=== PATIENT | male | born 1945 | race Caucasian/White ===

== ENCOUNTER 2019-07-27 11:18 | Inpatient (IN) | payer MEDICARE, SELFPAY ==
[2019-07-27] VITALS (13 sets, daily range): BP systolic 94–140; BP diastolic 48–89; PULSE 88–125; RESP 12–28; TEMP 36.6–38.5; O2SAT 96–100; BMI 21.7
--- NOTE | ~2019-07-27 | XR_ITS ---
EXAMINATION: XR chest 2V DATE: 07/27/2019 13:22 INDICATION: Fever and shortness of breath TECHNIQUE: PA and lateral views of the chest are obtained. COMPARISON: 06/20/2019 FINDINGS: The lungs are free of acute opacities. There is no pleural effusion or pneumothorax. Linear densities paralleling the right lateral chest wall likely reflect skin folds as lung markings appear to extend to the chest wall. The cardiomediastinal silhouette is normal. There is moderate thoracic spondylosis. IMPRESSION: 1. No acute cardiopulmonary abnormality. Reviewed, dictated and finalized at location A. ARCH [employer] TECHNOLOGIST
--- NOTE | 2019-07-27 11:49 | ECG_ITS ---
Measurements Intervals [place] Rate: 113 P: -32 MD: 188 QRS: -26 QRSD: 100 T: 56 QT: 332 QTc: 456 Interpretive Statements SINUS OR ECTOPIC ATRIAL TACHYCARDIA BORDERLINE T WAVE ABNORMALITY IN ANTEROLAT/INF LEADS- CONSIDER ISCHEMIA BASELINE ARTIFACT- I, II, III, AVR, AVL ABNORMAL ECG Electronically Signed On 07-27-2019 13:57:59 STAFF NUCLEAR WEAPONS OFFICER by Matt Mendiola D.O.
--- NOTE | 2019-07-27 12:11 | ED.WEAKNESS ---
HPI - Weakness General Chief complaint: Weakness Stated complaint: WEAKNESS Time Seen by Provider: 07/27/19 12:09 Source: patient and family Mode of arrival: EMS Limitations: no limitations History of Present Illness HPI Narrative: Pt is a 73 y/o male who presents to the ED, via EMS, with c/o generalized weakness. Per family, pt is supposed to have a CABG done in August by Dr. Corona at [facility]. His call circuit worker is Dr. Steinberg, and pt had a cardiac catheterization done a couple of weeks ago by Dr. Oshea. Pt had a carotid doppler and a cardiac MRI done yesterday and he had PINKY feet MRI done today. He is waiting for the results of his tests before he can have his surgery. Pt has a H/O DM and has PINKY feet wounds that he had surgery on in January (7 months ago). His PINKY feet wounds are still healing and he has wound care dress his wounds every week. Pt is supposed to be at his hardness tester for his anemia but he was too weak to get there. Pt reports fever, chills, sweats, rt shooting CP, cough, and rhinorrhea. He denies sore throat, dysuria, or frequency. Per family, pt was confused this morning and was fatigued. He was too weak to get to the bathroom that he defecated on himself. Pt denies recent foreign travel. His vascular surgeon is Dr. Bansal. Complaint: generalized weakness Duration: constant Location: generalized Associated symptoms: chest pain (rt), confusion, diaphoresis, fever/chills and other (cough, rhinorrhea) Related Data Home Medications Medication Instructions Recorded Confirmed atorvastatin 20 mg tablet 20 mg PO DAILY 04/30/19 07/27/19 clopidogrel 75 mg tablet 75 mg PO DAILY 04/30/19 07/09/19 insulin lispro 100 unit/mL 100 unit SUB-Q DAILY ml 04/30/19 07/09/19 subcutaneous cartridge omeprazole 40 mg capsule,delayed 40 mg PO DAILY 04/30/19 07/27/19 release aspirin 81 mg PO DAILY 06/20/19 07/09/19 cyanocobalamin (vitamin B-12) 1,000 mcg PO DAILY 06/20/19 07/10/19 hydralazine 50 mg PO BID 06/20/19 07/09/19 fludrocortisone 0.1 mg PO TID 07/09/19 07/09/19 levothyroxine 112 mcg PO DAILY 07/10/19 07/27/19 potassium chloride 20 meq PO DAILY 07/10/19 07/27/19 meclizine 25 mg PO TID PRN 07/27/19 07/27/19 Allergies Allergy/AdvReac Type Severity Reaction Status Date / Time No Known Allergies Allergy Verified 06/20/19 16:50 Review of Systems Review of Systems: All systems reviewed & are unremarkable except as noted in HPI and below Constitutional: Constitutional: Reports chills, Reports fatigue, Reports fever(s), Reports weakness (generalized) and Reports other (sweats) ENT: Reports nasal discharge and Denies sore throat Cardiovascular: Cardiovascular: Reports chest pain (rt shooting) Respiratory: Respiratory: Reports cough Genitourinary: Genitourinary: Denies dysuria and Denies urinary frequency [facility] Past Medical History Medical History (Updated 07/27/19 @ 17:41 by Justin Gruber MD) Acute diastolic CHF (congestive heart failure) Amputation of toe of left foot Left 1st Amputation of toe of right foot Right 2nd Chronic anemia Chronic GERD Chronic kidney disease Coronary artery disease involving [place] coronary artery of [place] heart Non STEMI in November 2013. He had angioplasty to the first diagonal with failed intervention to the OM2. He is followed by Dr. Jameel Steinberg. Diabetic foot ulcers Essential hypertension Fracture of both ankles Fracture of both arms History of osteomyelitis Hyperlipidemia Hypertension Hypothyroidism Insulin dependent diabetes mellitus Complicated by diabetic neuropathy. He has had several hospitalizations for diabetic ketoacidosis. Mixed hyperlipidemia Myocardial infarction x3 Nose fracture Orthostasis PAD (peripheral artery disease) Patient of Dr. Bansal. Vertigo Surgical History Surgical History Status post amputation of toe Left great toe amputated the MP joint in April 2009 for osteomyelitis. Distal
[2019-07-27 12:23] LABS: Basophils Absolute Auto 0.1 K/mm3 (0.0-0.1); Basophils Percent Auto 0.6 % (0.2-1.2); Eosinophils Percent Auto 0.2 % (0-4.4); Hematocrit 29.4 % (42.0-52.0); Immature Granulocyte Absolute 0.14 K/mm3 (0.00-0.031); Immature Granulocyte Percent A 0.8 % (0-0.5); Lymphocytes Absolute Auto 0.65 K/mm3 (0.9-3.2); Lymphocytes Percent Auto 3.5 % (18.3-44.2); Mean Corpuscular HGB Conc 30.6 g/dl (32-36); Mean Corpuscular Hemoglobin 21.9 pg (26-34); Mean Corpuscular Volume 71.5 fl (80-100); Mean Platelet Volume 10.9 fl (7.4-10.4); Monocytes Absolute Auto 0.8 K/mm3 (0.1-0.6); Monocytes Percent Auto 4.2 % (2.6-8.5); Neutrophils Absolute Auto 16.8 K/mm3 (1.3-6.7); Neutrophils Percent Auto 90.7 % (45.5-73.1); Platelet Count Result 368 k/mm3 (150-375); Red Blood Count 4.11 M/mm3 (4.6-6.20); Red Cell Distribution Width 22.3 % (11.5-14.5); White Blood Count 18.5 K/mm3 (4.5-10.0)
[2019-07-27 12:39] LABS: Alanine Aminotransferase 19 U/L (4-50); Albumin Level 4.5 g/dL (3.5-5.1); Alkaline Phosphatase 116 U/L (38-126); Aspartate Amino Transferase 25 U/L (17-59); Bilirubin,Total 0.4 mg/dL (0.2-1.3); Blood Urea Nitrogen 27 mg/dL (9-20); Calcium 9.6 mg/dL (8.4-10.2); Carbon Dioxide 20 mmol/L (22-30); Chloride 93 mmol/L (98-107); Estimated Glomerular Filt Rate 54; Glucose 367 mg/dL (75-110); Lactic Acid Reflex 2.1 mmol/L (0.7-2.1); Potassium 4.9 mmol/L (3.4-5.0); Sodium 131 mmol/L (137-145)
[2019-07-27 13:30] LABS: Add Urine Microscopic? YES; Appearance Urine Cloudy (Clear); Bilirubin Urine Negative (Negative); Blood Urine Negative (Negative); Color Urine Yellow (Yellow); Glucose Urine UA 3+ mg/dL (Negative); Ketones Urine 1+ mg/dL (Negative); Leukocyte Esterase Ur 3+ LEU/UL (Negative); Nitrate Urine Negative (Negative); Protein Urine 1+ mg/dL (Negative); Specific Grav Ur 1.014 (1.001-1.035); Urobilinogen Urine Negative mg/dL (<2.0); WBC Urine >75 /hpf
[2019-07-27] MEDS: SODIUM CHLORIDE 0.9% IV 500 ML 999 ML IV CONT (14:16)
--- NOTE | 2019-07-27 14:20 | PC.NURSE ---
lab to add on crp and esr
[2019-07-27 14:25] LABS: Glucose Point of Care 353 (65-105)
[2019-07-27 14:51] LABS: Erythrocyte Sedimentation Rate 79 mm/hr (0-20)
[2019-07-27 15:22] LABS: Reflex Lactic Acid Yes or No Add Lactic
[2019-07-27] MEDS: INSULIN HUMAN REGULAR (*BKC) 100 UNITS/ML IV PUSH (15:35)
[2019-07-27 16:16] LABS: Glucose Point of Care 335 (65-105)
--- NOTE | 2019-07-27 17:02 | PM.CNGS ---
Assessment and Plan Assessment and plan (1) Diabetic foot ulcers: Qualifiers: Diabetic foot ulcer location: toe Diabetes mellitus type: type 2 Laterality: unspecified laterality Non-pressure ulcer stage: with bone involvement without evidence of necrosis Qualified Code(s): E11.621 - Type 2 diabetes mellitus with foot ulcer; L97.506 - Non-pressure chronic ulcer of other part of unspecified foot with bone involvement without evidence of necrosis Code(s): E11.621 - Type 2 diabetes mellitus with foot ulcer; L97.509 - Non-pressure chronic ulcer of other part of unspecified foot with unspecified severity Status: Acute Assessment and Plan: Patient presents with chronic foot wounds and has been following Dr. Bansal, a vascular surgeon at [facility]. There is some purulence drainage coming from the left lateral foot wound. Will begin applying silver gel topically to each of the wounds and continue to monitor these wounds over the weekend. I will have to review the MRI with Radiology. The area of concerning osteomyelitis does not appear to correlate with the area where the worst wound is. This may be a chronic finding based on his prior surgeries. He is currently on broad-spectrum antibiotics. Will continue to follow patient's overall condition. (2) Amputation of toe of right foot: Code(s): S98.131A - Complete traumatic amputation of one right lesser toe, initial encounter Status: Acute (3) Amputation of toe of left foot: Code(s): S98.132A - Complete traumatic amputation of one left lesser toe, initial encounter Status: Acute (4) PAD (peripheral artery disease): Code(s): I73.9 - Peripheral vascular disease, unspecified Status: Acute (5) Insulin dependent diabetes mellitus: Code(s): E11.9 - Type 2 diabetes mellitus without complications; Z79.4 - halfway (current) use of insulin Status: Acute History of Present Illness Consult details Consult date: 07/27/19 Narrative: This is a 73-year-old man who presented to the emergency department today with complaints of feeling poorly and having bilateral foot wounds. The patient has chronic bilateral foot wounds that have been managed by Dr. Bansal. He underwent multiple surgeries for these foot wounds. He has had a left great toe amputation as well as multiple other toe amputations on both feet. He feels that the left foot has been having more problems lately with wounds. He has a history of peripheral vascular disease and diabetes that have complicated the healing process of both of these. Review of Systems Review of Systems: All systems reviewed & are unremarkable except as noted in HPI and below Eyes: Eyes: Denies change in vision ENT: Denies hearing loss, Denies neck pain and Denies sore throat Cardiovascular: Cardiovascular: Denies chest pain and Denies dyspnea Respiratory: Respiratory: Denies cough, Denies dyspnea and Denies wheezing Genitourinary: Genitourinary: Denies hematuria and Denies dysuria Musculoskeletal: Musculoskeletal: Denies arthralgias, Denies joint swelling and Denies neck pain Integumentary/Breasts: Skin/Breast: Reports non-healing lesions (Bilateral foot wounds) Allergic/Immunologic: Allergic/Immunologic: Denies wheezing [facility] Past Medical History Medical History Acute diastolic CHF (congestive heart failure) Amputation of toe of left foot Left 1st Amputation of toe of right foot Right 2nd Chronic anemia Chronic GERD Chronic kidney disease Coronary artery disease involving [place] coronary artery of [place] heart Non STEMI in November 2013. He had angioplasty to the first diagonal with failed intervention to the OM2. He is followed by Dr. Jameel Steinberg. Diabetic foot ulcers Essential hypertension Fracture of both ankles Fracture of both arms History of osteomyelitis Hyperlipidemia Hypertension Hypothyroidism Insulin depen
--- NOTE | 2019-07-27 17:20 | PC.NURSE ---
This patient, Miah Chambers, was admitted to Medical Room 342-01. Patient/family oriented to hospital policies and general routines including ID bracelet, bed and alarms, visiting hours, pain management, procedures, bathroom and other care routines, personal items, smoking policy, room service/diet, and visiting hours. Valuables list has been completed. Information on how to activate the Rapid Response Team has been discussed. Patient/Family are encouraged to report perceived risks to care and to ask questions if they do not understand what they are told or what they should do.
[2019-07-27 17:37] LABS: Glucose Point of Care 351 (65-105)
--- NOTE | 2019-07-27 20:04 | PC.NURSE ---
After multiple attempts to reach Hospitalist Adeel. I left a message that upon my physical assessment of patient that he has no insulin pump attached to his body.
[2019-07-27] MEDS: ONDANSETRON INJ 4 MG/2 ML VIAL IV PUSH (20:26)
[2019-07-27] MEDS: INSULIN ASPART (*BKC) 100 UNITS/ML 8 UNITS SUB-Q (20:31)
[2019-07-27] MEDS: INSULIN GLARGINE (*BKC) 100 UNITS/ML 20 UNITS SUB-Q (20:58)
[2019-07-27] MEDS: INSULIN ASPART (*BKC) 100 UNITS/ML 10 UNITS SUB-Q (20:59)
[2019-07-27] MEDS: SILVERGEL (ELTA) 45 ML 1 APPLIC TOPICAL (21:03)
[2019-07-27] MEDS: carvediloL 6.25 MG TABLET PO (21:03)
[2019-07-27 21:36] LABS: Glucose Point of Care > 500 (65-105)
[2019-07-27 21:43] LABS: Blood Urea Nitrogen 30 mg/dL (9-20); Calcium 8.5 mg/dL (8.4-10.2); Carbon Dioxide 13 mmol/L (22-30); Chloride 91 mmol/L (98-107); Estimated CRCL calculation 33 ml/min; Estimated Glomerular Filt Rate 42; Glucose 620 mg/dL (75-110); Potassium 5.1 mmol/L (3.4-5.0); Sodium 126 mmol/L (137-145)
[2019-07-27 22:17] LABS: Magnesium 1.6 mg/dL (1.6-2.3); Phosphorus 5.8 mg/dL (2.5-4.5)
--- NOTE | 2019-07-27 22:30 | PC.NURSE ---
REPORT CALLED TO
--- NOTE | 2019-07-27 23:21 | PM.IMHP ---
H&P: HPI History of Present Illness Chief complaint: Weakness Narrative: Date and time of patient contact: 07/27/2019 at 11:55 p.m. Miah Chambers is a 73 year old male with a complicated past medical history including ischemic cardiomyopathy, peripheral artery disease, poorly controlled insulin-dependent diabetes, and chronic diabetic foot wounds who presented to the ER for weakness. Source of information is ER records and past medical records. The patient himself is a poor historian. The patient had evidently had an outpatient cardiac MRI at [facility] 07/26/2019. The patient reports he has been short of breath since shortly after [place] and had an outpatient cardiac catheterization 07/10/2019 which demonstrated a new ischemic cardiomyopathy. He has scheduled to have a 5 vessel CABG at [facility] in August. However given his chronic foot wounds he had a MRI performed of his feet to rule out infection before he could have his bypass procedure. The MRI of his feet demonstrated possible osteomyelitis of the left foot. The patient was post fall with his corporate officer today but has been too weak to get to the visit. The patient was found to be confused and fatigued on the morning of the . He was too weak to get to the bathroom. He defecated on himself. Patient evidently also reported fever, chills, sweats, cough and rhinorrhea. At the time of my evaluation the patient denies any cough or rhinorrhea. He is alert and oriented to person, place and time but is confused as to recent events. He did report pain right shooting chest pain to the ER staff. He denies any chest pain at the time of my evaluation. He was initially admitted to the medical floor. However the patient had taken is insulin pump off either the morning of coming to the hospital or the day prior. He is unable to give any information regarding his glucose management. Before I could see the patient patient began having vomiting, diaphoresis, tachycardia, and tachypnea. A stat BMP was ordered which demonstrated the patient was in DKA. The patient had received sliding scale insulin with additional insulin due to hyperglycemia prior to the BMP. Despite these measures the patient's glucoses were 620. The patient was transferred to the ICU for insulin drip per DKA protocol. Nursing staff reported to me that the patient was incontinent of a small amount of brown stool when he arrived to the ICU. He denies any dysuria or hematuria. Review of Systems Review of Systems: Narrative: Except as documented in the HPI, all other systems were reviewed and are negative. However reliability of the review of systems is questionable given the patient is a poor historian. [facility] Past Medical History Medical History (Updated 07/27/19 @ 23:42 by Renu Cervantes, DO) Amputation of toe of left foot Left 1st Amputation of toe of right foot Right 2nd Chronic anemia Chronic GERD Chronic kidney disease Coronary artery disease involving [place] coronary artery of [place] heart Non STEMI in November 2013. He had angioplasty to the first diagonal with failed intervention to the OM2. He is followed by Dr. Jameel Steinberg. Cardiac catheterization 07/10/2019 demonstrated multiple vessel coronary artery disease Diabetic foot ulcers Essential hypertension Fracture of both ankles Fracture of both arms History of osteomyelitis Hyperlipidemia Hypothyroidism Insulin dependent diabetes mellitus Complicated by diabetic neuropathy. He has had several hospitalizations for diabetic ketoacidosis. Ischemic cardiomyopathy With new ischemic cardiomyopathy June 2019 EF 25-30% Mixed hyperlipidemia Myocardial infarction x3 Nose fracture Orthostasis No longer on midodrine given his new systolic dysfunction noted June 2019 PAD (peripheral artery disease) Patient of Dr. Bansal. Vertigo Surgical History Surgical History Status po
[2019-07-27 23:40] LABS: Glucose Point of Care 415 (65-105)
--- NOTE | 2019-07-27 23:52 | PC.NURSE ---
BECKIAR FAXED TO ICU FOR PATIENT TRANSFER. REPORT CALLED TO CONCEPCION. FAMILY PIZARRO (DTR) NOTIFIED OF TRANSFER.
--- NOTE | 2019-07-27 23:56 | PC.NURSE ---
2320 PATIENT TRANSFERED TO ICU-11 VIA BED. CHART AND MEDS GIVEN TO RECEIVING NURSE.
--- NOTE | 2019-07-27 23:58 | PC.NURSE ---
This patient, Miah Chambers, was transferred to [ ] on 07/27/19 at 2359. Personal belongings sent with patient. Belongings list checked and signed with receiving [ICU 11 ]. Report given to [CONCEPCION]. Appropriate documentation sent with patient.
[2019-07-28] VITALS (17 sets, daily range): BP systolic 83–126; BP diastolic 47–73; PULSE 81–101; RESP 14–20; TEMP 37–37.6; O2SAT 97–100
[2019-07-28] MEDS: INSULIN HUMAN REGULAR (*BKC) 100 UNITS in SODIUM CHLORIDE 0.9% IV 99 ML 7.1 UNITS IV CONT (00:19)
[2019-07-28 00:24] LABS: Blood Urea Nitrogen 32 mg/dL (9-20); Calcium 8.1 mg/dL (8.4-10.2); Carbon Dioxide 18 mmol/L (22-30); Chloride 93 mmol/L (98-107); Estimated CRCL calculation 35 ml/min; Estimated Glomerular Filt Rate 46; Glucose 413 mg/dL (75-110); Sodium 125 mmol/L (137-145)
[2019-07-28 00:57] LABS: Glucose Point of Care 395 (65-105)
[2019-07-28 01:16] LABS: Glucose Point of Care > 500 (65-105)
[2019-07-28] MEDS: SODIUM CHLORIDE 0.9% IV 1,000 ML 100 ML IV CONT (01:28)
[2019-07-28 01:38] LABS: Glucose Point of Care 303 (65-105)
[2019-07-28 02:45] LABS: Glucose Point of Care 251 (65-105)
--- NOTE | 2019-07-28 03:23 | PC.NURSE ---
PATIENT TRANSFERRED FROM [facility] VIA BED ON 07/27/19 AT 2330. TELE MONITOR APPLIED, B/P 102/53, POC 415. PATIENT IS ALERT AND ORIENTED X3 BUT FORGETFUL OF RECENT EVENTS. ORIENTED TO ROOM, CALL LIGHT SYSTEM, AND CARE PLAN. STATES UNDERSTANDING DR STILES AT BEDSIDE.
[2019-07-28 04:00] LABS: Glucose Point of Care 152 (65-105)
[2019-07-28] MEDS: KCL 20 MEQ/D5/0.45% SOD CHL 1,000 ML 100 ML IV CONT (04:01)
[2019-07-28 05:05] LABS: Blood Urea Nitrogen 34 mg/dL (9-20); Calcium 8.2 mg/dL (8.4-10.2); Carbon Dioxide 22 mmol/L (22-30); Chloride 97 mmol/L (98-107); Estimated CRCL calculation 33 ml/min; Estimated Glomerular Filt Rate 42; Glucose 116 mg/dL (75-110); Potassium 3.8 mmol/L (3.4-5.0); Sodium 130 mmol/L (137-145)
[2019-07-28 05:05] LABS: Glucose Point of Care 105 (65-105)
[2019-07-28 06:08] LABS: Glucose Point of Care 93 (65-105)
[2019-07-28 07:09] LABS: Glucose Point of Care 119 (65-105)
[2019-07-28] MEDS: INSULIN HUMAN REGULAR (*BKC) 100 UNITS/ML SUB-Q ×2 (08:27→12:49)
[2019-07-28] MEDS: INSULIN GLARGINE (*BKC) 100 UNITS/ML 15 UNITS SUB-Q ×2 (08:28→21:45)
[2019-07-28 08:31] LABS: Glucose Point of Care 115 (65-105)
[2019-07-28 09:27] LABS: Glucose Point of Care 97 (65-105)
[2019-07-28] MEDS: INSULIN ASPART (*BKC) 100 UNITS/ML SUB-Q ×3 (12:48→23:58)
[2019-07-28 12:55] LABS: Glucose Point of Care 209 (65-105)
--- NOTE | 2019-07-28 13:02 | WPDCNINT ---
Assessment and Plan Assessment and plan (1) Acute renal injury: Code(s): N17.9 - Acute kidney failure, unspecified Status: Acute Assessment and Plan: Monitor renal parameters. Monitor electrolytes and urine output. (2) DKA, type 1, not at goal: Code(s): E10.10 - Type 1 diabetes mellitus with ketoacidosis without coma Status: Acute Assessment and Plan: Gap has already been closed. He was transition to basal bolus insulin with Lantus and regular insulin. He is normally on a 1.1 unit per our insulin from midnight to 6:00 a.m. and 1.4 units/hour from 6:00 a.m. until midnight. Consider endocrine consult for transitioning him back to his insulin pump. Check hemoglobin A1c. Check BMP later today to make sure he continued to have a closed anion gap. (3) Osteomyelitis: Qualifiers: Laterality: right Osteomyelitis location: foot Osteomyelitis type: unspecified type Qualified Code(s): M86.9 - Osteomyelitis, unspecified Code(s): M86.9 - Osteomyelitis, unspecified Status: Acute Assessment and Plan: Continue Zosyn and vancomycin. Follow cultures. Surgery consult recommendation appreciated. surgery service will evaluate MRI with the radiologist and, with further plans. (4) Open wnd foot-complicated: Qualifiers: Encounter type: initial encounter Laterality: right Qualified Code(s): S91.301A - Unspecified open wound, right foot, initial encounter Code(s): S91.309A - Unspecified open wound, unspecified foot, initial encounter Status: Acute Assessment and Plan: Continue antibiotics. (5) Chronic anemia: Code(s): D64.9 - Anemia, unspecified Status: Acute Assessment and Plan: Monitor. (6) Hypokalemia: Code(s): E87.6 - Hypokalemia Status: Acute Assessment and Plan: Replace potassium and rest of the electrolytes. Monitor BMP later today. (7) PAD (peripheral artery disease): Code(s): I73.9 - Peripheral vascular disease, unspecified Status: Acute Assessment and Plan: Surgery evaluation appreciated. Continue antibiotics for now. (8) Coronary artery disease involving [place] coronary artery of [place] heart: Qualifiers: Associated angina: without angina Qualified Code(s): I25.10 - Atherosclerotic heart disease of [place] coronary artery without angina pectoris Code(s): I25.10 - Atherosclerotic heart disease of [place] coronary artery without angina pectoris Status: Acute Assessment and Plan: He is scheduled to have CABG in August at [facility]. his osteomyelitis would need to be cleared before he can go for the surgery. Additional Plan Follow-up BMP done 4 hours after stopping insulin drip showing anion gap being 12 with bicarb 19. He will be downgraded to the floor today. Mineral Industry Teacher Consult Note Consult date: 07/28/19 Time Seen: 08:30 HPI: Miah Chambers is a 73 year old male With past medical history of ischemic cardiomyopathy, peripheral vascular disease, poorly-controlled insulin-dependent diabetes mellitus and chronic diabetic foot ulcer who came to the ED with weakness. He was a poor historian. He was complaining of shortness of breath as well in addition to confusion. He had fecal incontinence 2. He did mention to have fever chills sweats and cough as well. He denied any chest pain. He was initially admitted to the floor. His insulin pump. Apparently for having MRI of the foot. He is supposed to be on 1.1 unit insulin Matheus from midnight to 6:00 a.m. and 1.4 unit from 6:00 a.m. until midnight. He was initially admitted to the floor. Later he developed vomiting diaphoresis tachycardia and tachypnea. A BMP was performed and he was found to have DKA. His blood glucose was elevated. His anion gap was 15 with bicarb being 18. He was 14 his to the ICU. He was started on insulin drip and IV fl
[2019-07-28 13:23] LABS: Blood Urea Nitrogen 28 mg/dL (9-20); Calcium 8.1 mg/dL (8.4-10.2); Carbon Dioxide 19 mmol/L (22-30); Chloride 96 mmol/L (98-107); Estimated CRCL calculation 43 ml/min; Estimated Glomerular Filt Rate 54; Glucose 218 mg/dL (75-110); Sodium 127 mmol/L (137-145)
[2019-07-28 13:28] LABS: Beta-Hydroxybutyrate/Acetoacetate 0.33 mmol/L (0.02-0.27)
[2019-07-28 13:29] LABS: Hemoglobin A1C 9.1 % (<5.7)
--- NOTE | 2019-07-28 15:16 | PM.PNGS ---
Progress Note: A&P Assessment and Plan (1) Diabetic foot ulcers: Qualifiers: Diabetic foot ulcer location: toe Diabetes mellitus type: type 2 Laterality: unspecified laterality Non-pressure ulcer stage: with bone involvement without evidence of necrosis Qualified Code(s): E11.621 - Type 2 diabetes mellitus with foot ulcer; L97.506 - Non-pressure chronic ulcer of other part of unspecified foot with bone involvement without evidence of necrosis Code(s): E11.621 - Type 2 diabetes mellitus with foot ulcer; L97.509 - Non-pressure chronic ulcer of other part of unspecified foot with unspecified severity Status: Acute Assessment and Plan: Continue daily dressing changes. If the wound continues to show improvement, he may not need any further surgical debridement. With patient has significant peripheral vascular disease and poorly controlled diabetes, he is at high risk for requiring forefoot or below-knee amputation at some point. (2) PAD (peripheral artery disease): Code(s): I73.9 - Peripheral vascular disease, unspecified Status: Acute (3) Amputation of toe of right foot: Code(s): S98.131A - Complete traumatic amputation of one right lesser toe, initial encounter Status: Acute (4) Amputation of toe of left foot: Code(s): S98.132A - Complete traumatic amputation of one left lesser toe, initial encounter Status: Acute Subjective Subjective Date/Time Seen: 07/28/19 15:16 Patient reports no pain with his foot. He is currently in the ICU for possible diabetic ketoacidosis. Exam Extrem: Other: Left foot wound dressing in place. No significant purulence drainage. No tenderness or erythema extending up the foot. Objective Data Vital Signs Vital Signs: Vital Signs - 24 hr 07/27/19 16:15 07/27/19 16:50 07/27/19 17:59 Temperature 36.6 C Pulse Rate 93 88 104 H Respiratory Rate 17 12 16 Blood Pressure 94/52 L 94/52 L 138/51 L Pulse Oximetry 100 100 07/27/19 20:00 07/27/19 21:03 07/27/19 21:08 Temperature 37.6 C H Pulse Rate 112 H 125 H 118 H Respiratory Rate 28 H Blood Pressure 131/58 L Pulse Oximetry 96 07/27/19 23:30 07/28/19 00:00 07/28/19 02:00 Temperature 37.2 C Pulse Rate 99 90 91 Respiratory Rate 22 H 20 Blood Pressure 102/53 L 87/47 L Pulse Oximetry 97 97 07/28/19 03:16 07/28/19 04:00 07/28/19 05:00 Temperature 37.2 C Pulse Rate 91 88 82 Respiratory Rate 16 16 16 Blood Pressure 83/50 L 88/59 L 96/56 L Pulse Oximetry 100 99 100 07/28/19 06:00 07/28/19 07:00 07/28/19 08:00 Temperature 37.0 C Pulse Rate 82 83 81 Respiratory Rate 16 16 14 Blood Pressure 96/56 L 103/73 102/63 Pulse Oximetry 100 99 98 07/28/19 10:00 07/28/19 12:00 Temperature Pulse Rate 83 82 Respiratory Rate 14 18 Blood Pressure 122/67 121/67 Pulse Oximetry 100 100 Intake/Output Intake/Output: Intake & Output 07/25/19 07/26/19 07/27/19 07/28/19 23:59 23:59 23:59 23:59 Intake Total 1090 1790 Output Total 200 800 Balance 890 990 Meds/Results Medications: Active Medications Generic Name Dose Route Start Last Admin Trade Name Freq PRN Reason Stop Dose Admin Acetaminophen 650 mg 07/27/19 16:12 Tylenol Tablet PO Q4H PRN Mild Pain (1-3) or Fever Dextrose 12.5 gm 07/28/19 07:43 Dextrose 50% Syringe IV PUSH PRN PRN Hypoglycemia Protocol Glucagon 1 mg 07/28/19 07:43 Glucagon For Inj IM PRN PRN Hypoglycemia Protocol Glucose 15 gm 07/28/19 07:43 Glutose 15 PO PRN PRN Hypoglycemia Protocol Piperacillin Sod/Tazobactam Sod 2.25 gm in 50 mls @ 100 mls/hr 07/28/19 00:00 07/28/19 13:44 Zosyn 2.25 Gm/D5w 50 Ml IVPB Infused Q6HR ILIANA Infusion Vancomycin HCl 1,000 mg in 250 mls @ 250 mls/hr 07/28/19 16:00 Vancomycin 1,000 Mg/D5w 250 Ml IVPB Q24H ILIANA Dextrose 1,000 mls @ 100 mls/hr 07/28/19 07:43 Dextrose 5% 1
--- NOTE | 2019-07-28 16:38 | PC.NURSE ---
This patient, Miah Chambers, was transferred to [ 200] on 07/28/19 at 1600. Personal belongings sent with patient. Belongings list checked and signed with receiving [ ]. Report given to [ vicente almeida]. Appropriate documentation sent with patient.
[2019-07-28 17:17] LABS: Glucose Point of Care 336 (65-105)
[2019-07-28 17:38] LABS: Blood Urea Nitrogen 25 mg/dL (9-20); Calcium 8.2 mg/dL (8.4-10.2); Carbon Dioxide 19 mmol/L (22-30); Chloride 93 mmol/L (98-107); Estimated CRCL calculation 43 ml/min; Estimated Glomerular Filt Rate 54; Glucose 328 mg/dL (75-110); Potassium 4.1 mmol/L (3.4-5.0); Sodium 125 mmol/L (137-145)
--- NOTE | 2019-07-28 17:49 | PM.IMPN ---
Progress Note: A&P Assessment and Plan (1) DKA (diabetic ketoacidoses): Code(s): E11.10 - Type 2 diabetes mellitus with ketoacidosis without coma Status: Acute Assessment and Plan: 07/28/19 17:49 Patient is 73-year-old male with history of type 1 diabetes on insulin pump he has has severe coronary artery disease and is scheduled to have a 5 vessels CABG in 3 weeks, also has diabetic foot and concern the patient may have osteomyelitis he cannot have CABG until it is resolved get he is no longer has infection he presented emergency department was admitted for further evaluation initially he was admitted on this medical floor however later in the evening patient developed nausea or vomiting he had urine and fecal incontinence his blood sugar were elevated to 500 and he was in DKA he was transferred to ICU started on IV insulin as well as hydration today his blood sugars are trending down his gait is close his clinically stable he is on long-acting insulin as well as on sliding scale, patient he denies any chest pain shortness of breath palpitation fever or chills, main concern is he wants to make sure the infection is resolved so he can have a CABG is scheduled. Patient is seen by surgery team does not recommend any debridement however concern the patient with a uncontrolled diabetes peripheral vascular disease may eventually need forefoot amputation or amputation below the knee. Patient currently is on long-acting insulin as well as sliding scale will not start patient insulin pump at the present time and monitor with current regimen (2) Diabetic foot ulcers: Qualifiers: Diabetic foot ulcer location: toe Diabetes mellitus type: type 2 Laterality: unspecified laterality Non-pressure ulcer stage: with bone involvement without evidence of necrosis Qualified Code(s): E11.621 - Type 2 diabetes mellitus with foot ulcer; L97.506 - Non-pressure chronic ulcer of other part of unspecified foot with bone involvement without evidence of necrosis Code(s): E11.621 - Type 2 diabetes mellitus with foot ulcer; L97.509 - Non-pressure chronic ulcer of other part of unspecified foot with unspecified severity Status: Acute Assessment and Plan: Patient is seen by surgery team does not suspect the patient is a candidate for surgical debridement however they are concerned patient will need amputation of the foot or below the knee (3) Acute renal injury: Code(s): N17.9 - Acute kidney failure, unspecified Status: Acute Assessment and Plan: Likely secondary to dehydration due to DKA patient is being hydrated will monitor kidney function (4) DKA, type 1, not at goal: Code(s): E10.10 - Type 1 diabetes mellitus with ketoacidosis without coma Status: Acute Assessment and Plan: Patient was in DKA the plan is above Subjective Date/time seen: 07/28/19 17:49 Patient is 73-year-old male with history of type 1 diabetes on insulin pump he has has severe coronary artery disease and is scheduled to have a 5 vessels CABG in 3 weeks, also has diabetic foot and concern the patient may have osteomyelitis he cannot have CABG until it is resolved get he is no longer has infection he presented emergency department was admitted for further evaluation initially he was admitted on this medical floor however later in the evening patient developed nausea or vomiting he had urine and fecal incontinence his blood sugar were elevated to 500 and he was in DKA he was transferred to ICU started on IV insulin as well as hydration today his blood sugars are trending down his gait is close his clinically stable he is on long-acting insulin as well as on sliding scale, patient he denies any chest pain shortness of breath palpitation fever or chills, main concern is he wants to make sure the infection is resolved so he can have a CABG is scheduled. Patient is seen by surgery team does not recommend any debridement however concern the p
[2019-07-28] MEDS: SILVERGEL (ELTA) 45 ML 1 APPLIC TOPICAL (18:35)
[2019-07-28 20:40] LABS: Glucose Point of Care 335 (65-105)
[2019-07-28 23:07] LABS: Glucose Point of Care 307 (65-105)
[2019-07-29] VITALS (19 sets, daily range): BP systolic 102–141; BP diastolic 49–69; PULSE 73–94; RESP 16–20; TEMP 36.8–37.7; O2SAT 98–100
[2019-07-29 02:34] LABS: Glucose Point of Care 226 (65-105)
[2019-07-29 05:14] LABS: Blood Urea Nitrogen 21 mg/dL (9-20); Calcium 8.1 mg/dL (8.4-10.2); Carbon Dioxide 23 mmol/L (22-30); Chloride 94 mmol/L (98-107); Estimated CRCL calculation 50 ml/min; Estimated Glomerular Filt Rate > 60; Glucose 235 mg/dL (75-110); Phosphorus 3.2 mg/dL (2.5-4.5); Potassium 3.9 mmol/L (3.4-5.0); Sodium 127 mmol/L (137-145)
[2019-07-29 06:13] LABS: Basophils Absolute Auto 0.1 K/mm3 (0.0-0.1); Basophils Percent Auto 0.6 % (0.2-1.2); Eosinophils Absolute Auto 0.2 K/mm3 (0-0.3); Eosinophils Percent Auto 2.4 % (0-4.4); Hematocrit 23.7 % (42.0-52.0); Hemoglobin 7.2 g/dL (14.0-18.0); Immature Granulocyte Absolute 0.05 K/mm3 (0.00-0.031); Immature Granulocyte Percent A 0.6 % (0-0.5); Lymphocytes Absolute Auto 1.42 K/mm3 (0.9-3.2); Lymphocytes Percent Auto 17.3 % (18.3-44.2); Mean Corpuscular HGB Conc 30.4 g/dl (32-36); Mean Corpuscular Hemoglobin 22.1 pg (26-34); Mean Corpuscular Volume 72.7 fl (80-100); Mean Platelet Volume 11.1 fl (7.4-10.4); Monocytes Absolute Auto 0.7 K/mm3 (0.1-0.6); Monocytes Percent Auto 8.6 % (2.6-8.5); Neutrophils Absolute Auto 5.8 K/mm3 (1.3-6.7); Neutrophils Percent Auto 70.5 % (45.5-73.1); Platelet Count Result 254 k/mm3 (150-375); Red Blood Count 3.26 M/mm3 (4.6-6.20); White Blood Count 8.2 K/mm3 (4.5-10.0)
[2019-07-29 08:07] LABS: Glucose Point of Care 257 (65-105)
[2019-07-29] MEDS: INSULIN ASPART (*BKC) 100 UNITS/ML SUB-Q ×4 (08:31→23:33)
[2019-07-29 12:49] LABS: Glucose Point of Care 305 (65-105)
[2019-07-29] MEDS: SILVERGEL (ELTA) 45 ML 1 APPLIC TOPICAL (13:41)
--- NOTE | 2019-07-29 14:16 | PM.PNGS ---
Progress Note: A&P Assessment and Plan (1) Diabetic foot ulcers: Qualifiers: Diabetic foot ulcer location: toe Diabetes mellitus type: type 2 Laterality: unspecified laterality Non-pressure ulcer stage: with bone involvement without evidence of necrosis Qualified Code(s): E11.621 - Type 2 diabetes mellitus with foot ulcer; L97.506 - Non-pressure chronic ulcer of other part of unspecified foot with bone involvement without evidence of necrosis Code(s): E11.621 - Type 2 diabetes mellitus with foot ulcer; L97.509 - Non-pressure chronic ulcer of other part of unspecified foot with unspecified severity Status: Acute Assessment and Plan: MRI findings do not mention any deep bone involvement with left lateral foot wound. Will have to look this over with radiologist tomorrow. Patient may be able to remain stable with local wound care for now, but he will most likely need eventual left transmetatarsal amputation or below knee amputation. Patient may benefit from Podiatry eval for possible partial foot amputation. (2) Osteomyelitis: Qualifiers: Laterality: right Osteomyelitis location: foot Osteomyelitis type: unspecified type Qualified Code(s): M86.9 - Osteomyelitis, unspecified Code(s): M86.9 - Osteomyelitis, unspecified Status: Acute (3) PAD (peripheral artery disease): Code(s): I73.9 - Peripheral vascular disease, unspecified Status: Acute Subjective Subjective Date/Time Seen: 07/29/19 14:16 no changes Exam Extrem: Other: Open wound to left 5th MTP joint, scant purulent drainage. Superficial ulcer on plantar surface of 1st metatarsal, but no exposed bone or purulent drainage. Objective Data Vital Signs Vital Signs: Vital Signs - 24 hr 07/28/19 16:00 07/28/19 17:13 07/28/19 18:00 Temperature 37.6 C Pulse Rate 96 99 94 Respiratory Rate 20 Blood Pressure 126/73 Pulse Oximetry 100 100 07/28/19 19:34 07/28/19 20:00 07/28/19 22:00 Temperature 37.6 C H Pulse Rate 89 88 84 Respiratory Rate 20 20 Blood Pressure 117/65 Pulse Oximetry 99 99 07/29/19 00:00 07/29/19 02:00 07/29/19 03:37 Temperature 37.7 C H 37.6 C Pulse Rate 80 73 81 Respiratory Rate 18 18 Blood Pressure 107/51 L 120/65 Pulse Oximetry 99 100 07/29/19 04:00 07/29/19 06:00 07/29/19 08:00 Temperature 37.1 C Pulse Rate 81 79 84 Respiratory Rate 18 16 Blood Pressure 104/49 L Pulse Oximetry 100 100 07/29/19 08:37 07/29/19 10:00 07/29/19 11:27 Temperature 37.0 C Pulse Rate 81 90 Respiratory Rate 20 Blood Pressure 141/69 H Pulse Oximetry 100 99 Intake/Output Intake/Output: Intake & Output 07/26/19 07/27/19 07/28/19 07/29/19 23:59 23:59 23:59 23:59 Intake Total 1090 2690 1420 Output Total 200 1100 2795 Balance 890 1590 -1375 Meds/Results Medications: Active Medications Generic Name Dose Route Start Last Admin Trade Name Freq PRN Reason Stop Dose Admin Acetaminophen 650 mg 07/27/19 16:12 Tylenol Tablet PO Q4H PRN Mild Pain (1-3) or Fever Aspirin 81 mg 07/29/19 09:00 Aspirin Ec PO QAM [facility] Atorvastatin Calcium 20 mg 07/29/19 09:00 Lipitor PO DAILY [facility] Carvedilol 6.25 mg 07/29/19 09:00 Coreg PO Q12HR [facility] Clopidogrel Bisulfate 75 mg 07/29/19 09:00 Plavix PO QAM [facility] Cyanocobalamin 1,000 mcg 07/29/19 09:00 Vitamin B-12 Tab PO QAM [facility] Dextrose 12.5 gm 07/28/19 07:43 Dextrose 50% Syringe IV PUSH PRN PRN Hypoglycemia Protocol Furosemide 40 mg 07/29/19 09:00 Lasix Tablet PO QAM [facility] Glucagon 1 mg 07/28/19 07:43 Glucagon For Inj IM PRN PRN Hypoglycemia Protocol Glucose 15 gm 07/28/19 07:43 Glutose 15 PO PRN PRN Hypoglycemia Protocol Hydralazine HCl 50 mg 07/29/19 09:00 Apresoline Tablet PO Q12HR [facility] Piperacillin Sod/Tazobactam Sod 2.25 gm in 50 mls @ 100
[2019-07-29 15:42] LABS: Vancomycin Trough 5.9 ug/mL (10.0-20.0)
[2019-07-29] MEDS: PANTOPRAZOLE 40 MG TABLET PO (15:54)
[2019-07-29] MEDS: carvediloL 6.25 MG TABLET PO ×2 (15:54→20:35)
[2019-07-29] MEDS: FUROSEMIDE 40 MG TABLET PO (15:55)
[2019-07-29] MEDS: CYANOCOBALAMIN 1,000 MCG TABLET 1000 MCG PO (15:55)
[2019-07-29] MEDS: ASPIRIN 81 MG ENTERIC TABLET PO (15:55)
[2019-07-29] MEDS: CLOPIDOGREL BISULFATE 75 MG TABLET PO (15:56)
[2019-07-29] MEDS: hydrALAZINE HCL 50 MG TABLET PO (15:56)
[2019-07-29] MEDS: ATORVASTATIN 20 MG TABLET PO (15:56)
[2019-07-29] MEDS: lisinopriL 10 MG TABLET PO (15:56)
[2019-07-29] MEDS: POTASSIUM CHLORIDE 20 MEQ TABLET.ER PO (15:57)
--- NOTE | 2019-07-29 16:27 | PM.IMPN ---
Progress Note: A&P Assessment and Plan (1) DKA (diabetic ketoacidoses): Code(s): E11.10 - Type 2 diabetes mellitus with ketoacidosis without coma Status: Acute Assessment and Plan: 07/29/19 16:27 Patient is 73-year-old male with history of type 1 diabetes on insulin pump he has has severe coronary artery disease and is scheduled to have a 5 vessels CABG in 3 weeks, also has diabetic foot and concern the patient may have osteomyelitis he cannot have CABG until it is resolved get he is no longer has infection he presented emergency department was admitted for further evaluation initially he was admitted on this medical floor however later in the evening patient developed nausea or vomiting he had urine and fecal incontinence his blood sugar were elevated to 500 and he was in DKA he was transferred to ICU started on IV insulin as well as hydration today his blood sugars are trending down his gait is close his clinically stable he is on long-acting insulin as well as on sliding scale, patient he denies any chest pain shortness of breath palpitation fever or chills, main concern is he wants to make sure the infection is resolved so he can have a CABG is scheduled. Patient is seen by surgery team does not recommend any debridement however concern the patient with a uncontrolled diabetes peripheral vascular disease may eventually need forefoot amputation or amputation below the knee. Patient currently is on long-acting insulin as well as sliding scale will not start patient insulin pump at the present time and monitor with current regimen, MRI of left is concerning for osteomylitis will CPM and consult Dr. Brewster for further recommendations. his family is present in the room. (2) Diabetic foot ulcers: Qualifiers: Diabetic foot ulcer location: toe Diabetes mellitus type: type 2 Laterality: unspecified laterality Non-pressure ulcer stage: with bone involvement without evidence of necrosis Qualified Code(s): E11.621 - Type 2 diabetes mellitus with foot ulcer; L97.506 - Non-pressure chronic ulcer of other part of unspecified foot with bone involvement without evidence of necrosis Code(s): E11.621 - Type 2 diabetes mellitus with foot ulcer; L97.509 - Non-pressure chronic ulcer of other part of unspecified foot with unspecified severity Status: Acute Assessment and Plan: Patient is seen by surgery team does not suspect the patient is a candidate for surgical debridement however they are concerned patient will need amputation of the foot or below the knee (3) Acute renal injury: Code(s): N17.9 - Acute kidney failure, unspecified Status: Acute Assessment and Plan: Likely secondary to dehydration due to DKA patient is being hydrated will monitor kidney function (4) DKA, type 1, not at goal: Code(s): E10.10 - Type 1 diabetes mellitus with ketoacidosis without coma Status: Acute Assessment and Plan: Patient was in DKA the plan is above Subjective Date/time seen: 07/29/19 16:27 Patient is 73-year-old male with history of type 1 diabetes on insulin pump he has has severe coronary artery disease and is scheduled to have a 5 vessels CABG in 3 weeks, also has diabetic foot and concern the patient may have osteomyelitis he cannot have CABG until it is resolved get he is no longer has infection he presented emergency department was admitted for further evaluation initially he was admitted on this medical floor however later in the evening patient developed nausea or vomiting he had urine and fecal incontinence his blood sugar were elevated to 500 and he was in DKA he was transferred to ICU started on IV insulin as well as hydration today his blood sugars are trending down his gait is close his clinically stable he is on long-acting insulin as well as on sliding scale, patient he denies any chest pain shortness of breath palpitation fever or chills, main concern is he wants to make sure the infec
[2019-07-29 16:54] LABS: Basophils Absolute Auto 0.1 K/mm3 (0.0-0.1); Basophils Percent Auto 0.9 % (0.2-1.2); Eosinophils Absolute Auto 0.2 K/mm3 (0-0.3); Hematocrit 25.8 % (42.0-52.0); Hemoglobin 7.7 g/dL (14.0-18.0); Immature Granulocyte Absolute 0.04 K/mm3 (0.00-0.031); Immature Granulocyte Percent A 0.5 % (0-0.5); Lymphocytes Absolute Auto 1.38 K/mm3 (0.9-3.2); Lymphocytes Percent Auto 18.5 % (18.3-44.2); Mean Corpuscular HGB Conc 29.8 g/dl (32-36); Mean Corpuscular Hemoglobin 21.8 pg (26-34); Mean Corpuscular Volume 73.1 fl (80-100); Mean Platelet Volume 10.6 fl (7.4-10.4); Monocytes Absolute Auto 0.7 K/mm3 (0.1-0.6); Monocytes Percent Auto 8.7 % (2.6-8.5); Neutrophils Absolute Auto 5.1 K/mm3 (1.3-6.7); Neutrophils Percent Auto 68.4 % (45.5-73.1); Platelet Count Result 250 k/mm3 (150-375); Red Blood Count 3.53 M/mm3 (4.6-6.20); Red Cell Distribution Width 23.3 % (11.5-14.5); White Blood Count 7.4 K/mm3 (4.5-10.0)
[2019-07-29 17:03] LABS: Hypochromasia 1+ (NORMAL); Ovalocytes 1+ (NORMAL); Platelet Estimate Adequate (Adequate)
[2019-07-29 17:16] LABS: Glucose Point of Care 351 (65-105)
[2019-07-29] MEDS: INSULIN GLARGINE (*BKC) 100 UNITS/ML 20 UNITS SUB-Q (20:35)
[2019-07-29 20:43] LABS: Glucose Point of Care 446 (65-105)
[2019-07-29] MEDS: INSULIN ASPART (*BKC) 100 UNITS/ML 8 UNITS SUB-Q (20:59)
[2019-07-29] MEDS: PIPERACILLIN/TAZOBACTAM SOD 2.25 GM in SODIUM CHLORIDE 0.9% IV 50 ML 100 ML IVPB (23:09)
[2019-07-29 23:22] LABS: Glucose Point of Care 401 (65-105)
[2019-07-30] VITALS (14 sets, daily range): BP systolic 101–134; BP diastolic 37–73; PULSE 69–88; RESP 18–20; TEMP 36.8–37.3; O2SAT 99–100
[2019-07-30 02:02] LABS: Glucose Point of Care 307 (65-105)
[2019-07-30] MEDS: VANCOMYCIN HCL 1,000 MG in SODIUM CHLORIDE 0.9% IV 250 ML IVPB (04:13)
[2019-07-30] MEDS: PIPERACILLIN/TAZOBACTAM SOD 2.25 GM in SODIUM CHLORIDE 0.9% IV 50 ML 100 ML IVPB (05:14)
[2019-07-30] MEDS: LEVOTHYROXINE SODIUM 112 MCG TABLET PO (05:16)
[2019-07-30 05:19] LABS: Estimated CRCL calculation 45 ml/min; Estimated Glomerular Filt Rate 59
--- NOTE | 2019-07-30 07:47 | WPDCDIQUERY2 ---
CDI Query Clarification Request -Two blood cultures positive for staph aureus -Urine culture positive for staph aureus -On arrival T 101.3, P 118, WBC 18.5, and lactic acid 2.1 -Dr Cervantes documented sepsis in H&P -No further mention of sepsis Please clarify if sepsis was ruled in or ruled out.
[2019-07-30] MEDS: INSULIN ASPART (*BKC) 100 UNITS/ML SUB-Q ×3 (07:50→16:48)
[2019-07-30] MEDS: carvediloL 6.25 MG TABLET PO ×2 (07:51→21:14)
[2019-07-30 08:04] LABS: Glucose Point of Care 318 (65-105)
[2019-07-30 08:42] LABS: Basophils Absolute Auto 0.1 K/mm3 (0.0-0.1); Basophils Percent Auto 0.8 % (0.2-1.2); Eosinophils Absolute Auto 0.3 K/mm3 (0-0.3); Eosinophils Percent Auto 4.1 % (0-4.4); Immature Granulocyte Absolute 0.02 K/mm3 (0.00-0.031); Immature Granulocyte Percent A 0.3 % (0-0.5); Lymphocytes Absolute Auto 1.32 K/mm3 (0.9-3.2); Lymphocytes Percent Auto 17.8 % (18.3-44.2); Mean Corpuscular HGB Conc 30.8 g/dl (32-36); Mean Corpuscular Hemoglobin 22.2 pg (26-34); Mean Corpuscular Volume 72.2 fl (80-100); Monocytes Absolute Auto 0.5 K/mm3 (0.1-0.6); Monocytes Percent Auto 7.2 % (2.6-8.5); Neutrophils Absolute Auto 5.2 K/mm3 (1.3-6.7); Neutrophils Percent Auto 69.8 % (45.5-73.1); Platelet Count Result 252 k/mm3 (150-375); Red Cell Distribution Width 23.4 % (11.5-14.5); White Blood Count 7.4 K/mm3 (4.5-10.0)
[2019-07-30 08:55] LABS: Alanine Aminotransferase 22 U/L (4-50); Albumin Level 3.1 g/dL (3.5-5.1); Alkaline Phosphatase 83 U/L (38-126); Aspartate Amino Transferase 31 U/L (17-59); Bilirubin,Total 0.1 mg/dL (0.2-1.3); Blood Urea Nitrogen 20 mg/dL (9-20); Calcium 8.6 mg/dL (8.4-10.2); Carbon Dioxide 23 mmol/L (22-30); Chloride 95 mmol/L (98-107); Estimated CRCL calculation 45 ml/min; Estimated Glomerular Filt Rate 59; Glucose 380 mg/dL (75-110); Magnesium 1.7 mg/dL (1.6-2.3); Potassium 4.2 mmol/L (3.4-5.0); Sodium 131 mmol/L (137-145)
[2019-07-30] MEDS: ASPIRIN 81 MG ENTERIC TABLET PO (09:09)
[2019-07-30] MEDS: CLOPIDOGREL BISULFATE 75 MG TABLET PO (09:09)
[2019-07-30] MEDS: ATORVASTATIN 20 MG TABLET PO (09:09)
[2019-07-30] MEDS: FUROSEMIDE 40 MG TABLET PO (09:09)
[2019-07-30] MEDS: lisinopriL 10 MG TABLET PO (09:09)
[2019-07-30] MEDS: POTASSIUM CHLORIDE 20 MEQ TABLET.ER PO (09:09)
[2019-07-30] MEDS: CYANOCOBALAMIN 1,000 MCG TABLET 1000 MCG PO (09:09)
[2019-07-30] MEDS: PANTOPRAZOLE 40 MG TABLET PO (09:09)
[2019-07-30 10:44] LABS: Glucose Point of Care 394 (65-105)
--- NOTE | 2019-07-30 12:18 | WPDINFPN2 ---
Progress Note: A&P Assessment and Plan (1) Osteomyelitis: Qualifiers: Laterality: right Osteomyelitis location: foot Osteomyelitis type: unspecified type Qualified Code(s): M86.9 - Osteomyelitis, unspecified Code(s): M86.9 - Osteomyelitis, unspecified Status: Acute Assessment and Plan: Chronic osteomyelitis L foot and foot ulcer, no acute infection REC Stop antibiotics, ok with me for CABG next month unless new developments in the meantime. Call if Qs Subjective Date/time seen: 07/30/19 12:18 Objective Data Vital Signs Vital Signs: Vital Signs - 24 hr 07/29/19 14:00 07/29/19 15:54 07/29/19 16:00 Temperature 37.0 C Pulse Rate 82 90 94 Respiratory Rate 16 Blood Pressure 124/66 Pulse Oximetry 100 07/29/19 18:00 07/29/19 19:55 07/29/19 20:00 Temperature 36.8 C Pulse Rate 87 74 75 Respiratory Rate 20 Blood Pressure 117/59 L Pulse Oximetry 98 07/29/19 20:35 07/29/19 22:00 07/29/19 23:11 Temperature 36.9 C Pulse Rate 77 73 73 Respiratory Rate 18 Blood Pressure 102/49 L Pulse Oximetry 99 07/30/19 00:00 07/30/19 02:00 07/30/19 04:00 Temperature 37.3 C Pulse Rate 80 70 69 Respiratory Rate 18 Blood Pressure 109/56 L Pulse Oximetry 99 07/30/19 06:00 07/30/19 08:00 07/30/19 08:22 Temperature 36.8 C Pulse Rate 69 71 71 Respiratory Rate 20 20 Blood Pressure 117/73 Pulse Oximetry 99 99 07/30/19 10:00 Temperature Pulse Rate 76 Respiratory Rate Blood Pressure Pulse Oximetry Intake/Output Intake/Output: Intake & Output 07/27/19 07/28/19 07/29/19 07/30/19 23:59 23:59 23:59 23:59 Intake Total 1090 2690 2300 1400 Output Total 200 1100 4920 600 Balance 890 1590 -2620 800 Meds/Results Medications: Active Medications Generic Name Dose Route Start Last Admin Trade Name Freq PRN Reason Stop Dose Admin Acetaminophen 650 mg 07/27/19 16:12 Tylenol Tablet PO Q4H PRN Mild Pain (1-3) or Fever Aspirin 81 mg 07/29/19 09:00 07/30/19 09:09 Aspirin Ec PO 81 mg QAM [facility] Administration Atorvastatin Calcium 20 mg 07/29/19 09:00 07/30/19 09:09 Lipitor PO 20 mg DAILY [facility] Administration Carvedilol 6.25 mg 07/29/19 09:00 07/30/19 07:51 Coreg PO 6.25 mg Q12HR [facility] Administration Clopidogrel Bisulfate 75 mg 07/29/19 09:00 07/30/19 09:09 Plavix PO 75 mg QAM [facility] Administration Cyanocobalamin 1,000 mcg 07/29/19 09:00 07/30/19 09:09 Vitamin B-12 Tab PO 1,000 mcg QAM [facility] Administration Dextrose 12.5 gm 07/28/19 07:43 Dextrose 50% Syringe IV PUSH PRN PRN Hypoglycemia Protocol Furosemide 40 mg 07/29/19 09:00 07/30/19 09:09 Lasix Tablet PO 40 mg QAM [facility] Administration Glucagon 1 mg 07/28/19 07:43 Glucagon For Inj IM PRN PRN Hypoglycemia Protocol Glucose 15 gm 07/28/19 07:43 Glutose 15 PO PRN PRN Hypoglycemia Protocol Dextrose 1,000 mls @ 100 mls/hr 07/28/19 07:43 Dextrose 5% 1,000 Ml IVPB PRN PRN Hypoglycemia Protocol Insulin Aspart 3 - 6 units 07/28/19 08:00 07/30/19 10:53 Novolog SUB-Q 5 units TIDWM [facility] Administration Protocol Insulin Glargine 20 units 07/29/19 16:19 07/29/19 20:35 Lantus SUB-Q 20 units HS [facility] Administration Levothyroxine Sodium 112 mcg 07/30/19 06:30 07/30/19 05:16 Synthroid PO 112 mcg DAILY@0630 [facility] Administration Lisinopril 10 mg 07/29/19 09:00 07/30/19 09:09 Prinivil PO 10 mg DAILY [facility] Administration Meclizine HCl 25 mg 07/29/19 13:06 Antivert PO TID PRN Dizziness Morphine Sulfate 4 mg 07/27/19 16:12 Morphine Sulfate Inj IV PUSH Q2H PRN Pain Rated 7-10 Ondansetron HCl 4 mg 07/27/19 16:12 07/27/19 20:26 Zofran Inj IV PUSH 4 mg Q4H PRN Administration Nausea Pantoprazole Sodium 40 mg 07/29/19 09:00 07/30/19 09:09 Protonix PO
--- NOTE | 2019-07-30 12:26 | WPDINFPN2 ---
Progress Note: A&P Assessment and Plan (1) Osteomyelitis: Qualifiers: Laterality: right Osteomyelitis location: foot Osteomyelitis type: unspecified type Qualified Code(s): M86.9 - Osteomyelitis, unspecified Code(s): M86.9 - Osteomyelitis, unspecified Status: Acute Assessment and Plan: Chronic osteomyelitis L foot and foot ulcer, no acute infection REC Stop antibiotics, ok with me for CABG next month unless new developments in the meantime. Call if Qs Addendum: I was never informed of the + BCs. So will need to resume his antibiotics to treat the same, and will need to defer CABG. Subjective Date/time seen: 07/30/19 12:26 Objective Data Vital Signs Vital Signs: Vital Signs - 24 hr 07/29/19 14:00 07/29/19 15:54 07/29/19 16:00 Temperature 37.0 C Pulse Rate 82 90 94 Respiratory Rate 16 Blood Pressure 124/66 Pulse Oximetry 100 07/29/19 18:00 07/29/19 19:55 07/29/19 20:00 Temperature 36.8 C Pulse Rate 87 74 75 Respiratory Rate 20 Blood Pressure 117/59 L Pulse Oximetry 98 07/29/19 20:35 07/29/19 22:00 07/29/19 23:11 Temperature 36.9 C Pulse Rate 77 73 73 Respiratory Rate 18 Blood Pressure 102/49 L Pulse Oximetry 99 07/30/19 00:00 07/30/19 02:00 07/30/19 04:00 Temperature 37.3 C Pulse Rate 80 70 69 Respiratory Rate 18 Blood Pressure 109/56 L Pulse Oximetry 99 07/30/19 06:00 07/30/19 08:00 07/30/19 08:22 Temperature 36.8 C Pulse Rate 69 71 71 Respiratory Rate 20 20 Blood Pressure 117/73 Pulse Oximetry 99 99 07/30/19 10:00 Temperature Pulse Rate 76 Respiratory Rate Blood Pressure Pulse Oximetry Intake/Output Intake/Output: Intake & Output 07/27/19 07/28/19 07/29/19 07/30/19 23:59 23:59 23:59 23:59 Intake Total 1090 2690 2300 1400 Output Total 200 1100 4920 600 Balance 890 1590 -2620 800 Meds/Results Medications: Active Medications Generic Name Dose Route Start Last Admin Trade Name Freq PRN Reason Stop Dose Admin Acetaminophen 650 mg 07/27/19 16:12 Tylenol Tablet PO Q4H PRN Mild Pain (1-3) or Fever Aspirin 81 mg 07/29/19 09:00 07/30/19 09:09 Aspirin Ec PO 81 mg QAM [facility] Administration Atorvastatin Calcium 20 mg 07/29/19 09:00 07/30/19 09:09 Lipitor PO 20 mg DAILY [facility] Administration Carvedilol 6.25 mg 07/29/19 09:00 07/30/19 07:51 Coreg PO 6.25 mg Q12HR [facility] Administration Clopidogrel Bisulfate 75 mg 07/29/19 09:00 07/30/19 09:09 Plavix PO 75 mg QAM [facility] Administration Cyanocobalamin 1,000 mcg 07/29/19 09:00 07/30/19 09:09 Vitamin B-12 Tab PO 1,000 mcg QAM [facility] Administration Dextrose 12.5 gm 07/28/19 07:43 Dextrose 50% Syringe IV PUSH PRN PRN Hypoglycemia Protocol Furosemide 40 mg 07/29/19 09:00 07/30/19 09:09 Lasix Tablet PO 40 mg QAM [facility] Administration Glucagon 1 mg 07/28/19 07:43 Glucagon For Inj IM PRN PRN Hypoglycemia Protocol Glucose 15 gm 07/28/19 07:43 Glutose 15 PO PRN PRN Hypoglycemia Protocol Dextrose 1,000 mls @ 100 mls/hr 07/28/19 07:43 Dextrose 5% 1,000 Ml IVPB PRN PRN Hypoglycemia Protocol Insulin Aspart 3 - 6 units 07/28/19 08:00 07/30/19 10:53 Novolog SUB-Q 5 units TIDWM [facility] Administration Protocol Insulin Glargine 20 units 07/29/19 16:19 07/29/19 20:35 Lantus SUB-Q 20 units HS [facility] Administration Levothyroxine Sodium 112 mcg 07/30/19 06:30 07/30/19 05:16 Synthroid PO 112 mcg DAILY@0630 [facility] Administration Lisinopril 10 mg 07/29/19 09:00 07/30/19 09:09 Prinivil PO 10 mg DAILY [facility] Administration Meclizine HCl 25 mg 07/29/19 13:06 Antivert PO TID PRN Dizziness Morphine Sulfate 4 mg 07/27/19 16:12 Morphine Sulfate Inj IV PUSH Q2H PRN Pain Rated 7-10 Ondansetron HCl 4 mg 07/27/19 16:12 07/27/19 20:26 Zofran Inj
[2019-07-30 12:28] LABS: IFOB Positive Control Positive; Immunochemical Fecal Occult Bl Negative (N)
[2019-07-30] MEDS: ceFAZolin 2 GM/D5W 50 ML 2 GM/50 ML BAG IVPB ×2 (13:27→21:14)
--- NOTE | 2019-07-30 14:09 | PM.PNGS ---
Progress Note: A&P Assessment and Plan (1) Diabetic foot ulcers: Qualifiers: Diabetic foot ulcer location: toe Diabetes mellitus type: type 2 Laterality: unspecified laterality Non-pressure ulcer stage: with bone involvement without evidence of necrosis Qualified Code(s): E11.621 - Type 2 diabetes mellitus with foot ulcer; L97.506 - Non-pressure chronic ulcer of other part of unspecified foot with bone involvement without evidence of necrosis Code(s): E11.621 - Type 2 diabetes mellitus with foot ulcer; L97.509 - Non-pressure chronic ulcer of other part of unspecified foot with unspecified severity Status: Acute Assessment and Plan: MRI findings on the right foot showed no evidence of deep bone involvement. MRI findings of the left foot suggested evidence of possible osteomyelitis at the head of the first metatarsal particularly given the small underlying plantar skin ulceration, likely chronic. Will continue with local wound care with Silver gel. Will consult Orthopedics to evaluate the patient for possible transmetatarsal amputation. ID recommendations noted. (2) Osteomyelitis: Qualifiers: Laterality: right Osteomyelitis location: foot Osteomyelitis type: unspecified type Qualified Code(s): M86.9 - Osteomyelitis, unspecified Code(s): M86.9 - Osteomyelitis, unspecified Status: Acute (3) PAD (peripheral artery disease): Code(s): I73.9 - Peripheral vascular disease, unspecified Status: Acute Subjective Subjective Date/Time Seen: 07/30/19 09:35 Patient reports: no new complaints and afebrile Interval history: Patient seen and examined. Chart reviewed. Afebrile in past 24 hours. WBC normal today. Patient denies any pain today. No other specific complaints. CONNOR's performed on 07/26/19 and could not cuff occlude arteries or obtain ankle brachial indices. Review of Systems Review of Systems: All systems reviewed & are unremarkable except as noted in HPI and below Exam Const: General: alert; No acute distress Orientation/consciousness: patient oriented x3 Skin: General skin exam: normal color Neuro: General: moves all extremities and no focal motor deficits Extrem: General: normal to inspection and capillary refill normal Right lower extremity: foot Details: other (plantar foot wounds) Left lower extremity: foot Details: other (Lateral and plantar foot wounds) Other: Open wound to left 5th MTP joint, scant purulent drainage, no tunneling. On the left foot, there is also a superficial ulcer on plantar surface of 1st metatarsal, but no exposed bone or purulent drainage. The right foot has a superficial ulcer on the medical aspect of the 1st metatarsal with no purulent drainage or tunneling. No cellulitis. Objective Data Vital Signs Vital Signs: Vital Signs - 24 hr 07/29/19 15:54 07/29/19 16:00 07/29/19 18:00 Temperature 37.0 C Pulse Rate 90 94 87 Respiratory Rate 16 Blood Pressure 124/66 Pulse Oximetry 100 07/29/19 19:55 07/29/19 20:00 07/29/19 20:35 Temperature 36.8 C Pulse Rate 74 75 77 Respiratory Rate 20 Blood Pressure 117/59 L Pulse Oximetry 98 07/29/19 22:00 07/29/19 23:11 07/30/19 00:00 Temperature 36.9 C Pulse Rate 73 73 80 Respiratory Rate 18 Blood Pressure 102/49 L Pulse Oximetry 99 07/30/19 02:00 07/30/19 04:00 07/30/19 06:00 Temperature 37.3 C Pulse Rate 70 69 69 Respiratory Rate 18 Blood Pressure 109/56 L Pulse Oximetry 99 07/30/19 08:00 07/30/19 08:22 07/30/19 10:00 Temperature 36.8 C Pulse Rate 71 71 76 Respiratory Rate 20 20 Blood Pressure 117/73 Pulse Oximetry 99 99 07/30/19 12:00 07/30/19 12:54 07/30/19 14:00 Temperature 37.2 C Pulse Rate 77 77 77 Respiratory Rate 20 20 Blood Pressure 101/37 L Pulse Oximetry 100 100 Intake/Output Intake/Output: Intake & Output 07/27/19 07/28/19 07/29/19 07/30/19 23:59 23:59 23:59 23:59 Intake Total 1090 2
--- NOTE | 2019-07-30 14:20 | PM.CNOR ---
Assessment and Plan Assessment and plan (1) Diabetic foot ulcers: Qualifiers: Diabetic foot ulcer location: toe Diabetes mellitus type: type 2 Laterality: unspecified laterality Non-pressure ulcer stage: with fat layer exposed Qualified Code(s): E11.621 - Type 2 diabetes mellitus with foot ulcer; L97.502 - Non-pressure chronic ulcer of other part of unspecified foot with fat layer exposed Code(s): E11.621 - Type 2 diabetes mellitus with foot ulcer; L97.509 - Non-pressure chronic ulcer of other part of unspecified foot with unspecified severity Status: Acute Assessment and Plan: Milo 73-year-old gentleman with diabetes, peripheral neuropathy, peripheral vascular disease and heart disease. Pre-existing bilateral diabetic foot ulcers, stable. No evidence of active infection at this time. No surgical indication at this time as ulcers are superficial and stable. Agree with Dr. Brewster's assessment and recommendations in regard to the feet. Recommend continue with dressing changes and local wound care. Appropriate diabetic foot wear when ambulatory. Follow-up with Dr. Bansal as scheduled. Thank you for allowing me to participate in his care. Please contact me for any questions. 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 Has history of bilateral diabetic foot ulcers. Asked to see while patient in hospital. Patient reports he has had problems with both feet regarding previous ulcerations and osteomyelitis for several years. He has had multiple toe amputations and debridement procedures. The left foot great toe was amputated [address] Bansal. He continues to follow with Dr. Bansal and recently had MRI of both the right and left foot last week. He did not have a chance to follow up with Dr. Bansal as he was admitted to the hospital for the stated condition. He denies pain or any other complaint with the feet. He performs dressing changes and wound care at home with the assistance of home health. He has custom diabetic inserts and shoes. He reports no change to his feet over the past week. He reports no sensation in either foot secondary to neuropathy. He also has history of diabetes, peripheral vascular disease and heart disease. He is awaiting clearance for his heart surgery. Review of Systems Constitutional: Constitutional: Reports weakness Eyes: Eyes: Reports no additional eye complaints and Denies loss of vision ENT: Denies bleeding gums and Denies neck pain Cardiovascular: Cardiovascular: Reports chest pain with activity, Reports dyspnea and Reports dyspnea on exertion Respiratory: Respiratory: Denies cough and Reports dyspnea Gastrointestinal: Gastrointestinal: Denies bloating, Denies nausea and Denies vomiting Genitourinary: Genitourinary: Reports dysuria and Denies urinary frequency Musculoskeletal: Musculoskeletal: Reports numbness ( both feet and legs) Integumentary/Breasts: Skin/Breast: Reports skin ulcer ( bilateral feet) Neurologic: Reports numbness ( lower
[2019-07-30 16:46] LABS: Glucose Point of Care 413 (65-105)
[2019-07-30] MEDS: SILVERGEL (ELTA) 45 ML 1 APPLIC TOPICAL (16:51)
--- NOTE | 2019-07-30 17:55 | CONS_ITS ---
DATE OF CONSULTATION: 07/30/2019 REASON FOR CONSULTATION: Chronic osteomyelitis of left foot. HISTORY OF PRESENT ILLNESS: The patient is a 73-year-old male, not well known to me from the past. He has undergone prolonged IV antibiotics for osteomyelitis in the left foot in the past. He was admitted to the hospital on July 27, with marked weakness of 1 days' duration, along with confusion. Here, he was found to have diabetic ketoacidosis and has been treated accordingly. He has been given piperacillin and vancomycin apparently due to a concern over osteomyelitis. Consultation was then requested yesterday for unclear reasons otherwise. There were no events in the last 72 hours to bring on the consult that I can perceive. The patient has no pain in either foot. No fever, chills, sweats, recent antibiotics for other purposes, skin rashes, erythema, malodorous discharge or other discharge, redness, edema. ALLERGIES: NONE KNOWN. PRESENT MEDICATIONS: No systemic immunosuppressants. HABITS: No alcohol, no tobacco. PAST MEDICAL HISTORY: In addition to the above, laminectomy, cataract extractions, toe amputation on the right side, peripheral vascular disease, SD, hyperlipidemia, CAD, ischemic cardiomyopathy, diabetes mellitus, hypothyroidism, hyperlipidemia, multiple bone fractures, hypertension, chronic renal insufficiency. REVIEW OF SYSTEMS: Labile blood sugars, generalized weakness, poor appetite, dry mouth, easy fatigability. 14-point review otherwise negative. SOCIAL HISTORY: He is , lives locally, retired from [employer]. FAMILY HISTORY: Not pertinent to his present illness. PHYSICAL EXAMINATION: GENERAL: This is an elderly male, appears older than his actual age. No acute distress. VITAL SIGNS: 38.5 on admission, has been afebrile since. 71, 20, 117/73. SKIN: Warm and dry. Decreased turgor. No rashes. EENT: Conjunctivae are normal. NECK: No masses or thyromegaly. Decreased muscle mass. LUNGS: Clear to auscultation. CARDIAC: Regular rate and rhythm. No murmurs and no gallops. Peripheral pulses are 1+ and equal. ABDOMEN: Nontender, soft. No organomegaly. No masses. EXTREMITIES: On the left foot, he has absent toe. No erythema, edema, warmth, tenderness. He has multiple toe deformities. On the right side, he has a solitary partial-thickness ulcer without drainage, erythema, odor, or tenderness. Otherwise, his lower extremities have no calf tenderness, warmth, erythema, tenderness. LABORATORY DATA: In contrast to the above, review of his blood cultures indicate 2/2 sets on July 27, LORAINE. MRSA screen negative. Urine culture with LORAINE also. White count 7.4, hemoglobin 8.0, platelets are 252. Accu-Cheks are high, bilirubin low, albumin low. Radiology: MRI of both feet, findings reviewed. ASSESSMENT: 1. Chronic osteomyelitis of the left foot without exacerbation. 2. Right foot ulcer. 3. Staph aureus bacteremia, possibly due to the foot ulcer on the right. 4. Atherosclerosis. 5. Coronary artery disease. RECOMMENDATIONS: 1. Change antibiotics to cefazolin 2 g every 8 hours. 2. He will likely need prolonged IV antibiotics 4-6 weeks. 3. Glycemic control is required. 4. Defer CABG. Thank you very much for asking me to see him. SHANA TREVINO M.D. RAIL CAR WELDER RAIL CAR WELDER D Davi MT: Keith
--- NOTE | 2019-07-30 17:58 | PM.IMPN ---
Progress Note: A&P Assessment and Plan (1) DKA (diabetic ketoacidoses): Code(s): E11.10 - Type 2 diabetes mellitus with ketoacidosis without coma Status: Acute Assessment and Plan: 07/30/19 17:58 Patient is 73-year-old male with history of type 1 diabetes on insulin pump he has has severe coronary artery disease and is scheduled to have a 5 vessels CABG in 3 weeks, also has diabetic foot and concern the patient may have osteomyelitis he cannot have CABG until it is resolved get he is no longer has infection he presented emergency department was admitted for further evaluation initially he was admitted on this medical floor however later in the evening patient developed nausea or vomiting he had urine and fecal incontinence his blood sugar were elevated to 500 and he was in DKA he was transferred to ICU started on IV insulin as well as hydration today his blood sugars are trending down his gait is close his clinically stable he is on long-acting insulin as well as on sliding scale, patient he denies any chest pain shortness of breath palpitation fever or chills, main concern is he wants to make sure the infection is resolved so he can have a CABG is scheduled. Patient was seen by surgery team today does not recommend any surgical intervention as patient wounds are superficial, patient blood and urine culture is growing staph seen by Dr. Brewster recommending to continue cefazolin and further recommendations. (2) Diabetic foot ulcers: Qualifiers: Diabetic foot ulcer location: toe Diabetes mellitus type: type 2 Laterality: unspecified laterality Non-pressure ulcer stage: with fat layer exposed Qualified Code(s): E11.621 - Type 2 diabetes mellitus with foot ulcer; L97.502 - Non-pressure chronic ulcer of other part of unspecified foot with fat layer exposed Code(s): E11.621 - Type 2 diabetes mellitus with foot ulcer; L97.509 - Non-pressure chronic ulcer of other part of unspecified foot with unspecified severity Status: Acute Assessment and Plan: Patient is seen by surgery team does not suspect the patient is a candidate for surgical debridement however they are concerned patient will need amputation of the foot or below the knee (3) Acute renal injury: Code(s): N17.9 - Acute kidney failure, unspecified Status: Acute Assessment and Plan: Likely secondary to dehydration due to DKA patient is being hydrated will monitor kidney function (4) DKA, type 1, not at goal: Code(s): E10.10 - Type 1 diabetes mellitus with ketoacidosis without coma Status: Acute Assessment and Plan: Patient was in DKA the plan is above, will resume patient insulin pump. Subjective Date/time seen: 07/30/19 17:58 Patient is 73-year-old male with history of type 1 diabetes on insulin pump he has has severe coronary artery disease and is scheduled to have a 5 vessels CABG in 3 weeks, also has diabetic foot and concern the patient may have osteomyelitis he cannot have CABG until it is resolved get he is no longer has infection he presented emergency department was admitted for further evaluation initially he was admitted on this medical floor however later in the evening patient developed nausea or vomiting he had urine and fecal incontinence his blood sugar were elevated to 500 and he was in DKA he was transferred to ICU started on IV insulin as well as hydration today his blood sugars are trending down his gait is close his clinically stable he is on long-acting insulin as well as on sliding scale, patient he denies any chest pain shortness of breath palpitation fever or chills, main concern is he wants to make sure the infection is resolved so he can have a CABG is scheduled. Patient was seen by surgery team today does not recommend any surgical intervention as patient wounds are superficial, patient blood and urine culture is growing staph seen by Dr. Brewster recommending to continue cefazolin and further rec
--- NOTE | 2019-07-30 18:50 | PC.NURSE ---
Rec'd patient into Room 311 per bed from IMU at 1820.
--- NOTE | 2019-07-30 18:53 | PC.NURSE ---
This patient, Miah Chambers, was transferred to [ ] on 07/30/19 at 1730. Personal belongings sent with patient. Belongings list checked and signed with receiving [ ]. Report given to [ ]. Appropriate documentation sent with patient.
[2019-07-30 21:36] LABS: Glucose Point of Care 226 (65-105)
[2019-07-31] VITALS: BP 115/56; PULSE 81; RESP 20; TEMP 37.4; O2SAT 100
[2019-07-31 03:15] LABS: Basophils Absolute Auto 0.1 K/mm3 (0.0-0.1); Eosinophils Absolute Auto 0.4 K/mm3 (0-0.3); Eosinophils Percent Auto 5.5 % (0-4.4); Hematocrit 26.7 % (42.0-52.0); Hemoglobin 8.1 g/dL (14.0-18.0); Immature Granulocyte Absolute 0.05 K/mm3 (0.00-0.031); Immature Granulocyte Percent A 0.7 % (0-0.5); Lymphocytes Absolute Auto 1.85 K/mm3 (0.9-3.2); Lymphocytes Percent Auto 25.6 % (18.3-44.2); Mean Corpuscular HGB Conc 30.3 g/dl (32-36); Mean Corpuscular Hemoglobin 22.1 pg (26-34); Mean Corpuscular Volume 72.8 fl (80-100); Mean Platelet Volume 10.5 fl (7.4-10.4); Monocytes Absolute Auto 0.6 K/mm3 (0.1-0.6); Monocytes Percent Auto 8.7 % (2.6-8.5); Neutrophils Absolute Auto 4.2 K/mm3 (1.3-6.7); Neutrophils Percent Auto 58.5 % (45.5-73.1); Platelet Count Result 284 k/mm3 (150-375); Red Blood Count 3.67 M/mm3 (4.6-6.20); Red Cell Distribution Width 23.6 % (11.5-14.5); White Blood Count 7.2 K/mm3 (4.5-10.0)
[2019-07-31 03:19] LABS: Blood Urea Nitrogen 19 mg/dL (9-20); Calcium 8.8 mg/dL (8.4-10.2); Carbon Dioxide 26 mmol/L (22-30); Chloride 95 mmol/L (98-107); Estimated CRCL calculation 59 ml/min; Estimated Glomerular Filt Rate > 60; Glucose 202 mg/dL (75-110); Potassium 4.1 mmol/L (3.4-5.0); Sodium 134 mmol/L (137-145)
[2019-07-31 06:23] VITALS: BP 115/56; PULSE 81; RESP 20; TEMP 37.4; O2SAT 100
[2019-07-31] MEDS: ceFAZolin 2 GM/D5W 50 ML 2 GM/50 ML BAG IVPB ×3 (06:23→21:10)
[2019-07-31] MEDS: LEVOTHYROXINE SODIUM 112 MCG TABLET PO (06:23)
[2019-07-31 08:06] LABS: Glucose Point of Care 164 (65-105)
[2019-07-31 09:10] VITALS: PULSE 68
[2019-07-31] MEDS: carvediloL 6.25 MG TABLET PO ×2 (09:10→21:10)
[2019-07-31] MEDS: POTASSIUM CHLORIDE 20 MEQ TABLET.ER PO (09:10)
[2019-07-31] MEDS: CLOPIDOGREL BISULFATE 75 MG TABLET PO (09:10)
[2019-07-31] MEDS: lisinopriL 10 MG TABLET PO (09:12)
[2019-07-31] MEDS: FUROSEMIDE 40 MG TABLET PO (09:12)
[2019-07-31] MEDS: ATORVASTATIN 20 MG TABLET PO (09:12)
[2019-07-31] MEDS: PANTOPRAZOLE 40 MG TABLET PO (09:13)
[2019-07-31] MEDS: CYANOCOBALAMIN 1,000 MCG TABLET 1000 MCG PO (09:13)
[2019-07-31] MEDS: ASPIRIN 81 MG ENTERIC TABLET PO (09:13)
--- NOTE | 2019-07-31 11:11 | PM.IMPN ---
Progress Note: A&P Assessment and Plan (1) DKA (diabetic ketoacidoses): Code(s): E11.10 - Type 2 diabetes mellitus with ketoacidosis without coma Status: Acute Assessment and Plan: Patient was seen by surgery team today does not recommend any surgical intervention as patient wounds are superficial, patient blood and urine culture is growing staph seen by Dr. Brewster recommending to continue cefazolin and further recommendations. Patient blood and urine culture is growing LORAINE staph seen by Dr. Brewster recommending to continue cefazolin and further recommendations. As per previous notes, pt will need 4-6 weeks of IV cefazolin, Picc line ordered. Pt updated about his diagnosis is more aware now about what is going on. Pt is back on his insulin pump last night, states his sugars are always erratic. (2) Diabetic foot ulcers: Qualifiers: Diabetic foot ulcer location: toe Diabetes mellitus type: type 2 Laterality: unspecified laterality Non-pressure ulcer stage: with fat layer exposed Qualified Code(s): E11.621 - Type 2 diabetes mellitus with foot ulcer; L97.502 - Non-pressure chronic ulcer of other part of unspecified foot with fat layer exposed Code(s): E11.621 - Type 2 diabetes mellitus with foot ulcer; L97.509 - Non-pressure chronic ulcer of other part of unspecified foot with unspecified severity Status: Acute Assessment and Plan: Patient is seen by surgery team does not suspect the patient is a candidate for surgical debridement however they are concerned patient will need amputation of the foot or below the knee they will follow him in the future. (3) Acute renal injury: Code(s): N17.9 - Acute kidney failure, unspecified Status: Resolved Assessment and Plan: Likely secondary to dehydration due to DKA, resolved now. (4) DKA, type 1, not at goal: Code(s): E10.10 - Type 1 diabetes mellitus with ketoacidosis without coma Status: Acute Assessment and Plan: Patient back on his insulin pump. Sees marketing communications assistant in [facility]. this is patient 5 insulin pump, blood sugars are very erratic. Subjective Date/time seen: 07/31/19 11:11 Interval history: Patient is 73-year-old male with history of type 1 diabetes on insulin pump he has has severe coronary artery disease and is scheduled to have a 5 vessels CABG in 3 weeks, also has diabetic foot and concern the patient may have osteomyelitis he cannot have CABG until it is resolved get he is no longer has infection he presented emergency department was admitted for further evaluation initially he was admitted on this medical floor however later in the evening patient developed nausea or vomiting he had urine and fecal incontinence his blood sugar were elevated to 500 and he was in DKA he was transferred to ICU started on IV insulin as well as hydration today his blood sugars are trending down his gait is close his clinically stable he is on long-acting insulin as well as on sliding scale, patient he denies any chest pain shortness of breath palpitation fever or chills, main concern is he wants to make sure the infection is resolved so he can have a CABG is scheduled. Patient was seen by surgery team today does not recommend any surgical intervention as patient wounds are superficial, patient blood and urine culture is growing LORAINE staph seen by Dr. Breswter recommending to continue cefazolin and further recommendations. As per previous notes, pt will need 4-6 weeks of IV cefazolin, Picc line ordered. Pt updated about his diagnosis is more aware now about what is going on. Pt is back on his insulin pump states his sugars are always erratic. Review of Systems Review of Systems: All systems reviewed & are unremarkable except as noted in HPI and below Exam Narrative: Exam Narrative: Patient is elderly frail Neck: Neck: supple Resp: Effort & Inspection: normal respiratory effort Auscultation: clear to auscultation bilaterally
[2019-07-31 11:58] LABS: Glucose Point of Care 270 (65-105)
[2019-07-31] MEDS: INSULIN ASPART (*BKC) 100 UNITS/ML SUB-Q ×2 (12:11→16:41)
--- NOTE | 2019-07-31 13:43 | WPDINFPN2 ---
Progress Note: A&P Assessment and Plan (1) Osteomyelitis: Qualifiers: Laterality: right Osteomyelitis location: foot Osteomyelitis type: unspecified type Qualified Code(s): M86.9 - Osteomyelitis, unspecified Code(s): M86.9 - Osteomyelitis, unspecified Status: Acute Assessment and Plan: 1. Chronic osteomyelitis L foot and foot ulcer 2. LORAINE bacteremia, suspect soft tissue source REC Ancef # 2, continue 4 weeks minimum. Redo BC Subjective Date/time seen: 07/31/19 13:43 Interval history: sleepy bur arousable, no new complaints Exam Narrative: Exam Narrative: afebrile Const: General: no acute distress Resp: Effort & Inspection: normal respiratory effort Auscultation: clear to auscultation bilaterally Cardio: Rate: regular rate Rhythm: regular rhythm Objective Data Vital Signs Vital Signs: Vital Signs - 24 hr 07/30/19 14:00 07/30/19 16:00 07/30/19 16:51 Temperature 36.8 C Pulse Rate 77 74 76 Respiratory Rate 20 18 Blood Pressure 134/61 Pulse Oximetry 100 100 07/30/19 21:14 07/30/19 22:00 07/31/19 00:00 Temperature 37.3 C 37.4 C Pulse Rate 70 79 81 Respiratory Rate 20 20 Blood Pressure 132/55 L 115/56 L Pulse Oximetry 100 100 07/31/19 06:23 07/31/19 09:10 Temperature 37.4 C Pulse Rate 81 68 Respiratory Rate 20 Blood Pressure 115/56 L Pulse Oximetry 100 Intake/Output Intake/Output: Intake & Output 07/28/19 07/29/19 07/30/19 07/31/19 23:59 23:59 23:59 23:59 Intake Total 2690 2300 2540 1560 Output Total 1100 4920 600 2300 Balance 1590 -2620 1940 -740 Meds/Results Medications: Active Medications Generic Name Dose Route Start Last Admin Trade Name Freq PRN Reason Stop Dose Admin Acetaminophen 650 mg 07/27/19 16:12 Tylenol Tablet PO Q4H PRN Mild Pain (1-3) or Fever Aspirin 81 mg 07/29/19 09:00 07/31/19 09:13 Aspirin Ec PO 81 mg QAM ILIANA Administration Atorvastatin Calcium 20 mg 07/29/19 09:00 07/31/19 09:12 Lipitor PO 20 mg DAILY ILIANA Administration Carvedilol 6.25 mg 07/29/19 09:00 07/31/19 09:10 Coreg PO 6.25 mg Q12HR ILIANA Administration Clopidogrel Bisulfate 75 mg 07/29/19 09:00 07/31/19 09:10 Plavix PO 75 mg QAM ILIANA Administration Cyanocobalamin 1,000 mcg 07/29/19 09:00 07/31/19 09:13 Vitamin B-12 Tab PO 1,000 mcg QAM ILIANA Administration Dextrose 12.5 gm 07/28/19 07:43 Dextrose 50% Syringe IV PUSH PRN PRN Hypoglycemia Protocol Furosemide 40 mg 07/29/19 09:00 07/31/19 09:12 Lasix Tablet PO 40 mg QAM ILIANA Administration Glucagon 1 mg 07/28/19 07:43 Glucagon For Inj IM PRN PRN Hypoglycemia Protocol Glucose 15 gm 07/28/19 07:43 Glutose 15 PO PRN PRN Hypoglycemia Protocol Dextrose 1,000 mls @ 100 mls/hr 07/28/19 07:43 Dextrose 5% 1,000 Ml IVPB PRN PRN Hypoglycemia Protocol Cefazolin Sodium 2 gm in 50 mls @ 100 mls/hr 07/30/19 12:30 07/31/19 06:53 Ancef 2 Gm/D5w 50 Ml IVPB Infused Q8HR [facility] Infusion Vancomycin HCl 1,000 mg/ 250 mls @ 250 mls/hr 07/31/19 10:00 07/31/19 11:13 Sodium Chloride IVPB Not Given Q12H [facility] Insulin Aspart 3 - 6 units 07/28/19 08:00 07/31/19 12:11 Novolog SUB-Q 4 units TIDWM ILIANA Administration Protocol Levothyroxine Sodium 112 mcg 07/30/19 06:30 07/31/19 06:23 Synthroid PO 112 mcg DAILY@0630 ILIANA Administration Lisinopril 10 mg 07/29/19 09:00 07/31/19 09:12 Prinivil PO 10 mg DAILY ILIANA Administration Meclizine HCl 25 mg 07/29/19 13:06 Antivert PO TID PRN Dizziness Morphine Sulfate 4 mg 07/27/19 16:12 Morphine Sulfate Inj IV PUSH Q2H PRN Pain Rated 7-10 Ondansetron HCl 4 mg 07/27/19 16:12 07/27/19 20:26 Zofran Inj IV PUSH 4 mg Q4H PRN Administration Nausea Pantoprazole Sodium 40 mg 07/29/19 09:00 07/31/19 09:13 Protonix
[2019-07-31 14:00] VITALS: BP 106/56; PULSE 83; RESP 18; TEMP 36.7; O2SAT 100
[2019-07-31 16:22] LABS: Glucose Point of Care 317 (65-105)
[2019-07-31 16:39] LABS: Immature Reticulocyte Fraction 21.1 % (3.0-15.9); Reticulocyte Hemoglobin Conten 28.4 pg (28.2-35.7); Reticulocyte Percent 1.71 % (0.7-4.3); Reticulocytes Absolute 0.06 B/L (32.2-175.7)
[2019-07-31 16:49] LABS: Lactate Dehydrogenase 385 U/L (313-618)
[2019-07-31 17:09] LABS: Iron 20 ug/dL (49-181)
[2019-07-31 17:18] LABS: Percent Iron Saturation 6 % (20-50)
[2019-07-31 17:56] LABS: Folic Acid 15.8 ng/mL (2.76->20)
[2019-07-31] MEDS: SILVERGEL (ELTA) 45 ML 1 APPLIC TOPICAL (19:13)
[2019-07-31 21:10] VITALS: PULSE 72
[2019-07-31 21:18] LABS: Glucose Point of Care 189 (65-105)
[2019-07-31 22:00] VITALS: BP 108/52; PULSE 74; RESP 20; TEMP 36.8; O2SAT 100
--- NOTE | 2019-08-01 00:37 | PC.NURSE ---
Orders to hold vancomycin IVPB was given to Nova Collier RN by hospitalist.
[2019-08-01] MEDS: LEVOTHYROXINE SODIUM 112 MCG TABLET PO (05:49)
[2019-08-01] MEDS: ceFAZolin 2 GM/D5W 50 ML 2 GM/50 ML BAG IVPB ×3 (05:50→22:49)
[2019-08-01 06:16] LABS: Basophils Absolute Auto 0.1 K/mm3 (0.0-0.1); Basophils Percent Auto 0.8 % (0.2-1.2); Eosinophils Absolute Auto 0.4 K/mm3 (0-0.3); Eosinophils Percent Auto 4.9 % (0-4.4); Hematocrit 26.7 % (42.0-52.0); Immature Granulocyte Absolute 0.06 K/mm3 (0.00-0.031); Immature Granulocyte Percent A 0.7 % (0-0.5); Lymphocytes Absolute Auto 2.18 K/mm3 (0.9-3.2); Mean Corpuscular Volume 73.6 fl (80-100); Mean Platelet Volume 10.5 fl (7.4-10.4); Monocytes Absolute Auto 0.6 K/mm3 (0.1-0.6); Monocytes Percent Auto 7.6 % (2.6-8.5); Platelet Count Result 333 k/mm3 (150-375); Red Blood Count 3.63 M/mm3 (4.6-6.20); Red Cell Distribution Width 24.1 % (11.5-14.5); White Blood Count 8.4 K/mm3 (4.5-10.0)
[2019-08-01 06:28] LABS: Blood Urea Nitrogen 18 mg/dL (9-20); Calcium 8.9 mg/dL (8.4-10.2); Carbon Dioxide 29 mmol/L (22-30); Chloride 93 mmol/L (98-107); Estimated CRCL calculation 49 ml/min; Estimated Glomerular Filt Rate > 60; Glucose 177 mg/dL (75-110); Potassium 4.5 mmol/L (3.4-5.0); Sodium 133 mmol/L (137-145)
--- NOTE | 2019-08-01 06:59 | CONS_ITS ---
DATE OF CONSULTATION: 07/31/2019 REASON FOR CONSULTATION: Anemia. HISTORY OF PRESENTING ILLNESS: This is a pleasant 73-year-old male with history of poorly controlled insulin-dependent diabetes and chronic diabetic foot with history of chronic osteomyelitis and ischemic cardiomyopathy. The patient came into the hospital. The patient was admitted to the hospital with diabetic ketoacidosis without coma. The patient also had cardiac MRI done at [facility] on July 26 due to shortness of breath. He also had outpatient cardiac catheterization done on July 10, 2019 that showed ischemic cardiomyopathy. He is scheduled to have coronary artery bypass grafting next month. He denies any bleeding and bruising. He has been eating well and denies any weight loss. He complained of tiredness and fatigue. REVIEW OF SYSTEMS: A 12-point review of system was reviewed and as per HPI, otherwise negative. PAST MEDICAL HISTORY: Diabetes foot ulcer, hypertension, fracture of both ankles, chronic osteomyelitis, hyperlipidemia, hypothyroidism, insulin-dependent diabetes, GERD, anemia, ischemic cardiomyopathy, [place] x3, osteoporosis, peripheral arterial disease, and vertigo. PAST SURGICAL HISTORY: Amputation of left toe, amputation of right toe, status post laminectomy, cataract extraction, cardiac catheterization. FAMILY HISTORY: Mother had lung cancer. Father had lymphoma. SOCIAL HISTORY: The patient is and lives alone in [place]. He is retired from [employer]. He has a remote history of smoking. HOME MEDICATION: Reviewed. ALLERGIES: REVIEWED. PHYSICAL EXAMINATION: GENERAL: This patient is an alert and oriented white male, in no apparent distress. VITAL SIGNS: Per nursing note. HEENT: Normocephalic, atraumatic. Clear oropharynx. LUNGS: Clear to auscultation bilaterally. CARDIOVASCULAR: Regular rate and rhythm. No murmurs. ABDOMEN: Soft, nontender, nondistended. Bowel sounds are positive in all 4 quadrants. No hepatosplenomegaly. EXTREMITIES: No edema. NEURO: Grossly intact. LABORATORY DATA: WBC 7.2, hemoglobin 8.1, MCV 72.8, platelet 284,000, neutrophils 58%, lymphocytes 25%. Creatinine 0.9. ASSESSMENT AND PLAN: 1. Microcytic anemia. The patient is a 73-year-old male came into the hospital and diagnosed with diabetic ketoacidosis without coma. He has multiple comorbidities including ischemic cardiomyopathy and history of [place] in the past. He was going to have coronary artery bypass grafting next month. He denies any history of bleeding and bruising. He denies any weight loss, and he has been eating well. There is no clear reason for his microcytosis. I will order the workup that will include iron studies, reticulocyte count, LDH, and vitamin B12 level. Based on the initial lab testing, we will make a decision regarding bone marrow aspiration and biopsy if needed. In the meantime, we will transfuse him as needed or if hemoglobin is less than 7. 2. History of chronic osteomyelitis. The patient is on antibiotic and has been followed by Dr. Brewster. 3. Type 2 diabetes with ketoacidosis. This has been managed by the primary hospitalist. I would like to thanks for allowing us to see this patient in consultation. MALLIKA DANIELLE M.D. DIVERSITY INTERN DIVERSITY INTERN D I MT: Keith
[2019-08-01 07:05] VITALS: BP 105/53; PULSE 71; RESP 20; TEMP 36.6; O2SAT 100
[2019-08-01] MEDS: CLOPIDOGREL BISULFATE 75 MG TABLET PO (08:03)
[2019-08-01] MEDS: ASPIRIN 81 MG ENTERIC TABLET PO (08:03)
[2019-08-01] MEDS: POTASSIUM CHLORIDE 20 MEQ TABLET.ER PO (08:03)
[2019-08-01] MEDS: PANTOPRAZOLE 40 MG TABLET PO (08:04)
[2019-08-01] MEDS: ATORVASTATIN 20 MG TABLET PO (08:04)
[2019-08-01] MEDS: CYANOCOBALAMIN 1,000 MCG TABLET 1000 MCG PO (08:05)
[2019-08-01 08:11] VITALS: PULSE 71
[2019-08-01] MEDS: lisinopriL 10 MG TABLET PO (08:11)
[2019-08-01] MEDS: carvediloL 6.25 MG TABLET PO ×2 (08:11→21:18)
[2019-08-01 08:34] LABS: Glucose Point of Care 147 (65-105)
[2019-08-01 11:04] LABS: Glucose Point of Care 153 (65-105)
--- NOTE | 2019-08-01 11:44 | PM.IMPN ---
Progress Note: A&P Assessment and Plan (1) DKA (diabetic ketoacidoses): Code(s): E11.10 - Type 2 diabetes mellitus with ketoacidosis without coma Status: Acute Assessment and Plan: Patient was seen by surgery team today does not recommend any surgical intervention as patient wounds are superficial, patient blood and urine culture is growing staph seen by Dr. Brewster recommending to continue cefazolin and further recommendations. Patient blood and urine culture is growing LORAINE staph seen by Dr. Brewster recommending to continue cefazolin and further recommendations. As per previous notes, pt will need 4-6 weeks of IV cefazolin, Picc line ordered. Pt awaiting RPT BC prior to picc line insertion. (2) Diabetic foot ulcers: Qualifiers: Diabetic foot ulcer location: toe Diabetes mellitus type: type 2 Laterality: unspecified laterality Non-pressure ulcer stage: with fat layer exposed Qualified Code(s): E11.621 - Type 2 diabetes mellitus with foot ulcer; L97.502 - Non-pressure chronic ulcer of other part of unspecified foot with fat layer exposed Code(s): E11.621 - Type 2 diabetes mellitus with foot ulcer; L97.509 - Non-pressure chronic ulcer of other part of unspecified foot with unspecified severity Status: Acute Assessment and Plan: Patient is seen by surgery team does not suspect the patient is a candidate for surgical debridement however they are concerned patient will need amputation of the foot or below the knee they will follow him in the future. (3) Acute renal injury: Code(s): N17.9 - Acute kidney failure, unspecified Status: Resolved Assessment and Plan: Likely secondary to dehydration due to DKA, resolved now. (4) DKA, type 1, not at goal: Code(s): E10.10 - Type 1 diabetes mellitus with ketoacidosis without coma Status: Acute Assessment and Plan: Patient back on his insulin pump. Sees magazine writer in [facility]. this is patient 5 insulin pump, blood sugars are very erratic. (5) Chronic anemia: Code(s): D64.9 - Anemia, unspecified Status: Acute Assessment and Plan: Hb is 8. pt being following by DR Butler hematology may benefit from bone marrow biopsy in the future Subjective Date/time seen: 08/01/19 11:44 Interval history: Patient is 73-year-old male with history of type 1 diabetes on insulin pump he has has severe coronary artery disease and is scheduled to have a 5 vessels CABG in 3 weeks, also has diabetic foot and concern the patient may have osteomyelitis he cannot have CABG until it is resolved get he is no longer has infection he presented emergency department was admitted for further evaluation initially he was admitted on this medical floor however later in the evening patient developed nausea or vomiting he had urine and fecal incontinence his blood sugar were elevated to 500 and he was in DKA he was transferred to ICU started on IV insulin as well as hydration today his blood sugars are trending down his gait is close his clinically stable he is on long-acting insulin as well as on sliding scale, patient he denies any chest pain shortness of breath palpitation fever or chills, main concern is he wants to make sure the infection is resolved so he can have a CABG is scheduled. Patient was seen by surgery team today does not recommend any surgical intervention as patient wounds are superficial, patient blood and urine culture is growing LORAINE staph seen by Dr. Brewster recommending to continue cefazolin and further recommendations. As per previous notes, pt will need 4-6 weeks of IV cefazolin, Picc line ordered.Pt is back on his insulin pump states his sugars are always erratic. Awaiting rpt BC prior to PICC line insertion. Pt is aware of this. Review of Systems Review of Systems: All systems reviewed & are unremarkable except as noted in HPI and below Exam Narrative: Exam Narrative: Patient is elderly frail Const: General:
[2019-08-01] MEDS: SILVERGEL (ELTA) 45 ML 1 APPLIC TOPICAL (14:02)
--- NOTE | 2019-08-01 14:28 | WPDINFPN2 ---
Progress Note: A&P Assessment and Plan (1) Osteomyelitis: Qualifiers: Laterality: right Osteomyelitis location: foot Osteomyelitis type: unspecified type Qualified Code(s): M86.9 - Osteomyelitis, unspecified Code(s): M86.9 - Osteomyelitis, unspecified Status: Acute Assessment and Plan: 1. Chronic osteomyelitis L foot and foot ulcer 2. LORAINE bacteremia, suspect soft tissue source 3. CAD, in need of CABG REC Ancef # 3, continue 4 weeks minimum. Redo BC. Vanc can be stopped altogether (presently in Hold status). No CaBG until clear of infection. Subjective Date/time seen: 08/01/19 14:28 Interval history: no new compaints Exam Narrative: Exam Narrative: afebrile appears chronically ill Const: General: no acute distress Eyes: General: appearance normal, both eyes and all related structures Resp: Effort & Inspection: normal respiratory effort Auscultation: clear to auscultation bilaterally Cardio: Rate: regular rate Rhythm: regular rhythm Heart sounds: no gallops and no murmurs GI: Inspection: non-distended GI Palp: Yes Soft to palpation and No Tenderness to palpation present (GI) Objective Data Vital Signs Vital Signs: Vital Signs - 24 hr 07/31/19 21:10 07/31/19 22:00 08/01/19 07:05 Temperature 36.8 C 36.6 C Pulse Rate 72 74 71 Respiratory Rate 20 20 Blood Pressure 108/52 L 105/53 L Pulse Oximetry 100 100 08/01/19 08:11 Temperature Pulse Rate 71 Respiratory Rate Blood Pressure Pulse Oximetry Intake/Output Intake/Output: Intake & Output 07/29/19 07/30/19 07/31/19 08/01/19 23:59 23:59 23:59 23:59 Intake Total 2300 2540 2110 690 Output Total 4920 600 3000 1800 Balance -2620 0168 -786 -3240 Meds/Results Medications: Active Medications Generic Name Dose Route Start Last Admin Trade Name Freq PRN Reason Stop Dose Admin Acetaminophen 650 mg 07/27/19 16:12 Tylenol Tablet PO Q4H PRN Mild Pain (1-3) or Fever Aspirin 81 mg 07/29/19 09:00 08/01/19 08:03 Aspirin Ec PO 81 mg QAM ILIANA Administration Atorvastatin Calcium 20 mg 07/29/19 09:00 08/01/19 08:04 Lipitor PO 20 mg DAILY ILIANA Administration Carvedilol 6.25 mg 07/29/19 09:00 08/01/19 08:11 Coreg PO 6.25 mg Q12HR ILIANA Administration Clopidogrel Bisulfate 75 mg 07/29/19 09:00 08/01/19 08:03 Plavix PO 75 mg QAM ILIANA Administration Cyanocobalamin 1,000 mcg 07/29/19 09:00 08/01/19 08:05 Vitamin B-12 Tab PO 1,000 mcg QAM ILIANA Administration Dextrose 12.5 gm 07/28/19 07:43 Dextrose 50% Syringe IV PUSH PRN PRN Hypoglycemia Protocol Furosemide 40 mg 07/29/19 09:00 08/01/19 08:12 Lasix Tablet PO Not Given QAM [facility] Glucagon 1 mg 07/28/19 07:43 Glucagon For Inj IM PRN PRN Hypoglycemia Protocol Glucose 15 gm 07/28/19 07:43 Glutose 15 PO PRN PRN Hypoglycemia Protocol Dextrose 1,000 mls @ 100 mls/hr 07/28/19 07:43 Dextrose 5% 1,000 Ml IVPB PRN PRN Hypoglycemia Protocol Cefazolin Sodium 2 gm in 50 mls @ 100 mls/hr 07/30/19 12:30 08/01/19 13:57 Ancef 2 Gm/D5w 50 Ml IVPB 100 mls/hr Q8HR ILIANA Administration Vancomycin HCl 1,000 mg/ 250 mls @ 250 mls/hr 07/31/19 10:00 07/31/19 11:13 Sodium Chloride IVPB Not Given Q12H ILIANA Iron Sucrose 500 mg/ Sodium 275 mls @ 78.571 mls/hr 08/02/19 09:00 Chloride IVPB 08/04/19 09:01 QAM [facility] Insulin Aspart 3 - 6 units 07/28/19 08:00 08/01/19 11:16 Novolog SUB-Q Not Given TIDWM [facility] Protocol Levothyroxine Sodium 112 mcg 07/30/19 06:30 08/01/19 05:49 Synthroid PO 112 mcg DAILY@0630 ILIANA Administration Lisinopril 10 mg 07/29/19 09:00 08/01/19 08:11 Prinivil PO 10 mg DAILY ILIANA Administration Meclizine HCl 25 mg 07/29/19 13:06 Antivert PO TID PRN Dizziness Morphine Sulfate 4 mg 07/27/19 16:12 Morphine Sulfate Inj IV P
[2019-08-01 14:56] VITALS: BP 131/60; PULSE 77; RESP 16; TEMP 36.4; O2SAT 100
[2019-08-01 16:09] LABS: Glucose Point of Care 169 (65-105)
--- NOTE | 2019-08-01 18:48 | WPDONCPN ---
Progress Note: A/P - Additional Plan Microcytic anemia. Labs showed iron deficiency. Vitamin B12 is normal. Hemoccult stool has been ordered and pending. IV iron infusion ordered. I will ask the GI consultation for colonoscopy. Nausea and vomiting. This could be secondary to gastroparesis related to diabetes. I will start him on Reglan. GI consultation has been ordered. History of chronic osteomyelitis. Patient is on antibiotic therapy. Type 2 diabetes with ketoacidosis. This has been managed by the hospitalist group - Time Spent With Patient Total time spent is greater than 50% in coordination of care (as documented) at patient's floor/unit and/or counseling patient: 25 - 35 minutes Subjective Interval history: Iron deficiency anemia Nausea and vomiting Chronic osteomyelitis Review of Systems - Review of Systems Patient has been experiencing nausea and vomiting. He complain of tiredness and fatigue. He denies any bleeding and bruising. No other new complaints. - Neurologic Reports numbness ( lower extremities), Reports sensory deficit ( absence sensation light touch mid leg distal bilaterally), Reports weakness, Denies confusion, Denies loss of vision Exam Vital signs: Temp Pulse Resp BP Pulse Ox 36.4 C L 77 16 131/60 100 08/01/19 14:56 08/01/19 14:56 08/01/19 14:56 08/01/19 14:56 08/01/19 14:56 Lungs are clear to auscultation bilaterally Cardiovascular regular rate rhythm no murmurs Abdomen soft nontender nondistended Extremities no edema PN: Objective Data - Labs CBC & Chem 7: 08/01/19 05:57 08/01/19 05:57 Labs: Laboratory Results - last 24 hr 07/31/19 08/01/19 08/01/19 21:03 05:57 05:57 WBC 8.4 RBC 3.63 L Hgb 8.0 L Hct 26.7 L MCV 73.6 L MCH 22.0 L MCHC 30.0 L RDW 24.1 H Plt Count 333 MPV 10.5 H Immature Gran % (Auto) 0.7 H Neut % (Auto) 60.0 Lymph % (Auto) 26.0 [place] % (Auto) 7.6 Eos % (Auto) 4.9 H Baso % (Auto) 0.8 Lymph # (Auto) 2.18 [place] # (Auto) 0.6 Eos # (Auto) 0.4 H Baso # (Auto) 0.1 Abs Immat Gran (auto) 0.06 H Absolute Neuts (auto) 5.0 Absolute Nucleated RBC 0.0 Nucleated RBC % 0.0 Sodium 133 L Potassium 4.5 Chloride 93 L Carbon Dioxide 29 BUN 18 Creatinine 1.10 Estim Creat Clear Calc 49 Estimated GFR > 60 Glucose 177 H POC Capillary Glucose 189 H Calcium 8.9 08/01/19 08/01/19 08/01/19 08:01 11:01 16:06 WBC RBC Hgb Hct MCV MCH MCHC RDW Plt Count MPV Immature Gran % (Auto) Neut % (Auto) Lymph % (Auto) [place] % (Auto) Eos % (Auto) Baso % (Auto) Lymph # (Auto) [place] # (Auto) Eos # (Auto) Baso # (Auto) Abs Immat Gran (auto) Absolute Neuts (auto) Absolute Nucleated RBC Nucleated RBC % Sodium Potassium Chloride Carbon Dioxide BUN Creatinine Estim Creat Clear Calc Estimated GFR Glucose POC Capillary Glucose 147 H 153 H 169 H Calcium
[2019-08-01 21:18] VITALS: PULSE 78
[2019-08-01] MEDS: METOCLOPRAMIDE HCL 10 MG TABLET PO (21:18)
[2019-08-01 21:46] LABS: Glucose Point of Care 228 (65-105)
[2019-08-01 21:47] LABS: Vancomycin Trough < 5.0 ug/mL (10.0-20.0)
[2019-08-01 22:00] VITALS: BP 134/51; PULSE 78; RESP 18; TEMP 36.8; O2SAT 98
[2019-08-02] VITALS (12 sets, daily range): BP systolic 77–132; BP diastolic 29–69; PULSE 61–78; RESP 14–19; TEMP 36.4–37.1; O2SAT 98–100
[2019-08-02] MEDS: ceFAZolin 2 GM/D5W 50 ML 2 GM/50 ML BAG IVPB ×3 (05:09→21:46)
[2019-08-02 06:17] LABS: Basophils Absolute Auto 0.1 K/mm3 (0.0-0.1); Basophils Percent Auto 0.8 % (0.2-1.2); Eosinophils Absolute Auto 0.4 K/mm3 (0-0.3); Eosinophils Percent Auto 5.1 % (0-4.4); Hematocrit 26.2 % (42.0-52.0); Hemoglobin 7.8 g/dL (14.0-18.0); Immature Granulocyte Percent A 1.2 % (0-0.5); Lymphocytes Absolute Auto 2.29 K/mm3 (0.9-3.2); Lymphocytes Percent Auto 27.4 % (18.3-44.2); Mean Corpuscular HGB Conc 29.8 g/dl (32-36); Mean Corpuscular Hemoglobin 21.8 pg (26-34); Mean Corpuscular Volume 73.4 fl (80-100); Monocytes Absolute Auto 0.6 K/mm3 (0.1-0.6); Neutrophils Absolute Auto 4.9 K/mm3 (1.3-6.7); Neutrophils Percent Auto 58.5 % (45.5-73.1); Platelet Count Result 360 k/mm3 (150-375); Red Blood Count 3.57 M/mm3 (4.6-6.20); White Blood Count 8.4 K/mm3 (4.5-10.0)
[2019-08-02 06:29] LABS: Blood Urea Nitrogen 18 mg/dL (9-20); Calcium 8.8 mg/dL (8.4-10.2); Carbon Dioxide 30 mmol/L (22-30); Chloride 96 mmol/L (98-107); Estimated CRCL calculation 54 ml/min; Estimated Glomerular Filt Rate > 60; Glucose 222 mg/dL (75-110); Potassium 4.3 mmol/L (3.4-5.0); Sodium 134 mmol/L (137-145)
[2019-08-02 07:12] LABS: Anisocytosis 1+ (NORMAL); Hypochromasia 1+ (NORMAL); Platelet Estimate Adequate (Adequate)
--- NOTE | 2019-08-02 09:03 | WPDCDIQUERY2 ---
CDI Query Clarification Request -Two blood cultures positive for staph aureus -Urine culture positive for staph aureus -On arrival T 101.3, P 118, WBC 18.5, and lactic acid 2.1 -07/28 BP 84/47, 83/50, 88/59 -Dr Cervantes documented sepsis in H&P -No further mention of sepsis Please clarify if sepsis was ruled in or ruled out. <Breana Pablo RN - Last Filed: 08/02/19 09:12> SEPSIS RULED IN <Padma Redman MD - Last Filed: 08/05/19 17:31>
[2019-08-02] MEDS: IRON SUCROSE COMPLEX 500 MG in SODIUM CHLORIDE 0.9% IV 250 ML 78.6 MG IVPB (09:25)
--- NOTE | 2019-08-02 11:03 | WPDGICN ---
Assessment and Plan Assessment and plan (1) Iron deficiency anemia: Qualifiers: Iron deficiency anemia type: unspecified iron deficiency Qualified Code(s): D50.9 - Iron deficiency anemia, unspecified Code(s): D50.9 - Iron deficiency anemia, unspecified Status: Acute Assessment and Plan: we will proceed with EGD, he is refusing to get a colonoscopy (never had one)- he understands that colon cancer can be in the differential. If he changes his mind then we can do it another day. No overt gib. (2) Diabetes mellitus with diabetic neuropathy: Qualifiers: Diabetes mellitus type: type 2 Diabetes mellitus termination clerk insulin use: with termination clerk use Qualified Code(s): E11.40 - Type 2 diabetes mellitus with diabetic neuropathy, unspecified; Z79.4 - ocean transportation intermediary (current) use of insulin Code(s): E11.40 - Type 2 diabetes mellitus with diabetic neuropathy, unspecified Status: Acute (3) DKA (diabetic ketoacidoses): Qualifiers: Diabetes mellitus type: other specified (including SEVEN) Diabetes mellitus complication detail: without coma Qualified Code(s): E13.10 - Other specified diabetes mellitus with ketoacidosis without coma Code(s): E11.10 - Type 2 diabetes mellitus with ketoacidosis without coma Status: Acute (4) Sepsis: Qualifiers: Sepsis type: methicillin susceptible Staphylococcus aureus Sepsis acute organ dysfunction status: without acute organ dysfunction Qualified Code(s): A41.01 - Sepsis due to Methicillin susceptible Staphylococcus aureus Code(s): A41.9 - Sepsis, unspecified organism Status: Acute Assessment and Plan: with DM foot, on iv antibiotics (5) Osteomyelitis: Qualifiers: Laterality: right Osteomyelitis location: foot Osteomyelitis type: unspecified type Qualified Code(s): M86.9 - Osteomyelitis, unspecified Code(s): M86.9 - Osteomyelitis, unspecified Status: Acute (6) Diabetic foot ulcers: Qualifiers: Diabetic foot ulcer location: toe Diabetes mellitus type: type 2 Laterality: unspecified laterality Non-pressure ulcer stage: with fat layer exposed Qualified Code(s): E11.621 - Type 2 diabetes mellitus with foot ulcer; L97.502 - Non-pressure chronic ulcer of other part of unspecified foot with fat layer exposed Code(s): E11.621 - Type 2 diabetes mellitus with foot ulcer; L97.509 - Non-pressure chronic ulcer of other part of unspecified foot with unspecified severity Status: Acute (7) Coronary artery disease involving [place] coronary artery of [place] heart: Qualifiers: Associated angina: without angina Qualified Code(s): I25.10 - Atherosclerotic heart disease of [place] coronary artery without angina pectoris Code(s): I25.10 - Atherosclerotic heart disease of [place] coronary artery without angina pectoris Status: Acute Assessment and Plan: CABG in few more weeks. GI Consult Note Consult date/time: 08/02/19 11:03 reason for consult: MARYBETH HPI: Miah Chambers is a 73 year old male with multiple medical problems including uncontrolled DM with complications on insulin pump, CAD with ischemic cardiomyopathy who is supposed to have CABG in few more weeks admitted for DKA and also found to have Staph bacteremia with DM foot/osteomyelitis currently on iv abx by infectious disease. He also has chronic anemia with hb 7-8, no reports of GIB but never had scopes. Iron studies consistent with marybeth and hematology consulted. He also had intermittent nausea with vomiting after eating. Review of Systems Constitutional: Constitutional: Reports fatigue Eyes: Eyes: Denies blurry vision ENT: Reports Normal hearing present, Denies headache(s) and Denies neck pain Cardiovascular: Cardiovascular: Denies chest pain Respiratory: Respiratory: Denies wheezing Gastrointestinal: Gastrointestinal: Reports nausea Genitourinary: Genitourinary: Denies dysur
--- NOTE | 2019-08-02 11:06 | PCPTNOTE ---
Attempted to see patient for Physical Therapy this AM. RN stated that patient was getting ready to leave for a procedure.
[2019-08-02] MEDS: LACTATED RINGERS 1,000 ML 150 ML IV CONT (11:44)
--- NOTE | 2019-08-02 11:48 | WPDANESEPPF ---
Anes - Initial Pre Proc Eval Procedure: Operation Date: 08/02/19 15:45 Proposed Procedures p Esophagogastroduodenoscopy - Boone Crandall MD Date/Time: 08/02/19 11:48 Surgeon: Desmond Glass MD Pre Op Diagnosis: bilateral foot ulcers Patient Data Age: 73 Gender: M Height: 5 ft 8 in Weight: 67.2 kg Last Vital Signs Temp 98.4 F 08/02/19 11:29 Pulse 72 08/02/19 11:29 Resp 14 08/02/19 11:29 BP 123/60 08/02/19 11:29 Pulse Ox 99 08/02/19 11:29 Allergies Allergy/AdvReac Type Severity Reaction Status Date / Time No Known Allergies Allergy Verified 08/02/19 11:26 Home Medications Medication Instructions Recorded Confirmed Type atorvastatin 20 mg tablet 20 mg PO DAILY 04/30/19 07/27/19 History clopidogrel 75 mg tablet 75 mg PO DAILY 04/30/19 07/27/19 History insulin lispro 100 unit/mL 100 unit SUB-Q DAILY ml 04/30/19 07/27/19 History subcutaneous cartridge omeprazole 40 mg capsule,delayed 40 mg PO DAILY 04/30/19 07/27/19 History release carvedilol 6.25 mg tablet 6.25 mg PO Q12H #180 tablet 05/22/19 07/27/19 Rx lisinopril 10 mg tablet 10 mg PO DAILY #30 tablet 06/13/19 07/27/19 Rx aspirin 81 mg PO DAILY 06/20/19 07/27/19 History cyanocobalamin (vitamin B-12) 1,000 mcg PO DAILY 06/20/19 07/27/19 History hydralazine 50 mg PO BID 06/20/19 07/27/19 History furosemide 40 mg PO DAILY 30 Days #30 tablet 06/23/19 07/27/19 Rx levothyroxine 112 mcg PO DAILY 07/10/19 07/27/19 History potassium chloride 20 meq PO DAILY 07/10/19 07/27/19 History meclizine 25 mg PO TID PRN 07/27/19 07/27/19 History Laboratory Tests 08/01/19 08/01/19 08/01/19 16:06 20:49 21:21 WBC RBC Hgb Hct MCV MCH MCHC RDW Plt Count MPV Immature Gran % (Auto) Neut % (Auto) Lymph % (Auto) [place] % (Auto) Eos % (Auto) Baso % (Auto) Lymph # (Auto) [place] # (Auto) Eos # (Auto) Baso # (Auto) Abs Immat Gran (auto) Absolute Neuts (auto) Absolute Nucleated RBC Nucleated RBC % Platelet Estimate Hypochromasia Anisocytosis Sodium Potassium Chloride Carbon Dioxide BUN Creatinine Estim Creat Clear Calc Estimated GFR Glucose POC Capillary Glucose 169 mg/dl H mg/dl 228 mg/dl H mg/dl (65-105) (65-105) Calcium Vancomycin Trough < 5.0 ug/mL L ug/mL (10.0-20.0) 08/02/19 08/02/19 05:53 05:53 WBC 8.4 K/mm3 K/mm3 (4.5-10.0) RBC 3.57 M/mm3 L M/mm3 (4.6-6.20) Hgb 7.8 g/dL L g/dL (14.0-18.0) Hct 26.2 % L % (42.0-52.0) MCV 73.4 fl L fl (80-100) MCH 21.8 pg L pg (26-34) MCHC 29.8 g/dl L g/dl (32-36) RDW 24.0 % H % (11.5-14.5) Plt Count 360 k/mm3 k/mm3 (150-375) MPV 10.0 fl fl (7.4-10.4) Immature Gran % (Auto) 1.2 % H % (0-0.5) Neut % (Auto) 58.5 % % (45.5-73.1) Lymph % (Auto) 27.4 % % (18.3-44.2) [place] % (Auto) 7.0 % % (2.6-8.5) Eos % (Auto) 5.1 % H % (0-4.4) Baso % (Auto) 0.8 % % (0.2-1.2) Lymph # (Auto) 2.29 K/mm3 K/mm3 (0.9-3.2) [place] # (Auto) 0.6 K/mm3 K/mm3 (0.1-0.6) Eos # (Auto) 0.4 K/mm3 H K/mm3 (0-0.3) Baso # (Auto) 0.1 K/mm3 K/mm3 (0.0-0.1) Abs Immat Gran (auto) 0.10 K/mm3 H K/mm3 (0.00-0.031) Absolute Neuts (auto) 4.9 K/mm3 K/mm3 (1.3-6.7) Absolute Nucleated RBC 0.0 K/mm3 K/mm3 (0.0-0.012) Nucleated RBC % 0.0 % % (0.0-0.2) Platelet Estimate Adequate (Adequate) Hypochromasia 1+ (NORMAL) Anisocytosis 1+ (NORMAL)
[2019-08-02] MEDS: BENZOCAINE (*SP) 60 ML SPRAY CAN (HURRICAINE) 1 SPRAY MUCOUS MEM (11:51)
[2019-08-02 12:36] LABS: Glucose Point of Care 88 (65-105)
--- NOTE | 2019-08-02 14:02 | WPDINFPN2 ---
Progress Note: A&P Assessment and Plan (1) Osteomyelitis: Qualifiers: Laterality: right Osteomyelitis location: foot Osteomyelitis type: unspecified type Qualified Code(s): M86.9 - Osteomyelitis, unspecified Code(s): M86.9 - Osteomyelitis, unspecified Status: Acute Assessment and Plan: 1. Chronic osteomyelitis L foot and foot ulcer 2. LORAINE bacteremia, suspect soft tissue source 3. CAD, in need of CABG REC Ancef # 4, continue 4 weeks minimum. Redo BC ng 1 day. No CaBG until clear of infection. The foot ulcers and chronic OM, if inactive, will not themselves prevent CABG. But valve replacement surgery, if contemplated, is relatively contraindicated lifelong Subjective Date/time seen: 08/02/19 14:02 Interval history: no problems after endoscopy Exam Narrative: Exam Narrative: afebrile Const: General: no acute distress Eyes: General: appearance normal, both eyes and all related structures Resp: Effort & Inspection: normal respiratory effort Auscultation: clear to auscultation bilaterally Cardio: Rate: regular rate Rhythm: regular rhythm Heart sounds: no gallops and no murmurs GI: Inspection: non-distended GI Palp: Yes Soft to palpation and No Tenderness to palpation present (GI) Skin: General skin exam: normal color and no rashes or lesions noted Objective Data Vital Signs Vital Signs: Vital Signs - 24 hr 08/01/19 14:56 08/01/19 21:18 08/01/19 22:00 Temperature 36.4 C L 36.8 C Pulse Rate 77 78 78 Respiratory Rate 16 18 Blood Pressure 131/60 134/51 L Pulse Oximetry 100 98 08/02/19 05:27 08/02/19 11:29 08/02/19 12:12 Temperature 36.4 C L 36.9 C Pulse Rate 73 72 61 Respiratory Rate 16 14 18 Blood Pressure 124/62 123/60 87/32 L Pulse Oximetry 98 99 100 08/02/19 12:15 08/02/19 12:20 08/02/19 12:25 Temperature Pulse Rate 64 64 61 Respiratory Rate 18 18 18 Blood Pressure 77/29 L 77/29 L 79/40 L Pulse Oximetry 100 100 100 08/02/19 12:30 08/02/19 12:35 08/02/19 12:45 Temperature Pulse Rate 68 68 68 Respiratory Rate 18 18 18 Blood Pressure 109/46 L 102/53 L 98/58 L Pulse Oximetry 100 100 100 Intake/Output Intake/Output: Intake & Output 07/30/19 07/31/19 08/01/19 08/02/19 23:59 23:59 23:59 23:59 Intake Total 2540 2110 2780 730 Output Total 600 3000 4000 1200 Balance 1940 -890 -1220 -470 Meds/Results Medications: Active Medications Generic Name Dose Route Start Last Admin Trade Name Freq PRN Reason Stop Dose Admin Acetaminophen 650 mg 07/27/19 16:12 Tylenol Tablet PO Q4H PRN Mild Pain (1-3) or Fever Aspirin 81 mg 07/29/19 09:00 08/01/19 08:03 Aspirin Ec PO 81 mg QAM ILIANA Administration Atorvastatin Calcium 20 mg 07/29/19 09:00 08/01/19 08:04 Lipitor PO 20 mg DAILY ILIANA Administration Carvedilol 6.25 mg 07/29/19 09:00 08/01/19 21:18 Coreg PO 6.25 mg Q12HR ILIANA Administration Cyanocobalamin 1,000 mcg 07/29/19 09:00 08/01/19 08:05 Vitamin B-12 Tab PO 1,000 mcg QAM ILIANA Administration Dextrose 12.5 gm 07/28/19 07:43 Dextrose 50% Syringe IV PUSH PRN PRN Hypoglycemia Protocol Furosemide 40 mg 07/29/19 09:00 08/01/19 08:12 Lasix Tablet PO Not Given QAM ILIANA Glucagon 1 mg 07/28/19 07:43 Glucagon For Inj IM PRN PRN Hypoglycemia Protocol Glucose 15 gm 07/28/19 07:43 Glutose 15 PO PRN PRN Hypoglycemia Protocol Dextrose 1,000 mls @ 100 mls/hr 07/28/19 07:43 Dextrose 5% 1,000 Ml IVPB PRN PRN Hypoglycemia Protocol Cefazolin Sodium 2 gm in 50 mls @ 100 mls/hr 07/30/19 12:30 08/02/19 05:39 Ancef 2 Gm/D5w 50 Ml IVPB Infused Q8HR ILIANA Infusion Iron Sucrose 500 mg/ Sodium 275 mls @ 78.571 mls/hr 08/02/19 09:00 08/02/19 09:25 Chloride IVPB 08/04/19 09:01 78.6 mls/hr QAM ILIANA Administration Insulin Aspart 3 - 6 units 07/28/19 08:00 08/02/19 09:12 Novolog SUB-Q
--- NOTE | 2019-08-02 14:08 | PM.IMPN ---
Progress Note: A&P Assessment and Plan (1) DKA (diabetic ketoacidoses): Qualifiers: Diabetes mellitus type: other specified (including SEVEN) Diabetes mellitus complication detail: without coma Qualified Code(s): E13.10 - Other specified diabetes mellitus with ketoacidosis without coma Code(s): E11.10 - Type 2 diabetes mellitus with ketoacidosis without coma Status: Acute Assessment and Plan: Patient was seen by surgery team today does not recommend any surgical intervention as patient wounds are superficial, patient blood and urine culture is growing staph seen by Dr. Brewster recommending to continue cefazolin and further recommendations. Patient blood and urine culture is growing LORAINE staph seen by Dr. Brewster recommending to continue cefazolin and further recommendations. As per previous notes, pt will need 4-6 weeks of IV cefazolin, Picc line ordered. Pt awaiting RPT BC prior to picc line insertion. Hopeful discharge tomorrow. (2) Diabetic foot ulcers: Qualifiers: Diabetic foot ulcer location: toe Diabetes mellitus type: type 2 Laterality: unspecified laterality Non-pressure ulcer stage: with fat layer exposed Qualified Code(s): E11.621 - Type 2 diabetes mellitus with foot ulcer; L97.502 - Non-pressure chronic ulcer of other part of unspecified foot with fat layer exposed Code(s): E11.621 - Type 2 diabetes mellitus with foot ulcer; L97.509 - Non-pressure chronic ulcer of other part of unspecified foot with unspecified severity Status: Acute Assessment and Plan: Patient is seen by surgery team does not suspect the patient is a candidate for surgical debridement however they are concerned patient will need amputation of the foot or below the knee they will follow him in the future. (3) Acute renal injury: Code(s): N17.9 - Acute kidney failure, unspecified Status: Resolved Assessment and Plan: Likely secondary to dehydration due to DKA, resolved now. (4) DKA, type 1, not at goal: Code(s): E10.10 - Type 1 diabetes mellitus with ketoacidosis without coma Status: Acute Assessment and Plan: Patient back on his insulin pump. 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 this is patient 5 insulin pump, blood sugars are very erratic. (5) Chronic anemia: Code(s): D64.9 - Anemia, unspecified Status: Acute Assessment and Plan: Hb is 8. pt being following by DR Pickens hematology may benefit from bone marrow biopsy in the future. Pt had venofer today and EGD under GI Subjective Date/time seen: 08/02/19 14:08 Interval history: Patient is 73-year-old male with history of type 1 diabetes on insulin pump he has has severe coronary artery disease and is scheduled to have a 5 vessels CABG in 3 weeks, also has diabetic foot and concern the patient may have osteomyelitis he cannot have CABG until it is resolved get he is no longer has infection he presented emergency department was admitted for further evaluation initially he was admitted on this medical floor however later in the evening patient developed nausea or vomiting he had urine and fecal incontinence his blood sugar were elevated to 500 and he was in DKA he was transferred to ICU started on IV insulin as well as hydration today his blood sugars are trending down his gait is close his clinically stable he is on long-acting insulin as well as on sliding scale, patient he denies any chest pain shortness of breath palpitation fever or chills, main concern is he wants to make sure the infection is resolved so he can have a CABG is scheduled. Patient was seen by surgery team today does not recommend any surgical intervention as patient wounds are superficial, patient blood and urine culture is growing LORAINE staph seen by Dr. Brewster recommending to continue cefazolin and further recommendations. As per previous notes, pt will need 4-6 weeks of IV cefazolin, Picc line ordered.Pt is back on his insulin pump sta
[2019-08-02] MEDS: CYANOCOBALAMIN 1,000 MCG TABLET 1000 MCG PO (16:04)
[2019-08-02] MEDS: POTASSIUM CHLORIDE 20 MEQ TABLET.ER PO (16:05)
[2019-08-02] MEDS: PANTOPRAZOLE 40 MG TABLET PO (16:05)
[2019-08-02] MEDS: SILVERGEL (ELTA) 45 ML 1 APPLIC TOPICAL (16:05)
[2019-08-02] MEDS: lisinopriL 10 MG TABLET PO (16:06)
[2019-08-02] MEDS: FUROSEMIDE 40 MG TABLET PO (16:06)
[2019-08-02] MEDS: ASPIRIN 81 MG ENTERIC TABLET PO (16:06)
[2019-08-02] MEDS: METOCLOPRAMIDE HCL 10 MG TABLET PO ×2 (16:07→21:46)
[2019-08-02] MEDS: ATORVASTATIN 20 MG TABLET PO (16:07)
[2019-08-02 17:19] LABS: Glucose Point of Care 166 (65-105)
[2019-08-02] MEDS: carvediloL 6.25 MG TABLET PO (21:46)
[2019-08-02 23:45] LABS: Glucose Point of Care 137 (65-105)
[2019-08-03 02:04] LABS: Glucose Point of Care 99 (65-105)
[2019-08-03 04:03] LABS: Glucose Point of Care 152 (65-105)
[2019-08-03 06:00] VITALS: BP 125/64; PULSE 72; RESP 16; TEMP 36.9; O2SAT 100
[2019-08-03] MEDS: METOCLOPRAMIDE HCL 10 MG TABLET PO ×3 (06:05→21:33)
[2019-08-03] MEDS: LEVOTHYROXINE SODIUM 112 MCG TABLET PO (06:05)
[2019-08-03] MEDS: ceFAZolin 2 GM/D5W 50 ML 2 GM/50 ML BAG IVPB ×3 (06:07→21:33)
[2019-08-03 06:10] LABS: Basophils Absolute Auto 0.1 K/mm3 (0.0-0.1); Eosinophils Absolute Auto 0.4 K/mm3 (0-0.3); Eosinophils Percent Auto 4.9 % (0-4.4); Hematocrit 25.3 % (42.0-52.0); Hemoglobin 7.4 g/dL (14.0-18.0); Immature Granulocyte Absolute 0.08 K/mm3 (0.00-0.031); Lymphocytes Absolute Auto 1.77 K/mm3 (0.9-3.2); Lymphocytes Percent Auto 22.1 % (18.3-44.2); Mean Corpuscular HGB Conc 29.2 g/dl (32-36); Mean Corpuscular Hemoglobin 21.8 pg (26-34); Mean Corpuscular Volume 74.6 fl (80-100); Mean Platelet Volume 10.6 fl (7.4-10.4); Monocytes Absolute Auto 0.6 K/mm3 (0.1-0.6); Monocytes Percent Auto 7.2 % (2.6-8.5); Neutrophils Absolute Auto 5.1 K/mm3 (1.3-6.7); Neutrophils Percent Auto 63.8 % (45.5-73.1); Platelet Count Result 361 k/mm3 (150-375); Red Blood Count 3.39 M/mm3 (4.6-6.20); Red Cell Distribution Width 24.3 % (11.5-14.5)
[2019-08-03 06:13] LABS: Blood Urea Nitrogen 17 mg/dL (9-20); Calcium 8.5 mg/dL (8.4-10.2); Carbon Dioxide 30 mmol/L (22-30); Chloride 94 mmol/L (98-107); Estimated CRCL calculation 54 ml/min; Estimated Glomerular Filt Rate > 60; Glucose 248 mg/dL (75-110); Potassium 4.3 mmol/L (3.4-5.0); Sodium 133 mmol/L (137-145)
[2019-08-03 07:51] LABS: Glucose Point of Care 209 (65-105)
[2019-08-03 08:43] LABS: Hypochromasia 2+ (NORMAL); Microcytosis 1+ (NORMAL); Ovalocytes 1+ (NORMAL); Platelet Estimate Adequate (Adequate)
[2019-08-03] MEDS: INSULIN ASPART (*BKC) 100 UNITS/ML SUB-Q ×2 (09:16→16:15)
[2019-08-03 09:17] VITALS: PULSE 80
[2019-08-03] MEDS: lisinopriL 10 MG TABLET PO (09:17)
[2019-08-03] MEDS: FUROSEMIDE 40 MG TABLET PO (09:17)
[2019-08-03] MEDS: POTASSIUM CHLORIDE 20 MEQ TABLET.ER PO (09:17)
[2019-08-03] MEDS: carvediloL 6.25 MG TABLET PO ×2 (09:17→21:33)
[2019-08-03] MEDS: ASPIRIN 81 MG ENTERIC TABLET PO (09:18)
[2019-08-03] MEDS: PANTOPRAZOLE 40 MG TABLET PO (09:19)
[2019-08-03] MEDS: CYANOCOBALAMIN 1,000 MCG TABLET 1000 MCG PO (09:19)
[2019-08-03] MEDS: ATORVASTATIN 20 MG TABLET PO (09:19)
[2019-08-03] MEDS: IRON SUCROSE COMPLEX 500 MG in SODIUM CHLORIDE 0.9% IV 250 ML 78.6 MG IVPB (09:38)
--- NOTE | 2019-08-03 09:55 | WPDANESPN ---
Anes - Prog Note Post-Op Date/Time: 08/03/19 09:55 Cardiovascular status: normal Respiratory status: normal Airway patency: baseline Mental status: baseline Post-Op hydration status: normal Vital Signs: Last Vital Signs Temp 36.9 C 08/03/19 06:00 Pulse 80 08/03/19 09:17 Resp 16 08/03/19 06:00 BP 125/64 08/03/19 06:00 Pulse Ox 100 08/03/19 06:00 I/O: Intake & Output 08/02/19 08/03/19 08/03/19 23:59 07:59 15:59 Intake Total 840 350 240 Output Total 2100 1600 Balance -1260 -1250 240 Laboratory Tests 08/03/19 05:31 08/03/19 05:31 08/02/19 08/02/19 08/02/19 09:10 12:34 17:14 WBC RBC Hgb Hct MCV MCH MCHC RDW Plt Count MPV Immature Gran % (Auto) Neut % (Auto) Lymph % (Auto) [place] % (Auto) Eos % (Auto) Baso % (Auto) Lymph # (Auto) [place] # (Auto) Eos # (Auto) Baso # (Auto) Abs Immat Gran (auto) Absolute Neuts (auto) Absolute Nucleated RBC Nucleated RBC % Platelet Estimate Hypochromasia Microcytosis Ovalocytes Sodium Potassium Chloride Carbon Dioxide BUN Creatinine Estim Creat Clear Calc Estimated GFR Glucose POC Capillary Glucose 152 H 88 166 H Calcium 08/02/19 08/03/19 08/03/19 21:52 02:01 05:31 WBC 8.0 RBC 3.39 L Hgb 7.4 L Hct 25.3 L MCV 74.6 L MCH 21.8 L MCHC 29.2 L RDW 24.3 H Plt Count 361 MPV 10.6 H Immature Gran % (Auto) 1.0 H Neut % (Auto) 63.8 Lymph % (Auto) 22.1 [place] % (Auto) 7.2 Eos % (Auto) 4.9 H Baso % (Auto) 1.0 Lymph # (Auto) 1.77 [place] # (Auto) 0.6 Eos # (Auto) 0.4 H Baso # (Auto) 0.1 Abs Immat Gran (auto) 0.08 H Absolute Neuts (auto) 5.1 Absolute Nucleated RBC 0.0 Nucleated RBC % 0.0 Platelet Estimate Adequate Hypochromasia 2+ Microcytosis 1+ Ovalocytes 1+ Sodium Potassium Chloride Carbon Dioxide BUN Creatinine Estim Creat Clear Calc Estimated GFR Glucose POC Capillary Glucose 137 H 99 Calcium 08/03/19 08/03/19 05:31 07:48 WBC RBC Hgb Hct MCV MCH MCHC RDW Plt Count MPV Immature Gran % (Auto) Neut % (Auto) Lymph % (Auto) [place] % (Auto) Eos % (Auto) Baso % (Auto) Lymph # (Auto) [place] # (Auto) Eos # (Auto) Baso # (Auto) Abs Immat Gran (auto) Absolute Neuts (auto) Absolute Nucleated RBC Nucleated RBC % Platelet Estimate Hypochromasia Microcytosis Ovalocytes Sodium 133 L Potassium 4.3 Chloride 94 L Carbon Dioxide 30 BUN 17 Creatinine 1.00 Estim Creat Clear Calc 54 Estimated GFR > 60 Glucose 248 H POC Capillary Glucose 209 H Calcium 8.5 Microbiology 08/01/19 05:57 Blood Blood Culture - Preliminary 08/01/19 05:57 Blood Blood Culture - Preliminary Post-procedural complaints: none Patient Feedback: Patient satisfied with anesthetic care.
--- NOTE | 2019-08-03 11:35 | PCDIET ---
Nutrition Weekly Screen Complete: Nutrition recommendation: Current diet order appropriate. CHO consistency needed as Glu (248). Nurse reports patient is eating well, is focused on eating, and it is recorded he eats 75-100% of meals. Recommend continuation of B12. Last recorded weight is 67.2 kg. Recommend another weight measurement be taken and recorded to assess weight changes (keyur. as pt eating well). Bowel Motility:Last recorded +BM 07/27. Recommend motility agent. Labs Reviewed:Na (133), K(4.3), BUN(17), Cr(1.00), Glu (248) Meds Noted:Reglan, Lasix, B12, KCl, Protonix, Lipitor Additional Notes: Patient is eating and tolerating food well. CHO consistent diet necessary as Glu levels at 248 and adequate intake necessary due to CHF and wound healing from PINKY surgery. K is within a normal range and sodium is slightly lower than a normal range (133). Will continue to monitor intake and labs.
--- NOTE | 2019-08-03 12:23 | PCNSR ---
On 08/03/19, the student, Monica English, provided care and completed [facility] documentation on this patient. I have reviewed the student's documentation and agree with the findings.
[2019-08-03 13:16] LABS: Glucose Point of Care 198 (65-105)
--- NOTE | 2019-08-03 13:33 | WPDINFPN2 ---
Progress Note: A&P Assessment and Plan (1) Osteomyelitis: Qualifiers: Laterality: right Osteomyelitis location: foot Osteomyelitis type: unspecified type Qualified Code(s): M86.9 - Osteomyelitis, unspecified Code(s): M86.9 - Osteomyelitis, unspecified Status: Acute Assessment and Plan: 1. Chronic osteomyelitis L foot and foot ulcer 2. LORAINE bacteremia, suspect soft tissue source, repeat BCs ng 2 days 3. CAD, in need of CABG REC Ancef # / days, through 08/24 (total antibiotic 28 days). No CaBG until clear of infection. The foot ulcers and chronic OM, if inactive, will not themselves prevent CABG. But valve replacement surgery, if contemplated, is relatively contraindicated lifelong. PICC now in place, ok discharge planning as above, home therapy is ok with me though I counseled patient that insurance decision may alter that plan Subjective Date/time seen: 08/03/19 13:33 Interval history: good appetite, no complaints, with help of his daughter he feels confident to self administer IV antibiotic at home. He has done so in past Exam Narrative: Exam Narrative: afebrile. Both feet dressed, no drainage no erythema Const: General: no acute distress Eyes: General: appearance normal, both eyes and all related structures Resp: Effort & Inspection: normal respiratory effort Auscultation: clear to auscultation bilaterally Cardio: Rate: regular rate Rhythm: regular rhythm Heart sounds: no gallops and no murmurs GI: Inspection: non-distended GI Palp: Yes Soft to palpation and No Tenderness to palpation present (GI) Skin: General skin exam: normal color and no rashes or lesions noted Objective Data Vital Signs Vital Signs: Vital Signs - 24 hr 08/02/19 14:00 08/02/19 21:46 08/02/19 22:00 Temperature 36.6 C 37.1 C Pulse Rate 76 78 72 Respiratory Rate 19 14 Blood Pressure 132/69 121/62 Pulse Oximetry 99 100 08/03/19 06:00 08/03/19 09:17 Temperature 36.9 C Pulse Rate 72 80 Respiratory Rate 16 Blood Pressure 125/64 Pulse Oximetry 100 Intake/Output Intake/Output: Intake & Output 07/31/19 08/01/19 08/02/19 08/03/19 23:59 23:59 23:59 23:59 Intake Total 2110 2780 1845 590 Output Total [address] [facility] -890 -1220 -1455 -1010 Meds/Results Medications: Active Medications Generic Name Dose Route Start Last Admin Trade Name Freq PRN Reason Stop Dose Admin Acetaminophen 650 mg 07/27/19 16:12 Tylenol Tablet PO Q4H PRN Mild Pain (1-3) or Fever Aspirin 81 mg 07/29/19 09:00 08/03/19 09:18 Aspirin Ec PO 81 mg QAM ILIANA Administration Atorvastatin Calcium 20 mg 07/29/19 09:00 08/03/19 09:19 Lipitor PO 20 mg DAILY ILIANA Administration Carvedilol 6.25 mg 07/29/19 09:00 08/03/19 09:17 Coreg PO 6.25 mg Q12HR ILIANA Administration Cyanocobalamin 1,000 mcg 07/29/19 09:00 08/03/19 09:19 Vitamin B-12 Tab PO 1,000 mcg QAM ILIANA Administration Dextrose 12.5 gm 07/28/19 07:43 Dextrose 50% Syringe IV PUSH PRN PRN Hypoglycemia Protocol Furosemide 40 mg 07/29/19 09:00 08/03/19 09:17 Lasix Tablet PO 40 mg QAM ILIANA Administration Glucagon 1 mg 07/28/19 07:43 Glucagon For Inj IM PRN PRN Hypoglycemia Protocol Glucose 15 gm 07/28/19 07:43 Glutose 15 PO PRN PRN Hypoglycemia Protocol Dextrose 1,000 mls @ 100 mls/hr 07/28/19 07:43 Dextrose 5% 1,000 Ml IVPB PRN PRN Hypoglycemia Protocol Cefazolin Sodium 2 gm in 50 mls @ 100 mls/hr 07/30/19 12:30 08/03/19 06:37 Ancef 2 Gm/D5w 50 Ml IVPB Infused Q8HR ILIANA Infusion Iron Sucrose 500 mg/ Sodium 275 mls @ 78.571 mls/hr 08/02/19 09:00 08/03/19 09:38 Chloride IVPB 08/04/19 09:01 78.6 mls/hr QAM ILIANA Administration Insulin Aspart 3 - 6 units 07/28/19 08:00 08/03/19 09:16 Novolog SUB-Q 3 units TIDWM ILIANA Administration Protocol Levothyroxine Sod
[2019-08-03 14:00] VITALS: BP 135/55; PULSE 78; RESP 18; TEMP 37.2; O2SAT 100
--- NOTE | 2019-08-03 15:57 | PM.IMPN ---
Progress Note: A&P Assessment and Plan (1) DKA (diabetic ketoacidoses): Qualifiers: Diabetes mellitus type: other specified (including SEVEN) Diabetes mellitus complication detail: without coma Qualified Code(s): E13.10 - Other specified diabetes mellitus with ketoacidosis without coma Code(s): E11.10 - Type 2 diabetes mellitus with ketoacidosis without coma Status: Acute Assessment and Plan: Patient was seen by surgery team today does not recommend any surgical intervention as patient wounds are superficial, patient blood and urine culture is growing staph seen by Dr. Brewster recommending to continue cefazolin and further recommendations. Patient blood and urine culture is growing LORAINE staph seen by Dr. Brewster recommending to continue cefazolin and further recommendations. As per previous notes, pt will need 4-6 weeks of IV cefazolin, Picc line ordered. Bc negative, picc line inserted today. Hopeful discharge tomorrow. (2) Diabetic foot ulcers: Qualifiers: Diabetic foot ulcer location: toe Diabetes mellitus type: type 2 Laterality: unspecified laterality Non-pressure ulcer stage: with fat layer exposed Qualified Code(s): E11.621 - Type 2 diabetes mellitus with foot ulcer; L97.502 - Non-pressure chronic ulcer of other part of unspecified foot with fat layer exposed Code(s): E11.621 - Type 2 diabetes mellitus with foot ulcer; L97.509 - Non-pressure chronic ulcer of other part of unspecified foot with unspecified severity Status: Acute Assessment and Plan: Patient is seen by surgery team does not suspect the patient is a candidate for surgical debridement however they are concerned patient will need amputation of the foot or below the knee they will follow him in the future. (3) Acute renal injury: Code(s): N17.9 - Acute kidney failure, unspecified Status: Resolved Assessment and Plan: Likely secondary to dehydration due to DKA, resolved now. (4) DKA, type 1, not at goal: Code(s): E10.10 - Type 1 diabetes mellitus with ketoacidosis without coma Status: Acute Assessment and Plan: Patient back on his insulin pump. Sees nursing resident in [facility]. this is patient 5 insulin pump, blood sugars are very erratic. (5) Chronic anemia: Code(s): D64.9 - Anemia, unspecified Status: Acute Assessment and Plan: Hb is 8. pt being following by DR Pickens hematology may benefit from bone marrow biopsy in the future. Pt had venofer today and EGD under GI showing gastric polyp Subjective Date/time seen: 08/03/19 15:57 Interval history: Patient is 73-year-old male with history of type 1 diabetes on insulin pump he has has severe coronary artery disease and is scheduled to have a 5 vessels CABG in 3 weeks, also has diabetic foot and concern the patient may have osteomyelitis he cannot have CABG until it is resolved get he is no longer has infection he presented emergency department was admitted for further evaluation initially he was admitted on this medical floor however later in the evening patient developed nausea or vomiting he had urine and fecal incontinence his blood sugar were elevated to 500 and he was in DKA he was transferred to ICU started on IV insulin as well as hydration today his blood sugars are trending down his gait is close his clinically stable he is on long-acting insulin as well as on sliding scale, patient he denies any chest pain shortness of breath palpitation fever or chills, main concern is he wants to make sure the infection is resolved so he can have a CABG is scheduled. Patient was seen by surgery team today does not recommend any surgical intervention as patient wounds are superficial, patient blood and urine culture is growing LORAINE staph seen by Dr. Brewster recommending to continue cefazolin and further recommendations. As per previous notes, pt will need 4-6 weeks of IV cefazolin, Picc line ordered.Pt is back on his insul
[2019-08-03] MEDS: SILVERGEL (ELTA) 45 ML 1 APPLIC TOPICAL (16:15)
[2019-08-03 17:05] LABS: Glucose Point of Care 256 (65-105)
--- NOTE | 2019-08-03 17:09 | WPDONCPN ---
Progress Note: A/P - Additional Plan Microcytic anemia with iron deficiency. Patient is on IV iron infusion. Patient had EGD done that showed gastric polyp which has been removed. He will take oral iron twice a day. He will follow-up with me in the office. Nausea vomiting. likely secondary to gastroparesis and diabetes. Patient has been started on Reglan. Osteomyelitis. Patient is on antibiotic therapy and afebrile. Type 2 diabetes with DKA. Stable. - Time Spent With Patient Total time spent is greater than 50% in coordination of care (as documented) at patient's floor/unit and/or counseling patient: 15 - 25 minutes Subjective Interval history: Iron deficiency anemia Nausea and vomiting Chronic osteomyelitis Review of Systems - Review of Systems Patient is feeling better been and denies any nausea vomiting. Denies any bleeding and bruising. Denies any fevers and chills. Complain of swelling in the left upper extremity status post IV iron infusion. - Neurologic Reports hearing normal, Reports numbness ( lower extremities), Reports sensory deficit ( absence sensation light touch mid leg distal bilaterally), Denies confusion, Denies headache(s), Denies loss of vision, Denies weakness Exam Vital signs: Lungs are clear to auscultation bilaterally Cardiovascular regular rate rhythm no murmurs Abdomen soft nontender nondistended Extremity swelling in the left upper extremity PN: Objective Data - Labs CBC & Chem 7: 08/03/19 05:31 08/03/19 05:31 Labs: Laboratory Results - last 24 hr 08/02/19 08/02/19 08/02/19 09:10 17:14 21:52 WBC RBC Hgb Hct MCV MCH MCHC RDW Plt Count MPV Immature Gran % (Auto) Neut % (Auto) Lymph % (Auto) [place] % (Auto) Eos % (Auto) Baso % (Auto) Lymph # (Auto) [place] # (Auto) Eos # (Auto) Baso # (Auto) Abs Immat Gran (auto) Absolute Neuts (auto) Absolute Nucleated RBC Nucleated RBC % Platelet Estimate Hypochromasia Microcytosis Ovalocytes Sodium Potassium Chloride Carbon Dioxide BUN Creatinine Estim Creat Clear Calc Estimated GFR Glucose POC Capillary Glucose 152 H 166 H 137 H Calcium 08/03/19 08/03/19 08/03/19 02:01 05:31 05:31 WBC 8.0 RBC 3.39 L Hgb 7.4 L Hct 25.3 L MCV 74.6 L MCH 21.8 L MCHC 29.2 L RDW 24.3 H Plt Count 361 MPV 10.6 H Immature Gran % (Auto) 1.0 H Neut % (Auto) 63.8 Lymph % (Auto) 22.1 [place] % (Auto) 7.2 Eos % (Auto) 4.9 H Baso % (Auto) 1.0 Lymph # (Auto) 1.77 [place] # (Auto) 0.6 Eos # (Auto) 0.4 H Baso # (Auto) 0.1 Abs Immat Gran (auto) 0.08 H Absolute Neuts (auto) 5.1 Absolute Nucleated RBC 0.0 Nucleated RBC % 0.0 Platelet Estimate Adequate Hypochromasia 2+ Microcytosis 1+ Ovalocytes 1+ Sodium 133 L Potassium 4.3 Chloride 94 L Carbon Dioxide 30 BUN 17 Creatinine 1.00 Estim Creat Clear Calc 54 Estimated GFR > 60 Glucose 248 H POC Capillary Glucose 99 Calcium 8.5 08/03/19 08/03/19 08/03/19 07:48 10:45 15:56 WBC RBC Hgb Hct MCV MCH MCHC RDW Plt Count MPV Immature Gran % (Auto) Neut % (Auto) Lymph % (Auto) [place] % (Auto) Eos % (Auto) Baso % (Auto) Lymph # (Auto) [place] # (Auto) Eos # (Auto) Baso # (Auto) Abs Immat Gran (auto) Absolute Neuts (auto) Absolute Nucleated RBC Nucleated RBC % Platelet Estimate Hypochromasia Microcytosis Ovalocytes Sodium Potassium Chloride Carbon Dioxide BUN Creatinine Estim Creat Clear Calc Estimated GFR Glucose POC Capillary Glucose 209 H 198 H 256 H Calcium
[2019-08-03 21:33] VITALS: PULSE 70
[2019-08-03 21:46] LABS: Glucose Point of Care 130 (65-105)
[2019-08-03 21:59] VITALS: BP 143/67; PULSE 91; RESP 18; TEMP 37; O2SAT 100
[2019-08-04 06:00] VITALS: BP 125/58; PULSE 71; RESP 18; TEMP 37; O2SAT 99
[2019-08-04] MEDS: METOCLOPRAMIDE HCL 10 MG TABLET PO ×2 (06:13→12:14)
[2019-08-04] MEDS: LEVOTHYROXINE SODIUM 112 MCG TABLET PO (06:13)
[2019-08-04] MEDS: ceFAZolin 2 GM/D5W 50 ML 2 GM/50 ML BAG IVPB (06:16)
[2019-08-04 06:30] LABS: Basophils Absolute Auto 0.1 K/mm3 (0.0-0.1); Eosinophils Absolute Auto 0.4 K/mm3 (0-0.3); Eosinophils Percent Auto 4.6 % (0-4.4); Hematocrit 25.7 % (42.0-52.0); Hemoglobin 7.6 g/dL (14.0-18.0); Immature Granulocyte Percent A 1.1 % (0-0.5); Lymphocytes Absolute Auto 1.93 K/mm3 (0.9-3.2); Lymphocytes Percent Auto 22.1 % (18.3-44.2); Mean Corpuscular HGB Conc 29.6 g/dl (32-36); Mean Corpuscular Hemoglobin 22.3 pg (26-34); Mean Corpuscular Volume 75.4 fl (80-100); Mean Platelet Volume 10.6 fl (7.4-10.4); Monocytes Absolute Auto 0.6 K/mm3 (0.1-0.6); Monocytes Percent Auto 7.1 % (2.6-8.5); Neutrophils Absolute Auto 5.6 K/mm3 (1.3-6.7); Neutrophils Percent Auto 64.1 % (45.5-73.1); Platelet Count Result 389 k/mm3 (150-375); Red Blood Count 3.41 M/mm3 (4.6-6.20); Red Cell Distribution Width 24.8 % (11.5-14.5); White Blood Count 8.7 K/mm3 (4.5-10.0)
[2019-08-04 06:42] LABS: Blood Urea Nitrogen 15 mg/dL (9-20); Calcium 8.7 mg/dL (8.4-10.2); Carbon Dioxide 31 mmol/L (22-30); Chloride 96 mmol/L (98-107); Estimated CRCL calculation 60 ml/min; Estimated Glomerular Filt Rate > 60; Glucose 73 mg/dL (75-110); Potassium 3.8 mmol/L (3.4-5.0); Sodium 134 mmol/L (137-145)
[2019-08-04 07:35] LABS: Hypochromasia 3+ (NORMAL); Ovalocytes 1+ (NORMAL)
[2019-08-04 08:09] LABS: Glucose Point of Care 53 (65-105)
[2019-08-04 08:10] LABS: Glucose Point of Care 58 (65-105)
[2019-08-04 08:24] LABS: Glucose Point of Care 105 (65-105)
--- NOTE | 2019-08-04 08:59 | PM.DS ---
DS: Diagnosis Admitting Diagnosis Admitting Diagnosis: Type 2 diabetes mellitus with foot ulcer Discharge Diagnosis (1) DKA (diabetic ketoacidoses): Qualifiers: Diabetes mellitus type: other specified (including SEVEN) Diabetes mellitus complication detail: without coma Qualified Code(s): E13.10 - Other specified diabetes mellitus with ketoacidosis without coma Code(s): E11.10 - Type 2 diabetes mellitus with ketoacidosis without coma Status: Acute Assessment and Plan: Patient was seen by surgery team today does not recommend any surgical intervention as patient wounds are superficial, patient blood and urine culture is growing staph seen by Dr. Brewster recommending to continue cefazolin. Patient blood and urine culture is growing LORAINE staph seen by Dr. Brewster recommending to continue cefazolin for another 20 days until 24 of august. Picc line ordered. RPT Bc negative, picc line inserted yesterday. Hopeful discharge today (2) Diabetic foot ulcers: Qualifiers: Diabetic foot ulcer location: toe Diabetes mellitus type: type 2 Laterality: unspecified laterality Non-pressure ulcer stage: with fat layer exposed Qualified Code(s): E11.621 - Type 2 diabetes mellitus with foot ulcer; L97.502 - Non-pressure chronic ulcer of other part of unspecified foot with fat layer exposed Code(s): E11.621 - Type 2 diabetes mellitus with foot ulcer; L97.509 - Non-pressure chronic ulcer of other part of unspecified foot with unspecified severity Status: Acute Assessment and Plan: Patient is seen by surgery team does not suspect the patient is a candidate for surgical debridement however they are concerned patient will need amputation of the foot or below the knee they will follow him in the future. (3) Acute renal injury: Code(s): N17.9 - Acute kidney failure, unspecified Status: Resolved Assessment and Plan: Likely secondary to dehydration due to DKA, resolved now. (4) DKA, type 1, not at goal: Code(s): E10.10 - Type 1 diabetes mellitus with ketoacidosis without coma Status: Acute Assessment and Plan: Patient back on his insulin pump. 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 this is patient 5th insulin pump, blood sugars are very erratic. (5) Chronic anemia: Code(s): D64.9 - Anemia, unspecified Status: Acute Assessment and Plan: Hb is 8. pt being following by DR Pickens hematology may benefit from bone marrow biopsy in the future. Pt had venofer few infusions hile in hospital, and EGD under GI showing gastric polyp started on protonix will need to follow with GI. Pt refusing colonscopy, Plavix was held 3 days after EGD can be restarted on discharge. DS: Summary Time Spent with Patient Time attestation: Total time spent providing and/or coordinating discharge services:38 minutes on day of discharge Exam Narrative: Exam Narrative: Patient is elderly frail Const: General: no acute distress and in distress HENMT: General nose exam: Normal nares present Mouth: Yes moist mucous membranes Eyes: General: appearance normal, both eyes and all related structures Sclera: sclerae normal Neck: Neck: supple Resp: Effort & Inspection: normal respiratory effort Auscultation: clear to auscultation bilaterally Cardio: Rate: regular rate Rhythm: regular rhythm GI: Auscultation: normal bowel sounds Skin: General skin exam: normal color and no rashes or lesions noted Neuro: Speech: normal speech Sensory Exam: normal sensation Extrem: Other: b/l feet with wound dressing Psych: Affect: Anxious affect present DS: Data Data Completed and Pending Pending studies at discharge: Pending at discharge 08/02/19 12:09 Surgical [PTH] Routine Labs on day of discharge: Labs from last 24 hours 08/04/19 08/04/19 08/04/19 08:21 08:04 08:00 WBC RBC Hgb Hct MCV MCH MCHC RDW Plt Count MPV Immat
[2019-08-04] MEDS: POTASSIUM CHLORIDE 20 MEQ TABLET.ER PO (09:33)
[2019-08-04] MEDS: ASPIRIN 81 MG ENTERIC TABLET PO (09:33)
[2019-08-04 09:34] VITALS: PULSE 81
[2019-08-04] MEDS: carvediloL 6.25 MG TABLET PO (09:34)
[2019-08-04] MEDS: FUROSEMIDE 40 MG TABLET PO (09:35)
[2019-08-04] MEDS: ATORVASTATIN 20 MG TABLET PO (09:36)
[2019-08-04] MEDS: PANTOPRAZOLE 40 MG TABLET PO (09:36)
[2019-08-04] MEDS: CYANOCOBALAMIN 1,000 MCG TABLET 1000 MCG PO (09:36)
[2019-08-04] MEDS: lisinopriL 10 MG TABLET PO (09:37)
[2019-08-04] MEDS: IRON SUCROSE COMPLEX 500 MG in SODIUM CHLORIDE 0.9% IV 250 ML 78 MG IVPB (09:38)
[2019-08-04] MEDS: SODIUM CHLORIDE 0.9% IV 250 ML 30 ML (09:39)
--- NOTE | 2019-08-04 10:00 | PC.NURSE ---
Beeped Dr Brewster.
[2019-08-04 10:47] LABS: Glucose Point of Care 230 (65-105)
[2019-08-04] MEDS: INSULIN ASPART (*BKC) 100 UNITS/ML SUB-Q (10:48)
--- NOTE | 2019-08-04 11:10 | PC.NURSE ---
Left message at Dr Brewster's house.
--- NOTE | 2019-08-04 11:37 | PC.NURSE ---
Left message at Dr Brewster's house.
--- NOTE | 2019-08-04 11:50 | PC.NURSE ---
Beeped Dr Brewster.
--- NOTE | 2019-08-04 12:10 | PC.NURSE ---
Called exchange for Dr Brewster. They said they would get ahold of him for discharge orders.
--- NOTE | 2019-08-04 12:42 | PC.NURSE ---
Called Dr Brewster's exchange again.
== END 2019-08-04 14:20 | disposition home health service (06) | DRG 871 ==
LOC: ANHED 12:09 → ANH3MED 17:35 → ANHICU 07-28 10:25 → ANHIMU 07-30 06:56 → ANH3MEDSUR 07-30 22:20 → ANH3MED 08-08 09:30 → ANH3MEDSUR 08-08 09:30 → ANHICU 08-08 09:30 → ANHIMU 08-08 09:30
PROVIDERS: Family Medicine; Internal Medicine; Internal Medicine Critical Care Medicine; Internal Medicine Gastroenterology; Internal Medicine Hematology & Oncology; Admitting Provider Internal Medicine; Emergency Provider Emergency Medicine; PCP Internal Medicine; Visit Provider Family Medicine
PROC: 0DJ08ZZ Inspection of Upper Intestinal Tract, Via Natural or Artificial Opening Endoscopic (ICD-10-PCS; CPT 43235; principal; 2019-08-02 15:45)
DX: A41.01 Sepsis due to Methicillin susceptible Staphylococcus aureus (principal); E11.10 Type 2 diabetes mellitus with ketoacidosis without coma; N17.9 Acute kidney failure, unspecified; L97.506 Non-pressure chronic ulcer of other part of unspecified foot with bone involvement without evidence of necrosis; M86.671 Other chronic osteomyelitis, right ankle and foot; I25.5 Ischemic cardiomyopathy; E11.51 Type 2 diabetes mellitus with diabetic peripheral angiopathy without gangrene; Z79.4 Long term (current) use of insulin; Z95.1 Presence of aortocoronary bypass graft; Z89.412 Acquired absence of left great toe; L97.522 Non-pressure chronic ulcer of other part of left foot with fat layer exposed; Z89.421 Acquired absence of other right toe(s); K21.9 Gastro-esophageal reflux disease without esophagitis; I25.10 Atherosclerotic heart disease of native coronary artery without angina pectoris; I25.2 Old myocardial infarction; K29.70 Gastritis, unspecified, without bleeding; E11.22 Type 2 diabetes mellitus with diabetic chronic kidney disease; K31.7 Polyp of stomach and duodenum; N18.9 Chronic kidney disease, unspecified; I12.9 Hypertensive chronic kidney disease with stage 1 through stage 4 chronic kidney disease, or unspecified chronic kidney disease; E11.40 Type 2 diabetes mellitus with diabetic neuropathy, unspecified; E11.621 Type 2 diabetes mellitus with foot ulcer; Z87.891 Personal history of nicotine dependence; E87.6 Hypokalemia; E78.2 Mixed hyperlipidemia; Z96.41 Presence of insulin pump (external) (internal); E86.0 Dehydration; D50.9 Iron deficiency anemia, unspecified; E11.43 Type 2 diabetes mellitus with diabetic autonomic (poly)neuropathy; K31.84 Gastroparesis
CPT/HCPCS: 36415; 71046; 71250; 73718; 80048; 80053; 80202; 81001; 82010; 82274; 82565; 82607; 82728; 82746; 82948; 83036; 83540; 83550; 83605; 83615; 83735; 84100; 85025; 85046; 85652; 86140; 86850; 86900; 86901; 87040; 87077; 87081; 87086; 87088; 87147; 87186; 88305; 88342; 93005; 93880; 93923; 96361; 96365; 96375; 97110; 97116; 97161; 97530; 99285; A9270; C1751; J0131; J0690; J0696; J1756; J1815; J2370; J2405; J2543; J2704; J3370; J3480; J7030; J7040; J7050; J7120

== ENCOUNTER 2019-08-24 12:52 | Emergency (ER) | payer MEDICARE, SELFPAY ==
[2019-08-24 13:28] VITALS: BP 114/79; PULSE 94; RESP 18; TEMP 37; O2SAT 100
[2019-08-24 15:23] VITALS: BP 106/67; PULSE 77; RESP 19; O2SAT 100
--- NOTE | 2019-08-24 15:45 | ED.GENADULT ---
HPI - General Adult General Chief complaint: Unspecified Stated complaint: PICC line problems Time Seen by Provider: 08/24/19 15:44 Source: patient and family (Son) Mode of arrival: ambulatory Limitations: no limitations History of Present Illness HPI narrative: The pt is a 73 y/o male who presents to the ED c/o PICC line problems onset 2.5 hours ago. PICC line is over the RUE. Pt's son states that his home health nurse was pulling his discontinued PICC line today and met resistance. Pt states that he was told she was not supposed to continue pulling it out and was recommended to the ED. Pt denies RUE pain and RUE numbness/tingling. complaint: PICC line problems Onset (ago): hour(s) (2.5) Location: upper extremity (Right) Associated symptoms: denies other symptoms Related Data Home Medications Medication Instructions Recorded Confirmed atorvastatin 20 mg tablet 20 mg PO DAILY 04/30/19 07/27/19 clopidogrel 75 mg tablet 75 mg PO DAILY 04/30/19 07/27/19 insulin lispro 100 unit/mL 100 unit SUB-Q DAILY ml 04/30/19 07/27/19 subcutaneous cartridge omeprazole 40 mg capsule,delayed 40 mg PO DAILY 04/30/19 07/27/19 release aspirin 81 mg PO DAILY 06/20/19 07/27/19 cyanocobalamin (vitamin B-12) 1,000 mcg PO DAILY 06/20/19 07/27/19 hydralazine 50 mg PO BID 06/20/19 07/27/19 levothyroxine 112 mcg PO DAILY 07/10/19 07/27/19 potassium chloride 20 meq PO DAILY 07/10/19 07/27/19 meclizine 25 mg PO TID PRN 07/27/19 07/27/19 Allergies Allergy/AdvReac Type Severity Reaction Status Date / Time No Known Allergies Allergy Verified 08/02/19 11:26 Review of Systems Review of Systems: All systems reviewed & are unremarkable except as noted in HPI and below Musculoskeletal: Musculoskeletal: Denies other (RUE pain) Neurologic: Denies numbness (RUE) and Denies tingling (RUE) PMFSH Past Medical History Medical History Amputation of toe of left foot Left 1st Amputation of toe of right foot Right 2nd Chronic anemia Chronic GERD Chronic kidney disease Coronary artery disease involving [place] coronary artery of [place] heart Non STEMI in November 2013. He had angioplasty to the first diagonal with failed intervention to the OM2. He is followed by Dr. Jameel Steinberg. Cardiac catheterization 07/10/2019 demonstrated multiple vessel coronary artery disease Diabetes mellitus with diabetic neuropathy Diabetic foot ulcers Essential hypertension Fracture of both ankles Fracture of both arms History of osteomyelitis Hyperlipidemia Hypothyroidism Insulin dependent diabetes mellitus Complicated by diabetic neuropathy. He has had several hospitalizations for diabetic ketoacidosis. Iron deficiency anemia Ischemic cardiomyopathy With new ischemic cardiomyopathy June 2019 EF 25-30% Mixed hyperlipidemia Myocardial infarction x3 Neuropathy due to secondary diabetes Nose fracture Orthostasis No longer on midodrine given his new systolic dysfunction noted June 2019 PAD (peripheral artery disease) Patient of Dr. Bansal. Severe peripheral arterial disease Vertigo Surgical History Surgical History Status post amputation of toe Left great toe amputated the MP joint in April 2009 for osteomyelitis. Distal right 2nd toe metatarsal amputation in November 2007 for osteomyelitis. Left 4th metatarsal amputation for osteomyelitis. Status post cardiac catheterization November 2013. He had angioplasty to the first diagonal with a failed intervention to the OM2. Status post cataract extraction Status post laminectomy Of the cervical spine x2. Social History Social History Social History: The patient is and lives alone in [place]. He designates his children, Renetta Wilkinson, and Miah Chambers, as his surrogate decision makers. He wishes to be a DNR. He is retired from working at [employer]. He h
[2019-08-24 16:44] VITALS: BP 118/77; PULSE 79; RESP 19; O2SAT 100
== END 2019-08-24 16:46 | disposition home or self-care (01) ==
PROVIDERS: Emergency Provider Emergency Medicine; PCP Internal Medicine
DX: Z45.2 Encounter for adjustment and management of vascular access device (principal); E11.22 Type 2 diabetes mellitus with diabetic chronic kidney disease; I12.9 Hypertensive chronic kidney disease with stage 1 through stage 4 chronic kidney disease, or unspecified chronic kidney disease; N18.9 Chronic kidney disease, unspecified; E11.621 Type 2 diabetes mellitus with foot ulcer; L97.409 Non-pressure chronic ulcer of unspecified heel and midfoot with unspecified severity; Z79.4 Long term (current) use of insulin; E11.42 Type 2 diabetes mellitus with diabetic polyneuropathy; E11.51 Type 2 diabetes mellitus with diabetic peripheral angiopathy without gangrene; I25.10 Atherosclerotic heart disease of native coronary artery without angina pectoris; D50.9 Iron deficiency anemia, unspecified; E78.2 Mixed hyperlipidemia; E03.9 Hypothyroidism, unspecified; Z89.421 Acquired absence of other right toe(s); Z89.412 Acquired absence of left great toe; Z98.61 Coronary angioplasty status; Z87.891 Personal history of nicotine dependence
CPT/HCPCS: 99282

== ENCOUNTER 2019-09-03 09:18 | Outpatient (CLI) | payer MEDICARE, SELFPAY ==
[2019-09-03 09:31] LABS: Basophils Absolute Auto 0.1 K/mm3 (0.0-0.1); Basophils Percent Auto 1.2 % (0.2-1.2); Eosinophils Absolute Auto 0.4 K/mm3 (0-0.3); Eosinophils Percent Auto 5.3 % (0-4.4); Hematocrit 33.7 % (42.0-52.0); Hemoglobin 10.6 g/dL (14.0-18.0); Immature Granulocyte Absolute 0.05 K/mm3 (0.00-0.031); Immature Granulocyte Percent A 0.7 % (0-0.5); Lymphocytes Absolute Auto 2.34 K/mm3 (0.9-3.2); Lymphocytes Percent Auto 30.9 % (18.3-44.2); Mean Corpuscular HGB Conc 31.5 g/dl (32-36); Mean Corpuscular Hemoglobin 26.8 pg (26-34); Mean Corpuscular Volume 85.1 fl (80-100); Monocytes Absolute Auto 0.6 K/mm3 (0.1-0.6); Monocytes Percent Auto 8.2 % (2.6-8.5); Neutrophils Absolute Auto 4.1 K/mm3 (1.3-6.7); Neutrophils Percent Auto 53.7 % (45.5-73.1); Platelet Count Result 230 k/mm3 (150-375); Red Blood Count 3.96 M/mm3 (4.6-6.20); Red Cell Distribution Width 28.4 % (11.5-14.5); White Blood Count 7.6 K/mm3 (4.5-10.0)
[2019-09-03 12:21] LABS: Iron 90 ug/dL (49-181)
[2019-09-03 12:28] LABS: Alanine Aminotransferase 29 U/L (4-50); Albumin Level 4.3 g/dL (3.5-5.1); Alkaline Phosphatase 85 U/L (38-126); Aspartate Amino Transferase 43 U/L (17-59); Bilirubin,Total 0.2 mg/dL (0.2-1.3); Blood Urea Nitrogen 32 mg/dL (9-20); Calcium 9.1 mg/dL (8.4-10.2); Carbon Dioxide 26 mmol/L (22-30); Chloride 94 mmol/L (98-107); Estimated Glomerular Filt Rate 49; Glucose 158 mg/dL (75-110); Potassium 5.3 mmol/L (3.4-5.0); Sodium 137 mmol/L (137-145)
[2019-09-03 12:41] LABS: Percent Iron Saturation 29 % (20-50)
== END 2019-09-03 09:19 | disposition home or self-care (01) ==
LOC: ANHLAB 09:21
PROVIDERS: PCP Internal Medicine; Visit Provider Internal Medicine Hematology & Oncology
DX: D64.9 Anemia, unspecified (principal)
CPT/HCPCS: 36415; 80053; 82607; 82728; 83540; 83550; 85025

== ENCOUNTER 2020-01-29 12:29 | Emergency (ER) | payer MEDICARE, SELFPAY ==
[2020-01-29] VITALS (33 sets, daily range): BP systolic 100–131; BP diastolic 43–93; PULSE 72–91; RESP 11–23; TEMP 36.9–38.6; O2SAT 97–100
--- NOTE | ~2020-01-29 | XR_ITS ---
EXAMINATION: XR foot LT min 3V DATE: 01/29/2020 16:20 INDICATION: Osteomyelitis, pain and swelling to the foot TECHNIQUE: Dorsoplantar, lateral, and 2 oblique views of the left foot were obtained. COMPARISON: None. FINDINGS: There are changes of transmetatarsal amputation in the foot. Soft tissue swelling is seen d istal to the metatarsal remnants. No fracture is identified. There is subtle osteopenia in the first and fourth metatarsal remnants relative to the remaining metatarsal remnants. Calcified atheroscleros is is noted. There is mild osteoarthritis of the midfoot. IMPRESSION: 1. Changes of transmetatarsal amputation with soft tissue swelling of the distal foot. 2. Subtle osteopenia in the first and fourth metatarsal remnants which could reflect osteomyelitis. Reviewed, dictated and finalized at location B. IMPRESSION: 1. Changes of transmetatarsal amputation with soft tissue swelling of the dista l foot. 2. Subtle osteopenia in the first and fourth metatarsal remnants which could re flect osteomyelitis.
--- NOTE | ~2020-01-29 | CT_ITS ---
EXAMINATION: CT brain wo con INDICATION: Head injury COMPARISON: 03/16/2009 TECHNIQUE: Standard unenhanced head CT. The dose-length product (DLP) was 605.33 mGy-cm. The mA was a djusted according to patient size. Iterative reconstruction technique was employed. FINDINGS: There is no acute intraparenchymal hemorrhage. No evidence of mass lesion. No evidence of a cute infarction. There is moderate periventricular and subcortical hypodensity probably related to sm all vessel ischemic disease. There is moderate prominence of the sulci and ventricles related to cere bral atrophy. Intracranial calcified cerebral atherosclerosis is noted. There are no extra-axial daron ections. There is no mass effect or midline shift. Changes in the globes are likely from ocular lens surgery. There is partial hemorrhagic opacification of the left frontal and maxillary sinuses. There is left periorbital soft tissue swelling and gas in the left orbit. The superior wall of the left orb it is fractured into the frontal sinus. IMPRESSION: 1. No acute intracranial abnormality. 2. Left superior orbital wall fracture into the left frontal sinus. Partial hemorrhagic opacification of the left maxillary sinus suggests inferior orbital wall fracture as well. See CT facial bones. 3. Age-related findings. Reviewed, dictated and finalized at location B. IMPRESSION: 1. No acute intracranial abnormality. 2. Left superior orbital wall fracture into the left frontal sinus. Partial hem orrhagic opacification of the left maxillary sinus suggests inferior orbital wa ll fracture as well. See CT facial bones. 3. Age-related findings.
--- NOTE | ~2020-01-29 | CT_ITS ---
EXAMINATION: CT facial & cervical spine wo DATE: 01/29/2020 16:00 INDICATION: Head injury. TECHNIQUE: Computed tomography (CT) of the maxillofacial region and cervical spine was performed with out intravenous contrast. Automated exposure control and iterative reconstruction technique were empl oyed. The dose-length product was 345.75 mGy-cm. COMPARISON: Head CT 08/01/2015 FINDINGS: MAXILLOFACIAL CT: There are blowout fractures of the roof and floor of left orbit. The fracture of the roof of left orb it involves the frontal sinus. The skull encasing the brain is intact. There is hematoma in left fron moses sinus and left maxillary sinus. There is mild mucosal thickening in the ethmoid sinuses. There is gas in the left orbit. There are likely changes of ocular lens replacement surgeries. CERVICAL SPINE CT: Bone alignment is normal. There are anterior fusion procedures at C3-C4 and C5-C6 with instrumentatio n. Vertebral body heights are normal. There is moderately decreased disc height at C4-C5 and severely decreased disc height at C6-C7 and C7-T1. The following disc levels are specifically discussed: C2-C3: There is mild bilateral uncovertebral joint osteoarthritis. There is moderate bilateral facet joint osteoarthritis. There is mild bilateral neural foraminal stenosis. There is mild central canal stenosis. C3-C4: There is mild bilateral uncovertebral joint hypertrophy. There is moderate right and mild left facet joint hypertrophy. There is mild bilateral neural foraminal stenosis. There is no central sukumar l stenosis. C4-C5: There is mild right and moderate left uncovertebral joint osteoarthritis. There is no facet carly int osteoarthritis. There is mild bilateral neural foraminal stenosis. There is mild bilateral centra l canal stenosis. C5-C6: There is mild left uncovertebral joint hypertrophy. There is no facet joint osteoarthritis. Th ere is mild left neural foraminal stenosis. There is no central canal stenosis. C6-C7: There is severe bilateral uncovertebral joint osteoarthritis. There is mild bilateral facet carly int osteoarthritis. There is moderate bilateral neural foraminal stenosis. There is mild central sukumar l stenosis. C7-T1: There is severe bilateral uncovertebral joint osteoarthritis. There is severe bilateral facet joint osteoarthritis. There is mild right and moderate left neural foraminal stenosis. There is mild central canal stenosis. IMPRESSION: 1. Fractures of floor and roof of left orbit. The skull encasing the brain is intact. 2. Severe cervical spondylosis. 3. Anterior fusion procedures at C3-C4 and C5-C6. Reviewed, dictated and finalized at location A. IMPRESSION: 1. Fractures of floor and roof of left orbit. The skull encasing the brain is i ntact. 2. Severe cervical spondylosis. 3. Anterior fusion procedures at C3-C4 and C5-C6.
--- NOTE | ~2020-01-29 | XR_ITS ---
EXAMINATION: XR chest 1V portable DATE: 01/29/2020 13:43 INDICATION: Fever. TECHNIQUE: A single frontal view of the chest was obtained on 2 radiographs. COMPARISON: Chest 2 views 07/27/2019, chest CT 07/26/2019 FINDINGS: The chest demonstrates clear lungs without pneumonia, pleural effusion, or pneumothorax. Th e heart size is normal. Median sternotomy wires and mediastinal surgical clips are seen, likely from prior coronary artery bypass grafting. There are changes of anterior fusion procedure in cervical spi ne. IMPRESSION: 1. No acute cardiopulmonary disease. Reviewed, dictated and finalized at location A.
--- NOTE | 2020-01-29 12:32 | ECG_ITS ---
Measurements Intervals [place] Rate: 84 P: 57 NH: 171 QRS: 52 QRSD: 82 T: 88 QT: 345 QTc: 408 Interpretive Statements SINUS RHYTHM ATRIAL PREMATURE COMPLEX BASELINE ARTIFACT- I, II, AVR, V1 BORDERLINE ECG Electronically Signed On 01-29-2020 13:04:43 CDT by Matt Mendiola D.O.
[2020-01-29 12:41] LABS: Glucose Point of Care 133 (65-105)
--- NOTE | 2020-01-29 12:41 | PC.NURSE ---
Blood Glucose was 133 at 12:39
--- NOTE | 2020-01-29 13:03 | PC.NURSE ---
RN attempted to start IV x3 times. New RN to attempt.
[2020-01-29 13:26] LABS: Basophils Absolute Auto 0.1 K/mm3 (0.0-0.1); Basophils Percent Auto 0.5 % (0.2-1.2); Eosinophils Absolute Auto 0.1 K/mm3 (0-0.3); Eosinophils Percent Auto 1.2 % (0-4.4); Hematocrit 31.5 % (42.0-52.0); Hemoglobin 10.9 g/dL (14.0-18.0); Immature Granulocyte Absolute 0.08 K/mm3 (0.00-0.031); Immature Granulocyte Percent A 0.8 % (0-0.5); Lymphocytes Absolute Auto 1.32 K/mm3 (0.9-3.2); Lymphocytes Percent Auto 12.5 % (18.3-44.2); Mean Corpuscular HGB Conc 34.6 g/dl (32-36); Mean Corpuscular Hemoglobin 30.5 pg (26-34); Mean Corpuscular Volume 88.2 fl (80-100); Mean Platelet Volume 11.1 fl (7.4-10.4); Monocytes Absolute Auto 1.2 K/mm3 (0.1-0.6); Monocytes Percent Auto 10.9 % (2.6-8.5); Neutrophils Absolute Auto 7.8 K/mm3 (1.3-6.7); Neutrophils Percent Auto 74.1 % (45.5-73.1); Platelet Count Result 213 k/mm3 (150-375); Red Blood Count 3.57 M/mm3 (4.6-6.20); Red Cell Distribution Width 13.5 % (11.5-14.5); White Blood Count 10.5 K/mm3 (4.5-10.0)
[2020-01-29] MEDS: SODIUM CHLORIDE 0.9% IV 1,000 ML 999 ML IV CONT ×2 (13:30→16:17)
[2020-01-29] MEDS: ACETAMINOPHEN 325 MG TABLET 650 MG PO (13:30)
[2020-01-29 13:39] LABS: Lactic Acid Reflex 1.4 mmol/L (0.7-2.1)
[2020-01-29 13:49] LABS: INR 1.4; Prothrombin Time 16.3 Seconds (11.1-14.7)
[2020-01-29 13:50] LABS: Partial Thromboplastin Time 35.8 SECONDS (22.3-36.8)
[2020-01-29 13:53] LABS: Alanine Aminotransferase 20 U/L (4-50); Albumin Level 3.7 g/dL (3.5-5.1); Alkaline Phosphatase 87 U/L (38-126); Anion Gap 14.1 mmol/L (7-16); Aspartate Amino Transferase 27 U/L (17-59); Bilirubin,Total 0.4 mg/dL (0.2-1.3); Blood Urea Nitrogen 21 mg/dL (9-20); Calcium 8.4 mg/dL (8.4-10.2); Carbon Dioxide 23 mmol/L (22-30); Chloride 95 mmol/L (98-107); Estimated CRCL calculation 49 ml/min; Estimated Glomerular Filt Rate > 60; Glucose 120 mg/dL (75-110); Potassium 4.1 mmol/L (3.4-5.0); Sodium 128 mmol/L (137-145)
[2020-01-29 14:02] LABS: CRP 20.4 mg/dL (<1.0)
[2020-01-29 14:37] LABS: Add Urine Microscopic? YES; Appearance Urine Clear (Clear); Bacteria Urine Trace /hpf; Bilirubin Urine Negative (Negative); Blood Urine Negative (Negative); Color Urine Yellow (Yellow); Glucose Urine UA 1+ mg/dL (Negative); Ketones Urine Trace mg/dL (Negative); Leukocyte Esterase Ur Negative LEU/UL (Negative); Nitrate Urine Negative (Negative); Protein Urine 1+ mg/dL (Negative); Specific Grav Ur 1.018 (1.001-1.035); WBC Urine 0-3 /hpf
--- NOTE | 2020-01-29 15:01 | ED.FEVER ---
HPI - Fever General Chief Complaint: Fever <Mel Nino MD - Last Filed: 01/29/20 18:47> Stated Complaint: FALL <Mel Nino MD - Last Filed: 01/29/20 18:47> Time Seen by Provider: 01/29/20 12:36 <Mel Nino MD - Last Filed: 01/29/20 18:47> Source: patient and EMS <Mel Nino MD - Last Filed: 01/29/20 18:47> History of Present Illness HPI Narrative: Patient is [age] years old white male, lives alone, came by ambulance complaining of syncope at least twice yesterday. Patient reports loss of consciousness, and 1 of the fall he struck the left side of his face on the floor. Patient on Plavix, currently denying any nausea, vomiting, headache, or neck pain. Patient had a recent history of left toes amputation. <Mel Nino MD - Last Filed: 01/29/20 18:47> MD elicited complaint: malaise and weakness <eMl Nino MD - Last Filed: 01/29/20 18:47> Related Data Home Medications: Home Medications Medication Instructions Recorded Confirmed clopidogrel 75 mg tablet 75 mg PO DAILY 04/30/19 12/17/19 insulin lispro 100 unit/mL 100 unit SUB-Q DAILY ml 04/30/19 12/17/19 subcutaneous cartridge cyanocobalamin (vitamin B-12) 1,000 mcg PO DAILY 06/20/19 12/17/19 potassium chloride 20 meq PO DAILY 07/10/19 12/17/19 ascorbic acid (vitamin C) 500 mg mg PO 09/07/19 12/17/19 capsule aspirin 81 mg tablet,delayed 81 mg PO DAILY 09/07/19 12/17/19 release ferrous sulfate 324 mg (65 mg 324 mg PO BID 09/07/19 12/17/19 iron) tablet,delayed release acetaminophen [Tylenol] 325 mg PO ONCE 01/29/20 cadexomer iodine 40 g TOPICAL Q3D 01/29/20 docusate sodium 100 mg PO DAILY 01/29/20 tamsulosin 0.4 mg PO DAILY 01/29/20 <Mel Nino MD - Last Filed: 01/29/20 18:47> Allergies/Adverse Reactions: Allergies Allergy/AdvReac Type Severity Reaction Status Date / Time No Known Allergies Allergy Verified 12/17/19 08:48 <Mel Nino MD - Last Filed: 01/29/20 18:47> Review of Systems Review of Systems: Narrative: CONSTITUTIONAL: Denies fever, chills, or sweats. EYES: Denies visual changes, redness, or discharge. ENT: Denies rhinorrhea, congestion, sore throat, or otalgia. CARDIOVASCULAR: Denies chest pain, palpitations, or edema. RESPIRATORY: Denies cough or dyspnea. GASTROINTESTINAL: Denies abdominal pain, nausea, vomiting, or diarrhea. GENITOURINARY: Denies dysuria or hematuria. SKIN: Left foot showed status post toes amputation, warm, red, no opening, no discharge MUSCULOSKELETAL: Denies back pain, joint pain, or myalgia. NEUROLOGIC: Denies headache, numbness, or weakness. PSYCHIATRIC: Denies anxiety or depression. <Mel Nino MD - Last Filed: 01/29/20 18:47> [facility] Past Medical History Medical History: Medical History Amputation of toe of left foot Left 1st Amputation of toe of right foot Right 2nd Chronic anemia Chronic GERD Chronic kidney disease Coronary artery disease involving [place] coronary artery of [place] heart Non STEMI in November 2013. He had angioplasty to the first diagonal with failed intervention to the OM2. He is followed by Dr. Jameel Steinberg. Cardiac catheterization 07/10/2019 demonstrated multiple vessel coronary artery disease Diabetes mellitus with diabetic neuropathy Diabetic foot ulcers Essential hypertension Fracture of both ankles Fracture of both arms History of osteomyelitis Hyperlipidemia Hypothyroidism Insulin dependent diabetes mellitus Complicated by diabetic neuropathy. He has had several hospitalizations for diabetic ketoacidosis. Iron deficiency anemia Ischemic cardiomyopathy With new ischemic cardiomyopathy June 2019 EF 25-30% Mixed hyperlipidemia Myocardial infarction x3 Neuropathy due to secondary diabetes Nose fracture Orthostasis No longer on midodrine given his new systolic dysfunction noted June 2019 PAD (peripheral artery disease) Patient of Dr. Swann
--- NOTE | 2020-01-29 17:09 | PC.NURSE ---
Family updated regarding transfer for patient.
--- NOTE | 2020-01-29 18:55 | PC.NURSE ---
[facility] accepted Pt. [facility] will call back with a RM Number.
--- NOTE | 2020-01-29 20:50 | PC.NURSE ---
Pt's. Son left phone number. Call any time w/ updates [phone]
--- NOTE | 2020-01-29 21:14 | PC.NURSE ---
Addendum entered by Bita Busby 01/30/20 06:02: CALLED [facility] AND SPOKE WITH BRETT TO OBTAIN BED STATUS/AVAILABILITY...PATIENT IS FULLY PROCESSED, STILL ON WAIT LIST. THERE ARE NO SURGERY BEDS AVAILABLE AT THIS TIME. HOPEFULLY, WILL HAVE SOME DISCHARGES. Original Note: CALLED [facility] AND SPOKE WITH JORDAN TO OBTAIN BED STATUS/AVAILABILITY...PATIENT IS FULLY PROCESSED, JUST WAITING ON BED, THERE WILL NOT BE ANYTHING AVAILABLE OVERNIGHT. HOPEFULLY, AFTER DISCHARGES IN THE MORNING.
[2020-01-30] VITALS (91 sets, daily range): BP systolic 102–152; BP diastolic 47–96; PULSE 75–102; RESP 9–31; TEMP 37.3–38.9; O2SAT 95–100
--- NOTE | 2020-01-30 03:05 | PC.NURSE ---
[facility]/ surry transfer [place] for patient's triage. States patient will hopefully get a bed soon.
--- NOTE | 2020-01-30 06:58 | PC.NURSE ---
Called [facility] for hospital bed. states the will call back
--- NOTE | 2020-01-30 07:04 | PC.NURSE ---
Called Pt's. son Gianluca to update him on pt's. status.
[2020-01-30 07:17] LABS: Glucose Point of Care 126 (65-105)
--- NOTE | 2020-01-30 07:22 | PC.NURSE ---
Care assumed at this time, report given by PHUC Ko. Stefani states patient and family refused transfer to [facility] after receiving a bed. Patient and family requesting bed a [facility]. [facility] was called at 0600, they still do not have any open bed at this time and will call once they have an open bed.
[2020-01-30] MEDS: ACETAMINOPHEN 325 MG TABLET 650 MG PO (07:42)
--- NOTE | 2020-01-30 08:34 | PC.NURSE ---
Pharmacy called, pharmacy states that they will push Vanco order at 1500 for second dose IV.
[2020-01-30 09:58] LABS: Glucose Point of Care 209 (65-105)
--- NOTE | 2020-01-30 11:06 | PC.NURSE ---
THIS POTATO PICKER INFORMED PT THAT [facility] CONTINUES TO HAVE NO BEDS AVAILABLE AND WE WILL KEEP HIM INFORMED .
--- NOTE | 2020-01-30 11:32 | PC.NURSE ---
Report given to PHUC Sarmiento by this RN. Care assumed by Guillermina at this time.
--- NOTE | 2020-01-30 11:53 | PC.NURSE ---
Pt resting in room. No needs at this time.
[2020-01-30 16:20] LABS: Glucose Point of Care 231 (65-105)
[2020-01-30] MEDS: INSULIN HUMAN REGULAR (*BKC) 100 UNITS/ML SUB-Q (16:46)
[2020-01-30] MEDS: ACETAMINOPHEN 500 MG TABLET 1000 MG PO (17:31)
--- NOTE | 2020-01-30 17:44 | PC.NURSE ---
Called [facility] to give report and they were unable to take report. Gave my number and name for call back
--- NOTE | 2020-01-30 18:53 | PC.NURSE ---
called [phone] no bed yet waiting for discharges, called [phone] bed but waiting for hosekeeping to clean room
== END 2020-01-30 20:19 | disposition short-term general hospital (02) ==
PROVIDERS: Emergency Medicine; Emergency Provider Emergency Medicine; PCP Internal Medicine
DX: A41.9 Sepsis, unspecified organism (principal); S02.32XA Fracture of orbital floor, left side, initial encounter for closed fracture; S02.122A Fracture of orbital roof, left side, initial encounter for closed fracture; R55 Syncope and collapse; E87.1 Hypo-osmolality and hyponatremia; E11.628 Type 2 diabetes mellitus with other skin complications; L08.9 Local infection of the skin and subcutaneous tissue, unspecified; R29.6 Repeated falls; E11.22 Type 2 diabetes mellitus with diabetic chronic kidney disease; N18.9 Chronic kidney disease, unspecified; Z79.4 Long term (current) use of insulin; E11.40 Type 2 diabetes mellitus with diabetic neuropathy, unspecified; E11.51 Type 2 diabetes mellitus with diabetic peripheral angiopathy without gangrene; I25.10 Atherosclerotic heart disease of native coronary artery without angina pectoris; E78.5 Hyperlipidemia, unspecified; E03.9 Hypothyroidism, unspecified; D50.8 Other iron deficiency anemias; D63.8 Anemia in other chronic diseases classified elsewhere; I25.2 Old myocardial infarction; Z89.412 Acquired absence of left great toe; Z89.421 Acquired absence of other right toe(s); Z98.49 Cataract extraction status, unspecified eye; Z66 Do not resuscitate; Z87.891 Personal history of nicotine dependence; Z79.02 Long term (current) use of antithrombotics/antiplatelets; Z98.1 Arthrodesis status; M85.872 Other specified disorders of bone density and structure, left ankle and foot; I49.1 Atrial premature depolarization; W18.39XA Other fall on same level, initial encounter
CPT/HCPCS: 36415; 70450; 70486; 71045; 72125; 73630; 80053; 81001; 82948; 83605; 85025; 85610; 85730; 86140; 87040; 87077; 87186; 93005; 96361; 96365; 96366; 96367; 96375; 99285; A9270; J0131; J1815; J2543; J3370; J7030

== ENCOUNTER 2020-03-01 13:56 | Emergency (ER) | payer MEDICARE, SELFPAY ==
[2020-03-01 14:30] VITALS: BP 143/96; PULSE 102; RESP 16; TEMP 36.8; O2SAT 100
--- NOTE | 2020-03-01 14:52 | ED.GENADULT ---
HPI - General Adult General Chief complaint: Unspecified Stated complaint: needs picc line removed Time Seen by Provider: 03/01/20 14:44 Source: patient Mode of arrival: ambulatory Limitations: no limitations History of Present Illness HPI narrative: Patient is a 74-year-old male with a history osteomyelitis who is here to have a PICC line removed. Patient was supposed to have home health come to his house today to remove the PICC line, but the home health nurse was needing some assistance with removing the PICC line and decided to have him sent to the emergency department so we could remove it. Patient denies any arm pain. No chest pain or shortness of breath. No bleeding, redness or irritation at the site. Patient states he finished his antibiotics yesterday and has been feeling back to normal. He denies any other acute complaints of pain or other symptoms. Related Data Home Medications Medication Instructions Recorded Confirmed insulin lispro 100 unit/mL 100 unit SUB-Q DAILY ml 04/30/19 12/17/19 subcutaneous cartridge cyanocobalamin (vitamin B-12) 1,000 mcg PO DAILY 06/20/19 12/17/19 potassium chloride 20 meq PO DAILY 07/10/19 12/17/19 ascorbic acid (vitamin C) 500 mg mg PO 09/07/19 12/17/19 capsule aspirin 81 mg tablet,delayed 81 mg PO DAILY 09/07/19 12/17/19 release ferrous sulfate 324 mg (65 mg 324 mg PO BID 09/07/19 12/17/19 iron) tablet,delayed release acetaminophen [Tylenol] 325 mg PO ONCE 01/29/20 cadexomer iodine 40 g TOPICAL Q3D 01/29/20 docusate sodium 100 mg PO DAILY 01/29/20 tamsulosin 0.4 mg PO DAILY 01/29/20 Allergies Allergy/AdvReac Type Severity Reaction Status Date / Time No Known Allergies Allergy Verified 03/01/20 14:59 Review of Systems Review of Systems: Narrative: CONSTITUTIONAL: Denies fever CARDIOVASCULAR: Denies chest pain RESPIRATORY: Denies cough or dyspnea. GASTROINTESTINAL: Denies abdominal pain SKIN: Denies rash MUSCULOSKELETAL: Denies back pain NEUROLOGIC: Denies headache PMFSH Past Medical History Medical History Amputation of toe of left foot Left 1st Amputation of toe of right foot Right 2nd Chronic anemia Chronic GERD Chronic kidney disease Coronary artery disease involving [place] coronary artery of [place] heart Non STEMI in November 2013. He had angioplasty to the first diagonal with failed intervention to the OM2. He is followed by Dr. Jameel Steinberg. Cardiac catheterization 07/10/2019 demonstrated multiple vessel coronary artery disease Diabetes mellitus with diabetic neuropathy Diabetic foot ulcers Essential hypertension Fracture of both ankles Fracture of both arms History of osteomyelitis Hyperlipidemia Hypothyroidism Insulin dependent diabetes mellitus Complicated by diabetic neuropathy. He has had several hospitalizations for diabetic ketoacidosis. Iron deficiency anemia Ischemic cardiomyopathy With new ischemic cardiomyopathy June 2019 EF 25-30% Mixed hyperlipidemia Myocardial infarction x3 Neuropathy due to secondary diabetes Nose fracture Orthostasis No longer on midodrine given his new systolic dysfunction noted June 2019 PAD (peripheral artery disease) Patient of Dr. Bansal. Screening for colon cancer Severe peripheral arterial disease Vertigo Surgical History Surgical History Status post amputation of toe Left great toe amputated the MP joint in April 2009 for osteomyelitis. Distal right 2nd toe metatarsal amputation in November 2007 for osteomyelitis. Left 4th metatarsal amputation for osteomyelitis. Status post cardiac catheterization November 2013. He had angioplasty to the first diagonal with a failed intervention to the OM2. Status post cataract extraction Status post laminectomy Of the cervical spine x2. Social History Social History Social History: The pat
[2020-03-01 15:29] VITALS: BP 140/92; PULSE 98; RESP 20; O2SAT 99
== END 2020-03-01 15:30 | disposition home or self-care (01) ==
LOC: ANHED 15:18
PROVIDERS: Emergency Provider Emergency Medicine; PCP Internal Medicine
DX: Z45.2 Encounter for adjustment and management of vascular access device (principal); E11.22 Type 2 diabetes mellitus with diabetic chronic kidney disease; I12.9 Hypertensive chronic kidney disease with stage 1 through stage 4 chronic kidney disease, or unspecified chronic kidney disease; N18.9 Chronic kidney disease, unspecified; Z87.891 Personal history of nicotine dependence; Z79.4 Long term (current) use of insulin; E11.40 Type 2 diabetes mellitus with diabetic neuropathy, unspecified; E03.9 Hypothyroidism, unspecified; I25.5 Ischemic cardiomyopathy; E78.2 Mixed hyperlipidemia; I25.2 Old myocardial infarction; E11.51 Type 2 diabetes mellitus with diabetic peripheral angiopathy without gangrene; K21.9 Gastro-esophageal reflux disease without esophagitis; D50.9 Iron deficiency anemia, unspecified; Z89.412 Acquired absence of left great toe; Z89.421 Acquired absence of other right toe(s); Z66 Do not resuscitate; Z98.49 Cataract extraction status, unspecified eye
CPT/HCPCS: 99282

== ENCOUNTER 2020-04-23 09:57 | Outpatient (CLI) | payer MEDICARE, SELFPAY ==
[2020-04-23 10:29] LABS: Hematocrit 36.9 % (42.0-52.0); Hemoglobin 12.3 g/dL (14.0-18.0)
[2020-04-23 10:41] LABS: Anion Gap 6 mmol/L (8-16); Blood Urea Nitrogen 22 mg/dL (9-20); Calcium 8.6 mg/dL (8.4-10.2); Carbon Dioxide 28 mmol/L (22-30); Chloride 103 mmol/L (98-107); Estimated Glomerular Filt Rate > 60; Glucose 125 mg/dL (75-110); Potassium 4.6 mmol/L (3.4-5.0); Sodium 137 mmol/L (137-145)
== END 2020-04-23 09:58 | disposition home or self-care (01) ==
PROVIDERS: PCP Internal Medicine; Visit Provider Internal Medicine
DX: E03.9 Hypothyroidism, unspecified (principal); D64.9 Anemia, unspecified; I10 Essential (primary) hypertension
CPT/HCPCS: 36415; 80048; 84443; 85014; 85018

== ENCOUNTER 2020-06-10 12:14 | Emergency (ER) | payer MEDICARE, SELFPAY ==
[2020-06-10] VITALS (11 sets, daily range): BP systolic 109–155; BP diastolic 78–81; PULSE 74–115; RESP 13–21; TEMP 36.8; O2SAT 90–99
--- NOTE | ~2020-06-10 | CT_ITS ---
EXAMINATION: CT brain wo con DATE: 06/10/2020 13:54 INDICATION: Altered mental status TECHNIQUE: Computed tomography (CT) of the head was performed without intravenous contrast. Sagittal and coronal reconstructions were performed. The mA was adjusted according to patient size. Iterative reconstruction technique was employed. The dose-length product was 605.33 mGy-cm. COMPARISON: head CT dated 01/29/2020 and MRI dated 11/28/2015 FINDINGS: No acute intracranial hemorrhage, acute infarction or abnormal extra axial fluid collection. Small ol d left cerebellar infarct. A tiny right cerebellar infarct seen on prior MRI is too small to be visua lized on the plain radiographs. There is mild scattered white matter hypoattenuation consistent with chronic small vessel ischemic disease. Symmetric prominence of the sulci and ventricles consistent wi th mild to moderate age-appropriate diffuse cerebral volume loss. No mass/mass effect. Changes of augusto ateral intraocular lens replacement. The orbits, paranasal sinuses and mastoid air cells are normal. Intracranial calcified cerebral atherosclerosis is noted. IMPRESSION: 1. No acute intracranial process. 2. 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 2. Age-related changes including mild to moderate diffuse volume loss and mild scattered white matter hypoattenuation consistent with chronic small vessel ischemic disease. Reviewed, dictated and finalized at location A. SHORT ORDER IMPRESSION: 1. No acute intracranial process. 2. 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 2. Age-related changes including mild to moderate diffuse volume loss and mild scattered white matter hypoattenuation consistent with chronic small vessel isc hemic disease.
[2020-06-10 12:32] LABS: Glucose Point of Care 83 (65-105)
--- NOTE | 2020-06-10 13:01 | ECG_ITS ---
Measurements Intervals [place] Rate: 65 P: 75 NV: 273 QRS: 44 QRSD: 87 T: 81 QT: 447 QTc: 468 Interpretive Statements SINUS RHYTHM WITH FIRST DEGREE AV BLOCK ATRIAL AND VENTRICULAR PREMATURE COMPLEXES DELAYED PRECORDIAL R/S TRANSITION LOW QRS VOLTAGE IN LIMB LEADS BORDERLINE ST-T WAVE ABNORMALITY- LAT/HIGH LAT LEADS BASELINE ARTIFACT- V2 ABNORMAL ECG Electronically Signed On 06-10-2020 13:05:52 [employer]KE [employer]ER by Matt Mendiola D.O.
--- NOTE | 2020-06-10 13:03 | ED.AMS ---
HPI - Altered Mental Status General Chief Complaint: Altered Mental Status Stated Complaint: altered, low BS per family Time Seen by Provider: 06/10/20 12:53 Source: patient Mode of arrival: ambulatory Limitations: no limitations History of Present Illness HPI narrative: Patient is a 74-year-old male brought in due to altered mental status, per daughter his blood sugar at home was in the 40s so they called EMS. Patient was given an amp of D50, rechecked his blood sugar upon arrival and it was in the 80s here in the emergency room. Patient has an insulin pump. According to the daughter he did not eat lunch but ate breakfast. Patient states that he was doing well, denies having any illness or symptoms prior to his blood sugar dropping. Related Data Home Medications Medication Instructions Recorded Confirmed insulin lispro 100 unit/mL 100 unit SUB-Q DAILY ml 04/30/19 04/23/20 subcutaneous cartridge cyanocobalamin (vitamin B-12) 1,000 mcg PO DAILY 06/20/19 04/23/20 potassium chloride 20 meq PO DAILY 07/10/19 04/23/20 ascorbic acid (vitamin C) 500 mg mg PO 09/07/19 04/23/20 capsule aspirin 81 mg tablet,delayed 81 mg PO DAILY 09/07/19 04/23/20 release ferrous sulfate 324 mg (65 mg 324 mg PO BID 09/07/19 04/23/20 iron) tablet,delayed release acetaminophen [Tylenol] 325 mg PO ONCE 01/29/20 04/23/20 cadexomer iodine 40 g TOPICAL Q3D 01/29/20 docusate sodium 100 mg PO DAILY 01/29/20 04/23/20 tamsulosin 0.4 mg PO DAILY 01/29/20 04/23/20 Allergies Allergy/AdvReac Type Severity Reaction Status Date / Time No Known Allergies Allergy Verified 06/10/20 12:28 Review of Systems Review of Systems: All systems reviewed & are unremarkable except as noted in HPI and below Constitutional: Constitutional: Denies body ache(s), Denies chills, Denies excessive sweating, Denies fatigue, Denies fever(s), Denies headache(s), Denies lethargy, Denies malaise and Denies weight loss Eyes: Eyes: Denies blurry vision, Denies change in vision and Denies loss of vision ENT: Denies dizziness, Denies ear discharge, Denies headache(s), Denies lip swelling, Denies epistaxis, Denies nasal congestion, Denies neck pain, Denies throat swelling and Denies tongue swelling Cardiovascular: Cardiovascular: Denies chest pain, Denies chest pain at rest, Denies chest pain with activity, Denies diaphoresis, Denies rapid heart rate, Denies edema, Denies irregular heart rhythm, Denies lightheadedness, Denies palpitations, Denies dyspnea and Denies dyspnea on exertion Respiratory: Respiratory: Denies chest congestion, Denies cough, Denies hemoptysis, Denies dyspnea and Denies dyspnea on exertion Gastrointestinal: Gastrointestinal: Denies abdominal pain, Denies melena, Denies hematochezia, Denies diarrhea, Denies nausea, Denies vomiting and Denies hematemesis Musculoskeletal: Musculoskeletal: Denies abnormal gait, Denies deformity, Denies joint swelling, Denies limited range of motion, Denies neck pain and Denies numbness Neurologic: Denies Abnormal speech present, Denies abnormal gait, Denies confusion, Denies dizziness, Denies headache(s), Denies focal weakness, Denies loss of vision, Denies numbness, Denies Other visual disturbances and Denies Sensory deficit (Neuro) Psychiatric: Psychiatric: Denies confusion, Denies depression, Denies auditory hallucinations, Denies homicidal ideation and Denies suicidal ideation Endocrine: Endocrine: Denies cold intolerance, Denies excessive sweating, Denies fatigue, Denies heat intolerance and Denies palpitations Hematologic/Lymphatic: Hematologic/Lymphatic: Denies easy bleeding and Denies easy bruising Allergic/Immunologic: Allergic/Immunologic: Denies lip swelling, Denies throat swelling and Denies tongue swelling [facility] Past Medical History Medical History (Updated 06/10/20 @ 16:12 by Efren Monet MD) Amputation of toe of left foot Left 1st Amputation of toe of right foot Right 2nd Chronic anemia Chronic GERD
[2020-06-10 14:35] LABS: Basophils Absolute Auto 0.1 K/mm3 (0.0-0.1); Basophils Percent Auto 0.9 % (0.2-1.2); Eosinophils Absolute Auto 0.1 K/mm3 (0-0.3); Eosinophils Percent Auto 0.9 % (0-4.4); Immature Granulocyte Absolute 0.05 K/mm3 (0.00-0.031); Immature Granulocyte Percent A 0.5 % (0-0.5); Lymphocytes Absolute Auto 1.28 K/mm3 (0.9-3.2); Lymphocytes Percent Auto 12.9 % (18.3-44.2); Mean Corpuscular HGB Conc 34.1 g/dl (32-36); Mean Corpuscular Hemoglobin 30.8 pg (26-34); Mean Corpuscular Volume 90.3 fl (80-100); Mean Platelet Volume 10.6 fl (7.4-10.4); Monocytes Absolute Auto 0.4 K/mm3 (0.1-0.6); Monocytes Percent Auto 4.2 % (2.6-8.5); Neutrophils Percent Auto 80.6 % (45.5-73.1); Platelet Count Result 282 k/mm3 (150-375); Red Blood Count 4.54 M/mm3 (4.6-6.20); Red Cell Distribution Width 13.4 % (11.5-14.5)
[2020-06-10 14:49] LABS: Alanine Aminotransferase 23 U/L (4-50); Albumin Level 4.1 g/dL (3.5-5.1); Alkaline Phosphatase 132 U/L (38-126); Anion Gap 9 mmol/L (8-16); Aspartate Amino Transferase 37 U/L (17-59); Bilirubin,Total 0.5 mg/dL (0.2-1.3); Blood Urea Nitrogen 18 mg/dL (9-20); Calcium 9.3 mg/dL (8.4-10.2); Carbon Dioxide 25 mmol/L (22-30); Chloride 102 mmol/L (98-107); Estimated CRCL calculation 51 ml/min; Estimated Glomerular Filt Rate > 60; Glucose 180 mg/dL (75-110); Potassium 4.8 mmol/L (3.4-5.0); Sodium 136 mmol/L (137-145)
[2020-06-10 14:55] LABS: Glucose Point of Care 179 (65-105)
[2020-06-10 15:00] LABS: Troponin I < 0.012 ng/mL (0.000-0.034)
[2020-06-10 16:31] LABS: Glucose Point of Care 247 (65-105)
== END 2020-06-10 16:26 | disposition home or self-care (01) ==
PROVIDERS: Emergency Provider Emergency Medicine; PCP Internal Medicine
DX: E11.649 Type 2 diabetes mellitus with hypoglycemia without coma (principal); R41.82 Altered mental status, unspecified; Z79.4 Long term (current) use of insulin; Z79.82 Long term (current) use of aspirin; Z96.41 Presence of insulin pump (external) (internal); E11.22 Type 2 diabetes mellitus with diabetic chronic kidney disease; I12.9 Hypertensive chronic kidney disease with stage 1 through stage 4 chronic kidney disease, or unspecified chronic kidney disease; N18.9 Chronic kidney disease, unspecified; Z87.891 Personal history of nicotine dependence; E11.40 Type 2 diabetes mellitus with diabetic neuropathy, unspecified; E03.9 Hypothyroidism, unspecified; D50.9 Iron deficiency anemia, unspecified; E78.2 Mixed hyperlipidemia; I25.2 Old myocardial infarction; E11.51 Type 2 diabetes mellitus with diabetic peripheral angiopathy without gangrene; K21.9 Gastro-esophageal reflux disease without esophagitis; Z89.421 Acquired absence of other right toe(s); Z89.412 Acquired absence of left great toe; Z98.49 Cataract extraction status, unspecified eye; Z66 Do not resuscitate; I44.0 Atrioventricular block, first degree; I49.1 Atrial premature depolarization; I49.3 Ventricular premature depolarization; R94.31 Abnormal electrocardiogram [ECG] [EKG]
CPT/HCPCS: 36415; 70450; 80053; 82948; 84484; 85025; 93005; 99284

== ENCOUNTER 2020-10-27 07:12 | Outpatient (CLI) | payer MEDICARE, SELFPAY ==
[2020-10-27 07:35] LABS: Basophils Absolute Auto 0.1 K/mm3 (0.0-0.1); Basophils Percent Auto 1.1 % (0.2-1.2); Eosinophils Absolute Auto 0.3 K/mm3 (0-0.3); Eosinophils Percent Auto 3.6 % (0-4.4); Hematocrit 37.7 % (42.0-52.0); Hemoglobin 12.7 g/dL (14.0-18.0); Immature Granulocyte Absolute 0.04 K/mm3 (0.00-0.031); Immature Granulocyte Percent A 0.5 % (0-0.5); Lymphocytes Absolute Auto 2.31 K/mm3 (0.9-3.2); Lymphocytes Percent Auto 27.5 % (18.3-44.2); Mean Corpuscular HGB Conc 33.7 g/dl (32-36); Mean Corpuscular Hemoglobin 31.9 pg (26-34); Mean Corpuscular Volume 94.7 fl (80-100); Mean Platelet Volume 10.6 fl (7.4-10.4); Monocytes Absolute Auto 0.7 K/mm3 (0.1-0.6); Monocytes Percent Auto 7.7 % (2.6-8.5); Neutrophils Percent Auto 59.6 % (45.5-73.1); Platelet Count Result 223 k/mm3 (150-375); Red Blood Count 3.98 M/mm3 (4.6-6.20); Red Cell Distribution Width 13.8 % (11.5-14.5); White Blood Count 8.4 K/mm3 (4.5-10.0)
[2020-10-27 08:09] LABS: Creatinine Urine 51.7 mg/dL
[2020-10-27 08:14] LABS: MALB Creatinine Ratio < 11.6 mg/g (0-30); Microalbumin Urine Random < 6.0 mg/L (0-16.7)
[2020-10-27 08:16] LABS: Hemoglobin A1C 7.6 % (<5.7)
[2020-10-27 08:31] LABS: Alanine Aminotransferase 20 U/L (4-50); Albumin Level 3.8 g/dL (3.5-5.1); Alkaline Phosphatase 83 U/L (38-126); Anion Gap 6 mmol/L (8-16); Aspartate Amino Transferase 27 U/L (17-59); Bilirubin,Total 0.2 mg/dL (0.2-1.3); Blood Urea Nitrogen 27 mg/dL (9-20); Calcium 8.8 mg/dL (8.4-10.2); Carbon Dioxide 28 mmol/L (22-30); Chloride 103 mmol/L (98-107); Cholesterol 107 mg/dL (0-200); Estimated Glomerular Filt Rate 54; Glucose 382 mg/dL (75-110); HDL Direct 44 mg/dL; Potassium 4.4 mmol/L (3.4-5.0); Sodium 137 mmol/L (137-145); Triglycerides 62 mg/dL (<150)
[2020-10-27 08:53] LABS: LDL Cholesterol Direct 48 mg/dL
== END 2020-10-27 07:13 | disposition home or self-care (01) ==
PROVIDERS: PCP Internal Medicine; Visit Provider Nurse Practitioner
DX: D64.9 Anemia, unspecified (principal); E11.40 Type 2 diabetes mellitus with diabetic neuropathy, unspecified; Z79.4 Long term (current) use of insulin; E03.9 Hypothyroidism, unspecified; E78.5 Hyperlipidemia, unspecified
CPT/HCPCS: 36415; 80053; 80061; 82043; 83036; 84443; 85025

== ENCOUNTER 2021-02-26 07:28 | Outpatient (CLI) | payer MEDICARE, SELFPAY ==
[2021-02-26 08:19] LABS: Basophils Absolute Auto 0.1 K/mm3 (0.0-0.1); Basophils Percent Auto 1.3 % (0.2-1.2); Eosinophils Absolute Auto 0.4 K/mm3 (0-0.3); Eosinophils Percent Auto 4.9 % (0-4.4); Hematocrit 38.9 % (42.0-52.0); Hemoglobin 12.4 g/dL (14.0-18.0); Immature Granulocyte Absolute 0.06 K/mm3 (0.00-0.031); Immature Granulocyte Percent A 0.7 % (0-0.5); Lymphocytes Absolute Auto 2.44 K/mm3 (0.9-3.2); Lymphocytes Percent Auto 29.9 % (18.3-44.2); Mean Corpuscular HGB Conc 31.9 g/dl (32-36); Mean Corpuscular Hemoglobin 30.9 pg (26-34); Mean Platelet Volume 10.7 fl (7.4-10.4); Monocytes Absolute Auto 0.5 K/mm3 (0.1-0.6); Monocytes Percent Auto 5.8 % (2.6-8.5); Neutrophils Absolute Auto 4.7 K/mm3 (1.3-6.7); Neutrophils Percent Auto 57.4 % (45.5-73.1); Platelet Count Result 275 k/mm3 (150-375); Red Blood Count 4.01 M/mm3 (4.6-6.20); Red Cell Distribution Width 14.1 % (11.5-14.5); White Blood Count 8.2 K/mm3 (4.5-10.0)
[2021-02-26 08:33] LABS: Alanine Aminotransferase 16 U/L (4-50); Albumin Level 3.8 g/dL (3.5-5.1); Alkaline Phosphatase 72 U/L (38-126); Anion Gap 9 mmol/L (8-16); Aspartate Amino Transferase 25 U/L (17-59); Bilirubin,Total 0.2 mg/dL (0.2-1.3); Blood Urea Nitrogen 13 mg/dL (9-20); Calcium 8.9 mg/dL (8.4-10.2); Carbon Dioxide 27 mmol/L (22-30); Chloride 102 mmol/L (98-107); Cholesterol 113 mg/dL (0-200); Estimated Glomerular Filt Rate > 60; Glucose 95 mg/dL (65-110); HDL Direct 36 mg/dL; Potassium 3.9 mmol/L (3.4-5.0); Sodium 138 mmol/L (137-145); Triglycerides 92 mg/dL (<150)
[2021-02-26 08:44] LABS: LDL Cholesterol Direct 47 mg/dL
[2021-02-26 09:56] LABS: Hemoglobin A1C 7.8 % (<5.7)
== END 2021-02-26 07:29 | disposition home or self-care (01) ==
PROVIDERS: PCP Internal Medicine; Visit Provider Nurse Practitioner
DX: E11.40 Type 2 diabetes mellitus with diabetic neuropathy, unspecified (principal); Z79.4 Long term (current) use of insulin; D50.9 Iron deficiency anemia, unspecified; E03.9 Hypothyroidism, unspecified; E78.5 Hyperlipidemia, unspecified
CPT/HCPCS: 36415; 80053; 80061; 83036; 84443; 85025

== ENCOUNTER 2021-04-01 21:42 | Observation (INO) | payer MEDICARE, SELFPAY ==
--- NOTE | ~2021-04-01 | XR_ITS ---
EXAMINATION: XR foot RT min 3V DATE: 04/01/2021 22:39 INDICATION: Right foot ulceration, history of gout TECHNIQUE: Dorsoplantar, lateral, and 2 oblique views of the right foot were obtained. COMPARISON: 05/17/2018 FINDINGS: Again noted are changes of second toe amputation and partial amputation of the first distal phalanx. There is advanced osteoarthritis at the first metatarsophalangeal joint without significant change. No fracture is identified. Calcified atherosclerosis is noted. There is a plantar calcaneal enthesophyte. Chronic heterotopic ossicle is seen distal to the lateral malleolus. IMPRESSION: 1. No acute findings or significant interval change. Reviewed, dictated and finalized at location A.
--- NOTE | ~2021-04-01 | XR_ITS ---
EXAMINATION: XR chest 1V INDICATION: Transient alteration of awareness TECHNIQUE: AP view of the chest is obtained. COMPARISON: 01/29/2020 FINDINGS: The lungs are free of acute opacities. There is no pleural effusion or pneumothorax. The ca rdiomediastinal silhouette is normal. Median sternotomy wires are consistent with prior cardiac surge ry. Changes of anterior fusion procedure are noted in the cervical spine. IMPRESSION: 1. No acute cardiopulmonary abnormality. Reviewed, dictated and finalized at location A.
--- NOTE | ~2021-04-01 | CT_ITS ---
EXAMINATION: CT brain wo con INDICATION: Transient alteration of awareness COMPARISON: 06/10/2020 TECHNIQUE: Standard unenhanced head CT. The dose-length product (DLP) was 605.33 mGy-cm. The mA was a djusted according to patient size. Iterative reconstruction technique was employed. FINDINGS: There is no acute intraparenchymal hemorrhage. No evidence of mass lesion. No evidence of a cute infarction. Small chronic infarcts are noted in the bilateral cerebellar hemispheres. There is m ild periventricular and subcortical hypodensity probably related to small vessel ischemic disease. Th ere is mild prominence of the sulci and ventricles related to cerebral atrophy. Intracranial calcifie d cerebral atherosclerosis is noted. There are no extra-axial collections. There is no mass effect or midline shift. Changes in the globes are likely from ocular lens surgery. The visualized sinuses and mastoid air cells are well aerated. IMPRESSION: 1. No acute intracranial abnormality. 2. Age related findings. Reviewed, dictated and finalized at location A.
[2021-04-01 21:30] VITALS: BP 152/82; PULSE 79; RESP 14; TEMP 32.7; O2SAT 100
--- NOTE | 2021-04-01 21:51 | ECG_ITS ---
Measurements Intervals [place] Rate: 72 P: 83 WY: 247 QRS: 53 QRSD: 84 T: 80 QT: 430 QTc: 473 Interpretive Statements SINUS RHYTHM WITH FIRST DEGREE AV BLOCK ATRIAL PREMATURE COMPLEXES POSSIBLE LEFT ATRIAL ENLARGEMENT LOW QRS VOLTAGE- LIMB LEADS BASELINE ARTIFACT- I, II, AVR, AVL, V1 ABNORMAL ECG Electronically Signed On 04-02-2021 6:49:00 CDT by Matt Mendiola D.O.
--- NOTE | 2021-04-01 22:00 | PC.NURSE ---
Richardson hunter applied at this time. Rectal temp 90.9
[2021-04-01 22:25] LABS: Basophils Absolute Auto 0.1 K/mm3 (0.0-0.1); Eosinophils Absolute Auto 0.2 K/mm3 (0-0.3); Eosinophils Percent Auto 1.9 % (0-4.4); Hematocrit 38.6 % (42.0-52.0); Hemoglobin 12.5 g/dL (14.0-18.0); Immature Granulocyte Absolute 0.14 K/mm3 (0.00-0.031); Immature Granulocyte Percent A 1.1 % (0-0.5); Lymphocytes Percent Auto 11.2 % (18.3-44.2); Mean Corpuscular HGB Conc 32.4 g/dl (32-36); Mean Corpuscular Hemoglobin 31.3 pg (26-34); Mean Corpuscular Volume 96.7 fl (80-100); Mean Platelet Volume 10.5 fl (7.4-10.4); Monocytes Absolute Auto 0.8 K/mm3 (0.1-0.6); Monocytes Percent Auto 6.5 % (2.6-8.5); Neutrophils Absolute Auto 9.8 K/mm3 (1.3-6.7); Neutrophils Percent Auto 78.3 % (45.5-73.1); Platelet Count Result 425 k/mm3 (150-375); Red Blood Count 3.99 M/mm3 (4.6-6.20); Red Cell Distribution Width 13.3 % (11.5-14.5); White Blood Count 12.5 K/mm3 (4.5-10.0)
[2021-04-01 22:34] LABS: INR 1.1; Prothrombin Time 13.7 Seconds (11.1-14.7)
[2021-04-01 22:35] LABS: Partial Thromboplastin Time 38.6 SECONDS (22.3-36.8)
--- NOTE | 2021-04-01 22:40 | ED.WEAKNESS ---
HPI - Weakness General Chief complaint: Weakness Stated complaint: hypo glycemia Time Seen by Provider: 04/01/21 21:47 Source: patient, family, EMS and RN notes reviewed Mode of arrival: EMS Limitations: altered mental status History of Present Illness HPI Narrative: This is a 75 year old male with Diabetes mellitus who presents for evaluation of altered mental status. EMS states patient last known well was 3 hours ago he was known to be working outside. Patient was found with blood sugar 40 and he was given D50 by EMS. Patient's BS on arrival was 139. EMS told nursing staff that patient has insulin pump but he has not been eating very much. Patient is oriented to person only. His baseline mental status is unknown. Related Data Home Medications Medication Instructions Recorded Confirmed insulin lispro 100 unit/mL 100 unit SUB-Q DAILY ml 04/30/19 04/02/21 subcutaneous cartridge cyanocobalamin (vitamin B-12) 1,000 mcg PO DAILY 06/20/19 04/02/21 ascorbic acid (vitamin C) 500 mg 500 mg PO DAILY 09/07/19 04/02/21 capsule aspirin 81 mg tablet,delayed 81 mg PO DAILY 09/07/19 04/02/21 release ferrous sulfate 324 mg (65 mg 324 mg PO BID 09/07/19 04/02/21 iron) tablet,delayed release acetaminophen [Tylenol] 325 mg PO Q4-8H PRN 01/29/20 04/02/21 docusate sodium 100 mg PO DAILY 01/29/20 04/02/21 tamsulosin 0.4 mg PO DAILY 01/29/20 04/02/21 atorvastatin 20 mg PO DAILY 04/02/21 04/02/21 carvedilol 6.25 mg PO DAILY 04/02/21 04/02/21 pantoprazole 40 mg PO DAILY 04/02/21 04/02/21 Allergies Allergy/AdvReac Type Severity Reaction Status Date / Time No Known Allergies Allergy Verified 03/02/21 07:42 Review of Systems Review of Systems: All systems reviewed & are unremarkable except as noted in HPI and below PMFSH Past Medical History Medical History Amputation of toe of left foot Left 1st Amputation of toe of right foot Right 2nd Chronic anemia Chronic GERD Chronic kidney disease Coronary artery disease involving [place] coronary artery of [place] heart Non STEMI in November 2013. He had angioplasty to the first diagonal with failed intervention to the OM2. He is followed by Dr. Jameel Steinberg. Cardiac catheterization 07/10/2019 demonstrated multiple vessel coronary artery disease Diabetes mellitus with diabetic neuropathy Diabetic foot ulcers Essential hypertension Fracture of both ankles Fracture of both arms History of osteomyelitis Hyperlipidemia Hypothyroidism Insulin dependent diabetes mellitus Complicated by diabetic neuropathy. He has had several hospitalizations for diabetic ketoacidosis. Iron deficiency anemia Ischemic cardiomyopathy With new ischemic cardiomyopathy June 2019 EF 25-30% Mixed hyperlipidemia Myocardial infarction x3 Neuropathy due to secondary diabetes Nose fracture Orthostasis No longer on midodrine given his new systolic dysfunction noted June 2019 PAD (peripheral artery disease) Patient of Dr. Bansal. Screening for colon cancer Severe peripheral arterial disease Vertigo Surgical History Surgical History Status post amputation of toe Left great toe amputated the MP joint in April 2009 for osteomyelitis. Distal right 2nd toe metatarsal amputation in November 2007 for osteomyelitis. Left 4th metatarsal amputation for osteomyelitis. Status post cardiac catheterization November 2013. He had angioplasty to the first diagonal with a failed intervention to the OM2. Status post cataract extraction Status post laminectomy Of the cervical spine x2. Family History Family History Sibling Family history of mental disorder Mother Family history of lung cancer Patient's mother is Father Family history of lymphoma Patient's father is Other Family history of malignant neoplasm Social History S
[2021-04-01 22:45] LABS: Ethanol < 10 mg/dL (<10)
[2021-04-01 22:48] LABS: Lactic Acid Reflex 1.9 mmol/L (0.7-2.1)
[2021-04-01 22:49] LABS: Alanine Aminotransferase 16 U/L (4-50); Albumin Level 4.5 g/dL (3.5-5.1); Alkaline Phosphatase 103 U/L (38-126); Anion Gap 10 mmol/L (8-16); Aspartate Amino Transferase 30 U/L (17-59); Bilirubin,Total 0.7 mg/dL (0.2-1.3); Blood Urea Nitrogen 15 mg/dL (9-20); CRP 3.1 mg/dL (<1.0); Calcium 9.6 mg/dL (8.4-10.2); Carbon Dioxide 27 mmol/L (22-30); Chloride 101 mmol/L (98-107); Estimated CRCL calculation 51 ml/min; Estimated Glomerular Filt Rate > 60; Glucose 114 mg/dL (65-110); Potassium 4.3 mmol/L (3.4-5.0); Sodium 138 mmol/L (137-145)
[2021-04-01 22:54] VITALS: BP 138/75; PULSE 76; RESP 14; O2SAT 99
[2021-04-01 22:58] LABS: Troponin I < 0.012 ng/mL (0.000-0.034)
[2021-04-01 23:15] LABS: Creatine Kinase 158 U/L (55-170)
[2021-04-01 23:17] LABS: Glucose Point of Care 140 mg/dl (65-105)
[2021-04-01 23:34] VITALS: TEMP 34.6
[2021-04-01 23:51] LABS: Add Urine Microscopic? YES; Appearance Urine Clear (Clear); Bilirubin Urine Negative (Negative); Blood Urine Negative (Negative); Color Urine Yellow (Yellow); Glucose Urine UA 1+ mg/dL (Negative); Ketones Urine Negative (Negative); Leukocyte Esterase Ur Negative LEU/UL (Negative); Nitrate Urine Negative (Negative); Protein Urine Negative (Negative); RBC Urine 0-2 /hpf (0-2); Specific Grav Ur 1.011 (1.001-1.035); WBC Urine 0-3 /hpf
[2021-04-02] VITALS (9 sets, daily range): BP systolic 111–155; BP diastolic 56–72; PULSE 72–96; RESP 12–20; TEMP 36.2–36.9; O2SAT 92–100; BMI 23.6
[2021-04-02 00:16] LABS: Amphetamine Screen Urine Negative (Negative); Barbiturate Screen Urine Negative (Negative); Benzodiazepines Screen Urine Negative (Negative); Cannabinoid Screen Urine Negative (Negative); Cocaine Screen Urine Negative (Negative); Methadone Screen Urine Negative (Negative); Opiate Screen Urine Negative (Negative); Phencyclidine Screen Urine Negative (Negative)
[2021-04-02 00:57] LABS: Glucose Point of Care 238 mg/dl (65-105)
[2021-04-02] MEDS: HYDROCORTISONE SODIUM SUCCINATE 100 MG/2 ML VIAL IV PUSH (01:02)
--- NOTE | 2021-04-02 02:52 | PC.NURSE ---
This patient, Miah Chambers, was admitted to 3 Med Surg Room 331-01 @[id number]. Report taken from Kris in ER. Patient/family oriented to hospital policies and general routines including ID bracelet, bed and alarms, visiting hours, pain management, procedures, bathroom and other care routines, personal items, smoking policy, room service/diet, and visiting hours. Information on how to activate the Rapid Response Team has been discussed. Patient/Family are encouraged to report perceived risks to care and to ask questions if they do not understand what they are told or what they should do.
--- NOTE | 2021-04-02 04:34 | PC.NURSE ---
when asked about code status on admission patient stated he doesn't have a clue .. went through logistics of cpr etc and he continually stated he didn't know but didn't want to be a burden .. report from ED on 03/02 stated DNR... will pass on to day nurse/team to review code status.. patient brought no documentation about code status and asked that his daughter make the decisions.
[2021-04-02] MEDS: SODIUM CHLORIDE 0.9% IV 1,000 ML 125 ML IV CONT (05:06)
[2021-04-02 05:11] LABS: Glucose Point of Care 313 mg/dl (65-105)
[2021-04-02 09:09] LABS: Glucose Point of Care 256 mg/dl (65-105)
--- NOTE | 2021-04-02 11:19 | PM.IMHP ---
H&P: HPI History of Present Illness Date/Time: 04/02/21 11:19 Chief Complaint: encephalopathy PMFSH Past Medical History Medical History Amputation of toe of left foot Left 1st Amputation of toe of right foot Right 2nd Chronic anemia Chronic GERD Chronic kidney disease Coronary artery disease involving [place] coronary artery of [place] heart Non STEMI in November 2013. He had angioplasty to the first diagonal with failed intervention to the OM2. He is followed by Dr. Jameel Steinberg. Cardiac catheterization 07/10/2019 demonstrated multiple vessel coronary artery disease Diabetes mellitus with diabetic neuropathy Diabetic foot ulcers Essential hypertension Fracture of both ankles Fracture of both arms History of osteomyelitis Hyperlipidemia Hypothyroidism Insulin dependent diabetes mellitus Complicated by diabetic neuropathy. He has had several hospitalizations for diabetic ketoacidosis. Iron deficiency anemia Ischemic cardiomyopathy With new ischemic cardiomyopathy June 2019 EF 25-30% Mixed hyperlipidemia Myocardial infarction x3 Neuropathy due to secondary diabetes Nose fracture Orthostasis No longer on midodrine given his new systolic dysfunction noted June 2019 PAD (peripheral artery disease) Patient of Dr. Bansal. Screening for colon cancer Severe peripheral arterial disease Vertigo Surgical History Surgical History Status post amputation of toe Left great toe amputated the MP joint in April 2009 for osteomyelitis. Distal right 2nd toe metatarsal amputation in November 2007 for osteomyelitis. Left 4th metatarsal amputation for osteomyelitis. Status post cardiac catheterization November 2013. He had angioplasty to the first diagonal with a failed intervention to the OM2. Status post cataract extraction Status post laminectomy Of the cervical spine x2. Family History Family History Sibling Family history of mental disorder Mother Family history of lung cancer Patient's mother is Father Family history of lymphoma Patient's father is Other Family history of malignant neoplasm Social History Social History Social History: The patient is and lives alone in [place]. He designates his children, Renetta Wilkinson, and Miah Chambers, as his surrogate decision makers. He wishes to be a DNR. He is retired from working at [employer]. He has remote smoking history. Smoking status: Former smoker Tobacco type: cigarettes and pipe Alcohol intake: former Substance use: never Gender identity (if verbalized by the patient): Male Spiritual care concerns: No Meds Home Medications and Allergies Home Medications Medication Instructions Recorded Confirmed Type insulin lispro 100 unit/mL 100 unit SUB-Q DAILY ml 04/30/19 04/02/21 History subcutaneous cartridge cyanocobalamin (vitamin B-12) 1,000 mcg PO DAILY 06/20/19 04/02/21 History ascorbic acid (vitamin C) 500 mg 500 mg PO DAILY 09/07/19 04/02/21 History capsule aspirin 81 mg tablet,delayed 81 mg PO DAILY 09/07/19 04/02/21 History release ferrous sulfate 324 mg (65 mg 324 mg PO BID 09/07/19 04/02/21 History iron) tablet,delayed release acetaminophen [Tylenol] 325 mg PO Q4-8H PRN 01/29/20 04/02/21 History docusate sodium 100 mg PO DAILY 01/29/20 04/02/21 History tamsulosin 0.4 mg PO DAILY 01/29/20 04/02/21 History clopidogrel 75 mg tablet 75 mg PO DAILY #90 tablet 02/15/20 04/02/21 Rx levothyroxine 125 mcg tablet 125 mcg PO DAILY #90 tablet 02/03/21 04/02/21 Rx atorvastatin 20 mg PO DAILY 04/02/21 04/02/21 History carvedilol 6.25 mg PO DAILY 04/02/21 04/02/21 History pantoprazole 40 mg PO DAILY 04/02/21 04/02/21 History Allergies Allergy/AdvReac Type Severity Reaction Status Date / Time No Kn
[2021-04-02] MEDS: ENOXAPARIN 40 MG/0.4 ML SYRINGE SUB-Q (12:53)
[2021-04-02 13:11] LABS: Troponin I < 0.012 ng/mL (0.000-0.034)
[2021-04-02 13:24] LABS: Iron 41 ug/dL (49-181)
[2021-04-02 13:34] LABS: Percent Iron Saturation 18 % (20-50)
[2021-04-02] MEDS: carvediloL 6.25 MG TABLET PO ×2 (15:19→20:39)
--- NOTE | 2021-04-02 15:49 | PC.NURSE ---
On 04/02/21, the student, Kendrick TOVAR, provided care and completed [employer] documentation on this patient. I have reviewed the student's documentation and agree with the findings.
[2021-04-02 16:15] LABS: Troponin I < 0.012 ng/mL (0.000-0.034)
[2021-04-02] MEDS: FERROUS SULFATE 324 MG TABLET PO (16:53)
[2021-04-02 17:55] LABS: Glucose Point of Care 257 mg/dl (65-105)
[2021-04-02 19:15] LABS: Troponin I < 0.012 ng/mL (0.000-0.034)
[2021-04-03] VITALS: PULSE 69
[2021-04-03 00:41] LABS: Glucose Point of Care 239 mg/dl (65-105)
[2021-04-03 04:00] VITALS: PULSE 67
[2021-04-03] MEDS: LEVOTHYROXINE SODIUM 125 MCG TABLET PO (05:30)
[2021-04-03 06:00] VITALS: BP 113/59; PULSE 70; RESP 18; TEMP 36.7; O2SAT 99
[2021-04-03 06:09] LABS: Glucose Point of Care 211 mg/dl (65-105)
[2021-04-03 06:40] LABS: Basophils Absolute Auto 0.1 K/mm3 (0.0-0.1); Basophils Percent Auto 1.2 % (0.2-1.2); Eosinophils Absolute Auto 0.2 K/mm3 (0-0.3); Eosinophils Percent Auto 2.7 % (0-4.4); Hematocrit 29.1 % (42.0-52.0); Hemoglobin 9.6 g/dL (14.0-18.0); Immature Granulocyte Absolute 0.05 K/mm3 (0.00-0.031); Immature Granulocyte Percent A 0.7 % (0-0.5); Lymphocytes Absolute Auto 2.14 K/mm3 (0.9-3.2); Lymphocytes Percent Auto 32.1 % (18.3-44.2); Mean Corpuscular Hemoglobin 31.4 pg (26-34); Mean Corpuscular Volume 95.1 fl (80-100); Mean Platelet Volume 10.1 fl (7.4-10.4); Monocytes Absolute Auto 0.5 K/mm3 (0.1-0.6); Monocytes Percent Auto 7.2 % (2.6-8.5); Neutrophils Absolute Auto 3.7 K/mm3 (1.3-6.7); Neutrophils Percent Auto 56.1 % (45.5-73.1); Platelet Count Result 298 k/mm3 (150-375); Red Blood Count 3.06 M/mm3 (4.6-6.20); Red Cell Distribution Width 13.5 % (11.5-14.5); White Blood Count 6.7 K/mm3 (4.5-10.0)
[2021-04-03 08:00] VITALS: PULSE 66
[2021-04-03 08:26] LABS: Glucose Point of Care 165 mg/dl (65-105)
--- NOTE | 2021-04-03 09:20 | PM.DS ---
DS: Admitting Diagnosis Discharge Date 9:22 a.m. on April 03, 2021 Admitting Diagnosis Encephalopathy secondary to hypoglycemia DS: Summary Hospital Course Hospital Course: Please see discharge summary below Time Spent with Patient Time attestation: Total time spent providing and/or coordinating discharge services: START OF DOCTOR EUN?S DISCHARGE SUMMARY Date of Admission: April 02, 2021 Date of Discharge: 9:21 a.m. Primary Diagnosis: On April 03, 2021 encephalopathy secondary to hypoglycemia, resolved Secondary Diagnosis: Right foot diabetic ulcer, chronic Hypothyroidism Neuropathy BPH Constipation Thrombocytosis Peripheral vascular disease Iron deficiency anemia paragraph COPD paragraph CHF, ejection fraction 25-30% Moderate pulmonary hypertension Moderate mitral regurgitation Moderate tricuspid regurgitation Coronary artery disease, status post PA, status post CABG Diabetes GERD Hyperlipidemia Hypertension Gout Consultations: None Disposition: The patient will be advised to follow up with [facility] 1 week post discharge or as directed for diagnosis of right foot diabetic ulcer The patient is advised follow-up with endocrinology sent to 10 days post discharge for diagnosis of diabetes Discharge Medications: Vitamin-C 500 mg p.o. daily Ferrous sulfate 324 mg p.o. b.i.d. Humalog insulin per patient control via insulin pump Aspirin 81 mg p.o. daily Lipitor 20 mg p.o. q.h.s. Coreg 6.25 mg p.o. b.i.d. Plavix 75 mg p.o. daily Vitamin B12 1000 mg p.o. daily Colace 100 mg p.o. daily Synthroid 125 mg p.o. daily Protonix 40 mg p.o. daily Flomax 0.4 mg p.o. daily Silver foam pad to be applied to right foot ulcer daily. Quantity 10. 0 refills Augmentin 875 mg p.o. b.i.d.. Quantity 14. 0 refills END OF DOCTOR EUN?S DISCHARGE SUMMARY DS: Data Data Completed and Pending Labs on day of discharge: Labs from last 24 hours 04/03/21 04/03/21 04/03/21 08:19 06:21 06:21 WBC 6.7 RBC 3.06 L Hgb 9.6 L Hct 29.1 L MCV 95.1 MCH 31.4 MCHC 33.0 RDW 13.5 Plt Count 298 MPV 10.1 Immature Gran % (Auto) 0.7 H Neut % (Auto) 56.1 Lymph % (Auto) 32.1 [place] % (Auto) 7.2 Eos % (Auto) 2.7 Baso % (Auto) 1.2 Lymph # (Auto) 2.14 [place] # (Auto) 0.5 Eos # (Auto) 0.2 Baso # (Auto) 0.1 Abs Immat Gran (auto) 0.05 H Absolute Neuts (auto) 3.7 Absolute Nucleated RBC 0.0 Nucleated RBC % 0.0 Sodium Pending Potassium Pending Chloride Pending Carbon Dioxide Pending Anion Gap Pending BUN Pending Creatinine Pending Estim Creat Clear Calc Pending Estimated GFR Pending Glucose Pending POC Capillary Glucose 165 H Calcium Pending Iron TIBC % Saturation Ferritin Total Bilirubin Pending AST Pending ALT Pending Alkaline Phosphatase Pending Troponin I Total Protein Pending Albumin Pending 04/03/21 04/03/21 04/02/21 06:05 00:37 18:49 WBC RBC Hgb Hct MCV MCH MCHC RDW Plt Count MPV Immature Gran % (Auto) Neut % (Auto) Lymph % (Auto) [place] % (Auto) Eos % (Auto) Baso % (Auto) Lymph # (Auto) [place] # (Auto) Eos # (Auto) Baso # (Auto) Abs Immat Gran (auto) Absolute Neuts (auto) Absolute Nucleated RBC Nucleated RBC % Sodium Potassium Chloride Carbon Dioxide Anion Gap BUN Creatinine Estim Creat Clear Calc Estimated GFR Glucose POC Capillary Glucose 211 H 239 H Calcium Iron TIBC % Saturation Ferritin Total Bilirubin AST ALT Alkaline Phosphatase Troponin I < 0.012 Total Protein Albumin 04/02/21 04/02/21 04/02/21 17:38 15:25 12:32 WBC RBC Hgb Hct MCV MCH MCHC RDW Plt
[2021-04-03] MEDS: ENOXAPARIN 40 MG/0.4 ML SYRINGE SUB-Q (09:53)
[2021-04-03] MEDS: CLOPIDOGREL BISULFATE 75 MG TABLET PO (09:53)
[2021-04-03 09:54] VITALS: PULSE 70; RESP 18; O2SAT 99
[2021-04-03] MEDS: ATORVASTATIN 20 MG TABLET PO (09:54)
[2021-04-03] MEDS: carvediloL 6.25 MG TABLET PO (09:54)
[2021-04-03] MEDS: TAMSULOSIN HCL 0.4 MG CAPSULE PO (09:54)
[2021-04-03] MEDS: CYANOCOBALAMIN 1,000 MCG TABLET 1000 MCG PO (09:54)
[2021-04-03] MEDS: PANTOPRAZOLE 40 MG TABLET PO (09:54)
[2021-04-03] MEDS: DOCUSATE SODIUM 100 MG CAPSULE PO (09:54)
[2021-04-03] MEDS: ASPIRIN 81 MG ENTERIC TABLET PO (09:54)
[2021-04-03 11:03] LABS: Alanine Aminotransferase 12 U/L (4-50); Albumin Level 3.2 g/dL (3.5-5.1); Alkaline Phosphatase 67 U/L (38-126); Anion Gap 8 mmol/L (8-16); Aspartate Amino Transferase 20 U/L (17-59); Bilirubin,Total 0.3 mg/dL (0.2-1.3); Blood Urea Nitrogen 17 mg/dL (9-20); Calcium 8.5 mg/dL (8.4-10.2); Carbon Dioxide 23 mmol/L (22-30); Chloride 105 mmol/L (98-107); Estimated CRCL calculation 51 ml/min; Estimated Glomerular Filt Rate > 60; Glucose 222 mg/dL (65-110); Potassium 4.1 mmol/L (3.4-5.0); Sodium 136 mmol/L (137-145)
[2021-04-03 11:54] LABS: Glucose Point of Care 185 mg/dl (65-105)
== END 2021-04-03 13:05 | disposition home or self-care (01) ==
LOC: ANHED 22:34 → ANH3MEDSUR 04-02 03:44
PROVIDERS: Emergency Medicine; Admitting Provider Internal Medicine; Emergency Provider General Practice; PCP Internal Medicine; Visit Provider Internal Medicine
DX: E11.649 Type 2 diabetes mellitus with hypoglycemia without coma (principal); G93.40 Encephalopathy, unspecified; L97.519 Non-pressure chronic ulcer of other part of right foot with unspecified severity; E11.621 Type 2 diabetes mellitus with foot ulcer; E11.42 Type 2 diabetes mellitus with diabetic polyneuropathy; E03.9 Hypothyroidism, unspecified; E11.51 Type 2 diabetes mellitus with diabetic peripheral angiopathy without gangrene; I25.2 Old myocardial infarction; I11.0 Hypertensive heart disease with heart failure; I50.9 Heart failure, unspecified; Z79.4 Long term (current) use of insulin; Z95.1 Presence of aortocoronary bypass graft; Z87.891 Personal history of nicotine dependence; Z89.412 Acquired absence of left great toe; Z89.421 Acquired absence of other right toe(s); Z79.899 Other long term (current) drug therapy
CPT/HCPCS: 36415; 70450; 71045; 73630; 80053; 80307; 81001; 82550; 82728; 82948; 83540; 83550; 83605; 84484; 85025; 85610; 85730; 86140; 87040; 87070; 87205; 93005; 96361; 96365; 96366; 96372; 96375; 99285; A9270; G0378; J1650; J1720; J2543; J7030

== ENCOUNTER 2021-04-20 11:37 | Emergency (ER) | payer MEDICARE, SELFPAY ==
[2021-04-20] VITALS (27 sets, daily range): BP systolic 108–182; BP diastolic 58–93; PULSE 57–87; RESP 12–21; TEMP 35.9; O2SAT 100
[2021-04-20 12:03] LABS: Glucose Point of Care 97 mg/dl (65-105)
--- NOTE | 2021-04-20 12:11 | PC.NURSE ---
MD Nino saw patient and wanted him to eat. Pt provided a boxed lunch and is currently eating. Daughter at bedside, call light in reach.
[2021-04-20 12:59] LABS: Glucose 106 mg/dL (65-110)
--- NOTE | 2021-04-20 13:14 | ED.GENADULT ---
HPI - General Adult General Chief complaint: Recheck/Abnormal Lab/Rx Stated complaint: LOW BLOOD SUGAR Time Seen by Provider: 04/20/21 11:45 Source: patient, family, EMS and RN notes reviewed Mode of arrival: EMS Limitations: no limitations History of Present Illness HPI narrative: Patient is 75 years old white male brought to the emergency room by ambulance because of hypoglycemia. Patient have history of type 2 diabetes, on insulin pump,, lives alone, did not answer the phone of his daughter today, who found out that his blood glucose is 52 on her phone, called ambulance, patient found unresponsive laying down on the couch. Blood glucose was 43, D50 was given, patient became awake, alert and oriented x4. Currently patient denying any symptoms. The daughter is telling me that the second episode of hypoglycemia in 2 weeks. Patient is fully vaccinated for COVID-19. Patient still driving. Scheduled to see his flagger, Dr. Jose at [facility] next week Related Data Home Medications Medication Instructions Recorded Confirmed insulin lispro 100 unit/mL 100 unit SUB-Q DAILY ml 04/30/19 04/02/21 subcutaneous cartridge cyanocobalamin (vitamin B-12) 1,000 mcg PO DAILY 06/20/19 04/02/21 ascorbic acid (vitamin C) 500 mg 500 mg PO DAILY 09/07/19 04/02/21 capsule aspirin 81 mg tablet,delayed 81 mg PO DAILY 09/07/19 04/02/21 release ferrous sulfate 324 mg (65 mg 324 mg PO BID 09/07/19 04/02/21 iron) tablet,delayed release docusate sodium 100 mg PO DAILY 01/29/20 04/02/21 tamsulosin 0.4 mg PO DAILY 01/29/20 04/02/21 atorvastatin 20 mg PO DAILY 04/02/21 04/02/21 pantoprazole 40 mg PO DAILY 04/02/21 04/02/21 Allergies Allergy/AdvReac Type Severity Reaction Status Date / Time No Known Allergies Allergy Verified 03/02/21 07:42 Review of Systems Review of Systems: CONSTITUTIONAL: Denies fever, chills, or sweats. EYES: Denies visual changes, redness, or discharge. ENT: Denies rhinorrhea, congestion, sore throat, or otalgia. CARDIOVASCULAR: Denies chest pain, palpitations, or edema. RESPIRATORY: Denies cough or dyspnea. GASTROINTESTINAL: Denies abdominal pain, nausea, vomiting, or diarrhea. GENITOURINARY: Denies dysuria or hematuria. SKIN: Denies rash or itching. MUSCULOSKELETAL: Denies back pain, joint pain, or myalgia. NEUROLOGIC: Denies headache, numbness, or weakness. PSYCHIATRIC: Denies anxiety or depression. [facility] Past Medical History Medical History Amputation of toe of left foot Left 1st Amputation of toe of right foot Right 2nd Chronic anemia Chronic GERD Chronic kidney disease Coronary artery disease involving [place] coronary artery of [place] heart Non STEMI in November 2013. He had angioplasty to the first diagonal with failed intervention to the OM2. He is followed by Dr. Jameel Steinberg. Cardiac catheterization 07/10/2019 demonstrated multiple vessel coronary artery disease Diabetes mellitus with diabetic neuropathy Diabetic foot ulcers Essential hypertension Fracture of both ankles Fracture of both arms History of osteomyelitis Hyperlipidemia Hypothyroidism Insulin dependent diabetes mellitus Complicated by diabetic neuropathy. He has had several hospitalizations for diabetic ketoacidosis. Iron deficiency anemia Ischemic cardiomyopathy With new ischemic cardiomyopathy June 2019 EF 25-30% Mixed hyperlipidemia Myocardial infarction x3 Neuropathy due to secondary diabetes Nose fracture Orthostasis No longer on midodrine given his new systolic dysfunction noted June 2019 PAD (peripheral artery disease) Patient of Dr. Bansal. Screening for colon cancer Severe peripheral arterial disease Vertigo Surgical History Surgical History Status post amputation of toe Left great toe amputated the MP joint in April 2009 for osteomyelitis. Distal right 2nd toe metatarsal amputation in November 2007
[2021-04-20 14:30] LABS: Glucose Point of Care 350 mg/dl (65-105)
== END 2021-04-20 14:28 | disposition home or self-care (01) ==
PROVIDERS: Emergency Provider Emergency Medicine; PCP Internal Medicine
DX: E11.649 Type 2 diabetes mellitus with hypoglycemia without coma (principal); E11.22 Type 2 diabetes mellitus with diabetic chronic kidney disease; N18.9 Chronic kidney disease, unspecified; I12.9 Hypertensive chronic kidney disease with stage 1 through stage 4 chronic kidney disease, or unspecified chronic kidney disease; E11.40 Type 2 diabetes mellitus with diabetic neuropathy, unspecified; E11.51 Type 2 diabetes mellitus with diabetic peripheral angiopathy without gangrene; D50.9 Iron deficiency anemia, unspecified; I25.10 Atherosclerotic heart disease of native coronary artery without angina pectoris; I25.5 Ischemic cardiomyopathy; I25.2 Old myocardial infarction; Z79.4 Long term (current) use of insulin; Z96.41 Presence of insulin pump (external) (internal); Z98.61 Coronary angioplasty status; E78.2 Mixed hyperlipidemia; E03.9 Hypothyroidism, unspecified; Z89.412 Acquired absence of left great toe; Z89.422 Acquired absence of other left toe(s); Z89.421 Acquired absence of other right toe(s); Z98.49 Cataract extraction status, unspecified eye; Z87.891 Personal history of nicotine dependence; Z79.82 Long term (current) use of aspirin
CPT/HCPCS: 36415; 82947; 82948; 99282

== ENCOUNTER 2021-09-09 08:56 | Outpatient (CLI) | payer MEDICARE, SELFPAY ==
[2021-09-09 09:24] LABS: Alanine Aminotransferase 19 U/L (4-50); Albumin Level 4.1 g/dL (3.5-5.1); Alkaline Phosphatase 68 U/L (38-126); Anion Gap 7 mmol/L (8-16); Aspartate Amino Transferase 32 U/L (17-59); Bilirubin,Total 0.4 mg/dL (0.2-1.3); Blood Urea Nitrogen 17 mg/dL (9-20); Calcium 8.8 mg/dL (8.4-10.2); Carbon Dioxide 29 mmol/L (22-30); Chloride 101 mmol/L (98-107); Cholesterol 95 mg/dL (0-200); Estimated Glomerular Filt Rate 59; Glucose 146 mg/dL (65-110); HDL Direct 36 mg/dL; Potassium 4.5 mmol/L (3.4-5.0); Sodium 137 mmol/L (137-145); Triglycerides 54 mg/dL (<150)
[2021-09-09 09:35] LABS: LDL Cholesterol Direct 41 mg/dL
[2021-09-09 09:59] LABS: Hemoglobin A1C 6.6 % (<5.7)
== END 2021-09-09 08:57 | disposition home or self-care (01) ==
LOC: ANHLAB 09:00
PROVIDERS: PCP Internal Medicine; Visit Provider Nurse Practitioner
DX: E11.9 Type 2 diabetes mellitus without complications (principal); E03.9 Hypothyroidism, unspecified; E78.5 Hyperlipidemia, unspecified; I10 Essential (primary) hypertension
CPT/HCPCS: 36415; 80053; 80061; 83036; 84443

== ENCOUNTER 2022-03-27 11:03 | Inpatient (IN) | payer MEDICARE, SELFPAY ==
[2022-03-27] VITALS (27 sets, daily range): BP systolic 97–127; BP diastolic 44–80; PULSE 88–94; RESP 16–29; TEMP 34.6–36.6; O2SAT 96–100; BMI 16.7
--- NOTE | ~2022-03-27 | CT_ITS ---
EXAMINATION: CT brain wo con DATE: 03/27/2022 14:05 INDICATION: Transient alteration of awareness. TECHNIQUE: Computed tomography (CT) of the head was performed without intravenous contrast. The dose- length product was 908.00 mGy-cm. Automated exposure control and iterative reconstruction technique w ere employed. COMPARISON: CT dated 04/01/2020 FINDINGS: Generalized brain parenchymal volume loss. There are scattered mild periventricular and sub cortical white matter changes, most likely related to small vessel ischemic disease (microangiopathy) . There are chronic bilateral cerebellar infarctions. There is intracranial atherosclerosis. No ventr iculomegaly or midline shift. Paranasal sinuses and mastoids are pneumatized. No depressed skull frac tures. IMPRESSION: 1. No acute intracranial abnormality. 2: Chronic bilateral cerebellar infarctions. 3: Chronic age-related findings. Reviewed, dictated and finalized at location A.
--- NOTE | ~2022-03-27 | XR_ITS ---
XR abdomen NG/feed tube insert DATE: 03/27/2022 15:39 INDICATION: NG tube placement TECHNIQUE: Portable AP view on 03/23/2022 at 1533 hours COMPARISON: None FINDINGS: NG tube is in the right lower lobe. Dr. Baugh telephoned the findings on 03/23/2022 at 1812 h ours to ICU nurse Faith. She indicated that she had already removed the NG tube. IMPRESSION: NG tube placement in right lower lobe and subsequent removal according to ICU nurse Reviewed, dictated and finalized at Location A. Reviewed, dictated and finalized at location A. IMPRESSION: NG tube placement in right lower lobe and subsequent removal accord ing to ICU nurse
--- NOTE | ~2022-03-27 | XR_ITS ---
XR chest 1V portable 03/27/2022 12:08 Indication: Altered mental status Procedure: AP portable chest Comparison: Comparison to multiple prior studies sequentially, with oldest reviewed study dated 06/03. Findings: Status post median sternotomy for CABG. Heart size normal. No focal air space disease, pulm onary edema, pleural effusion or suspected pneumothorax. No acute osseous abnormality. Impression: 1: No acute cardiopulmonary disease. Reviewed, dictated and finalized at location A. Impression: 1: No acute cardiopulmonary disease.
--- NOTE | ~2022-03-27 | XR_ITS ---
XR fl Dobhoff insert/rad w img 03/28/2022 11:34 Indication: Attempted placement of feeding tube Procedure: Fluoroscopy was performed during placement of feeding tube. 4.4 minutes of fluoroscopy. No fluoroscopic images submitted. Comparison: 03/27/2022 Findings: Multiple attempts were made for placement of feeding tube in various positions including tovar pine, right lateral decubitus and chin tuck positions. Feeding tube was repeatedly passed into the ri ght mainstem bronchus. Impression: 1: Unsuccessful attempt for placement of feeding tube. Reviewed, dictated and finalized at location A. Impression: 1: Unsuccessful attempt for placement of feeding tube.
--- NOTE | ~2022-03-27 | XR_ITS ---
XR foot RT min 3V 03/27/2022 12:51 Indication: Wound of the right foot Procedure: 3 views right foot Comparison: 04/01/2021 Findings: There is a comminuted fracture distal aspect of the first metatarsal with intra-articular e xtension and displacement. Mild soft tissue swelling. There is amputation of the first toe at the dis moses phalanx. There is amputation of the second digit at the metatarsal head. Lisfranc joint intact. S mall degenerative calcaneal enthesophyte. Impression: 1: Comminuted displaced intra-articular fracture distal aspect of the first metatarsal with associate d ill-defined osteolysis. Consider osteomyelitis. Reviewed, dictated and finalized at location A. Impression: 1: Comminuted displaced intra-articular fracture distal aspect of the first met atarsal with associated ill-defined osteolysis. Consider osteomyelitis.
--- NOTE | ~2022-03-27 | MR_ITS ---
EXAMINATION: MR foot RT wo con DATE: 03/29/2022 12:58 INDICATION: Right foot osteomyelitis. TECHNIQUE: Magnetic resonance imaging (MRI) of the right foot was performed without intravenous contr ast. COMPARISON: Right foot MRI 07/27/2019, right foot radiographs 03/27/2022 FINDINGS: There is moderate hallux valgus. There is amputation at base of first distal pharynx. There is an ulcer medial to first metatarsophalangeal joint. There is bone marrow edema of first metatarsa l and first proximal phalanx that is worst near the first metatarsophalangeal joint, consistent with osteomyelitis. There is amputation at head of second metatarsal. There is edema of the head and neck of second metatarsal, consistent with osteomyelitis. There is a bunionette deformity. There is modera te osteoarthritis of first interphalangeal joint and mild osteoarthritis of many of the interphalange al joints. There is mild osteoarthritis of many of the midfoot joints. Lisfranc ligament is normal. T here is diffuse moderate to severe fatty atrophy of the musculature. There is increased T2-weighted s ignal intensity in much of the musculature, consistent with subacute on chronic denervation. IMPRESSION: 1. Osteomyelitis involving first and second metatarsals and first proximal phalanx. Reviewed, dictated and finalized at location A. IMPRESSION: 1. Osteomyelitis involving first and second metatarsals and first proximal phal anx.
--- NOTE | ~2022-03-27 | US_ITS ---
US renal BI 03/28/2022 11:38 Procedure: Realtime transabdominal ultrasound of the kidneys and bladder. Indication: Acute renal insufficiency Comparison: 06/15/2014 Findings: Renal echotexture is normal bilaterally without hydronephrosis, contour deforming mass or r enal calculus. The right kidney measures 9.2 cm and left kidney measures 9 cm. There is a Doan ari ter in the bladder. Impression: 1: Unremarkable renal ultrasound. No stones, masses or hydronephrosis. Reviewed, dictated and finalized at location A. Impression: 1: Unremarkable renal ultrasound. No stones, masses or hydronephrosis.
[2022-03-27 11:38] LABS: Basophils Absolute Auto 0.1 K/mm3 (0.0-0.1); Basophils Percent Auto 0.4 % (0.2-1.2); Hematocrit 36.6 % (42.0-52.0); Hemoglobin 11.6 g/dL (14.0-18.0); Immature Granulocyte Absolute 0.45 K/mm3 (0.00-0.031); Immature Granulocyte Percent A 2.2 % (0-0.5); Lymphocytes Absolute Auto 0.69 K/mm3 (0.9-3.2); Lymphocytes Percent Auto 3.4 % (18.3-44.2); Mean Corpuscular HGB Conc 31.7 g/dl (32-36); Mean Corpuscular Hemoglobin 31.4 pg (26-34); Mean Corpuscular Volume 99.2 fl (80-100); Mean Platelet Volume 10.8 fl (7.4-10.4); Monocytes Absolute Auto 1.5 K/mm3 (0.1-0.6); Monocytes Percent Auto 7.6 % (2.6-8.5); Neutrophils Absolute Auto 17.4 K/mm3 (1.3-6.7); Neutrophils Percent Auto 86.4 % (45.5-73.1); Platelet Count Result 424 k/mm3 (150-375); Red Blood Count 3.69 M/mm3 (4.6-6.20); Red Cell Distribution Width 13.7 % (11.5-14.5); White Blood Count 20.1 K/mm3 (4.5-10.0)
[2022-03-27] MEDS: SODIUM CHLORIDE 0.9% IV 1,000 ML 999 ML IV CONT ×2 (11:38→11:51)
--- NOTE | 2022-03-27 11:42 | ECG_ITS ---
Measurements Intervals Force Rate: 91 P: 83 NJ: 250 QRS: 69 QRSD: 106 T: 68 QT: 392 QTc: 483 Interpretive Statements SINUS RHYTHM WITH FIRST DEGREE AV BLOCK DELAYED PRECORDIAL R/S TRANSITION BORDERLINE ST ABNORMALITY- INF/LAT LEADS BASELINE ARTIFACT- I, II, AVR, AVL, AVF, V1-V2 ABNORMAL ECG COMPARED TO ECG 04/01/2021 22:18:26 NO SIGNIFICANT CHANGES Electronically Signed On 03-27-2022 18:20:58 CDT by Matt Mendiola D.O.
--- NOTE | 2022-03-27 11:44 | PC.NURSE ---
Patient's insulin pump found to be empty for unknown amount of time. Patient has Kussmaul breathing at this time and is only awake to verbal and physical stimuli
[2022-03-27 11:46] LABS: Alveolar/Arterial O2 Gradient 85.9 mmHg; Base Excess ABG -24.4 mEq/l (+/-2.0); Carboxyhemoglobin 0.3 % THb (0-2.0); Fractional Inspired Oxygen 24 %; HCO3 ABG 4.1 mEq/l (22.0-26.0); Methemoglobin ABG 0.4 %THb (0-1.5); Oxygen Content ABG 15.7 %vol (16.0-22.0); PO2 ABG 67.3 mmHg (80.0-100.0); Reduced Hemoglobin 11.6 %THb (0-5.0); Total Hemoglobin 12.7 g/dL (12.0-18.0)
[2022-03-27 11:47] LABS: Appearance Urine Clear (Clear); Bilirubin Urine 1+ (Negative); Blood Urine Negative (Negative); Color Urine Yellow (Yellow); Glucose Urine UA 3+ mg/dL (Negative); Ketones Urine 2+ mg/dL (Negative); Leukocyte Esterase Ur Negative LEU/UL (Negative); Nitrate Urine Negative (Negative); Protein Urine Negative (Negative); Urobilinogen Urine 0.2 mg/dL (<2.0); pH Urine 5.5 (5.0-9.0)
[2022-03-27 11:47] LABS: Ethanol < 10 mg/dL (<10); Lactic Acid Reflex 2.8 mmol/L (0.7-2.0)
[2022-03-27 11:48] LABS: INR 1.5; Prothrombin Time 17.1 Seconds (11.1-14.7)
[2022-03-27 11:49] LABS: Partial Thromboplastin Time 31.2 SECONDS (22.3-36.8)
[2022-03-27 11:49] LABS: pH ABG 7.051 (7.350-7.450)
[2022-03-27 11:50] LABS: Oxygen Saturation ABG 84.9 % (95.0-100.0); PCO2 ABG 15.1 mmHg (35.0-45.0)
[2022-03-27 11:51] LABS: Device NASAL CANNULA; Modified Allen's Test Pass; Oxyhemoglobin 87.7 % THb (90.0-100.0); Site Drawn LEFT RADIAL
[2022-03-27 11:55] LABS: Mucus Urine Rare /lpf; RBC Urine 0-2 /hpf (0-2); WBC Urine 0-3 /hpf
[2022-03-27 11:58] LABS: Add Urine Microscopic? YES
[2022-03-27 11:59] LABS: Alanine Aminotransferase 20 U/L (6-50); Albumin Level 4.4 g/dL (3.5-5.1); Alkaline Phosphatase 122 U/L (38-126); Anion Gap 39 mmol/L (8-16); Aspartate Amino Transferase 27 U/L (17-59); Bilirubin,Total 0.3 mg/dL (0.2-1.3); Blood Urea Nitrogen 52 mg/dL (9-20); Calcium 9.1 mg/dL (8.4-10.2); Carbon Dioxide 6 mmol/L (22-30); Chloride 87 mmol/L (98-107); Estimated Glomerular Filt Rate 20; Glucose 1193 mg/dL (65-110); Lipase 378 U/L (23-300); Potassium 6.1 mmol/L (3.4-5.0); Sodium 132 mmol/L (137-145)
[2022-03-27 12:03] LABS: Amphetamine Screen Urine Negative (Negative); Barbiturate Screen Urine Negative (Negative); Benzodiazepines Screen Urine Negative (Negative); Cannabinoid Screen Urine Negative (Negative); Cocaine Screen Urine Negative (Negative); Methadone Screen Urine Negative (Negative); Opiate Screen Urine Negative (Negative); Phencyclidine Screen Urine Negative (Negative)
[2022-03-27 12:06] LABS: Troponin I 0.181 ng/mL (0.000-0.034)
[2022-03-27] MEDS: CALCIUM GLUCONATE 1,000 MG/10 ML VIAL 1000 MG IV PUSH (12:15)
[2022-03-27 12:20] LABS: Crenated RBC 1+ (NORMAL); Platelet Estimate Increased (Adequate); Poikilocytosis 2+ (NORMAL); Schistocytes None Seen (NORMAL)
[2022-03-27] MEDS: LORazepam INJ (*CRX) 2 MG/ML VIAL 0.5 MG IV PUSH (12:38)
[2022-03-27 12:40] LABS: SARS-CoV-2 RNA PCR Negative
--- NOTE | 2022-03-27 12:43 | PC.NURSE ---
Soft restraints placed on patient for safety per verbal order from Dr Gruber to keep patient from pulling on IV lines.
--- NOTE | 2022-03-27 12:57 | ED.GENADULT ---
HPI - General Adult General Chief complaint: Altered Mental Status Stated complaint: unresponsive in chair and rambling, bs high >500 Time Seen by Provider: 03/27/22 11:08 History of Present Illness HPI narrative: Patient is a 76-year-old male who presents to the ER unresponsive from his home. Patient was last seen yesterday. His insulin pump shows that he last bolused himself at 9 AM yesterday and then check his sugar around 2 PM. Family reports patient's has history of foot infection on the right side that was treated back in January and they have not gotten to take a look at it. There has been some talk that he may have to undergo another amputation to part of his foot. For EMS in route patient's blood sugar read high on a [id number] monitor that can read up to 500 mg/dL. Related Data Home Medications Medication Instructions Recorded Confirmed insulin lispro 100 unit/mL 100 unit subcut DAILY 04/30/19 03/27/22 subcutaneous cartridge (Humalog U-100 Insulin) cyanocobalamin (vitamin B-12) 1,000 mcg PO DAILY 06/20/19 03/27/22 1,000 mcg capsule ascorbic acid (vitamin C) 500 mg 500 mg PO DAILY 09/07/19 03/27/22 capsule aspirin 81 mg tablet,delayed 81 mg PO DAILY 09/07/19 03/27/22 release (Adult Low Dose Aspirin) tamsulosin 0.4 mg capsule 0.4 mg PO DAILY 01/29/20 03/27/22 docusate sodium 100 mg capsule 100 mg PO DAILY PRN Constipation 03/27/22 03/27/22 (Colace) ferrous sulfate 324 mg (65 mg 324 mg PO DAILY 03/27/22 03/27/22 iron) tablet,delayed release Allergies Allergy/AdvReac Type Severity Reaction Status Date / Time No Known Allergies Allergy Verified 03/27/22 12:23 Review of Systems Review of Systems: ROS unobtainable: Yes unobtainable due to mental status PMFSH Past Medical History Medical History Amputation of toe of left foot Left 1st Amputation of toe of right foot Right 2nd Cerebrovascular accident (CVA) Chronic anemia Chronic GERD Chronic kidney disease Coronary artery disease involving [place] coronary artery of [place] heart Non STEMI in November 2013. He had angioplasty to the first diagonal with failed intervention to the OM2. He is followed by Dr. Jameel Steinberg. Cardiac catheterization 07/10/2019 demonstrated multiple vessel coronary artery disease Diabetes mellitus with diabetic neuropathy Diabetic foot ulcers Essential hypertension Fracture of both ankles Fracture of both arms History of osteomyelitis Hyperlipidemia Hypothyroidism Insulin dependent diabetes mellitus Complicated by diabetic neuropathy. He has had several hospitalizations for diabetic ketoacidosis. Iron deficiency anemia Ischemic cardiomyopathy With new ischemic cardiomyopathy June 2019 EF 25-30% Mixed hyperlipidemia Myocardial infarction x3 Neuropathy due to secondary diabetes Nose fracture Orthostasis No longer on midodrine given his new systolic dysfunction noted June 2019 PAD (peripheral artery disease) Patient of Dr. Bansal. Screening for colon cancer Severe peripheral arterial disease Vertigo Surgical History Surgical History Status post amputation of toe Left great toe amputated the MP joint in April 2009 for osteomyelitis. Distal right 2nd toe metatarsal amputation in November 2007 for osteomyelitis. Left 4th metatarsal amputation for osteomyelitis. Status post cardiac catheterization November 2013. He had angioplasty to the first diagonal with a failed intervention to the OM2. Status post cataract extraction Status post laminectomy Of the cervical spine x2. Family History Family History Sibling Family history of mental disorder Mother Family history of lung cancer Patient's mother is Father Family history of lymphoma Patient's father is Other Family history of malignant neoplasm Social History
--- NOTE | 2022-03-27 13:08 | WPDCNINT ---
Assessment and Plan Assessment and plan (1) Sepsis: Code(s): A41.9 - Sepsis, unspecified organism Status: Acute Assessment and Plan: Patient meets criteria for sepsis with elevated WBC, hypothermia, elevated lactic acid level Chest x-ray UA are unremarkable Right foot has a chronic food which on x-ray suggests may have osteomyelitis Check urine and blood cultures Empiric vancomycin and Zosyn Check procalcitonin level He has received 2 L IV fluid bolus and I will give him another 1 L. he will receive maintenance IV fluids following that. He may need vasopressors Repeat lactic acid (2) Hypothermia: Qualifiers: Encounter type: initial encounter Qualified Code(s): T68.XXXA - Hypothermia, initial encounter Code(s): T68.XXXA - Hypothermia, initial encounter Status: Acute Assessment and Plan: Likely multifactorial secondary to sepsis, hypothyroidism, DKA Warming blanket is on (3) DKA (diabetic ketoacidoses): Qualifiers: Diabetes mellitus complication detail: without coma Diabetes mellitus type: other specified (including SEVEN) Qualified Code(s): E13.10 - Other specified diabetes mellitus with ketoacidosis without coma Code(s): E11.10 - Type 2 diabetes mellitus with ketoacidosis without coma Status: Acute Assessment and Plan: IVF bolus and infusion Insulin infusion and Q1H glucose monitoring Serial labs Replace electrolytes as needed (4) Dehydration: Code(s): E86.0 - Dehydration Status: Acute Assessment and Plan: Patient received 2 L of bolus give him additional 1 L Maintenance IV fluids (5) Acute kidney injury: Code(s): N17.9 - Acute kidney failure, unspecified Status: Acute Assessment and Plan: Acute kidney injury over chronic kidney disease likely secondary to sepsis DKA and dehydration Check urine electrolytes Monitor electrolytes, urine output and creatinine Check renal ultrasound Check CK level (6) Coronary artery disease involving [place] coronary artery of [place] heart: Qualifiers: Associated angina: without angina Qualified Code(s): I25.10 - Atherosclerotic heart disease of [place] coronary artery without angina pectoris Code(s): I25.10 - Atherosclerotic heart disease of [place] coronary artery without angina pectoris Status: Acute Assessment and Plan: Patient has history of coronary disease status post CABG Check echocardiogram (7) Osteomyelitis: Qualifiers: Laterality: right Osteomyelitis location: foot Osteomyelitis type: unspecified type Qualified Code(s): M86.9 - Osteomyelitis, unspecified Code(s): M86.9 - Osteomyelitis, unspecified Status: Acute Assessment and Plan: Questionable osteomyelitis in the right foot which is most likely chronic as patient has had chronic wound being managed as an outpatient X-ray reviewed. Once hemodynamically stabilized we will try to obtain a further imaging. See above for rest of the management (8) Elevated troponin: Code(s): R77.8 - Other specified abnormalities of plasma proteins Status: Acute Assessment and Plan: Patient has history of coronary disease and CABG Likely type 2 non STEMI from sepsis and DKA EKG reviewed and does not appear to show any ST elevation No history of chest pain from family Continue aspirin Serial troponin (9) Hyperkalemia: Code(s): E87.5 - Hyperkalemia Status: Acute Assessment and Plan: Secondary to RUDI and DKA acidosis Patient is getting 10 units of insulin, calcium and IV fluid bolus Repeat BMP in 4 hours (10) Altered mental status: Code(s): R41.82 - Altered mental status, unspecified Status: Acute Assessment and Plan: Likely toxic metabolic encephalopathy Will check head CT Plan DVT prophylaxis -Lovenox Stress ulcer prophylaxis -PPI Nutrition -NPO Code Status -spoke to patient's son states the edd
[2022-03-27 13:13] LABS: Glucose Point of Care > 500 mg/dl (65-105)
[2022-03-27] MEDS: INSULIN HUMAN REGULAR (*BKC) 100 UNITS/ML 10 UNITS IV PUSH (13:19)
[2022-03-27 13:43] LABS: Magnesium 2.9 mg/dL (1.6-2.3); Phosphorus 8.6 mg/dL (2.5-4.5)
[2022-03-27 13:46] LABS: Hemoglobin A1C 8.7 % (<5.7)
[2022-03-27 13:55] LABS: Free T4 Free Thyroxine Reflex 1.62 ng/dL (0.78-2.19)
--- NOTE | 2022-03-27 13:55 | PC.NURSE ---
per coal feeder operator, we removed the bear hugger from patient
[2022-03-27] MEDS: INSULIN HUMAN REGULAR (*BKC) 100 UNITS in SODIUM CHLORIDE 0.9% IV 99 ML 22.66 UNITS IV CONT (14:12)
[2022-03-27 14:34] LABS: Reflex Lactic Acid Yes or No Add Lactic
[2022-03-27] MEDS: SODIUM CHLORIDE 0.9% IV 1,000 ML 150 ML IV CONT (14:39)
[2022-03-27 14:41] LABS: Lactic Acid Reflex 1.7 mmol/L (0.7-2.0)
[2022-03-27 14:44] LABS: Creatine Kinase 377 U/L (55-170)
--- NOTE | 2022-03-27 14:45 | PM.IMHP ---
H&P: HPI History of Present Illness Date/Time: 03/27/22 14:45 <Alysia Denis PA-C - Last Filed: 03/28/22 00:49> Chief Complaint: Unresponsive. <Alysia Denis PA-C - Last Filed: 03/28/22 00:49> Narrative: This is a 76-year-old male with multiple medical problems including insulin dependent diabetes, chronic diabetic foot wounds with history of osteomyelitis, peripheral arterial disease, coronary artery disease, ischemic cardiomyopathy, hypertension, hypothyroidism, chronic kidney disease, chronic anemia, and hyperlipidemia who presented to the ED via EMS from home for evaluation after he was found unresponsive. Family members found him minimally responsive in a chair this morning with a glucose of greater than 500 and he was brought in for evaluation. In the emergency department he was apparently bit agitated he was given a dose of IV Ativan and at the time my evaluation he is not really able to provide any history or follow commands and thus most of the history was obtained via a review of his electronic medical records. An insulin pump was in place and on review of that it looks like he last bolused himself at 09:00 yesterday and his glucose was checked around 14:00 today. In the emergency department he was profoundly acidotic and was found to be in diabetic ketoacidosis with acute kidney injury and several electrolyte derangements. He also meets sepsis criteria and it looks as though he probably has underlying osteomyelitis though that has yet to be confirmed. He has been admitted to the ICU on insulin drip and he has been started on broad-spectrum IV antibiotics. <Alysia Denis PA-C - Last Filed: 03/28/22 00:49> Review of Systems Review of Systems: Unable to be obtained given current clinical condition. <Alysia Denis PA-C - Last Filed: 03/28/22 00:49> [facility] Past Medical History Medical History: Medical History (Updated 03/28/22 @ 15:32 by Dayanna Kaur MD) Amputation of toe of left foot Left 1st Amputation of toe of right foot Right 2nd Cerebrovascular accident (CVA) Chronic anemia Chronic GERD Chronic kidney disease Coronary artery disease involving [place] coronary artery of [place] heart Non STEMI in November 2013. He had angioplasty to the first diagonal with failed intervention to the OM2. He is followed by Dr. Jameel Steinberg. Cardiac catheterization 07/10/2019 demonstrated multiple vessel coronary artery disease Diabetes mellitus with diabetic neuropathy Diabetic foot ulcers Essential hypertension Fracture of both ankles Fracture of both arms History of osteomyelitis Hyperlipidemia Hypothyroidism Insulin dependent diabetes mellitus Complicated by diabetic neuropathy. He has had several hospitalizations for diabetic ketoacidosis. Iron deficiency anemia Ischemic cardiomyopathy With new ischemic cardiomyopathy June 2019 EF 25-30% Mixed hyperlipidemia Myocardial infarction x3 Neuropathy due to secondary diabetes Nose fracture Orthostasis No longer on midodrine given his new systolic dysfunction noted June 2019 PAD (peripheral artery disease) Patient of Dr. Bansal. peripheral angiogram 12/2019 showed large vessels free of significant disease. Screening for colon cancer Severe peripheral arterial disease Vertigo <Alysia Denis PA-C - Last Filed: 03/28/22 00:49> Surgical History Surgical History: Surgical History (Updated 03/28/22 @ 15:30 by Dayanna Kaur MD) Hx of CABG 10/2019 CABG x4. VICTORIA to the Left anterior descending, SVG sequentially to the diagonal and obtuse marginal, SVG to PDA, normal LV function. Status post amputation of toe Left great toe amputated the MP joint in April 2009 for osteomyelitis. Distal right 2nd toe metatarsal amputation in November 2007 for osteomyelitis. Left 4th metatarsal amputation for osteomyelitis. Status post cardiac catheterization November 2013. He had angioplasty to the first diagonal with a failed intervention t
[2022-03-27 14:48] LABS: Creatinine Urine 66.2 mg/dL
[2022-03-27 14:48] LABS: Glucose Point of Care > 500 mg/dl (65-105)
[2022-03-27] MEDS: LACTATED RINGERS 1,000 ML 999 ML IV CONT (14:54)
--- NOTE | 2022-03-27 14:56 | ADMGEN ---
This patient, Miah Chambers, was admitted to Intensive Care Unit-7 at 1430 with insulin gtt running and patient on 2L nasal cannula. Patient/family oriented to hospital policies and general routines including ID bracelet, bed and alarms, visiting hours, pain management, procedures, bathroom and other care routines, personal items, smoking policy, room service/diet, and visiting hours. Information on how to activate the Rapid Response Team has been discussed. Patient/Family are encouraged to report perceived risks to care and to ask questions if they do not understand what they are told or what they should do.
[2022-03-27 14:57] LABS: Sodium Urine Random 5 meq/L
[2022-03-27 15:03] LABS: Total Triiodothyronine (T3) 0.42 NG/ML (0.97-1.69)
[2022-03-27 15:03] LABS: Troponin I 0.235 ng/mL (0.000-0.034)
[2022-03-27 15:04] LABS: Blood Urea Nitrogen 52 mg/dL (9-20); Calcium 8.6 mg/dL (8.4-10.2); Carbon Dioxide < 5 mmol/L (22-30); Chloride 95 mmol/L (98-107); Estimated Glomerular Filt Rate 21; Glucose 1047 mg/dL (65-110); Potassium 4.7 mmol/L (3.4-5.0); Procalcitonin 0.7 ng/mL; Sodium 136 mmol/L (137-145)
[2022-03-27 15:21] LABS: Lactic Acid 2.1 mmol/L (0.7-2.0)
[2022-03-27 15:34] LABS: Glucose 987 mg/dL (65-110)
[2022-03-27 16:49] LABS: Glucose Point of Care > 500 mg/dl (65-105)
[2022-03-27] MEDS: INSULIN HUMAN REGULAR (*BKC) 100 UNITS in SODIUM CHLORIDE 0.9% IV 99 ML 30 UNITS IV CONT ×2 (17:57→20:53)
[2022-03-27 18:05] LABS: Anion Gap 29 mmol/L (8-16); Blood Urea Nitrogen 52 mg/dL (9-20); Calcium 8.5 mg/dL (8.4-10.2); Carbon Dioxide 8 mmol/L (22-30); Chloride 99 mmol/L (98-107); Estimated CRCL calculation 15 ml/min; Estimated Glomerular Filt Rate 24; Glucose 864 mg/dL (65-110); Potassium 3.4 mmol/L (3.4-5.0); Sodium 136 mmol/L (137-145)
[2022-03-27 18:39] LABS: Glucose 774 mg/dL (65-110)
[2022-03-27] MEDS: KCL 20 MEQ/0.45% NS 1,000 ML 100 ML IV CONT (19:06)
[2022-03-27 19:37] LABS: Glucose 704 mg/dL (65-110)
[2022-03-27 20:30] LABS: Glucose 625 mg/dL (65-110)
[2022-03-27] MEDS: POTASSIUM CHLORIDE INJ 40 MEQ in SODIUM CHLORIDE 0.9% IV 500 ML 130 MEQ IVPB (20:55)
[2022-03-27 21:37] LABS: Anion Gap 16 mmol/L (8-16); Blood Urea Nitrogen 51 mg/dL (9-20); Calcium 8.7 mg/dL (8.4-10.2); Carbon Dioxide 16 mmol/L (22-30); Chloride 106 mmol/L (98-107); Estimated CRCL calculation 20 ml/min; Estimated Glomerular Filt Rate 32; Glucose 536 mg/dL (65-110); Potassium 3.2 mmol/L (3.4-5.0); Sodium 138 mmol/L (137-145)
[2022-03-27 22:49] LABS: Glucose 437 mg/dL (65-110)
[2022-03-28] VITALS (15 sets, daily range): BP systolic 94–138; BP diastolic 40–86; PULSE 80–94; RESP 14–33; TEMP 36.6–37.4; O2SAT 94–99
[2022-03-28] MEDS: INSULIN HUMAN REGULAR (*BKC) 100 UNITS in SODIUM CHLORIDE 0.9% IV 99 ML 22.2 UNITS IV CONT (00:45)
[2022-03-28 00:58] LABS: Glucose Point of Care 282 mg/dl (65-105)
[2022-03-28 01:18] LABS: Anion Gap 13 mmol/L (8-16); Blood Urea Nitrogen 45 mg/dL (9-20); Calcium 8.5 mg/dL (8.4-10.2); Carbon Dioxide 21 mmol/L (22-30); Chloride 109 mmol/L (98-107); Estimated CRCL calculation 23 ml/min; Estimated Glomerular Filt Rate 39; Glucose 283 mg/dL (65-110); Potassium 3.3 mmol/L (3.4-5.0); Sodium 143 mmol/L (137-145)
[2022-03-28 01:19] LABS: Ammonia < 9 umol/L (9-30)
[2022-03-28 01:25] LABS: Glucose Point of Care > 500 mg/dl (65-105)
[2022-03-28 02:44] LABS: Glucose Point of Care 164 mg/dl (65-105)
[2022-03-28] MEDS: KCL 20 MEQ/D5/0.45% SOD CHL 1,000 ML 100 ML IV CONT (03:28)
[2022-03-28 05:05] LABS: Glucose Point of Care 89 mg/dl (65-105)
[2022-03-28 05:32] LABS: Basophils Absolute Auto 0.1 K/mm3 (0.0-0.1); Basophils Percent Auto 0.3 % (0.2-1.2); Eosinophils Percent Auto 0.1 % (0-4.4); Hematocrit 29.9 % (42.0-52.0); Hemoglobin 10.9 g/dL (14.0-18.0); Immature Granulocyte Absolute 0.18 K/mm3 (0.00-0.031); Immature Granulocyte Percent A 0.9 % (0-0.5); Lymphocytes Absolute Auto 0.85 K/mm3 (0.9-3.2); Lymphocytes Percent Auto 4.3 % (18.3-44.2); Mean Corpuscular HGB Conc 36.5 g/dl (32-36); Mean Corpuscular Hemoglobin 32.3 pg (26-34); Mean Corpuscular Volume 88.7 fl (80-100); Monocytes Absolute Auto 1.7 K/mm3 (0.1-0.6); Monocytes Percent Auto 8.5 % (2.6-8.5); Neutrophils Absolute Auto 16.9 K/mm3 (1.3-6.7); Neutrophils Percent Auto 85.9 % (45.5-73.1); Platelet Count Result 296 k/mm3 (150-375); Red Blood Count 3.37 M/mm3 (4.6-6.20); Red Cell Distribution Width 13.3 % (11.5-14.5); White Blood Count 19.7 K/mm3 (4.5-10.0)
[2022-03-28 05:44] LABS: Alanine Aminotransferase 20 U/L (6-50); Albumin Level 3.1 g/dL (3.5-5.1); Alkaline Phosphatase 88 U/L (38-126); Anion Gap 9 mmol/L (8-16); Aspartate Amino Transferase 45 U/L (17-59); Bilirubin,Total 0.2 mg/dL (0.2-1.3); Blood Urea Nitrogen 38 mg/dL (9-20); Calcium 8.6 mg/dL (8.4-10.2); Carbon Dioxide 21 mmol/L (22-30); Chloride 114 mmol/L (98-107); Estimated CRCL calculation 34 ml/min; Estimated Glomerular Filt Rate 45; Glucose 83 mg/dL (65-110); Magnesium 2.4 mg/dL (1.6-2.3); Phosphorus 1.6 mg/dL (2.5-4.5); Potassium 3.5 mmol/L (3.4-5.0); Sodium 144 mmol/L (137-145)
[2022-03-28] MEDS: LEVOTHYROXINE SODIUM INJ 100 MCG/5 ML VIAL 75 MCG IV PUSH (06:06)
[2022-03-28 06:30] LABS: Glucose Point of Care 100 mg/dl (65-105)
[2022-03-28 06:54] LABS: Folic Acid 8.8 ng/mL (2.76->20); Vitamin B12 > 1000.0 pg/mL (239-931)
[2022-03-28 07:10] LABS: Glucose Point of Care 115 mg/dl (65-105)
[2022-03-28] MEDS: POTASSIUM PHOS,M-BASIC-D-BASIC 20 MMOL in SODIUM CHLORIDE 0.9% IV 250 ML 64.17 MMOL IVPB (08:42)
[2022-03-28] MEDS: KCL 20 MEQ/0.45% NS 1,000 ML 50 ML IV CONT (08:50)
[2022-03-28 08:52] LABS: Glucose Point of Care 170 mg/dl (65-105)
[2022-03-28] MEDS: PANTOPRAZOLE SODIUM IV 40 MG VIAL IV PUSH (09:15)
[2022-03-28] MEDS: INSULIN GLARGINE (*BKC) 100 UNITS/ML 10 UNITS SUB-Q (09:16)
--- NOTE | 2022-03-28 09:21 | PC.NURSE ---
Patient drowsy, unable to follow simple commands. Unable to administer PO medication at this time.
--- NOTE | 2022-03-28 09:50 | WPDINTPN ---
Progress Note: A&P Assessment and Plan (1) Sepsis: Code(s): A41.9 - Sepsis, unspecified organism Status: Acute Assessment and Plan: On admission Patient met criteria for sepsis with elevated WBC, hypothermia, elevated lactic acid level Chest x-ray UA are unremarkable Right foot has a chronic food which on x-ray suggests may have osteomyelitis but this is chronic urine and blood cultures have been sent and pending Empiric vancomycin and Zosyn procalcitonin level was in indeterminate range at 0.7 He has received adequate amount of IV fluids and I will decrease rate of maintenance IV fluids but will continue until patient started eating p.o. (2) Hypothermia: Qualifiers: Encounter type: initial encounter Qualified Code(s): T68.XXXA - Hypothermia, initial encounter Code(s): T68.XXXA - Hypothermia, initial encounter Status: Acute Assessment and Plan: Likely multifactorial secondary to sepsis, hypothyroidism, DKA Resolved with warming blanket (3) DKA (diabetic ketoacidoses): Qualifiers: Diabetes mellitus type: other specified (including SEVEN) Diabetes mellitus complication detail: without coma Qualified Code(s): E13.10 - Other specified diabetes mellitus with ketoacidosis without coma Code(s): E11.10 - Type 2 diabetes mellitus with ketoacidosis without coma Status: Acute Assessment and Plan: Patient was treated with IV fluid bolus IV fluid infusion insulin infusion q.1 hour blood glucose monitoring and serial lab His anion gap has now closed and I will transition him to subcutaneous insulin (4) Dehydration: Code(s): E86.0 - Dehydration Status: Acute Assessment and Plan: Improved with IV fluids. Continue maintenance at a low rate (5) Acute kidney injury: Code(s): N17.9 - Acute kidney failure, unspecified Status: Acute Assessment and Plan: Acute kidney injury over chronic kidney disease likely secondary to sepsis DKA and dehydration Creatinine improving to 1.5 today with IV fluid Monitor electrolytes, urine output and creatinine Pending renal ultrasound CK level was mildly elevated (6) Coronary artery disease involving [place] coronary artery of [place] heart: Qualifiers: Associated angina: without angina Qualified Code(s): I25.10 - Atherosclerotic heart disease of [place] coronary artery without angina pectoris Code(s): I25.10 - Atherosclerotic heart disease of [place] coronary artery without angina pectoris Status: Acute Assessment and Plan: Patient has history of coronary disease status post CABG Pending echocardiogram (7) Osteomyelitis: Qualifiers: Laterality: right Osteomyelitis location: foot Osteomyelitis type: unspecified type Qualified Code(s): M86.9 - Osteomyelitis, unspecified Code(s): M86.9 - Osteomyelitis, unspecified Status: Acute Assessment and Plan: Questionable osteomyelitis in the right foot which is most likely chronic as patient has had chronic wound being managed as an outpatient X-ray reviewed.? Once hemodynamically stabilized we will try to obtain a further imaging. See above for rest of the management (8) Elevated troponin: Code(s): R77.8 - Other specified abnormalities of plasma proteins Status: Acute Assessment and Plan: Patient has history of coronary disease and CABG Likely type 2 non STEMI from sepsis and DKA EKG reviewed and does not appear to show any ST elevation No history of chest pain from family Continue aspirin, statin Check echo Consult cardiology (9) Hyperkalemia: Code(s): E87.5 - Hyperkalemia Status: Acute Assessment and Plan: Resolved with treatment Now potassium level is low and is being replaced (10) Altered mental status: Code(s): R41.82 - Altered mental status, unspecified Status: Acute Assessment and Plan: Likely toxic metabolic encephalop
[2022-03-28] MEDS: ASPIRIN 300 MG SUPPOSITORY RECTAL (11:00)
--- NOTE | 2022-03-28 11:19 | ECG_ITS ---
Measurements Intervals [place] Rate: 88 P: 76 FL: 185 QRS: 67 QRSD: 79 T: 91 QT: 356 QTc: 431 Interpretive Statements SINUS RHYTHM ATRIAL PREMATURE COMPLEX LOW QRS VOLTAGE- DIFFUSE LEADS CANNOT RULE OUT SEPTAL INFARCT, AGE INDETERMINATE BORDERLINE ST-T WAVE ABNORMALITY- DIFFUSE LEADS BASELINE ARTIFACT- I, II, AVR, AVL, AVF, V1-V2, V4-V6 ABNORMAL ECG COMPARED TO ECG 03/27/2022 11:18:22 NO SIGNIFICANT CHANGES Electronically Signed On 03-28-2022 13:53:53 CDT by Matt Mendiola D.O.
--- NOTE | 2022-03-28 11:49 | PC.NURSE ---
Unable to place Dobbhoff in radiology. Patient tolerated poorly. No s/s of desaturation noted during placement attempt. Dr Winkler and Dr. Barrera aware.
[2022-03-28] MEDS: CLOPIDOGREL BISULFATE 75 MG TABLET PO (11:51)
[2022-03-28] MEDS: ATORVASTATIN 20 MG TABLET PO (11:51)
[2022-03-28 12:11] LABS: Glucose Point of Care 307 mg/dl (65-105)
[2022-03-28] MEDS: INSULIN ASPART (*BKC) 100 UNITS/ML SUB-Q ×4 (12:13→23:32)
--- NOTE | 2022-03-28 14:37 | PM.CNCAR ---
Assessment and Plan Assessment and plan (1) Elevated troponin: Code(s): R77.8 - Other specified abnormalities of plasma proteins Status: Acute Assessment and Plan: Patient admitted with elevated troponins peaking at 1.2; unable to give any relevant history. Hemodynamically stable EKGs showed no acute ischemic changes Likely nonischemic myocardial injury due to physiologic stressors of sepsis and DKA echo pending (2) Sepsis: Code(s): A41.9 - Sepsis, unspecified organism Status: Acute Assessment and Plan: Admitted with sepsis, altered mental status, DKA improving with IV fluids, antibiotics and supportive care (3) CAD (coronary artery disease): Code(s): I25.10 - Atherosclerotic heart disease of [place] coronary artery without angina pectoris Status: Acute Assessment and Plan: History of CAD, CABG in 2019, normal left ventricular function continue anti-platelet medication, resume atorvastatin on recovery, as well as beta-melania (4) Severe peripheral arterial disease: Code(s): I73.9 - Peripheral vascular disease, unspecified Status: Acute Assessment and Plan: History of peripheral vascular disease, status post amputations of the toes on the left foot. Diabetic foot ulcer on the right foot Lower extremity angiogram December 2019 showed patency of the large vessels and three-vessel [id number] runoff bilaterally May benefit from re-evaluation on recovery History of Present Illness History of Present Illness Consult date/time: 03/28/22 14:37 Reason For Visit: Dka, rudi, hyperkalemia, elevated trop Narrative: Miah Chambers is a 76 y.o. male whom we were asked to see at the request of Dr. Winkler for our advice and opinion regarding his elevated troponins, CHF and CAD in consultation. the patient is followed by Dr. Steinberg, last seen 09/2020. He has a history of STEMI in 2014 In 2013, CABG October 2019 (garnett to the Left anterior descending, SVG to the diagonal and obtuse marginal sequentially, SVG to the PDA). History of orthostasis and syncope treated with midodrine and Florinef. peripheral vascular disease with in a IF in 2018 showing no large vessel disease. Hypertension, diabetes. Normal LV function by echo in 2019. Mr. Chabmers was found unresponsive by his family and brought to the ER 03/27/2022 and is being treated for sepsis, dehydration, DKA, RUDI, AMS and a diabetic foot ulcer. His troponins were: 0.18, 0.24, and 1.2. Lactic acid 2.8, glucose 1193. He's been treated with IV fluids and antibiotics. Review of Systems Review of Systems: Review of systems was obtained from the patient's EMR. Unremarkable except as described above. ROS unobtainable: Yes unobtainable due to mental status [facility] Past Medical History Medical History (Updated 03/28/22 @ 15:32 by Dayanna Kaur MD) Amputation of toe of left foot Left 1st Amputation of toe of right foot Right 2nd Cerebrovascular accident (CVA) Chronic anemia Chronic GERD Chronic kidney disease Coronary artery disease involving [place] coronary artery of [place] heart Non STEMI in November 2013. He had angioplasty to the first diagonal with failed intervention to the OM2. He is followed by Dr. Jameel Steinberg. Cardiac catheterization 07/10/2019 demonstrated multiple vessel coronary artery disease Diabetes mellitus with diabetic neuropathy Diabetic foot ulcers Essential hypertension Fracture of both ankles Fracture of both arms History of osteomyelitis Hyperlipidemia Hypothyroidism Insulin dependent diabetes mellitus Complicated by diabetic neuropathy. He has had several hospitalizations for diabetic ketoacidosis. Iron deficiency anemia Ischemic cardiomyopathy With new ischemic cardiomyopathy June 2019 EF 25-30% Mixed hyperlipidemia Myocardial infarction x3 Neuropathy due to secondary diabetes Nose fracture Orthostasis No longer on midodrine given his ne
[2022-03-28 16:04] LABS: Glucose Point of Care 280 mg/dl (65-105)
[2022-03-28 19:58] LABS: Glucose Point of Care 297 mg/dl (65-105)
[2022-03-28 23:32] LABS: Glucose Point of Care 298 mg/dl (65-105)
[2022-03-29] VITALS (14 sets, daily range): BP systolic 99–145; BP diastolic 57–77; PULSE 80–100; RESP 11–20; TEMP 36.9–37.6; O2SAT 93–100; BMI 21.2
--- NOTE | 2022-03-29 | ECHO_ITS ---
Patient Info Name: Miah Chambers Age: 76 years : 1945 Gender: Male Wt: 110 lbs HR: 85 bpm BP: 117 / 57 mmHg Heart Rhythm: Sinus Rhythm Technical Quality: Fair Exam Date: 03/29/2022 8:29 AM Exam Location: [facility] Patient Status: Inpatient Admit Date: 03/27/2022 Staff Ordering Physician: Rasta Winkler MD [place]er: Trisha Duff RDCS Attending Provider: Marisa Barrera MD Exam Type: CA echo doppler color flow Study Info Indications - chf, coronary disease Complete two-dimensional, color flow and Doppler transthoracic echocardiogram is performed. Summary 1. Complete two-dimensional, color flow and Doppler transthoracic echocardiogram is performed. 2. Left ventricular systolic function is normal, estimated at 55-60%. 3. The left ventricular diastolic function is grade I diastolic dysfunction. 4. Mild aortic stenosis with a valve area of 1.4 cm2. 5. There is no mitral valve regurgitation. 6. Compared with exam from 2019 LV systolic function is much better, mild aortic stenosis noted. Left Ventricle Left ventricular chamber dimension is normal. Left ventricular systolic function is normal, estimated at 55-60%. The left ventricular diastolic function is grade I diastolic dysfunction. Right Ventricle Right ventricular chamber dimension is mildly enlarged. Left Atria Left atrial chamber dimension is mildly enlarged. Right Atria Right atrial chamber dimension is mildly enlarged. Aortic Valve The aortic valve is trileaflet. There is moderate aortic valve sclerosis. Mild aortic stenosis with a valve area of 1.4 cm2. Pulmonic Valve The pulmonic valve is not well visualized. Mitral Valve The mitral valve has thickened leaflets. There is no mitral valve regurgitation. Tricuspid Valve The tricuspid valve leaflets are normal. There is mild tricuspid valve regurgitation. Mild pulmonary hypertension, estimated pulmonary arterial systolic pressure is 45 mmHg. Pericardium/Pleural The pericardium appears normal. Aorta The aortic root size at the sinus of Valsalva is normal. Left Ventricular Outflow Tract Name Value Normal LVOT 2D LVOT Diameter 2.1 cm LVOT Doppler LVOT Peak Gradient 3 mmHg LVOT Mean Gradient 2 mmHg LVOT VTI 16 cm LVOT VTI/AV VTI Ratio 0.3 LVOT Stroke Volume 52 ml LVOT CO 5.0 l/min LVOT CI 3.6 l/min/m2 Mitral Valve Name Value Normal MV Doppler MV Decel [place] 738 cm/s2 MV PHT 43 ms MV Area (PHT) 5.2 cm2 4.0-5.0 MV Diastolic Function
[2022-03-29] MEDS: INSULIN ASPART (*BKC) 100 UNITS/ML SUB-Q ×6 (04:05→23:50)
[2022-03-29 04:06] LABS: Glucose Point of Care 310 mg/dl (65-105)
[2022-03-29] MEDS: KCL 20 MEQ/0.45% NS 1,000 ML 50 ML IV CONT (04:06)
[2022-03-29 04:34] LABS: Basophils Percent Auto 0.3 % (0.2-1.2); Eosinophils Absolute Auto 0.1 K/mm3 (0-0.3); Hematocrit 30.4 % (42.0-52.0); Hemoglobin 10.6 g/dL (14.0-18.0); Immature Granulocyte Absolute 0.08 K/mm3 (0.00-0.031); Immature Granulocyte Percent A 0.7 % (0-0.5); Mean Corpuscular HGB Conc 34.9 g/dl (32-36); Mean Corpuscular Hemoglobin 31.3 pg (26-34); Mean Corpuscular Volume 89.7 fl (80-100); Mean Platelet Volume 10.6 fl (7.4-10.4); Monocytes Absolute Auto 0.7 K/mm3 (0.1-0.6); Monocytes Percent Auto 5.9 % (2.6-8.5); Neutrophils Absolute Auto 8.9 K/mm3 (1.3-6.7); Neutrophils Percent Auto 81.1 % (45.5-73.1); Platelet Count Result 255 k/mm3 (150-375); Red Blood Count 3.39 M/mm3 (4.6-6.20)
[2022-03-29 04:58] LABS: Alanine Aminotransferase 24 U/L (6-50); Alkaline Phosphatase 85 U/L (38-126); Anion Gap 10 mmol/L (8-16); Aspartate Amino Transferase 43 U/L (17-59); Bilirubin,Total 0.5 mg/dL (0.2-1.3); Blood Urea Nitrogen 22 mg/dL (9-20); Calcium 8.4 mg/dL (8.4-10.2); Carbon Dioxide 20 mmol/L (22-30); Chloride 109 mmol/L (98-107); Estimated CRCL calculation 45 ml/min; Estimated Glomerular Filt Rate > 60; Glucose 327 mg/dL (65-110); Magnesium 2.3 mg/dL (1.6-2.3); Phosphorus 2.9 mg/dL (2.5-4.5); Sodium 139 mmol/L (137-145)
[2022-03-29] MEDS: LEVOTHYROXINE SODIUM INJ 100 MCG/5 ML VIAL 75 MCG IV PUSH (06:05)
[2022-03-29 07:22] LABS: Glucose Point of Care 292 mg/dl (65-105)
[2022-03-29] MEDS: INSULIN GLARGINE (*BKC) 100 UNITS/ML 25 UNITS SUB-Q (08:21)
[2022-03-29] MEDS: PANTOPRAZOLE SODIUM IV 40 MG VIAL IV PUSH (08:21)
[2022-03-29] MEDS: ATORVASTATIN 20 MG TABLET PO (08:22)
[2022-03-29] MEDS: CLOPIDOGREL BISULFATE 75 MG TABLET PO (08:22)
[2022-03-29] MEDS: ASPIRIN 325 MG TABLET PO (08:22)
--- NOTE | 2022-03-29 08:59 | WPDINTPN ---
Progress Note: A&P Assessment and Plan (1) Sepsis: Code(s): A41.9 - Sepsis, unspecified organism Status: Acute Assessment and Plan: On admission Patient met criteria for sepsis with elevated WBC, hypothermia, elevated lactic acid level Chest x-ray UA are unremarkable Right foot has a chronic food which on x-ray suggests may have osteomyelitis but this is chronic urine and blood cultures have been sent and negative in a Empiric vancomycin and Zosyn procalcitonin level was in indeterminate range at 0.7 Off IV fluids now Check MRI of right foot to evaluate for osteomyelitis (2) Hypothermia: Qualifiers: Encounter type: initial encounter Qualified Code(s): T68.XXXA - Hypothermia, initial encounter Code(s): T68.XXXA - Hypothermia, initial encounter Status: Acute Assessment and Plan: Likely multifactorial secondary to sepsis, hypothyroidism, DKA Resolved with warming blanket (3) DKA (diabetic ketoacidoses): Qualifiers: Diabetes mellitus type: other specified (including SEVEN) Diabetes mellitus complication detail: without coma Qualified Code(s): E13.10 - Other specified diabetes mellitus with ketoacidosis without coma Code(s): E11.10 - Type 2 diabetes mellitus with ketoacidosis without coma Status: Acute Assessment and Plan: Patient was treated with IV fluid bolus IV fluid infusion insulin infusion q.1 hour blood glucose monitoring and serial lab His anion gap has now closed and he is now on subcutaneous insulin Increase Lantus to 25 units (4) Dehydration: Code(s): E86.0 - Dehydration Status: Acute Assessment and Plan: Improved with IV fluids. Off IV fluids (5) Acute kidney injury: Code(s): N17.9 - Acute kidney failure, unspecified Status: Acute Assessment and Plan: Acute kidney injury over chronic kidney disease likely secondary to sepsis DKA and dehydration. Mildly elevated CK level Creatinine now has normalized with with IV fluids. Patient off of IV fluids Monitor electrolytes, urine output and creatinine Unremarkable renal ultrasound (6) Coronary artery disease involving [place] coronary artery of [place] heart: Qualifiers: Associated angina: without angina Qualified Code(s): I25.10 - Atherosclerotic heart disease of [place] coronary artery without angina pectoris Code(s): I25.10 - Atherosclerotic heart disease of [place] coronary artery without angina pectoris Status: Acute Assessment and Plan: Patient has history of coronary disease status post CABG Pending echocardiogram (7) Osteomyelitis: Qualifiers: Laterality: right Osteomyelitis location: foot Osteomyelitis type: unspecified type Qualified Code(s): M86.9 - Osteomyelitis, unspecified Code(s): M86.9 - Osteomyelitis, unspecified Status: Acute Assessment and Plan: Questionable osteomyelitis in the right foot which is most likely chronic as patient has had chronic wound being managed as an outpatient X-ray reviewed.? Will obtain MRI of the right foot Wound was evaluated by wound care and wound care instructions provided to the nurse (8) Elevated troponin: Code(s): R77.8 - Other specified abnormalities of plasma proteins Status: Acute Assessment and Plan: Patient has history of coronary disease and CABG Likely type 2 non STEMI from sepsis and DKA EKG reviewed and does not appear to show any ST elevation No history of chest pain from family Continue aspirin, statin, Plavix Pending echo Cardiology following Resume Coreg (9) Hyperkalemia: Code(s): E87.5 - Hyperkalemia Status: Acute Assessment and Plan: Resolved with treatment Monitor (10) Altered mental status: Code(s): R41.82 - Altered mental status, unspecified Status: Acute Assessment and Plan: Likely toxic metabolic encephalopathy Head CT 1. No acute intracranial abn
[2022-03-29] MEDS: SILVERGEL (ELTA) 45 ML 1 APPLIC TOPICAL (09:51)
--- NOTE | 2022-03-29 10:14 | PCSTNOTE ---
Patient seen for bedside swallowing evaluation. Positioned upright in bed by elevating torso. Patient alert and answering questions. Patient's oral mucosa very dry. Bedside trials of thin liquid by spoon, thin liquid by straw, pureed (applesauce) by spoon, and cracker piece by hand. No signs or symptoms of aspiration observed. No coughing or choking. Patient able to clear throat and cough productively on command. Lengthy oral transit and delayed swallow triggering. This improved with subsequent liquid and pureed boluses. Patient was able to chew and swallow small bite of saltine cracker but due to oral dryness this required extra time and effort. Recommendation: minced and moist diet (level 5) with nectar thickened liquids (mild/level 2). Follow swallowing precautions. Thank you for the referral of this patient.
--- NOTE | 2022-03-29 11:06 | PM.PNCARD ---
Progress Note: A&P Assessment and Plan (1) CAD (coronary artery disease): Code(s): I25.10 - Atherosclerotic heart disease of [place] coronary artery without angina pectoris Status: Acute (2) Electrolyte abnormality: Code(s): E87.8 - Other disorders of electrolyte and fluid balance, not elsewhere classified Status: Acute (3) Hypothyroidism: Code(s): E03.9 - Hypothyroidism, unspecified Status: Acute (4) Metabolic encephalopathy: Code(s): G93.41 - Metabolic encephalopathy Status: Acute (5) Diabetic ketoacidosis: Code(s): E11.10 - Type 2 diabetes mellitus with ketoacidosis without coma Status: Acute (6) Elevated troponin: Code(s): R77.8 - Other specified abnormalities of plasma proteins Status: Acute (7) Sepsis: Code(s): A41.9 - Sepsis, unspecified organism Status: Acute (8) Hyperlipidemia: Code(s): E78.5 - Hyperlipidemia, unspecified Status: Acute (9) S/P CABG x 5: Code(s): Z95.1 - Presence of aortocoronary bypass graft Status: Acute (10) Diabetes mellitus with diabetic neuropathy: Qualifiers: Diabetes mellitus type: type 2 Diabetes mellitus supervisor intermediates insulin use: with intermediate use Qualified Code(s): E11.40 - Type 2 diabetes mellitus with diabetic neuropathy, unspecified; Z79.4 - rn long term care (current) use of insulin Code(s): E11.40 - Type 2 diabetes mellitus with diabetic neuropathy, unspecified Status: Acute (11) Diabetic foot ulcers: Qualifiers: Diabetic foot ulcer location: toe Diabetes mellitus type: type 2 Laterality: unspecified laterality Non-pressure ulcer stage: with fat layer exposed Qualified Code(s): E11.621 - Type 2 diabetes mellitus with foot ulcer; L97.502 - Non-pressure chronic ulcer of other part of unspecified foot with fat layer exposed Code(s): E11.621 - Type 2 diabetes mellitus with foot ulcer; L97.509 - Non-pressure chronic ulcer of other part of unspecified foot with unspecified severity Status: Acute (12) PAD (peripheral artery disease): Code(s): I73.9 - Peripheral vascular disease, unspecified Status: Acute Plan Patient without cardiac symptoms, ECG without ischemic changes. Likely nonischemic myocardial injury due to physiological stressors of DKA/sepsis. Echo ordered - will follow up on results. From a cardiac standpoint, no indication for 325mg of ASA. Can decrease dose to 81mg daily. Continue Plavix, statin. Resume beta melania. Subjective Date/time seen: 03/29/22 11:06 Interval history: Patient states he is feeling much better this morning. No chest pain, shortness of breath, or other cardiac symptoms. Denies chest pain prior to admission. States he has not had chest pain or other issues with his heart since his CABG. Review of Systems Review of Systems: All systems reviewed & are unremarkable except as noted in HPI and below (subjective) Exam Const: General: comfortable and no acute distress Neck: Neck: no JVD Resp: Effort & Inspection: normal respiratory effort Auscultation: clear to auscultation bilaterally Cardio: Rate: regular rate Rhythm: regular rhythm Heart sounds: no murmurs Extrem: General: no edema Psych: Mental Status: mental status grossly normal Objective Data Vital Signs Vital Signs: Vital Signs - 24 hr 03/28/22 12:00 03/28/22 12:00 03/28/22 14:00 Temperature 37.3 C Pulse Rate 86 93 84 Respiratory Rate 22 H Blood Pressure 123/59 L Pulse Oximetry 96 Oxygen Delivery 03/28/22 14:04 03/28/22 16:03 03/28/22 18:17 Temperature 37.4 C 37.2 C 37.4 C Pulse Rate 88 91 85 Respiratory Rate 18 16 17 Blood Pressure 108/40 L 135/61 138/59 L Pulse Oximetry 96 98 94 Oxygen Delivery 03/28/22 16:00 03/28/22 18:00 03/28/22 20:00 Temperature 37.1 C Pulse Rate 91 80 94 Respiratory Rate 16 Blood Pressure 104/69 Pulse Oximetry 94 Oxygen Delivery 0
[2022-03-29 11:43] LABS: Glucose Point of Care 258 mg/dl (65-105)
--- NOTE | 2022-03-29 12:23 | PC.NURSE ---
Left floor to MRI via stretcher with monitor technician
--- NOTE | 2022-03-29 13:05 | PC.NURSE ---
Returned to floor from MRI with monitor technician
[2022-03-29 15:59] LABS: Glucose Point of Care 348 mg/dl (65-105)
[2022-03-29 20:04] LABS: Glucose Point of Care 368 mg/dl (65-105)
[2022-03-29 23:59] LABS: Glucose Point of Care 222 mg/dl (65-105)
[2022-03-30] VITALS (8 sets, daily range): BP systolic 102–118; BP diastolic 56–63; PULSE 70–104; RESP 12–18; TEMP 36.8–36.9; O2SAT 97–99
[2022-03-30 04:15] LABS: Glucose Point of Care 221 mg/dl (65-105)
[2022-03-30] MEDS: INSULIN ASPART (*BKC) 100 UNITS/ML SUB-Q ×7 (04:21→22:16)
[2022-03-30 04:25] LABS: Basophils Percent Auto 0.5 % (0.2-1.2); Eosinophils Absolute Auto 0.4 K/mm3 (0-0.3); Eosinophils Percent Auto 4.9 % (0-4.4); Hematocrit 28.5 % (42.0-52.0); Hemoglobin 9.8 g/dL (14.0-18.0); Immature Granulocyte Absolute 0.04 K/mm3 (0.00-0.031); Immature Granulocyte Percent A 0.5 % (0-0.5); Lymphocytes Percent Auto 19.8 % (18.3-44.2); Mean Corpuscular HGB Conc 34.4 g/dl (32-36); Mean Corpuscular Hemoglobin 31.4 pg (26-34); Mean Corpuscular Volume 91.3 fl (80-100); Mean Platelet Volume 10.2 fl (7.4-10.4); Monocytes Absolute Auto 0.4 K/mm3 (0.1-0.6); Monocytes Percent Auto 5.5 % (2.6-8.5); Neutrophils Absolute Auto 5.2 K/mm3 (1.3-6.7); Neutrophils Percent Auto 68.8 % (45.5-73.1); Platelet Count Result 189 k/mm3 (150-375); Red Blood Count 3.12 M/mm3 (4.6-6.20); Red Cell Distribution Width 14.3 % (11.5-14.5); White Blood Count 7.6 K/mm3 (4.5-10.0)
[2022-03-30 04:35] LABS: Alanine Aminotransferase 19 U/L (6-50); Albumin Level 2.5 g/dL (3.5-5.1); Alkaline Phosphatase 64 U/L (38-126); Anion Gap 7 mmol/L (8-16); Aspartate Amino Transferase 25 U/L (17-59); Bilirubin,Total 0.6 mg/dL (0.2-1.3); Blood Urea Nitrogen 18 mg/dL (9-20); Calcium 7.7 mg/dL (8.4-10.2); Carbon Dioxide 25 mmol/L (22-30); Chloride 101 mmol/L (98-107); Estimated CRCL calculation 48 ml/min; Estimated Glomerular Filt Rate > 60; Glucose 219 mg/dL (65-110); Magnesium 2.1 mg/dL (1.6-2.3); Phosphorus 2.6 mg/dL (2.5-4.5); Potassium 3.6 mmol/L (3.4-5.0); Sodium 133 mmol/L (137-145)
[2022-03-30] MEDS: LEVOTHYROXINE SODIUM INJ 100 MCG/5 ML VIAL 75 MCG IV PUSH (06:23)
--- NOTE | 2022-03-30 08:48 | WPDINTPN ---
Progress Note: A&P Assessment and Plan (1) Sepsis: Code(s): A41.9 - Sepsis, unspecified organism Status: Acute Assessment and Plan: On admission Patient met criteria for sepsis with elevated WBC, hypothermia, elevated lactic acid level Chest x-ray UA are unremarkable Right foot has a chronic wound and MRI confirmed osteomyelitis urine and blood cultures have been negative Patient was initially started on Empiric vancomycin and Zosyn. I will change Zosyn to cefepime procalcitonin level was in indeterminate range at 0.7 Off IV fluids now (2) Hypothermia: Qualifiers: Encounter type: initial encounter Qualified Code(s): T68.XXXA - Hypothermia, initial encounter Code(s): T68.XXXA - Hypothermia, initial encounter Status: Acute Assessment and Plan: Likely multifactorial secondary to sepsis, hypothyroidism, DKA Resolved with warming blanket (3) DKA (diabetic ketoacidoses): Qualifiers: Diabetes mellitus type: other specified (including SEVEN) Diabetes mellitus complication detail: without coma Qualified Code(s): E13.10 - Other specified diabetes mellitus with ketoacidosis without coma Code(s): E11.10 - Type 2 diabetes mellitus with ketoacidosis without coma Status: Acute Assessment and Plan: Now resolved and patient is on subcutaneous insulin (4) Dehydration: Code(s): E86.0 - Dehydration Status: Acute Assessment and Plan: Improved with IV fluids. Off IV fluids (5) Acute kidney injury: Code(s): N17.9 - Acute kidney failure, unspecified Status: Acute Assessment and Plan: Acute kidney injury over chronic kidney disease likely secondary to sepsis DKA and dehydration. Mildly elevated CK level Creatinine now has normalized with with IV fluids. Patient off of IV fluids Monitor electrolytes, urine output and creatinine Unremarkable renal ultrasound (6) Coronary artery disease involving [place] coronary artery of [place] heart: Qualifiers: Associated angina: without angina Qualified Code(s): I25.10 - Atherosclerotic heart disease of [place] coronary artery without angina pectoris Code(s): I25.10 - Atherosclerotic heart disease of [place] coronary artery without angina pectoris Status: Acute Assessment and Plan: Patient has history of coronary disease status post CABG Echocardiogram 1. Complete two-dimensional, color flow and Doppler transthoracic echocardiogram is performed. ? 2. Left ventricular systolic function is normal, estimated at 55-60%. ? 3. The left ventricular diastolic function is grade I diastolic dysfunction. ? 4. Mild aortic stenosis with a valve area of 1.4 cm2. ? 5. There is no mitral valve regurgitation. ? 6. Compared with exam from 2019 LV systolic function is much better, mild aortic stenosis noted. (7) Osteomyelitis: Qualifiers: Laterality: right Osteomyelitis location: foot Osteomyelitis type: unspecified type Qualified Code(s): M86.9 - Osteomyelitis, unspecified Code(s): M86.9 - Osteomyelitis, unspecified Status: Acute Assessment and Plan: Patient has a chronic right foot wound and is on antibiotics as an outpatient. He was being followed by a either wound care or a entry writer as an outpatient. MRI of right foot showed 1. Osteomyelitis involving first and second metatarsals and first proximal phalanx. Continue vancomycin. Change Zosyn to cefepime Wound was evaluated by wound care and wound care instructions provided to the nurse (8) Elevated troponin: Code(s): R77.8 - Other specified abnormalities of plasma proteins Status: Acute Assessment and Plan: Patient has history of coronary disease and CABG Likely type 2 non STEMI from sepsis and DKA EKG reviewed and does not appear to show any ST elevation No history of chest pain from family Continue aspirin, statin, Plavix Echo reviewed Cardiology following
[2022-03-30] MEDS: TAMSULOSIN HCL 0.4 MG CAPSULE PO (08:58)
[2022-03-30] MEDS: SILVERGEL (ELTA) 45 ML 1 APPLIC TOPICAL (08:59)
[2022-03-30] MEDS: CYANOCOBALAMIN 1,000 MCG TABLET 1000 MCG PO (08:59)
[2022-03-30] MEDS: PANTOPRAZOLE 40 MG TABLET PO (08:59)
[2022-03-30] MEDS: ATORVASTATIN 20 MG TABLET PO (09:00)
[2022-03-30] MEDS: ASCORBIC ACID 500 MG TABLET PO (09:00)
[2022-03-30] MEDS: CLOPIDOGREL BISULFATE 75 MG TABLET PO (09:00)
[2022-03-30] MEDS: ASPIRIN 81 MG ENTERIC TABLET PO (09:00)
[2022-03-30 09:01] LABS: Glucose Point of Care 184 mg/dl (65-105)
[2022-03-30] MEDS: FERROUS SULFATE 324 MG TABLET PO (09:01)
[2022-03-30] MEDS: INSULIN GLARGINE (*BKC) 100 UNITS/ML 25 UNITS SUB-Q (09:13)
--- NOTE | 2022-03-30 10:51 | PM.PNCARD ---
Progress Note: A&P Assessment and Plan (1) CAD (coronary artery disease): Code(s): I25.10 - Atherosclerotic heart disease of [place] coronary artery without angina pectoris Status: Acute (2) Hypothyroidism: Code(s): E03.9 - Hypothyroidism, unspecified Status: Acute (3) Diabetic ketoacidosis: Code(s): E11.10 - Type 2 diabetes mellitus with ketoacidosis without coma Status: Acute (4) Elevated troponin: Code(s): R77.8 - Other specified abnormalities of plasma proteins Status: Acute (5) Diabetic foot ulcer: Qualifiers: Diabetic foot ulcer location: midfoot Laterality: right Non-pressure ulcer stage: with fat layer exposed Code(s): E11.621 - Type 2 diabetes mellitus with foot ulcer; L97.509 - Non-pressure chronic ulcer of other part of unspecified foot with unspecified severity Status: Acute (6) S/P CABG x 5: Code(s): Z95.1 - Presence of aortocoronary bypass graft Status: Acute (7) Diabetes mellitus with diabetic neuropathy: Qualifiers: Diabetes mellitus type: type 2 Diabetes mellitus terminal gauger insulin use: with retirement use Qualified Code(s): E11.40 - Type 2 diabetes mellitus with diabetic neuropathy, unspecified; Z79.4 - [facility] (current) use of insulin Code(s): E11.40 - Type 2 diabetes mellitus with diabetic neuropathy, unspecified Status: Acute (8) Severe peripheral arterial disease: Code(s): I73.9 - Peripheral vascular disease, unspecified Status: Acute (9) Coronary artery disease involving [place] coronary artery of [place] heart: Qualifiers: Associated angina: without angina Qualified Code(s): I25.10 - Atherosclerotic heart disease of [place] coronary artery without angina pectoris Code(s): I25.10 - Atherosclerotic heart disease of [place] coronary artery without angina pectoris Status: Acute (10) Osteomyelitis: Qualifiers: Laterality: right Osteomyelitis location: foot Osteomyelitis type: unspecified type Qualified Code(s): M86.9 - Osteomyelitis, unspecified Code(s): M86.9 - Osteomyelitis, unspecified Status: Acute (11) Sepsis: Qualifiers: Sepsis type: methicillin susceptible Staphylococcus aureus Sepsis acute organ dysfunction status: without acute organ dysfunction Qualified Code(s): A41.01 - Sepsis due to Methicillin susceptible Staphylococcus aureus Code(s): A41.9 - Sepsis, unspecified organism Status: Acute Plan Echocardiogram reviewed which shows preserved LVEF, mild aortic stenosis. Patient remains without cardiac symptoms. No further inpatient cardiac evaluation/workup needed at this time. Patient to follow-up as an outpatient in Cardiology Clinic (followed by Dr. Steinberg). Continue ASA, Plavix, statin, beta melania. Subjective Date/time seen: 03/30/22 10:51 Interval history: Patient seen and examined this morning. MRI of right foot confirms osteomyelitis. Patient states he is feeling better. Denies any cardiac symptoms. Review of Systems Review of Systems: All systems reviewed & are unremarkable except as noted in HPI and below (subjective) Exam Const: General: comfortable and no acute distress Neck: Neck: no JVD Resp: Effort & Inspection: normal respiratory effort Auscultation: clear to auscultation bilaterally Cardio: Rate: regular rate Rhythm: regular rhythm Heart sounds: no murmurs Neuro: Speech: normal speech Psych: Mental Status: mental status grossly normal Objective Data Vital Signs Vital Signs: Vital Signs - 24 hr 03/29/22 11:55 03/29/22 12:00 03/29/22 16:00 Temperature 37.6 C 36.9 C Pulse Rate 86 84 85 Respiratory Rate 16 14 Blood Pressure 143/71 H 145/73 H Pulse Oximetry 97 99 Oxygen Delivery 03/29/22 16:00 03/29/22 20:00 03/29/22 20:49 Temperature 37.1 C Pulse Rate 85 83 83 Respiratory Rate 14 Blood Pressure 125/72 Pulse Oximetry 99 Oxy
[2022-03-30 12:43] LABS: Glucose Point of Care 265 mg/dl (65-105)
--- NOTE | 2022-03-30 13:27 | PC.NURSE ---
[facility] transfer center called for information on patient; stated patient is on wait list but may be a couple days for bed placement due to high census
[2022-03-30 17:25] LABS: Glucose Point of Care 310 mg/dl (65-105)
[2022-03-30 22:13] LABS: Glucose Point of Care 274 mg/dl (65-105)
[2022-03-31] VITALS (8 sets, daily range): BP systolic 121–138; BP diastolic 65–71; PULSE 79–90; RESP 14–15; TEMP 36.8–36.9; O2SAT 97–99
[2022-03-31 01:58] LABS: Basophils Absolute Auto 0.1 K/mm3 (0.0-0.1); Basophils Percent Auto 0.6 % (0.2-1.2); Eosinophils Absolute Auto 0.4 K/mm3 (0-0.3); Eosinophils Percent Auto 5.4 % (0-4.4); Hematocrit 30.3 % (42.0-52.0); Hemoglobin 10.3 g/dL (14.0-18.0); Immature Granulocyte Absolute 0.05 K/mm3 (0.00-0.031); Immature Granulocyte Percent A 0.6 % (0-0.5); Mean Corpuscular Hemoglobin 31.4 pg (26-34); Mean Corpuscular Volume 92.4 fl (80-100); Mean Platelet Volume 10.2 fl (7.4-10.4); Monocytes Absolute Auto 0.4 K/mm3 (0.1-0.6); Monocytes Percent Auto 5.5 % (2.6-8.5); Neutrophils Absolute Auto 5.1 K/mm3 (1.3-6.7); Neutrophils Percent Auto 64.9 % (45.5-73.1); Platelet Count Result 191 k/mm3 (150-375); Red Blood Count 3.28 M/mm3 (4.6-6.20); White Blood Count 7.8 K/mm3 (4.5-10.0)
[2022-03-31 02:23] LABS: Alanine Aminotransferase 19 U/L (6-50); Albumin Level 2.5 g/dL (3.5-5.1); Alkaline Phosphatase 63 U/L (38-126); Anion Gap 6 mmol/L (8-16); Aspartate Amino Transferase 22 U/L (17-59); Bilirubin,Total 0.4 mg/dL (0.2-1.3); Blood Urea Nitrogen 17 mg/dL (9-20); Calcium 8.2 mg/dL (8.4-10.2); Carbon Dioxide 26 mmol/L (22-30); Chloride 102 mmol/L (98-107); Estimated CRCL calculation 60 ml/min; Estimated Glomerular Filt Rate > 60; Glucose 79 mg/dL (65-110); Magnesium 2.2 mg/dL (1.6-2.3); Phosphorus 2.5 mg/dL (2.5-4.5); Potassium 3.5 mmol/L (3.4-5.0); Sodium 134 mmol/L (137-145)
[2022-03-31 03:49] LABS: Vancomycin Trough 7.7 ug/mL (10.0-20.0)
[2022-03-31 05:37] LABS: Glucose Point of Care 175 mg/dl (65-105)
[2022-03-31] MEDS: LEVOTHYROXINE SODIUM 150 MCG TABLET PO (06:40)
[2022-03-31 07:15] LABS: Glucose Point of Care 199 mg/dl (65-105)
--- NOTE | 2022-03-31 08:29 | PM.IMPN ---
Subjective Date/time seen: 03/31/22 08:29 Objective Data Vital Signs Vital Signs: Vital Signs - 24 hr 03/30/22 11:27 03/30/22 11:48 03/30/22 12:00 Temperature Pulse Rate 99 Respiratory Rate Blood Pressure Pulse Oximetry Oxygen Delivery Room Air Room Air 03/30/22 16:00 03/30/22 16:00 03/30/22 20:00 Temperature 98.3 F Pulse Rate 84 83 104 H Respiratory Rate 12 Blood Pressure 102/63 Pulse Oximetry 97 Oxygen Delivery 03/30/22 21:53 03/30/22 20:00 03/31/22 00:00 Temperature 98.4 F Pulse Rate 104 H 98 81 Respiratory Rate 18 Blood Pressure 114/62 Pulse Oximetry 99 99 Oxygen Delivery Room Air 03/31/22 00:00 03/31/22 03:52 03/31/22 04:01 Temperature 98.4 F Pulse Rate 81 90 87 Respiratory Rate 14 14 Blood Pressure 121/65 Pulse Oximetry 98 Oxygen Delivery Intake/Output Intake/Output: Intake & Output 03/28/22 03/29/22 03/30/22 03/31/22 23:59 23:59 23:59 23:59 Intake Total 2776.67 1984 2174 240 Output Total 1775 2600 450 500 Balance 1001.67 -616 1724 -260 Meds/Results Medications: Active Medications Generic Name Dose Route Start Last Admin Trade Name Freq PRN Reason Stop Dose Admin Ascorbic Acid 500 mg 03/30/22 09:00 03/30/22 09:00 Ascorbic Acid 500 Mg Tablet PO 500 mg DAILY ILIANA Administration Aspirin 81 mg 03/30/22 09:00 03/30/22 09:00 Aspirin 81 Mg Enteric Tablet PO 81 mg QAM ILIANA Administration Atorvastatin Calcium 20 mg 03/28/22 09:00 03/30/22 09:00 Atorvastatin 20 Mg Tablet PO 20 mg DAILY ILIANA Administration Clopidogrel Bisulfate 75 mg 03/28/22 09:00 03/30/22 09:00 Clopidogrel Bisulfate 75 Mg Tablet PO 75 mg QAM ILIANA Administration Cyanocobalamin 1,000 mcg 03/30/22 09:00 03/30/22 08:59 Cyanocobalamin 1,000 Mcg Tablet PO 1,000 mcg QAM ILIANA Administration Dextrose 12.5 gm 03/27/22 12:58 Dextrose 50% 25 Gm/50 Ml Syringe IV PUSH PRN PRN Hypoglycemia Protocol Ferrous Sulfate 324 mg 03/30/22 08:00 03/30/22 09:01 Ferrous Sulfate 324 Mg Tablet PO 324 mg DAILY@0800 ILIANA Administration Glucagon 1 mg 03/27/22 12:58 Glucagon For Inj 1 Mg Vial IM PRN PRN Hypoglycemia Protocol Glucose 15 gm 03/27/22 12:58 Glucose Oral Gel 15 Gm Of Glucse In 37.5 Gm Tube PO PRN PRN Hypoglycemia Protocol Dextrose 1,000 mls @ 100 mls/hr 03/27/22 12:58 Dextrose 5% 1,000 Ml IVPB PRN PRN Hypoglycemia Protocol Cefepime HCl 2 gm in 50 mls @ 100 mls/hr 03/30/22 08:05 03/30/22 21:00 Maxipime 2 Gm/D5w 50 Ml IVPB 100 mls/hr Q12HR ILIANA Administration Vancomycin HCl 1,000 mg in 250 mls @ 250 mls/hr 03/31/22 16:00 Vancomycin 1,000 Mg/D5w 250 Ml IVPB Q12H ILIANA Insulin Aspart 4 units 03/30/22 08:00 03/30/22 17:40 Insulin Aspart (*Bkc) 100 Units/Ml 0.067 units/kg (4 units) 4 units SUB-Q Administration TIDWM [facility] Insulin Aspart 3 - 6 units 03/30/22 08:58 03/31/22 06:40 Insulin Aspart (*Bkc) 100 Units/Ml SUB-Q Not Given ACHS [facility] Protocol Insulin Glargine 25 units 03/29/22 09:00 03/30/22 09:13 Insulin Glargine (*Bkc) 100 Units/Ml SUB-Q 25 units QAM [facility] Administration Levothyroxine Sodium 150 mcg 03/31/22 06:30 03/31/22 06:40 Levothyroxine Sodium 150 Mcg Tablet PO 150 mcg DAILY@0630 [facility] Administration Ondansetron HCl 4 mg 03/27/22 13:40 Ondansetron Inj 4 Mg/2 Ml Vial IV PUSH Q4H PRN Nausea Pantoprazole Sodium 40 mg 03/30/22 09:00 03/30/22 08:59 Pantoprazole 40 Mg Tablet PO 40 mg QAM [facility] Administration Silver Nitrate 1 applic 03/29/22 09:00 03/30/22 08:59 Silvergel (Elta) 45 Ml TOPICAL 1 applic DAILY ILIANA Administration Tamsulosin HCl 0.4 mg 03/30/22 09:00 03/30/22 08:58 Tamsulosin Hcl 0.4 Mg Capsule PO 0.4 mg QAM ILIANA Administration Radiology Results: ITS Impressions Chest X-Ray 03/27/22 12:12 Im
[2022-03-31] MEDS: CYANOCOBALAMIN 1,000 MCG TABLET 1000 MCG PO (09:40)
[2022-03-31] MEDS: ASPIRIN 81 MG ENTERIC TABLET PO (09:40)
[2022-03-31] MEDS: ASCORBIC ACID 500 MG TABLET PO (09:40)
[2022-03-31] MEDS: FERROUS SULFATE 324 MG TABLET PO (09:40)
[2022-03-31] MEDS: PANTOPRAZOLE 40 MG TABLET PO (09:41)
[2022-03-31] MEDS: SILVERGEL (ELTA) 45 ML 1 APPLIC TOPICAL (09:41)
[2022-03-31] MEDS: INSULIN ASPART (*BKC) 100 UNITS/ML SUB-Q ×6 (09:41→20:33)
[2022-03-31] MEDS: INSULIN GLARGINE (*BKC) 100 UNITS/ML 25 UNITS SUB-Q (09:41)
[2022-03-31] MEDS: TAMSULOSIN HCL 0.4 MG CAPSULE PO (09:41)
[2022-03-31] MEDS: ATORVASTATIN 20 MG TABLET PO (09:41)
[2022-03-31] MEDS: CLOPIDOGREL BISULFATE 75 MG TABLET PO (09:41)
[2022-03-31 12:27] LABS: Glucose Point of Care 308 mg/dl (65-105)
--- NOTE | 2022-03-31 13:51 | PC.NURSE ---
Spoke with Joaquín with [facility] transfer center and updated vitals and no continuous drips or oxygen; she stated they are still full at the moment but he's still on the wait list
[2022-03-31 16:14] LABS: Glucose Point of Care 292 mg/dl (65-105)
[2022-03-31 20:34] LABS: Glucose Point of Care 258 mg/dl (65-105)
[2022-04-01 11:55] LABS: Glucose Point of Care > 500 mg/dl (65-105)
--- NOTE | 2022-04-03 17:34 | PM.TDS ---
Transfer Discharge Sum: Prov Provider Date of admission: 03/27/22 14:17 Primary care physician: Den Castro DO Admitting clinician: Marisa Barrera MD Consults: 03/27/22 Wound/ET Consult Routine Reason for Consult:: Right foot wound 03/27/22 12:58 Consult to Dietitian Routine Reason for Consult:: DKA admission 03/27/22 13:42 Consult to Physician Routine Comment: Consulting Provider: Rasta Winkler scallop raker/MD group to consult: gayle Reason for consultation: dka, rhoda, hyperkalemia, elevated troponin Has provider been notified: Yes 03/28/22 Consult to Physician Routine Comment: Consulting Provider: Dayanna Kaur scallop raker/MD group to consult: Cardiology Reason for consultation: Non-STEMI Has provider been notified: Yes DS: Admitting Diagnosis Discharge Date 03/31/22 Admitting Diagnosis unresponsive episode DS: Discharge Diagnosis Discharge Diagnosis (1) Sepsis: Code(s): A41.9 - Sepsis, unspecified organism Status: Acute (2) Hypothermia: Qualifiers: Encounter type: initial encounter Qualified Code(s): T68.XXXA - Hypothermia, initial encounter Code(s): T68.XXXA - Hypothermia, initial encounter Status: Acute (3) DKA (diabetic ketoacidoses): Qualifiers: Diabetes mellitus complication detail: without coma Diabetes mellitus type: other specified (including SEVEN) Qualified Code(s): E13.10 - Other specified diabetes mellitus with ketoacidosis without coma Code(s): E11.10 - Type 2 diabetes mellitus with ketoacidosis without coma Status: Acute (4) Dehydration: Code(s): E86.0 - Dehydration Status: Acute (5) Acute kidney injury: Code(s): N17.9 - Acute kidney failure, unspecified Status: Acute (6) Coronary artery disease involving [place] coronary artery of [place] heart: Qualifiers: Associated angina: without angina Qualified Code(s): I25.10 - Atherosclerotic heart disease of [place] coronary artery without angina pectoris Code(s): I25.10 - Atherosclerotic heart disease of [place] coronary artery without angina pectoris Status: Acute (7) Osteomyelitis: Qualifiers: Laterality: right Osteomyelitis location: foot Osteomyelitis type: unspecified type Qualified Code(s): M86.9 - Osteomyelitis, unspecified Code(s): M86.9 - Osteomyelitis, unspecified Status: Acute (8) Elevated troponin: Code(s): R77.8 - Other specified abnormalities of plasma proteins Status: Acute (9) Hyperkalemia: Code(s): E87.5 - Hyperkalemia Status: Acute (10) Altered mental status: Code(s): R41.82 - Altered mental status, unspecified Status: Acute (11) Hypothyroidism: Code(s): E03.9 - Hypothyroidism, unspecified Status: Acute (12) Electrolyte abnormality: Code(s): E87.8 - Other disorders of electrolyte and fluid balance, not elsewhere classified Status: Acute (13) Diabetes mellitus with diabetic neuropathy: Qualifiers: Diabetes mellitus longterm insulin use: with longterm use Diabetes mellitus type: type 2 Qualified Code(s): E11.40 - Type 2 diabetes mellitus with diabetic neuropathy, unspecified; Z79.4 - terminal manager (current) use of insulin Code(s): E11.40 - Type 2 diabetes mellitus with diabetic neuropathy, unspecified Status: Acute Transfer Discharge Sum: Med Medications Active and Home Medications: Home Medications insulin lispro 100 unit/mL subcutaneous cartridge (Humalog U-100 Insulin) 100 unit subcut DAILY 04/30/19 [History Confirmed 03/27/22] cyanocobalamin (vitamin B-12) 1,000 mcg capsule 1,000 mcg PO DAILY 06/20/19 [History Confirmed 03/27/22] ascorbic acid (vitamin C) 500 mg capsule 500 mg PO DAILY 09/07/19 [History Confirmed 03/27/22] aspirin 81 mg tablet,delayed release (Adult Low Dose Aspirin) 81 mg PO DAILY 09/07/19 [History Confirmed 03/27/22] tamsulosin 0.4 mg
== END 2022-03-31 21:10 | disposition short-term general hospital (02) | DRG 871 ==
LOC: ANHED 14:24 → ANHICU 15:00
PROVIDERS: Internal Medicine; Physician Assistant; Admitting Provider Family Medicine; Emergency Provider Emergency Medicine; PCP Internal Medicine; Visit Provider Student in an Organized Health Care Education/Training Program
DX: A41.9 Sepsis, unspecified organism (principal); E11.10 Type 2 diabetes mellitus with ketoacidosis without coma; G93.41 Metabolic encephalopathy; I5A Non-ischemic myocardial injury (non-traumatic); M86.671 Other chronic osteomyelitis, right ankle and foot; N17.9 Acute kidney failure, unspecified; R64 Cachexia; L97.412 Non-pressure chronic ulcer of right heel and midfoot with fat layer exposed; E86.0 Dehydration; E11.621 Type 2 diabetes mellitus with foot ulcer; R68.0 Hypothermia, not associated with low environmental temperature; Z20.822 Contact with and (suspected) exposure to COVID-19; I25.10 Atherosclerotic heart disease of native coronary artery without angina pectoris; E87.5 Hyperkalemia; E03.9 Hypothyroidism, unspecified; E11.42 Type 2 diabetes mellitus with diabetic polyneuropathy; E11.22 Type 2 diabetes mellitus with diabetic chronic kidney disease; I12.9 Hypertensive chronic kidney disease with stage 1 through stage 4 chronic kidney disease, or unspecified chronic kidney disease; I73.9 Peripheral vascular disease, unspecified; K21.9 Gastro-esophageal reflux disease without esophagitis; I25.5 Ischemic cardiomyopathy; D50.9 Iron deficiency anemia, unspecified; N18.9 Chronic kidney disease, unspecified; E78.5 Hyperlipidemia, unspecified; Z66 Do not resuscitate; Z68.22 Body mass index [BMI] 22.0-22.9, adult; Z79.4 Long term (current) use of insulin; Z79.82 Long term (current) use of aspirin; I25.2 Old myocardial infarction; Z86.73 Personal history of transient ischemic attack (TIA), and cerebral infarction without residual deficits; Z89.422 Acquired absence of other left toe(s); Z89.421 Acquired absence of other right toe(s); Z98.1 Arthrodesis status; Z87.891 Personal history of nicotine dependence; Z95.1 Presence of aortocoronary bypass graft
CPT/HCPCS: 36415; 36600; 43752; 70450; 71045; 73630; 73718; 76775; 80048; 80053; 80202; 80307; 81001; 82140; 82375; 82550; 82570; 82607; 82746; 82805; 82947; 82948; 83036; 83050; 83605; 83690; 83735; 84100; 84145; 84300; 84439; 84443; 84480; 84484; 85025; 85610; 85730; 87040; 92610; 93005; 93306; 96361; 96375; 97110; 97161; 97165; 97530; 99285; A9270; C9113; C9803; J0610; J0692; J1815; J2060; J2543; J3370; J3480; J7030; J7040; J7050; J7120; U0003; U0005

== ENCOUNTER 2022-06-06 12:27 | Inpatient (IN) | payer MEDICARE, SELFPAY ==
[2022-06-06] VITALS (10 sets, daily range): BP systolic 104–134; BP diastolic 50–74; PULSE 82–105; RESP 12–24; TEMP 36.5–37; O2SAT 100; BMI 22.0
--- NOTE | ~2022-06-06 | XR_ITS ---
XR hip RT min 2V 06/06/2022 13:18 Indication: Status post fall. Right hip pain. Procedure: 2 views right hip Comparison: No prior studies for comparison. Findings: There is a right femoral intertrochanteric fracture with mild displacement and subtle varus angulation. There is medial displacement of the lesser trochanter. 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 There is mild osteitis pubis. There is extensive atherosclerosis. Impression: 1: Mildly displaced right femoral intertrochanteric fracture with subtle varus angulation. Reviewed, dictated and finalized at location A. BOAT OR BARGE MATE Impression: 1: Mildly displaced right femoral intertrochanteric fracture with subtle varus angulation.
--- NOTE | ~2022-06-06 | CT_ITS ---
EXAMINATION: CT brain wo con DATE: 06/06/2022 13:19 INDICATION: Status post fall. Possible head injury. TECHNIQUE: Computed tomography (CT) of the head was performed without intravenous contrast. The dose- length product was 605.33 mGy-cm. Automated exposure control and iterative reconstruction technique w ere employed. COMPARISON: 03/27/2022 FINDINGS: There are chronic bilateral cerebellar infarctions. Generalized atrophy. There are scattere d moderate periventricular and subcortical white matter changes, most likely related to small vessel ischemic disease (microangiopathy). No ventriculomegaly or midline shift. Basilar cisterns are patent . There is intracranial atherosclerosis. There is no significant mucosal thickening or air-fluid leve ls in the sinuses. Mastoids are pneumatized. No depressed skull fractures. IMPRESSION: 1. No acute intracranial abnormality. 2: Chronic bilateral cerebellar infarctions. 3: Chronic age-related findings. Reviewed, dictated and finalized at location A. OR WATER METER INSTALLER
--- NOTE | ~2022-06-06 | XR_ITS ---
XR chest 1V portable 06/06/2022 13:18 Indication: Status post fall.. Procedure: AP portable chest Comparison: Comparison to multiple prior studies sequentially, with oldest reviewed study dated 07/27. Findings: Status post median sternotomy for CABG. Heart size is normal. No focal air space disease, p ulmonary edema, pleural effusion or suspected pneumothorax. No acute osseous abnormality. Impression: 1: No acute cardiopulmonary disease. Reviewed, dictated and finalized at location A. [place] Impression: 1: No acute cardiopulmonary disease.
--- NOTE | ~2022-06-06 | XR_ITS ---
XR surgery orthopedic Right IT nail placement TECHNIQUE: Fluoroscopy used during right IT nail placement performed by [Naren Simpson MD] on 06/08/2022. 83 seconds of fluoroscopic time with 5 fluoroscopic images images captured. FINDINGS: Correlate with procedure note. IMPRESSION: Fluoroscopy used during right intertrochanteric nail placement.. Reviewed, dictated and finalized at location A. ERY BIOLOGIST
--- NOTE | 2022-06-06 12:32 | ECG_ITS ---
Measurements Intervals [place] Rate: 87 P: 76 NH: 217 QRS: 88 QRSD: 86 T: -29 QT: 379 QTc: 456 Interpretive Statements SINUS RHYTHM WITH FIRST DEGREE AV BLOCK BASELINE ARTIFACT PRESENT NONSPECIFIC ST AND T WAVE ABNORMALITY COMPARED TO ECG 03/28/2022 12:02:47 FIRST DEGREE AV BLOCK NOW PRESENT Electronically Signed On 06-08-2022 15:17:21 COMPANY CONTROLLER by Remberto Calderón M.D.
[2022-06-06 12:37] LABS: Glucose Point of Care 147 mg/dl (65-105)
--- NOTE | 2022-06-06 12:55 | ED.FALL ---
HPI - Fall General Chief Complaint: Fall Stated Complaint: GLF, hip injury Time Seen by Provider: 06/06/22 12:29 History of Present Illness HPI Narrative: 76-year-old male presenting to the emergency department for evaluation after having a ground-level fall last night. Patient was found on the floor and is complaining of right hip pain. Patient is unsure of when he had the fall and is unsure if he had any loss of consciousness. Patient does have a history of type 2 diabetes and does have an insulin monitor and pump in place. Patient has history of coronary disease. Related Data Home Medications Medication Instructions Recorded Confirmed insulin lispro 100 unit/mL 100 unit subcut DAILY 04/30/19 06/06/22 subcutaneous cartridge (Humalog U-100 Insulin) cyanocobalamin (vitamin B-12) 1,000 mcg PO DAILY 06/20/19 06/06/22 1,000 mcg capsule ascorbic acid (vitamin C) 500 mg 500 mg PO DAILY 09/07/19 06/06/22 capsule aspirin 81 mg tablet,delayed 81 mg PO DAILY 09/07/19 06/06/22 release (Adult Low Dose Aspirin) ferrous sulfate 324 mg (65 mg 324 mg PO DAILY 03/27/22 06/06/22 iron) tablet,delayed release amoxicillin 875 mg-potassium 1 tablet PO BID 06/06/22 06/06/22 clavulanate 125 mg tablet atorvastatin 20 mg tablet 20 mg PO DAILY 06/06/22 06/06/22 carvedilol 6.25 mg tablet (Coreg) 3.125 mg PO Q12HR 06/06/22 06/06/22 finasteride 5 mg tablet 5 mg PO DAILY 06/06/22 06/06/22 pantoprazole 40 mg tablet,delayed 40 mg PO DAILY 06/06/22 06/06/22 release Allergies Allergy/AdvReac Type Severity Reaction Status Date / Time No Known Allergies Allergy Verified 06/06/22 12:33 Review of Systems Review of Systems: CONSTITUTIONAL: Denies fever, chills, or sweats. EYES: Denies visual changes, redness, or discharge. ENT: Denies rhinorrhea, congestion, sore throat, or otalgia. CARDIOVASCULAR: Denies chest pain, palpitations, or edema. RESPIRATORY: Denies cough or dyspnea. GASTROINTESTINAL: Denies abdominal pain, nausea, vomiting, or diarrhea. GENITOURINARY: Denies dysuria or hematuria. SKIN: Denies rash or itching. MUSCULOSKELETAL: See HPI NEUROLOGIC: Denies headache, numbness, or weakness. [facility] Past Medical History Medical History (Updated 06/06/22 @ 14:52 by Vashti Cage NP) Amputation of toe of left foot Left 1st Amputation of toe of right foot Right 2nd BPH (benign prostatic hyperplasia) Cerebrovascular accident (CVA) Chronic anemia Chronic GERD Chronic kidney disease Coronary artery disease involving [place] coronary artery of [place] heart Non STEMI in November 2013. He had angioplasty to the first diagonal with failed intervention to the OM2. He is followed by Dr. Jameel Steinberg. Cardiac catheterization 07/10/2019 demonstrated multiple vessel coronary artery disease Diabetes mellitus with diabetic neuropathy Diabetic foot ulcer Diabetic foot ulcers Diabetic ketoacidosis DKA (diabetic ketoacidoses) DKA, type 1, not at goal Essential hypertension Fracture of both ankles Fracture of both arms History of osteomyelitis Hyperlipidemia Hypothyroidism Hypothyroidism Insulin dependent diabetes mellitus Complicated by diabetic neuropathy. He has had several hospitalizations for diabetic ketoacidosis. Iron deficiency anemia Ischemic cardiomyopathy With new ischemic cardiomyopathy June 2019 EF 25-30% Mixed hyperlipidemia Myocardial infarction x3 Neuropathy due to secondary diabetes Nose fracture Orthostasis No longer on midodrine given his new systolic dysfunction noted June 2019 PAD (peripheral artery disease) Patient of Dr. Bansal. peripheral angiogram 12/2019 showed large vessels free of significant disease. Screening for colon cancer Sepsis Severe peripheral arterial disease Vertigo Surgical History Surgical History (Updated 06/06/22 @ 14:47 by Vashti Cage NP) Hx of CABG 10/2019 CABG x5. VICTORIA to the Left anterior descending, SVG sequentially to the diagonal and obtuse marginal,
[2022-06-06 12:57] LABS: Basophils Absolute Auto 0.1 K/mm3 (0.0-0.1); Basophils Percent Auto 0.4 % (0.2-1.2); Eosinophils Percent Auto 0.1 % (0-4.4); Hematocrit 35.6 % (42.0-52.0); Immature Granulocyte Absolute 0.11 K/mm3 (0.00-0.031); Immature Granulocyte Percent A 0.7 % (0-0.5); Lymphocytes Absolute Auto 1.12 K/mm3 (0.9-3.2); Lymphocytes Percent Auto 6.7 % (18.3-44.2); Mean Corpuscular HGB Conc 36.5 g/dl (32-36); Mean Corpuscular Hemoglobin 32.3 pg (26-34); Mean Corpuscular Volume 88.6 fl (80-100); Mean Platelet Volume 11.1 fl (7.4-10.4); Monocytes Absolute Auto 0.8 K/mm3 (0.1-0.6); Monocytes Percent Auto 4.5 % (2.6-8.5); Neutrophils Absolute Auto 14.8 K/mm3 (1.3-6.7); Neutrophils Percent Auto 87.6 % (45.5-73.1); Platelet Count Result 318 k/mm3 (150-375); Red Blood Count 4.02 M/mm3 (4.6-6.20); Red Cell Distribution Width 13.2 % (11.5-14.5); White Blood Count 16.8 K/mm3 (4.5-10.0)
[2022-06-06] MEDS: HYDROmorphone HCL INJ (*CRX) 1 MG/ML SYR 0.5 MG IV PUSH ×2 (12:59→14:28)
[2022-06-06] MEDS: SODIUM CHLORIDE 0.9% IV 1,000 ML 250 ML IV CONT (13:20)
[2022-06-06 13:33] LABS: Influenza A QL RT-PCR Negative (Negative); Influenza B QL RT-PCR Negative (Negative); SARS-CoV-2 RNA PCR Negative
[2022-06-06 13:37] LABS: Alanine Aminotransferase 21 U/L (6-50); Alkaline Phosphatase 81 U/L (38-126); Anion Gap 14 mmol/L (8-16); Aspartate Amino Transferase 30 U/L (17-59); Bilirubin,Total 0.7 mg/dL (0.2-1.3); Blood Urea Nitrogen 19 mg/dL (9-20); Calcium 9.3 mg/dL (8.4-10.2); Carbon Dioxide 20 mmol/L (22-30); Chloride 98 mmol/L (98-107); Creatine Kinase 112 U/L (55-170); Estimated CRCL calculation 42 ml/min; Estimated Glomerular Filt Rate 59; Glucose 150 mg/dL (65-110); Sodium 132 mmol/L (137-145)
--- NOTE | 2022-06-06 14:03 | PM.IMHP ---
H&P: HPI History of Present Illness Date/Time: 06/06/22 14:03 Chief Complaint: fall Narrative: This is a 76-year-old male patient who lives home alone. He has a history of diabetes and hypertension. The patient is currently being treated for an infection for diabetic foot ulcer to the right foot. This patient sustained a ground level fall last night and laid on the floor complaining of right hip pain is not real clear what time he fell or free lost consciousness. His white count 16.8. H&H is 13.0 in 35.6. Sodium is 132. Blood sugar is 150. He is negative for influenza a B and COVID. Total CT his [address] was read as the following1. No acute intracranial abnormality. 2:? Chronic bilateral cerebellar infarctions. 3:? Chronic age-related findings. Hip x-ray was read as mildly displaced right femoral intertrochanteric fracture with subtle varus angulation. Chest x-ray was read as no acute cardiopulmonary disease. The patient was started on IV fluids and given Dilaudid. His son and daughter at the bedside and we decided it was best at the patient removed his testicle into his insulin pump. The daughter stated that she would take those 2 things home. Orthopedic physician has been consulted the emergency room. The patient is being admitted to inpatient status on the date of service of 06/06/2022. Review of Systems Review of Systems: See HPI All systems reviewed & are unremarkable except as noted in HPI and below Constitutional: Constitutional: Reports as per HPI and Reports no additional constitutional complaints Eyes: Eyes: Reports as per HPI and Reports no additional eye complaints ENT: Reports system reviewed and no additional complaints, except as documented and Reports Normal hearing present Cardiovascular: Cardiovascular: Reports no additional cardiovascular complaints Respiratory: Respiratory: Reports no additional respiratory complaints and Reports no additional respiratory complaints Gastrointestinal: Gastrointestinal: Reports as per HPI and Reports no additional gastrointestinal complaints Musculoskeletal: Musculoskeletal: Reports no additional musculoskeletal complaints Integumentary/Breasts: Skin/Breast: Reports system reviewed and no additional complaints, except as docu and Reports as per HPI Neurologic: Reports system reviewed and no additional complaints, except as documented, Reports as per HPI and Reports Normal hearing present Psychiatric: Psychiatric: Reports no additional psychiatric complaints and Reports as per HPI Endocrine: Endocrine: Reports no additional endocrine complaints Hematologic/Lymphatic: Hematologic/Lymphatic: Reports no additional hematologic/lymphatic complaints Allergic/Immunologic: Allergic/Immunologic: Reports no additional allergic/immunologic complaints [facility] Past Medical History Medical History (Updated 06/06/22 @ 14:52 by Vashti Cage NP) Amputation of toe of left foot Left 1st Amputation of toe of right foot Right 2nd BPH (benign prostatic hyperplasia) Cerebrovascular accident (CVA) Chronic anemia Chronic GERD Chronic kidney disease Coronary artery disease involving [place] coronary artery of [place] heart Non STEMI in November 2013. He had angioplasty to the first diagonal with failed intervention to the OM2. He is followed by Dr. Jameel Steinberg. Cardiac catheterization 07/10/2019 demonstrated multiple vessel coronary artery disease Diabetes mellitus with diabetic neuropathy Diabetic foot ulcer Diabetic foot ulcers Diabetic ketoacidosis DKA (diabetic ketoacidoses) DKA, type 1, not at goal Essential hypertension Fracture of both ankles Fracture of both arms History of osteomyelitis Hyperlipidemia Hypothyroidism Hypothyroidism Insulin dependent diabetes mellitus Complicated by diabetic neuropathy. He has had several hospitalizations for diabetic ketoacidosis. Iron deficiency anemia Ischemic cardiomyopathy With new ischemic cardiomyopathy June 2019 EF 25-3
[2022-06-06] MEDS: SODIUM CHLORIDE 0.9% IV 1,000 ML 125 ML IV CONT ×2 (14:25→20:44)
[2022-06-06 14:40] LABS: Appearance Urine Clear (Clear); Bilirubin Urine 1+ (Negative); Blood Urine Negative (Negative); Color Urine Yellow (Yellow); Glucose Urine UA 1+ mg/dL (Negative); Ketones Urine 1+ mg/dL (Negative); Leukocyte Esterase Ur Negative LEU/UL (Negative); Nitrate Urine Negative (Negative); Protein Urine Negative (Negative); Urobilinogen Urine 0.2 mg/dL (<2.0); pH Urine 5.5 (5.0-9.0)
[2022-06-06 14:44] LABS: Mucus Urine Rare /lpf; RBC Urine 0-2 /hpf (0-2); Squamous Epithelial Cell Urine Rare /hpf (Few); WBC Urine 0-3 /hpf
[2022-06-06 14:45] LABS: Add Urine Microscopic? YES
--- NOTE | 2022-06-06 16:13 | ADMGEN ---
This patient, Miah Chambers, was admitted to Medical Room 243-01. Patient/family oriented to hospital policies and general routines including ID bracelet, bed and alarms, visiting hours, pain management, procedures, bathroom and other care routines, personal items, smoking policy, room service/diet, and visiting hours. Information on how to activate the Rapid Response Team has been discussed. Patient/Family are encouraged to report perceived risks to care and to ask questions if they do not understand what they are told or what they should do.
[2022-06-06 17:46] LABS: Glucose Point of Care 283 mg/dl (65-105)
[2022-06-06] MEDS: INSULIN ASPART (*BKC) 100 UNITS/ML SUB-Q (17:47)
[2022-06-06] MEDS: carvediloL 3.125 MG TABLET PO (20:36)
[2022-06-06] MEDS: AMOXICILLIN/CLAVULANATE K 875-125 MG TAB 1 TABLET PO (20:36)
[2022-06-06 23:17] LABS: Glucose Point of Care 438 mg/dl (65-105)
[2022-06-06] MEDS: INSULIN HUMAN REGULAR (*BKC) 100 UNITS/ML 10 UNITS SUB-Q (23:35)
[2022-06-07] MEDS: HYDROmorphone HCL INJ (*CRX) 1 MG/ML SYR 0.5 MG IV PUSH ×4 (02:41→20:38)
[2022-06-07] MEDS: SODIUM CHLORIDE 0.9% IV 1,000 ML 125 ML IV CONT ×3 (04:26→20:43)
[2022-06-07 05:27] LABS: Glucose Point of Care 324 mg/dl (65-105)
[2022-06-07 06:00] VITALS: BP 101/55; PULSE 93; RESP 21; TEMP 36.8; O2SAT 100
[2022-06-07 06:45] LABS: Basophils Absolute Auto 0.1 K/mm3 (0.0-0.1); Basophils Percent Auto 0.5 % (0.2-1.2); Eosinophils Percent Auto 0.1 % (0-4.4); Hematocrit 31.4 % (42.0-52.0); Hemoglobin 11.3 g/dL (14.0-18.0); Immature Granulocyte Absolute 0.11 K/mm3 (0.00-0.031); Immature Granulocyte Percent A 0.9 % (0-0.5); Lymphocytes Absolute Auto 1.77 K/mm3 (0.9-3.2); Lymphocytes Percent Auto 13.9 % (18.3-44.2); Mean Corpuscular Hemoglobin 32.8 pg (26-34); Mean Corpuscular Volume 91.3 fl (80-100); Mean Platelet Volume 11.6 fl (7.4-10.4); Monocytes Absolute Auto 1.2 K/mm3 (0.1-0.6); Monocytes Percent Auto 9.1 % (2.6-8.5); Neutrophils Absolute Auto 9.6 K/mm3 (1.3-6.7); Neutrophils Percent Auto 75.5 % (45.5-73.1); Platelet Count Result 271 k/mm3 (150-375); Red Blood Count 3.44 M/mm3 (4.6-6.20); Red Cell Distribution Width 13.6 % (11.5-14.5); White Blood Count 12.7 K/mm3 (4.5-10.0)
[2022-06-07 06:58] LABS: Alanine Aminotransferase 18 U/L (6-50); Albumin Level 3.9 g/dL (3.5-5.1); Alkaline Phosphatase 74 U/L (38-126); Anion Gap 14 mmol/L (8-16); Aspartate Amino Transferase 32 U/L (17-59); Bilirubin,Total 0.7 mg/dL (0.2-1.3); Blood Urea Nitrogen 20 mg/dL (9-20); Calcium 8.9 mg/dL (8.4-10.2); Carbon Dioxide 17 mmol/L (22-30); Chloride 97 mmol/L (98-107); Estimated CRCL calculation 41 ml/min; Estimated Glomerular Filt Rate 59; Glucose 345 mg/dL (65-110); Magnesium 1.8 mg/dL (1.6-2.3); Potassium 5.1 mmol/L (3.4-5.0); Sodium 128 mmol/L (137-145)
[2022-06-07 09:00] LABS: Glucose Point of Care 420 mg/dl (65-105)
--- NOTE | 2022-06-07 09:10 | PM.IMPN ---
Progress Note: A&P Assessment and Plan (1) Closed intertrochanteric fracture: Qualifiers: Encounter type: initial encounter Fracture alignment: displaced Laterality: right Qualified Code(s): S72.141A - Displaced intertrochanteric fracture of right femur, initial encounter for closed fracture Code(s): S72.143A - Displaced intertrochanteric fracture of unspecified femur, initial encounter for closed fracture Status: Acute Assessment and Plan: Patient presented to the hospital following a fall at home that was unwitnessed a new complaints of right hip pain. Imaging shows a displaced right femoral intertrochanteric fracture mildly displaced with varus angulation Continue pain control with IV analgesics Ortho surgery consulted appreciate recommendations. Plans for surgical repair this afternoon. Bed rest until following surgery. Then will institute PT/OT evaluation patient will likely need a rehab placement as he lives alone. DVT prophylaxis per orthopedic physician. (2) Hyperglycemia: Code(s): R73.9 - Hyperglycemia, unspecified Status: Acute Assessment and Plan: Patient had insulin pump removed by family upon admission. Sugar at 2300 yesterday evening was 438 he received 10 units of aspart subQ x1. Blood sugar at 0900 was 420 he received addition to 20 units aspart subQ x1 and Lantus 15 units given. Patient's insulin pump dosing was reported by family to be 1.1 units/hour 6:00 a.m. to 12:00 a.m. and 1 unit/hour 12:00 a.m. to 2 6:00 a.m. his bolus dosing is 3.5 units at breakfast, 0 units at lunch, and 5 units at dinner for a total daily dose of 34.3 units per day. Patient is currently NPO for surgery 1100 glucose 427 will repeat glucose in 2 hours and repeat fast acting dosing at that time patient is currently on NS IV fluids. Anion gap 14 and within normal limits, bicarb 17, UA with 1+ ketones. Will check beta hydroxybutyrate. Repeat BMP at 2:00 p.m. prior to surgery. (3) Thrush: Code(s): B37.0 - Candidal stomatitis Status: Acute Assessment and Plan: Secondary to chronic antibiotics for right foot wound and osteomyelitis. Initiate nystatin swish and swallow q.i.d. x 7 days. (4) Hyponatremia: Code(s): E87.1 - Hypo-osmolality and hyponatremia Status: Acute Assessment and Plan: Sodium 128, glucose 345 at that time. Adjusted sodium 132 and mildly low. Continue IV fluids. Monitor I&Os. 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 Patient and son-in-law both report he has frequent monitoring of A1c which is typically in the sevens. He seen by an rn clinician at [facility]. He has a DEXAcom and insulin pump with settings as above. Both were removed upon admission. Accu-Cheks q.6 hours while NPO with moderate dose sliding scale insulin Lantus 15 units subQ daily initiated preop and given at 9:30 a.m. his total daily dose of insulin is 34.3 units. [place] hypoglycemic protocol. Will adjust a basal bolus insulin when patient is eating to keep goal less than 200 mg/dL (6) Hypertension with heart disease: Code(s): I11.9 - Hypertensive heart disease without heart failure Status: Chronic Assessment and Plan: Chronic, stable BP 101/55 to 115/74, HR 93 Continue home dose Coreg as blood pressure allows. Avoid hypo and hypertension postop (7) CAD (coronary artery disease): Code(s): I25.10 - Atherosclerotic heart disease of [place] coronary artery without angina pectoris Status: Chronic Assessment and Plan: Chronic, stable. patient has history of 5 vessel CABG several years ago. Continue home medications Coreg and statin, hold aspirin preop and resume when
--- NOTE | 2022-06-07 09:21 | PM.CNOR ---
Assessment and Plan Assessment and plan (1) Closed intertrochanteric fracture: Qualifiers: Encounter type: initial encounter Fracture alignment: displaced Laterality: right Qualified Code(s): S72.141A - Displaced intertrochanteric fracture of right femur, initial encounter for closed fracture Code(s): S72.143A - Displaced intertrochanteric fracture of unspecified femur, initial encounter for closed fracture Status: Acute Assessment and Plan: Displaced intertrochanteric fracture, right hip. I reviewed the proposed procedure. Risks, benefits, and alternatives discussed. Proceed with ORIF right hip with IM nail. History of Present Illness HPI Consult date: 06/07/22 Chief complaint: Right sided intertrochanteric Fracture Narrative: Patient complains of acute hip pain. Fell from standing height. Does not remember falling. History of syncope. No previous hip pain. Comfortable at rest. No numbness, tingling, or other associated symptoms. Review of Systems Review of Systems: Loss of consciousness, diabetes. All systems reviewed & are unremarkable except as noted in HPI and below PMFSH Past Medical History Medical History Amputation of toe of left foot Left 1st Amputation of toe of right foot Right 2nd BPH (benign prostatic hyperplasia) Cerebrovascular accident (CVA) Chronic anemia Chronic GERD Chronic kidney disease Coronary artery disease involving [place] coronary artery of [place] heart Non STEMI in November 2013. He had angioplasty to the first diagonal with failed intervention to the OM2. He is followed by Dr. Jameel Steinberg. Cardiac catheterization 07/10/2019 demonstrated multiple vessel coronary artery disease Diabetes mellitus with diabetic neuropathy Diabetic foot ulcer Diabetic foot ulcers Diabetic ketoacidosis DKA (diabetic ketoacidoses) DKA, type 1, not at goal Essential hypertension Fracture of both ankles Fracture of both arms History of osteomyelitis Hyperlipidemia Hypothyroidism Hypothyroidism Insulin dependent diabetes mellitus Complicated by diabetic neuropathy. He has had several hospitalizations for diabetic ketoacidosis. Iron deficiency anemia Ischemic cardiomyopathy With new ischemic cardiomyopathy June 2019 EF 25-30% Mixed hyperlipidemia Myocardial infarction x3 Neuropathy due to secondary diabetes Nose fracture Orthostasis No longer on midodrine given his new systolic dysfunction noted June 2019 PAD (peripheral artery disease) Patient of Dr. Bansal. peripheral angiogram 12/2019 showed large vessels free of significant disease. Screening for colon cancer Sepsis Severe peripheral arterial disease Vertigo Surgical History Surgical History Hx of CABG 10/2019 CABG x5. VICTORIA to the Left anterior descending, SVG sequentially to the diagonal and obtuse marginal, SVG to PDA, normal LV function. S/P CABG x 5 S/P tonsillectomy and adenoidectomy Status post amputation of toe Left great toe amputated the MP joint in April 2009 for osteomyelitis. Distal right 2nd toe metatarsal amputation in November 2007 for osteomyelitis. Left 4th metatarsal amputation for osteomyelitis. Status post cardiac catheterization November 2013. He had angioplasty to the first diagonal with a failed intervention to the OM2. Status post cataract extraction Status post laminectomy Of the cervical spine x2. Family History Family History Sibling Family history of mental disorder Mother Family history of lung cancer Patient's mother is Father Family history of lymphoma Patient's father is Other Family history of malignant neoplasm Social History Social History Social History: The patient is and lives alone in [place].
[2022-06-07] MEDS: ASPIRIN 81 MG ENTERIC TABLET PO (09:35)
[2022-06-07 09:36] VITALS: PULSE 99
[2022-06-07] MEDS: carvediloL 3.125 MG TABLET PO ×2 (09:36→20:37)
[2022-06-07] MEDS: LEVOTHYROXINE SODIUM 125 MCG TABLET PO (09:37)
[2022-06-07] MEDS: ATORVASTATIN 20 MG TABLET PO (09:37)
[2022-06-07] MEDS: CYANOCOBALAMIN 1,000 MCG TABLET 1000 MCG PO (09:37)
[2022-06-07] MEDS: PANTOPRAZOLE 40 MG TABLET PO (09:38)
[2022-06-07] MEDS: AMOXICILLIN/CLAVULANATE K 875-125 MG TAB 1 TABLET PO ×2 (09:38→18:00)
[2022-06-07] MEDS: ASCORBIC ACID 500 MG TABLET PO (09:38)
[2022-06-07] MEDS: FINASTERIDE 5 MG TABLET PO (09:38)
[2022-06-07] MEDS: TAMSULOSIN HCL 0.4 MG CAPSULE PO (09:38)
[2022-06-07] MEDS: INSULIN ASPART (*BKC) 100 UNITS/ML 20 UNITS SUB-Q (09:38)
[2022-06-07] MEDS: SILVERGEL (ELTA) 45 ML 1 APPLIC TOPICAL (09:39)
[2022-06-07] MEDS: INSULIN GLARGINE (*BKC) 100 UNITS/ML 15 UNITS SUB-Q (09:42)
[2022-06-07 11:09] LABS: Glucose Point of Care 427 mg/dl (65-105)
[2022-06-07] MEDS: NYSTATIN 100,000 UNITS/ML SUSP 5 ML ORAL.SUSP PO ×3 (12:19→20:37)
[2022-06-07] MEDS: FERROUS SULFATE 324 MG TABLET PO (12:20)
[2022-06-07] MEDS: INSULIN ASPART (*BKC) 100 UNITS/ML SUB-Q (12:22)
[2022-06-07 12:24] LABS: Glucose Point of Care 328 mg/dl (65-105)
[2022-06-07 14:00] VITALS: BP 112/48; PULSE 90; RESP 20; TEMP 36.9; O2SAT 100
[2022-06-07 14:05] LABS: Glucose Point of Care 253 mg/dl (65-105)
[2022-06-07 14:36] LABS: Anion Gap 10 mmol/L (8-16); Blood Urea Nitrogen 22 mg/dL (9-20); Calcium 8.6 mg/dL (8.4-10.2); Carbon Dioxide 20 mmol/L (22-30); Chloride 105 mmol/L (98-107); Estimated CRCL calculation 49 ml/min; Estimated Glomerular Filt Rate > 60; Glucose 214 mg/dL (65-110); Potassium 4.1 mmol/L (3.4-5.0); Sodium 135 mmol/L (137-145)
[2022-06-07 14:50] LABS: Beta-Hydroxybutyrate/Acetoacetate 1.49 mmol/L (0.02-0.27)
[2022-06-07 17:33] LABS: Glucose Point of Care 161 mg/dl (65-105)
[2022-06-07 20:37] VITALS: PULSE 84
[2022-06-07 20:41] VITALS: BP 111/47; PULSE 84; RESP 20; TEMP 36.8; O2SAT 98
[2022-06-08] VITALS (14 sets, daily range): BP systolic 112–145; BP diastolic 40–71; PULSE 68–85; RESP 12–20; TEMP 36.1–37.4; O2SAT 96–100
[2022-06-08 00:06] LABS: Glucose Point of Care 291 mg/dl (65-105)
[2022-06-08] MEDS: SODIUM CHLORIDE 0.9% IV 1,000 ML 125 ML IV CONT ×3 (04:42→21:00)
[2022-06-08 05:03] LABS: Glucose Point of Care 285 mg/dl (65-105)
[2022-06-08] MEDS: LEVOTHYROXINE SODIUM 125 MCG TABLET PO (05:03)
[2022-06-08] MEDS: HYDROmorphone HCL INJ (*CRX) 1 MG/ML SYR 0.5 MG IV PUSH ×5 (05:06→22:04)
[2022-06-08 06:04] LABS: Hematocrit 28.1 % (42.0-52.0); Hemoglobin 9.8 g/dL (14.0-18.0); Mean Corpuscular HGB Conc 34.9 g/dl (32-36); Mean Corpuscular Hemoglobin 32.7 pg (26-34); Mean Corpuscular Volume 93.7 fl (80-100); Mean Platelet Volume 11.2 fl (7.4-10.4); Platelet Count Result 202 k/mm3 (150-375); Red Cell Distribution Width 13.8 % (11.5-14.5); White Blood Count 9.3 K/mm3 (4.5-10.0)
[2022-06-08 06:23] LABS: Anion Gap 10 mmol/L (8-16); Blood Urea Nitrogen 15 mg/dL (9-20); Calcium 7.7 mg/dL (8.4-10.2); Carbon Dioxide 17 mmol/L (22-30); Chloride 101 mmol/L (98-107); Estimated CRCL calculation 60 ml/min; Estimated Glomerular Filt Rate > 60; Glucose 273 mg/dL (65-110); Magnesium 1.7 mg/dL (1.6-2.3); Sodium 128 mmol/L (137-145)
--- NOTE | 2022-06-08 07:10 | WPDHPUPDATE1 ---
History and Physical Update Update Date/Time: 06/08/22 07:10 History and Physical has been reviewed, including an updated exam of the patient. There are NO changes in the patient's condition. Risks, benefits, and alternatives have been discussed and questions answered. Patient agrees to proceed with procedure.
[2022-06-08 08:22] LABS: Glucose Point of Care 295 mg/dl (65-105)
[2022-06-08] MEDS: INSULIN ASPART (*BKC) 100 UNITS/ML SUB-Q ×2 (08:29→12:46)
[2022-06-08] MEDS: NYSTATIN 100,000 UNITS/ML SUSP 5 ML ORAL.SUSP PO ×4 (08:30→21:50)
[2022-06-08] MEDS: INSULIN GLARGINE (*BKC) 100 UNITS/ML 15 UNITS SUB-Q (08:30)
[2022-06-08] MEDS: carvediloL 3.125 MG TABLET PO ×2 (08:31→21:53)
[2022-06-08] MEDS: FERROUS SULFATE 324 MG TABLET PO (08:31)
[2022-06-08] MEDS: AMOXICILLIN/CLAVULANATE K 875-125 MG TAB 1 TABLET PO ×2 (08:31→18:02)
[2022-06-08] MEDS: PANTOPRAZOLE 40 MG TABLET PO (08:31)
[2022-06-08] MEDS: TAMSULOSIN HCL 0.4 MG CAPSULE PO (08:31)
[2022-06-08] MEDS: FINASTERIDE 5 MG TABLET PO (08:33)
[2022-06-08] MEDS: ASPIRIN 81 MG ENTERIC TABLET PO (08:33)
[2022-06-08] MEDS: ATORVASTATIN 20 MG TABLET PO (08:33)
[2022-06-08] MEDS: CYANOCOBALAMIN 1,000 MCG TABLET 1000 MCG PO (08:33)
[2022-06-08] MEDS: ASCORBIC ACID 500 MG TABLET PO (08:33)
[2022-06-08 12:19] LABS: Glucose Point of Care 230 mg/dl (65-105)
[2022-06-08] MEDS: SILVERGEL (ELTA) 45 ML 1 APPLIC TOPICAL (12:43)
[2022-06-08] MEDS: ACETAMINOPHEN 500 MG TABLET 1000 MG PO ×2 (13:30→21:54)
[2022-06-08] MEDS: LACTATED RINGERS 1,000 ML 30 ML IV CONT (13:30)
[2022-06-08] MEDS: TRANEXAMIC ACID 1,000MG/ISO100 1,000 MG/100 ML BAG 200 MG IVPB (14:10)
--- NOTE | 2022-06-08 14:21 | PM.IMPN ---
Progress Note: A&P Assessment and Plan (1) Closed intertrochanteric fracture: Qualifiers: Encounter type: initial encounter Fracture alignment: displaced Laterality: right Qualified Code(s): S72.141A - Displaced intertrochanteric fracture of right femur, initial encounter for closed fracture Code(s): S72.143A - Displaced intertrochanteric fracture of unspecified femur, initial encounter for closed fracture Status: Acute Assessment and Plan: Patient presented to the hospital following a fall at home that was unwitnessed a new complaints of right hip pain. Imaging shows a displaced right femoral intertrochanteric fracture mildly displaced with varus angulation Continue pain control with IV analgesics Ortho surgery consulted appreciate recommendations. Bed rest until following surgery. Then will institute PT/OT evaluation patient will likely need a rehab placement as he lives alone. DVT prophylaxis per orthopedic physician. 06/08/22 Plan for OR repair today. (2) Hyperglycemia: Code(s): R73.9 - Hyperglycemia, unspecified Status: Acute Assessment and Plan: Patient had insulin pump removed by family upon admission. Sugar at 2300 on admission evening was 438 he received 10 units of aspart subQ x1. Blood sugar at 0900 was 420 he received addition to 20 units aspart subQ x1 and Lantus 15 units given. Patient's insulin pump dosing was reported by family to be 1.1 units/hour 6:00 a.m. to 12:00 a.m. and 1 unit/hour 12:00 a.m. to 2 6:00 a.m. his bolus dosing is 3.5 units at breakfast, 0 units at lunch, and 5 units at dinner for a total daily dose of 34.3 units per day. Patient is currently NPO for surgery 1100 glucose 427 will repeat glucose in 2 hours and repeat fast acting dosing at that time patient is currently on NS IV fluids. Anion gap 14 and within normal limits, bicarb 17, UA with 1+ ketones. Will check beta hydroxybutyrate. Repeat BMP at 2:00 p.m. prior to surgery. Beta hydroxybutyrate elevated. BMP with sodium 131 corrected, K 4.0, Cl 101, bicarb 17, AG 10, BUN 15, cr 0.8. glucose 273. No anion gap acidosis. Glucose improved. Continue to adjust basal-bolus when able to eat. Would recommend continuing 15 units lantus daily, 5 units aspart with meals plus moderate dose sliding scale with meals. (3) Thrush: Code(s): B37.0 - Candidal stomatitis Status: Acute Assessment and Plan: Secondary to chronic antibiotics for right foot wound and osteomyelitis. Initiate nystatin swish and swallow q.i.d. x 7 days. Improving. (4) Hyponatremia: Code(s): E87.1 - Hypo-osmolality and hyponatremia Status: Acute Assessment and Plan: Sodium 128, glucose 345 at that time. Adjusted sodium 132 and mildly low. Continue IV fluids. Monitor I&Os. Urine appears adequate Monitor chemistry daily 06/08 Adjusted sodium 131. Will check urine sodium and urine osmolality. 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 Patient and son-in-law both report he has frequent monitoring of A1c which is typically in the sevens. He seen by an gender studies professor at [facility]. He has a DEXAcom and insulin pump with settings as above. Both were removed upon admission. Accu-Cheks q.6 hours while NPO with moderate dose sliding scale insulin Lantus 15 units subQ daily initiated preop 06/07 and given at 9:30 a.m. that day his total daily dose of insulin is 34.3 units. [place] hypoglycemic protocol. As above. goal less than 200 mg/dL (6) Hypertension with heart disease: Code(s): I11.9 - Hypertensive heart disease without heart failure Status: Chronic Assessment and Plan: Chronic, stable BP 125/71, HR 81 Continue home dose Coreg as blood pressure allows. Avoid hypo a
--- NOTE | 2022-06-08 14:44 | WPDANESEPPF ---
Anes - Initial Pre Proc Eval Procedure: Operation Date: 06/08/22 16:00 Proposed Procedures p Right Intertrochanteric Nail - Naren Simpson MD Date/Time: 06/08/22 14:44 Surgeon: Leobardo Lawson MD Pre Op Diagnosis: Right sided intertrochanteric Fracture Patient Data Age: 76 Gender: M Height: 1.7 m Weight: 63.8 kg Last Vital Signs Temp 37.4 C 06/08/22 14:02 Pulse 81 06/08/22 14:02 Resp 16 06/08/22 14:02 BP 125/71 06/08/22 14:02 Pulse Ox 99 06/08/22 14:02 O2 Del Method Room Air 06/08/22 14:02 Allergies Allergy/AdvReac Type Severity Reaction Status Date / Time No Known Allergies Allergy Verified 06/08/22 13:59 Home Medications Medication Instructions Recorded Confirmed Type insulin lispro 100 unit/mL 100 unit subcut DAILY 04/30/19 06/06/22 History subcutaneous cartridge (Humalog U-100 Insulin) cyanocobalamin (vitamin B-12) 1,000 mcg PO DAILY 06/20/19 06/06/22 History 1,000 mcg capsule ascorbic acid (vitamin C) 500 mg 500 mg PO DAILY 09/07/19 06/06/22 History capsule aspirin 81 mg tablet,delayed 81 mg PO DAILY 09/07/19 06/06/22 History release (Adult Low Dose Aspirin) ferrous sulfate 324 mg (65 mg 324 mg PO DAILY 03/27/22 06/06/22 History iron) tablet,delayed release tamsulosin 0.4 mg capsule 0.4 mg PO DAILY #90 caps 04/13/22 06/06/22 Rx levothyroxine 125 mcg tablet 125 mcg PO DAILY #90 tabs 05/17/22 06/06/22 Rx amoxicillin 875 mg-potassium 1 tablet PO BID 06/06/22 06/06/22 History clavulanate 125 mg tablet atorvastatin 20 mg tablet 20 mg PO DAILY 06/06/22 06/06/22 History carvedilol 6.25 mg tablet (Coreg) 3.125 mg PO Q12HR 06/06/22 06/06/22 History finasteride 5 mg tablet 5 mg PO DAILY 06/06/22 06/06/22 History pantoprazole 40 mg tablet,delayed 40 mg PO DAILY 06/06/22 06/06/22 History release Laboratory Tests 06/07/22 06/07/22 06/08/22 14:16 17:21 00:03 WBC RBC Hgb Hct MCV MCH MCHC RDW Plt Count MPV Sodium Potassium Chloride Carbon Dioxide Anion Gap BUN Creatinine Estim Creat Clear Calc Estimated GFR Glucose POC Capillary Glucose 161 mg/dl H mg/dl 291 mg/dl H mg/dl (65-105) (65-105) Calcium Magnesium Beta-Hydroxybutyrate/Acetoacetate 1.49 mmol/L H mmol/L (0.02-0.27) 06/08/22 06/08/22 06/08/22 04:59 05:13 05:13 WBC 9.3 K/mm3 K/mm3 (4.5-10.0) RBC 3.00 M/mm3 L M/mm3 (4.6-6.20) Hgb 9.8 g/dL L g/dL (14.0-18.0) Hct 28.1 % L % (42.0-52.0) MCV 93.7 fl fl (80-100) MCH 32.7 pg pg (26-34) MCHC 34.9 g/dl g/dl (32-36) RDW 13.8 % % (11.5-14.5) Plt Count 202 k/mm3 k/mm3 (150-375) MPV 11.2 fl H fl (7.4-10.4) Sodium 128 mmol/L L mmol/L (137-145) Potassium 4.0 mmol/L mmol/L (3.4-5.0) Chloride 101 mmol/L mmol/L (98-107) Carbon Dioxide 17 mmol/L L mmol/L (22-30) Anion Gap 10 mmol/L mmol/L (8-16) BUN 15 mg/dL D mg/dL (9-20) Creatinine 0.80 mg/dL mg/dL (0.7-1.3) Estim Creat Clear Calc 60 ml/min ml/min Estimated GFR > 60 (59 - ) Glucose 273 mg/dL H mg/dL (65-110) POC Capillary Glucose 285 mg/dl H mg/dl (65-105) Calcium 7.7 mg/dL L mg/dL (8.4-10.2) Magnesium 1.7 mg/dL mg/dL (1.6-2.3) Beta-Hydroxybutyrate/Acetoacetate 06/08/22 06/08/22 08:09 12:10 WBC RBC Hgb Hct MCV MCH MCHC RDW Plt Count MPV Sodium Potassium Chloride Carbon Dioxide An
[2022-06-08] MEDS: ceFAZolin 2 GM/D5W 50 ML 2 GM/50 ML BAG IVPB ×2 (15:05→22:06)
--- NOTE | 2022-06-08 15:13 | W.PM.PROC2 ---
Procedure Note - Detailed Date of Procedure 06/08/22 Pre-op Diagnosis Right sided intertrochanteric Fracture Post-op Diagnosis Same Procedure Performed ORIF with cephalomedullary nail, right hip intertrochanteric fracture. Surgeon Naren Simpson MD Anesthesia General Findings Two part fracture; anatomic reduction with moderate distraction. Description of Procedure The patient was given a general anesthetic, then carefully placed in fracture table. Sterile prep and drape performed in the usual fashion. Sterile curtain was used. Gentle traction was utilized to reduce the fracture. Fluoroscopy was used to confirm anatomic reduction and a proper placement of the implants. A longitudinal incision was created at the tip of the trochanter. The deep fascia was incised. The cannulated awl was used to open the proximal femur. The guidewire was placed across the fracture. The reamer was used to open the canal. The gamma nail was placed across the fracture site. A separate incision was made for placement of the cannulated guide sleeve. The guide pin was placed in the center of the femoral head. Appropriate measurement was taken. The pin was over reamed. The screw was placed with excellent purchase. The set screw was placed proximally and backed out a quater turn. The distal locking screw was placed through the jig. The jig was removed. The wound was irrigated. The deep fascia was closed with #1 Vicryl suture followed by 2-0 Vicryl suture and chelsey. Sterile dressing was applied. The patient was transferred to the recovery room in stable condition. There were no complications. Implants The short gamma nail was used. 11 mm x 125 degree. Lag screw length was 100 millimeters. Locking screw 35 mm. Estimated Blood Loss 150 Urine Output 650 Drains No Pathology None sent Complications No immediate complications Condition Stable Disposition PACU [facility] Billing Surgery - Charge Forward: Surgery Billing
[2022-06-08] MEDS: fentaNYL CITRATE INJ (*CRX) 100 MCG/2 ML VIAL 25 MCG IV PUSH ×4 (16:40→16:59)
[2022-06-08 16:58] LABS: Glucose Point of Care 197 mg/dl (65-105)
[2022-06-08] MEDS: SENNA/DOCUSATE SODIUM TABLET 2 TAB PO (18:04)
[2022-06-08 18:13] LABS: Glucose Point of Care 191 mg/dl (65-105)
[2022-06-08 22:24] LABS: Glucose Point of Care 275 mg/dl (65-105)
[2022-06-09] VITALS (9 sets, daily range): BP systolic 100–134; BP diastolic 42–92; PULSE 62–81; RESP 16–18; TEMP 36.1–36.6; O2SAT 99–100
[2022-06-09] MEDS: ACETAMINOPHEN 500 MG TABLET 1000 MG PO ×4 (02:58→21:52)
[2022-06-09] MEDS: LEVOTHYROXINE SODIUM 125 MCG TABLET PO (05:38)
[2022-06-09] MEDS: ceFAZolin 2 GM/D5W 50 ML 2 GM/50 ML BAG IVPB ×2 (05:38→12:16)
[2022-06-09 06:33] LABS: Basophils Percent Auto 0.3 % (0.2-1.2); Hematocrit 28.6 % (42.0-52.0); Immature Granulocyte Absolute 0.15 K/mm3 (0.00-0.031); Immature Granulocyte Percent A 1.6 % (0-0.5); Lymphocytes Absolute Auto 0.86 K/mm3 (0.9-3.2); Mean Corpuscular Hemoglobin 31.7 pg (26-34); Mean Corpuscular Volume 90.8 fl (80-100); Mean Platelet Volume 11.3 fl (7.4-10.4); Monocytes Absolute Auto 0.6 K/mm3 (0.1-0.6); Monocytes Percent Auto 6.2 % (2.6-8.5); Neutrophils Absolute Auto 7.9 K/mm3 (1.3-6.7); Neutrophils Percent Auto 82.9 % (45.5-73.1); Platelet Count Result 207 k/mm3 (150-375); Red Blood Count 3.15 M/mm3 (4.6-6.20); Red Cell Distribution Width 13.3 % (11.5-14.5); White Blood Count 9.5 K/mm3 (4.5-10.0)
[2022-06-09 06:42] LABS: Anion Gap 7 mmol/L (8-16); Blood Urea Nitrogen 12 mg/dL (9-20); Calcium 7.8 mg/dL (8.4-10.2); Carbon Dioxide 21 mmol/L (22-30); Chloride 99 mmol/L (98-107); Estimated CRCL calculation 68 ml/min; Estimated Glomerular Filt Rate > 60; Glucose 352 mg/dL (65-110); Potassium 5.3 mmol/L (3.4-5.0); Sodium 127 mmol/L (137-145)
[2022-06-09 08:57] LABS: Glucose Point of Care 380 mg/dl (65-105)
[2022-06-09] MEDS: INSULIN ASPART (*BKC) 100 UNITS/ML SUB-Q ×2 (09:01→17:22)
[2022-06-09] MEDS: INSULIN GLARGINE (*BKC) 100 UNITS/ML 15 UNITS SUB-Q (09:04)
[2022-06-09] MEDS: TAMSULOSIN HCL 0.4 MG CAPSULE PO (09:07)
[2022-06-09] MEDS: FERROUS SULFATE 324 MG TABLET PO (09:08)
[2022-06-09] MEDS: AMOXICILLIN/CLAVULANATE K 875-125 MG TAB 1 TABLET PO ×2 (09:08→16:46)
[2022-06-09] MEDS: ASCORBIC ACID 500 MG TABLET PO (09:08)
[2022-06-09] MEDS: ATORVASTATIN 20 MG TABLET PO (09:08)
[2022-06-09] MEDS: FINASTERIDE 5 MG TABLET PO (09:08)
[2022-06-09] MEDS: carvediloL 3.125 MG TABLET PO ×2 (09:08→21:51)
[2022-06-09] MEDS: CYANOCOBALAMIN 1,000 MCG TABLET 1000 MCG PO (09:08)
[2022-06-09] MEDS: ASPIRIN 81 MG ENTERIC TABLET PO (09:08)
[2022-06-09] MEDS: PANTOPRAZOLE 40 MG TABLET PO (09:08)
[2022-06-09] MEDS: NYSTATIN 100,000 UNITS/ML SUSP 5 ML ORAL.SUSP PO ×4 (09:09→21:52)
[2022-06-09] MEDS: polyethylene glycoL 3350 17 GM POWD.PACK PO (09:09)
[2022-06-09] MEDS: ENOXAPARIN 40 MG/0.4 ML SYRINGE SUB-Q (09:09)
[2022-06-09] MEDS: SENNA/DOCUSATE SODIUM TABLET 2 TAB PO ×2 (09:12→16:49)
--- NOTE | 2022-06-09 09:35 | PM.PNORT ---
Progress Note: A&P Assessment and Plan (1) Closed intertrochanteric fracture: Qualifiers: Encounter type: initial encounter Fracture alignment: displaced Laterality: right Qualified Code(s): S72.141A - Displaced intertrochanteric fracture of right femur, initial encounter for closed fracture Code(s): S72.143A - Displaced intertrochanteric fracture of unspecified femur, initial encounter for closed fracture Status: Acute Assessment and Plan: POD #1: ORIF with cephalomedullary nail, right hip intertrochanteric fracture. Patient tolerated procedure well. No complications. Pain manageable with pain medication and improved since yesterday. No new numbness or tingling. He states he cannot feel below his knees but this is his baseline due to neuropathy. Patient will likely need to be discharged to SNF/rehab. Ortho instructions: D/C to SNF/rehab Xray in 4 weeks. f/u in office in 6 weeks if able. Wound Care: Remove chelsey at 2 weeks post op. Daily dressing changes with gauze and tape until healed. PT:Weight bearing as tolerated with a walker. DVT prophylaxis: continue Lovenox for 30 days total Pain medication: Tylenol. Subjective Subjective Date/Time Seen: 06/09/22 09:35 Interval history: Patient resting comfortably in bed. States his pain is improving. He can shift his body without severe pain today. No other complaints. States he does not have feeling below the knee. That is his baseline due to diabetic neuropathy. Review of Systems Review of Systems: All systems reviewed & are unremarkable except as noted in HPI and below Exam Narrative: Normal weight 76 y/o Male. Resting comfortably in bed. Wearing compression socks bilaterally. Dressing dry and intact with no drainage. Mild swelling. No Edema. No ecchymosis. No erythema. No hematoma. Range of motion limited due to pain. Calf nontender. Thigh nontender. No varicosities. Distal pulses palpable. Wiggles toes. Objective Data Vital Signs Vital Signs: Vital Signs - 24 hr 06/08/22 14:02 06/08/22 16:39 06/08/22 16:50 Temperature 99.4 F 97.8 F Pulse Rate 81 78 68 Respiratory Rate 16 17 13 Blood Pressure 125/71 115/62 131/62 Pulse Oximetry 99 100 100 Oxygen Delivery Room Air Simple Face Mask Simple Face Mask Oxygen Flow Rate 8 8 06/08/22 17:05 06/08/22 17:20 06/08/22 17:35 Temperature Pulse Rate 73 75 70 Respiratory Rate 17 17 12 Blood Pressure 122/56 L 121/57 L 119/58 L Pulse Oximetry 100 98 96 Oxygen Delivery Room Air Room Air Room Air Oxygen Flow Rate 06/08/22 18:15 06/08/22 18:00 06/08/22 18:45 Temperature 97.4 F L 97.0 F L 97.1 F L Pulse Rate 85 75 82 Respiratory Rate 14 16 16 Blood Pressure 145/60 H 120/52 L 125/58 L Pulse Oximetry 97 99 100 Oxygen Delivery Oxygen Flow Rate 06/08/22 19:32 06/08/22 21:53 06/08/22 23:16 Temperature 97.8 F 97.3 F L Pulse Rate 77 77 82 Respiratory Rate 18 17 Blood Pressure 115/51 L 112/40 L Pulse Oximetry 98 100 Oxygen Delivery Oxygen Flow Rate 06/09/22 03:45 06/09/22 07:45 06/09/22 08:35 Temperature 97.2 F L 97.6 F Pulse Rate 70 74 Respiratory Rate 18 18 Blood Pressure 114/51 L 133/66 Pulse Oximetry 100 99 Oxygen Delivery Room Air Oxygen Flow Rate 06/09/22 09:08 Temperature Pulse Rate 62 Respiratory Rate Blood Pressure Pulse Oximetry Oxygen Delivery Oxygen Flow Rate Intake/Output Intake/Output: Intake & Output 06/06/22 06/07/22 06/08/22 06/09/22 23:59 23:59 23:59 23:59 Intake Total 1370 3120 3940 548 Output Total 525 178 9887 750 Balance [facility] [phone] [phone] Meds/Results Medications: Active Medications Generic Name Dose Route Start Last Admin Trade Name Jose Alejandroq PRN Reason Stop Dose Admin Acetaminophen 1,000 mg 06/08/22 20:00 06/09/22 09:09 Acetaminophen 500 Mg Tablet PO 1,000 mg Q6H ILIANA Administration Amoxicillin/Clavulanate Potassium 1 tablet 06/06/22 18:30 06/09/22 09:08
--- NOTE | 2022-06-09 10:52 | PM.IMPN ---
Progress Note: A&P Assessment and Plan (1) Closed intertrochanteric fracture: Qualifiers: Encounter type: initial encounter Fracture alignment: displaced Laterality: right Qualified Code(s): S72.141A - Displaced intertrochanteric fracture of right femur, initial encounter for closed fracture Code(s): S72.143A - Displaced intertrochanteric fracture of unspecified femur, initial encounter for closed fracture Status: Acute Assessment and Plan: Postop right ORIF day 1. Continue pain control with IV analgesics DVT prophylaxis with Lovenox Ortho following patient and appreciate their recommendations and input. PT/OT working with patient Per patient's son, will be placed at SNF upon discharge. (2) Hyperglycemia: Code(s): R73.9 - Hyperglycemia, unspecified Status: Acute Assessment and Plan: Patient had insulin pump removed by family upon admission. Lantus increased from 15 units to 20 units. Patient is eating again and sugars have been elevated in the 300s postoperatively. Patient on high-dose sliding scale (3) Thrush: Code(s): B37.0 - Candidal stomatitis Status: Acute Assessment and Plan: Secondary to chronic antibiotics for right foot wound and osteomyelitis. Initiate nystatin swish and swallow q.i.d. x 7 days. Improving. (4) Hyponatremia: Code(s): E87.1 - Hypo-osmolality and hyponatremia Status: Acute Assessment and Plan: Sodium 127, glucose 380 at that time. Adjusted sodium 134 and mildly low. Patient tolerating diet well and fluids dc. Monitor I&Os. 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 Patient and son-in-law both report he has frequent monitoring of A1c which is typically in the sevens. He seen by an crabbing machine operator at [facility]. He has a DEXAcom and insulin pump. Patient's insulin pump dosing was reported by family to be 1.1 units/hour 6:00 a.m. to 12:00 a.m. and 1 unit/hour 12:00 a.m. to 2 6:00 a.m. his bolus dosing is 3.5 units at breakfast, 0 units at lunch, and 5 units at dinner for a total daily dose of 34.3 units per day.? Both were removed upon admission. Accu-Cheks ACHS patient's Lantus increased to 20 units from 15 due to hyperglycemia NovoLog high-dose sliding scale Goal less than 200 mg/dL (6) Hypertension with heart disease: Code(s): I11.9 - Hypertensive heart disease without heart failure Status: Chronic Assessment and Plan: Chronic, stable BP 133/66, HR 88 Continue home dose Coreg as blood pressure allows. Avoid hypo and hypertension postop Stable. (7) CAD (coronary artery disease): Qualifiers: Associated angina: without angina Coronary Disease-Associated Artery/Lesion type: bypass graft [place] vs. transplanted heart: [place] heart Qualified Code(s): I25.810 - Atherosclerosis of coronary artery bypass graft(s) without angina pectoris Code(s): I25.10 - Atherosclerotic heart disease of [place] coronary artery without angina pectoris Status: Chronic Assessment and Plan: Chronic, stable. patient has history of 5 vessel CABG several years ago. Continue home medications Coreg and statin, Hold aspirin preop and resume when okay by surgery (8) Hypothyroidism: Qualifiers: Hypothyroidism type: unspecified Qualified Code(s): E03.9 - Hypothyroidism, unspecified Code(s): E03.9 - Hypothyroidism, unspecified Status: Chronic Assessment and Plan: Chronic, stable TSH 1.77 Continue with levothyroxine at home dose (9) Hyperlipidemia: Qualifiers: Hyperlipidemia type: mixed hyperlipidemia Qualified Code(s): E78.2 - Mixed hyperlipidemia Code(s): E78.5 - Hyperlipidemia, unspecifi
--- NOTE | 2022-06-09 12:02 | WPDANESPN ---
Anes - Prog Note Post-Op Date/Time: 06/09/22 12:02 Cardiovascular status: normal Respiratory status: normal Airway patency: baseline Mental status: baseline Post-Op hydration status: normal Vital Signs: Last Vital Signs Temp 36.4 C 06/09/22 07:45 Pulse 62 06/09/22 09:08 Resp 18 06/09/22 07:45 BP 133/66 06/09/22 07:45 Pulse Ox 99 06/09/22 07:45 O2 Del Method Room Air 06/09/22 08:35 O2 Flow Rate 8 06/08/22 16:50 Pain Score (VAS): Minimal pain at rest, 6-7/10 with movement I/O: Intake & Output 06/08/22 06/09/22 06/09/22 23:59 07:59 15:59 Intake Total 8875 648 6480 Output Total 180 750 Balance 1110 -580 1378 Laboratory Tests 06/09/22 05:15 06/09/22 05:15 06/08/22 06/08/22 06/08/22 12:10 16:56 17:59 WBC RBC Hgb Hct MCV MCH MCHC RDW Plt Count MPV Immature Gran % (Auto) Neut % (Auto) Lymph % (Auto) [place] % (Auto) Eos % (Auto) Baso % (Auto) Lymph # (Auto) [place] # (Auto) Eos # (Auto) Baso # (Auto) Abs Immat Gran (auto) Absolute Neuts (auto) Absolute Nucleated RBC Nucleated RBC % Sodium Potassium Chloride Carbon Dioxide Anion Gap BUN Creatinine Estim Creat Clear Calc Estimated GFR Glucose POC Capillary Glucose 230 H 197 H 191 H Calcium 06/08/22 06/09/22 06/09/22 21:47 05:15 05:15 WBC 9.5 RBC 3.15 L Hgb 10.0 L Hct 28.6 L MCV 90.8 MCH 31.7 MCHC 35.0 RDW 13.3 Plt Count 207 MPV 11.3 H Immature Gran % (Auto) 1.6 H Neut % (Auto) 82.9 H Lymph % (Auto) 9.0 L [place] % (Auto) 6.2 Eos % (Auto) 0.0 Baso % (Auto) 0.3 Lymph # (Auto) 0.86 L [place] # (Auto) 0.6 Eos # (Auto) 0.0 Baso # (Auto) 0.0 Abs Immat Gran (auto) 0.15 H Absolute Neuts (auto) 7.9 H Absolute Nucleated RBC 0.0 Nucleated RBC % 0.0 Sodium 127 L Potassium 5.3 H Chloride 99 Carbon Dioxide 21 L Anion Gap 7 L BUN 12 Creatinine 0.70 Estim Creat Clear Calc 68 Estimated GFR > 60 Glucose 352 H POC Capillary Glucose 275 H Calcium 7.8 L 06/09/22 08:53 WBC RBC Hgb Hct MCV MCH MCHC RDW Plt Count MPV Immature Gran % (Auto) Neut % (Auto) Lymph % (Auto) [place] % (Auto) Eos % (Auto) Baso % (Auto) Lymph # (Auto) [place] # (Auto) Eos # (Auto) Baso # (Auto) Abs Immat Gran (auto) Absolute Neuts (auto) Absolute Nucleated RBC Nucleated RBC % Sodium Potassium Chloride Carbon Dioxide Anion Gap BUN Creatinine Estim Creat Clear Calc Estimated GFR Glucose POC Capillary Glucose 380 H Calcium Microbiology 06/06/22 15:06 Foot Right Wound Culture - Final Post-procedural complaints: none Patient Feedback: Patient satisfied with anesthetic care.
[2022-06-09] MEDS: INSULIN ASPART (*BKC) 100 UNITS/ML 15 UNITS SUB-Q (12:12)
[2022-06-09 12:13] LABS: Glucose Point of Care 422 mg/dl (65-105)
[2022-06-09] MEDS: SILVERGEL (ELTA) 45 ML 1 APPLIC TOPICAL (12:19)
[2022-06-09 14:18] LABS: Glucose Point of Care 370 mg/dl (65-105)
[2022-06-09 15:35] LABS: Creatinine Urine 32.8 mg/dL
[2022-06-09 15:42] LABS: Sodium Urine Random 66 meq/L
[2022-06-09 17:19] LABS: Glucose Point of Care 294 mg/dl (65-105)
[2022-06-09 23:01] LABS: Glucose Point of Care 232 mg/dl (65-105)
[2022-06-10] VITALS (10 sets, daily range): BP systolic 73–127; BP diastolic 38–95; PULSE 67–105; RESP 16–18; TEMP 36.5–36.9; O2SAT 99–100
[2022-06-10] MEDS: oxyCODONE HCL (*CRX) 5 MG TAB IR PO ×2 (01:12→08:50)
[2022-06-10] MEDS: ACETAMINOPHEN 500 MG TABLET 1000 MG PO ×3 (01:12→13:42)
[2022-06-10 06:13] LABS: Hematocrit 27.5 % (42.0-52.0); Hemoglobin 9.7 g/dL (14.0-18.0); Mean Corpuscular HGB Conc 35.3 g/dl (32-36); Mean Corpuscular Hemoglobin 31.4 pg (26-34); Mean Platelet Volume 11.4 fl (7.4-10.4); Platelet Count Result 237 k/mm3 (150-375); Red Blood Count 3.09 M/mm3 (4.6-6.20); Red Cell Distribution Width 13.2 % (11.5-14.5); White Blood Count 7.4 K/mm3 (4.5-10.0)
[2022-06-10 06:23] LABS: Anion Gap 1 mmol/L (8-16); Blood Urea Nitrogen 11 mg/dL (9-20); Calcium 7.7 mg/dL (8.4-10.2); Carbon Dioxide 27 mmol/L (22-30); Chloride 100 mmol/L (98-107); Estimated CRCL calculation 68 ml/min; Estimated Glomerular Filt Rate > 60; Glucose 235 mg/dL (65-110); Potassium 3.5 mmol/L (3.4-5.0); Sodium 128 mmol/L (137-145)
[2022-06-10] MEDS: LEVOTHYROXINE SODIUM 125 MCG TABLET PO (06:23)
[2022-06-10] MEDS: INSULIN ASPART (*BKC) 100 UNITS/ML SUB-Q ×3 (08:51→17:36)
[2022-06-10] MEDS: ENOXAPARIN 40 MG/0.4 ML SYRINGE SUB-Q (08:52)
[2022-06-10] MEDS: TAMSULOSIN HCL 0.4 MG CAPSULE PO (08:52)
[2022-06-10] MEDS: SILVERGEL (ELTA) 45 ML 1 APPLIC TOPICAL (08:52)
[2022-06-10] MEDS: NYSTATIN 100,000 UNITS/ML SUSP 5 ML ORAL.SUSP PO ×3 (08:52→17:38)
[2022-06-10] MEDS: FERROUS SULFATE 324 MG TABLET PO (08:52)
[2022-06-10] MEDS: ASPIRIN 81 MG ENTERIC TABLET PO (08:52)
[2022-06-10] MEDS: carvediloL 3.125 MG TABLET PO (08:53)
[2022-06-10] MEDS: CYANOCOBALAMIN 1,000 MCG TABLET 1000 MCG PO (08:53)
[2022-06-10] MEDS: ASCORBIC ACID 500 MG TABLET PO (08:53)
[2022-06-10] MEDS: AMOXICILLIN/CLAVULANATE K 875-125 MG TAB 1 TABLET PO ×2 (08:53→17:38)
[2022-06-10] MEDS: polyethylene glycoL 3350 17 GM POWD.PACK PO (08:54)
[2022-06-10] MEDS: ATORVASTATIN 20 MG TABLET PO (08:54)
[2022-06-10] MEDS: PANTOPRAZOLE 40 MG TABLET PO (08:54)
[2022-06-10] MEDS: FINASTERIDE 5 MG TABLET PO (08:54)
[2022-06-10 08:56] LABS: Glucose Point of Care 271 mg/dl (65-105)
[2022-06-10] MEDS: SENNA/DOCUSATE SODIUM TABLET 2 TAB PO ×2 (08:56→17:39)
[2022-06-10] MEDS: INSULIN GLARGINE (*BKC) 100 UNITS/ML 20 UNITS SUB-Q (08:56)
--- NOTE | 2022-06-10 10:43 | PM.DS ---
DS: Admitting Diagnosis Discharge Date 06/30/2022 Admitting Diagnosis Fall, right hip fracture DS: Discharge Diagnosis Discharge Diagnosis (1) Closed intertrochanteric fracture: Qualifiers: Encounter type: initial encounter Fracture alignment: displaced Laterality: right Qualified Code(s): S72.141A - Displaced intertrochanteric fracture of right femur, initial encounter for closed fracture Code(s): S72.143A - Displaced intertrochanteric fracture of unspecified femur, initial encounter for closed fracture Status: Acute (2) Hyperglycemia: Code(s): R73.9 - Hyperglycemia, unspecified Status: Acute (3) Thrush: Code(s): B37.0 - Candidal stomatitis Status: Acute (4) Hyponatremia: Code(s): E87.1 - Hypo-osmolality and hyponatremia Status: Acute (5) 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 transplanted heart: [place] heart Qualified Code(s): I25.810 - Atherosclerosis of coronary artery bypass graft(s) without angina pectoris Code(s): I25.10 - Atherosclerotic heart disease of [place] coronary artery without angina pectoris Status: Chronic (8) Hypothyroidism: Qualifiers: Hypothyroidism type: unspecified Qualified Code(s): E03.9 - Hypothyroidism, unspecified Code(s): E03.9 - Hypothyroidism, unspecified Status: Chronic (9) Hyperlipidemia: Qualifiers: Hyperlipidemia type: mixed hyperlipidemia Qualified Code(s): E78.2 - Mixed hyperlipidemia Code(s): E78.5 - Hyperlipidemia, unspecified Status: Chronic (10) Open wnd foot-complicated: Qualifiers: Encounter type: sequela Laterality: right Qualified Code(s): S91.301S - Unspecified open wound, right foot, sequela Code(s): S91.309A - Unspecified open wound, unspecified foot, initial encounter Status: Chronic (11) BPH (benign prostatic hyperplasia): Qualifiers: Lower urinary tract symptom presence: symptoms absent Qualified Code(s): N40.0 - Benign prostatic hyperplasia without lower urinary tract symptoms Code(s): N40.0 - Benign prostatic hyperplasia without lower urinary tract symptoms Status: Chronic Plan Code status: DNR Disposition: Inpatient Discharge destination: To be determined, patient will likely need SNF rehab DS: Summary Hospital Course Reason for hospitalization: Fall, right hip fracture Hospital Course: 68-year-old male with history of diabetes, hypothyroidism, hypertension, neuropathy, and chronic foot ulcer with osteomyelitis. Patient arrived to the ER on 06/06/2022 due to a fall. Patient was found on the floor and was unsure why he had fallen or if he had loss consciousness. Head CT was negative for acute intracranial process. Chest x-ray did not reveal any acute cardiopulmonary process. X-rays of the hips revealed right-sided intertrochanteric fracture. Orthopedics was consulted. Patient was given IV analgesics for pain control. Patient is scheduled for surgical repair on 06/07/2022. Patient having pain postop but this is been managed with oral medication. Orthopedist putting patient on Tylenol outpatient. Patient working with PT and OT. Patient put on DVT prophylaxis during his stay. Patient came in with insulin pump and it was removed upon admission per family's request. Patient started on Lantus and NovoLog and was adjusted accordingly due to NPO and regular diet status changes. Patient has chronic osteomyelitis in his right foot and has been ta
[2022-06-10 12:35] LABS: Glucose Point of Care 264 mg/dl (65-105)
[2022-06-10] MEDS: SODIUM CHLORIDE 0.9% IV 500 ML 999 ML IV CONT (15:56)
--- NOTE | 2022-06-10 16:03 | PM.PNORT ---
Progress Note: A&P Assessment and Plan (1) Closed intertrochanteric fracture: Qualifiers: Encounter type: initial encounter Fracture alignment: displaced Laterality: right Qualified Code(s): S72.141A - Displaced intertrochanteric fracture of right femur, initial encounter for closed fracture Code(s): S72.143A - Displaced intertrochanteric fracture of unspecified femur, initial encounter for closed fracture Status: Acute Assessment and Plan: POD #2: ORIF with cephalomedullary nail, right hip intertrochanteric fracture. Patient tolerated procedure well. No complications. Pain manageable, worse with activity. Oxyodone helped. Limit narcotics due to confusion. No new numbness or tingling. He states he cannot feel below his knees but this is his baseline due to neuropathy. Patient will likely need to be discharged to SNF/rehab. Spoke with family. Answered all questions. Ortho instructions: D/C to SNF/rehab Xray in 4 weeks. f/u in office in 6 weeks if able. Wound Care: Remove chelsey at 2 weeks post op. Daily dressing changes with gauze and tape until healed. PT:Weight bearing as tolerated with a walker. DVT prophylaxis: continue Lovenox for 30 days total Pain medication: Tylenol. Oxycodone. Subjective Subjective Date/Time Seen: 06/10/22 16:03 Interval history: Patient resting comfortably in bed. Notes pain with motion. No pain at rest. Patient has moments of confusion. Family at bedside. No numbness or tingling. No other complaints. Review of Systems Review of Systems: All systems reviewed & are unremarkable except as noted in HPI and below Exam Narrative: Normal weight 76 y/o Male. Resting comfortably in bed. Wearing compression socks bilaterally. Dressing dry and intact with no drainage. Mild swelling. No Edema. No ecchymosis. No erythema. No hematoma. Range of motion limited due to pain. Calf nontender. Thigh nontender. No varicosities. Distal pulses palpable. Wiggles toes. Objective Data Vital Signs Vital Signs: Vital Signs - 24 hr 06/09/22 19:45 06/09/22 21:51 06/09/22 23:16 Temperature 97.8 F 97.8 F Pulse Rate 71 71 76 Respiratory Rate 18 18 Blood Pressure 134/92 H 100/60 Pulse Oximetry 100 100 Oxygen Delivery 06/09/22 21:50 06/10/22 04:13 06/10/22 08:53 Temperature 98.5 F Pulse Rate 67 82 Respiratory Rate 17 Blood Pressure 110/55 L Pulse Oximetry 99 Oxygen Delivery Room Air 06/10/22 08:53 06/10/22 11:05 06/10/22 12:05 Temperature 97.7 F Pulse Rate 75 68 Respiratory Rate 16 Blood Pressure 105/53 L 112/48 L Pulse Oximetry 100 Oxygen Delivery Room Air 06/10/22 12:08 06/10/22 12:15 06/10/22 13:54 Temperature 98.0 F Pulse Rate 79 100 77 Respiratory Rate 18 Blood Pressure 80/38 L 73/49 L 107/49 L Pulse Oximetry 99 Oxygen Delivery Intake/Output Intake/Output: Intake & Output 06/07/22 06/08/22 06/09/22 06/10/22 23:59 23:59 23:59 23:59 Intake Total 3120 3940 2318 1160 Output Total 865 2230 2350 1000 Balance 2255 1710 -32 160 Meds/Results Medications: Active Medications Generic Name Dose Route Start Last Admin Trade Name Trista PRN Reason Stop Dose Admin Acetaminophen 1,000 mg 06/08/22 20:00 06/10/22 13:42 Acetaminophen 500 Mg Tablet PO 1,000 mg Q6H ILIANA Administration Amoxicillin/Clavulanate Potassium 1 tablet 06/06/22 18:30 06/10/22 08:53 Amoxicillin/Clavulanate K 875-125 Mg Tab PO 1 tablet BID ILIANA Administration Ascorbic Acid 500 mg 06/07/22 09:00 06/10/22 08:53 Ascorbic Acid 500 Mg Tablet PO 500 mg DAILY ILIANA Administration Aspirin 81 mg 06/07/22 09:00 06/10/22 08:52 Aspirin 81 Mg Enteric Tablet PO 81 mg DAILY ILIANA Administration Atorvastatin Calcium 20 mg 06/07/22 09:00 06/10/22 08:54 Atorvastatin 20 Mg Tablet PO 20 mg DAILY ILIANA Administration Carvedilol 3.125 mg 06/06/22 21:00 06/10/22 08:53 Carvedilol 3.125 Mg Tablet PO
[2022-06-10 17:28] LABS: Glucose Point of Care 206 mg/dl (65-105)
[2022-06-12 20:06] LABS: Osmolality, Urine 560 mOsm/kg (50-1200)
== END 2022-06-10 18:45 | DRG 481 ==
LOC: ANHED 14:02 → ANH2MED 15:46
PROVIDERS: Nurse Practitioner; Nurse Practitioner Family; Orthopaedic Surgery; Physician Assistant Surgical; Admitting Provider Internal Medicine; Emergency Provider Emergency Medicine; PCP Internal Medicine; Visit Provider Internal Medicine Critical Care Medicine
PROC: 0QS636Z Reposition Right Upper Femur with Intramedullary Internal Fixation Device, Percutaneous Approach (ICD-10-PCS; CPT 27245; principal; 2022-06-08 16:00)
DX: S72.141A Displaced intertrochanteric fracture of right femur, initial encounter for closed fracture (principal); B37.0 Candidal stomatitis; E87.1 Hypo-osmolality and hyponatremia; T36.95XA Adverse effect of unspecified systemic antibiotic, initial encounter; Z20.822 Contact with and (suspected) exposure to COVID-19; I25.10 Atherosclerotic heart disease of native coronary artery without angina pectoris; N40.0 Benign prostatic hyperplasia without lower urinary tract symptoms; E11.42 Type 2 diabetes mellitus with diabetic polyneuropathy; E11.621 Type 2 diabetes mellitus with foot ulcer; L97.519 Non-pressure chronic ulcer of other part of right foot with unspecified severity; E78.5 Hyperlipidemia, unspecified; E03.9 Hypothyroidism, unspecified; I10 Essential (primary) hypertension; E11.51 Type 2 diabetes mellitus with diabetic peripheral angiopathy without gangrene; I73.9 Peripheral vascular disease, unspecified; E11.65 Type 2 diabetes mellitus with hyperglycemia; S50.312A Abrasion of left elbow, initial encounter; S50.812A Abrasion of left forearm, initial encounter; W19.XXXA Unspecified fall, initial encounter; D50.9 Iron deficiency anemia, unspecified; K21.9 Gastro-esophageal reflux disease without esophagitis; I25.5 Ischemic cardiomyopathy; Z89.421 Acquired absence of other right toe(s); Z89.422 Acquired absence of other left toe(s); Z86.73 Personal history of transient ischemic attack (TIA), and cerebral infarction without residual deficits; I25.2 Old myocardial infarction; Z95.1 Presence of aortocoronary bypass graft; Z79.82 Long term (current) use of aspirin; Z79.4 Long term (current) use of insulin
CPT/HCPCS: 36415; 70450; 71045; 73502; 80048; 80053; 81001; 82010; 82550; 82570; 82948; 83036; 83605; 83735; 83935; 84300; 84443; 85025; 85027; 87040; 87070; 87205; 87636; 93005; 96361; 96374; 97110; 97161; 97166; 97530; 97535; 99199; 99285; A9270; C1713; C1769; J0690; J1100; J1170; J1650; J1815; J2405; J2704; J3010; J7030; J7040; J7120